=== PATIENT | female | born 1940 | race Caucasian/White ===

== ENCOUNTER → 2017-03-27 14:10 | Outpatient (CLI) | payer MEDICARE, SELFPAY ==
--- NOTE | 2017-03-27 14:14 | HPBI_ITS ---
MAMMOGRAPHY - BILATERAL SCREENING REASON FOR EXAM: Female, 76 years old. Routine annual screening examination. PERTINENT HISTORY: Sister with breast cancer. TECHNIQUE: Digital bilateral breast divine (3D mammographic acquisition) in the CC and MLO projections. 2-D mediolateral oblique (MLO) and craniocaudad (CC) views of both breasts were obtained. CAD: Full Field Digital Mammography with Computer Added Detection was performed. COMPARISON: Comparison is made with prior study dated March 09, 2016 and September 10, 2014. FINDINGS: Breast Composition: There are scattered areas of fibroglandular density. There are no dominant masses or suspicious calcifications. Stable benign appearing bilateral axillary lymph nodes. No other significant abnormalities are identified. There has been no significant change since the prior study. HPBI/SCREENING MAMM (CAD), BILAT IMPRESSION: Stable bilateral screening mammogram. Yearly follow-up mammogram recommended. (A) ASSESSMENT CATEGORY: BIRADS Category 2: Benign. A letter regarding these results will be sent to the patient by the facility within 30 days. Approximately 10% of breast cancers are not detected by mammography. A normal mammogram should not delay biopsy of a clinically suspicious abnormality. [id number] Electronically Signed: Tito Leach MD at 9:39 EST Tel [phone], Service support ,
== END ==
PROVIDERS: Family Provider Family Medicine; PCP Family Medicine; Visit Provider Family Medicine
DX: Z12.31 Encounter for screening mammogram for malignant neoplasm of breast (principal)
CPT/HCPCS: 77063; 77067

== ENCOUNTER → 2017-06-06 11:13 | Outpatient (CLI) | payer MEDICARE, SELFPAY ==
--- NOTE | 2017-06-06 11:18 | RAD_ITS ---
STUDY: X-RAY - LEFT FOOT CLINICAL: Female, 77 years old. Swelling of the left foot following injury. TECHNIQUE: 3 view(s) of the foot. COMPARISON: None. FINDINGS: There is a plantar calcaneal spur. Normal visualized subtalar, talonavicular, calcaneocuboid, tarsal and tarsometatarsal articulations. 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 There is degenerative arthrosis of the metatarsophalangeal joint of the hallux . Normal tibial and fibular sesamoid bones. Normal interphalangeal joint of the great toe. Normal phalanges of the great toe. Normal second through fifth metatarsophalangeal joints. Normal interphalangeal joints and phalanges of the lesser toes. Diffuse soft tissue swelling worse along the dorsal aspect of the foot. RAD/Foot min 3 Views IMPRESSION: Diffuse soft tissue swelling. No acute fracture is seen. Electronically Signed: Tito Leach MD at 11:53 EDT Tel [phone], Service support ,
== END ==
PROVIDERS: Family Provider Family Medicine; PCP Family Medicine; Visit Provider Family Medicine
DX: M25.475 Effusion, left foot (principal)
CPT/HCPCS: 73630

== ENCOUNTER → 2017-07-17 09:59 | Outpatient (CLI) | payer MEDICARE, SELFPAY ==
[2017-07-17 12:45] LABS: Hemoglobin A1c 8.5 % (4.2-6.3)
[2017-07-17 12:58] LABS: AST(SGOT) 14 U/L (15-37); Alanine Aminotransfer ALT/SGPT 18 U/L (13-56); Albumin, Serum 3.3 g/dL (3.2-5.0); Alkaline Phosphatase 65 U/L (45-117); Anion Gap 10 (5-15); BUN 19 mg/dL (7-18); BUN/Creat Ratio 19.8 RATIO (10-20); Bilirubin, Direct < 0.05 mg/dL (0.00-0.30); Calcium,Total 8.7 mg/dL (8.5-10.1); Chloride 110 mmol/L (98-107); Cholesterol 212 mg/dL (200); Creatinine, Serum 0.96 mg/dL (0.55-1.02); EST Glomerular Filtration Rate 60 mL/min (>60); Est Glom Filt Rate - Afr Amer 73 mL/min (>60); Globulin 3.9 g/dL (2.2-4.2); Glucose 181 mg/dL (74-106); High Density Lipoprotein 39 mg/dL; Potassium 4.1 mmol/L (3.5-5.1); Protein, Total 7.2 g/dL (6.4-8.2); Sodium Level 141 mmol/L (136-145); Triglycerides 509 mg/dL
== END ==
PROVIDERS: Family Provider Family Medicine; PCP Family Medicine; Visit Provider Family Medicine
DX: E11.9 Type 2 diabetes mellitus without complications (principal)
CPT/HCPCS: 36415; 80048; 80061; 80076; 83036

== ENCOUNTER → 2018-05-05 07:04 | Outpatient (CLI) | payer MEDICARE, SELFPAY ==
--- NOTE | 2018-05-05 07:09 | BI_ITS ---
MAMMOGRAPHY - BILATERAL SCREENING REASON FOR EXAM: Female, 78 years old. Routine annual screening examination. PERTINENT HISTORY: Sister with breast cancer. TECHNIQUE: Digital bilateral breast divine (3D mammographic acquisition) in the CC and MLO projections. 2-D mediolateral oblique (MLO) and craniocaudad (CC) views of both breasts were obtained. CAD: Full Field Digital Mammography with Computer Added Detection was performed. COMPARISON: Comparison is made with prior study dated March 27, 2017 and March 09, 2016. FINDINGS: Breast Composition: There are scattered areas of fibroglandular density. There are no dominant masses or suspicious calcifications. Stable benign-appearing bilateral axillary lymph nodes. No other significant abnormalities are identified. There has been no significant change since the prior study. BI/SCREENING MAMM (CAD), BILAT IMPRESSION: Stable bilateral screening mammogram. Yearly follow-up mammogram recommended. (A) ASSESSMENT CATEGORY: BIRADS Category 2: Benign. A letter regarding these results will be sent to the patient by the facility within 30 days. Approximately 10% of breast cancers are not detected by mammography. A normal mammogram should not delay biopsy of a clinically suspicious abnormality. [id number] Electronically Signed: Tito Leach, at 11:07 EDT , Service support ,
== END ==
PROVIDERS: Family Provider Family Medicine; PCP Family Medicine; Referring Provider Family Medicine; Visit Provider Family Medicine
DX: Z12.31 Encounter for screening mammogram for malignant neoplasm of breast (principal)
CPT/HCPCS: 77063; 77067

== ENCOUNTER → 2018-08-05 12:26 | Outpatient (CLI) | payer MEDICARE, SELFPAY ==
[2018-08-05 15:27] LABS: Absolute Lymphocyte Count 2.87 X10^3/ul (0.83-4.51); Absolute Neutrophil Count 7.1 X10^3/uL (2.0-7.7); Basophil# 0.03 X10^3/uL; Basophil% 0.3 % (0-1); Eosinophil# 0.26 X10^3/uL; Eosinophils% 2.3 % (0-5); Hematocrit 39.5 % (37-47); Hemoglobin 12.7 g/dl (12.0-15.0); Lymphocyte # 2.87 X10^3/ul (4.0); Lymphocyte % 25.8 % (19-41); Mean Corp Hgb Conc 32.2 g/gl (32-36); Mean Corpuscular Hgb 31.2 pg (27.0-32.0); Mean Corpuscular Volume 97.1 fL (81-99); Mean Platelet Vol. 11.6 fl (6.2-12.0); Monocyte# 0.88 X10^3/uL; Monocyte% 7.9 % (0-10); Neutrophil # 7.05 X10^3/uL (2.7-7.7); Neutrophil % 63.4 % (47-70); Platelet Count 231 K/mm3 (150-450); RBC Distribution Width CV 13.8 % (11.6-14.6); RBC Distribution Width SD 47.6 fl (35.1-43.9); Red Blood Count 4.07 M/mm3 (4.2-5.4); White Blood Count 11.1 K/mm3 (4.4-11.0)
[2018-08-05 15:34] LABS: POSITIVE COUNT NO; POSITIVE DIFFERENTIAL NO; POSITIVE MORPHOLOGY NO
[2018-08-05 15:57] LABS: AST(SGOT) 10 U/L (15-37); Alanine Aminotransfer ALT/SGPT 20 U/L (13-56); Albumin, Serum 3.6 g/dL (3.2-5.0); Alkaline Phosphatase 78 U/L (45-117); Anion Gap 8 (5-15); BUN 22 mg/dL (7-18); Chloride 112 mmol/L (98-107); Creatinine, Serum 1.05 mg/dL (0.55-1.02); EST Glomerular Filtration Rate 54 mL/min (>60); Est Glom Filt Rate - Afr Amer 66 mL/min (>60); Globulin 3.5 g/dL (2.2-4.2); Glucose 109 mg/dL (74-106); Potassium 4.4 mmol/L (3.5-5.1); Protein, Total 7.1 g/dL (6.4-8.2); Sodium Level 140 mmol/L (136-145); Thyroid Stim Hormone (TSH) 2.69 uIU/mL (0.358-3.74)
== END ==
PROVIDERS: Family Provider Family Medicine; PCP Family Medicine; Referring Provider Family Medicine; Visit Provider Family Medicine
DX: F32.9 Major depressive disorder, single episode, unspecified (principal)
CPT/HCPCS: 36415; 80053; 83036; 84443; 85025

== ENCOUNTER → 2018-12-24 09:32 | Outpatient (CLI) | payer MEDICARE, SELFPAY ==
--- NOTE | 2018-12-24 09:38 | RAD_ITS ---
STUDY: X-RAY - LEFT ANKLE REASON FOR EXAM: Female, 78 years old. Pain following a fall. TECHNIQUE: 3 view(s) of the ankle. COMPARISON: None. FINDINGS: Normal visualized distal tibia and fibula. Normal medial and lateral malleoli. Normal tibiotalar articulation and ankle mortise. Plantar spur. The visualized subtalar, talonavicular, calcaneocuboid and tarsal articulations are normal. Diffuse soft tissue swelling. RAD/Ankle min 3 Views IMPRESSION: Diffuse soft tissue swelling. Plantar spur. Electronically Signed: Tito Leach, at 10:21 EDT , Service support ,
--- NOTE | 2018-12-24 09:38 | RAD_ITS ---
STUDY: X-RAY - LEFT FOOT CLINICAL: Female, 78 years old. Swelling and bruising following a fall. TECHNIQUE: 3 view(s) of the foot. COMPARISON: None. FINDINGS: There is a plantar calcaneal spur. Normal visualized subtalar, talonavicular, calcaneocuboid, tarsal and tarsometatarsal articulations. Nondisplaced oblique fracture of the distal shaft of the fifth metatarsal. There is degenerative arthrosis of the metatarsophalangeal joint of the hallux with a hallux valgus deformity. Normal tibial and fibular sesamoid bones. Normal interphalangeal joint of the great toe. Normal phalanges of the great toe. Normal second through fifth metatarsophalangeal joints. Normal interphalangeal joints and phalanges of the lesser toes. There is non-specific soft tissue swelling of the foot. RAD/Foot min 3 Views IMPRESSION: Nondisplaced oblique fracture of the distal shaft of the fifth metatarsal with overlying soft tissue swelling. Plantar spur. Electronically Signed: Tito Leach, at 10:21 EDT , Service support ,
== END ==
PROVIDERS: Family Provider Family Medicine; PCP Family Medicine; Referring Provider Family Medicine; Visit Provider Family Medicine
DX: S93.409A Sprain of unspecified ligament of unspecified ankle, initial encounter (principal); M79.672 Pain in left foot
CPT/HCPCS: 73610; 73630

== ENCOUNTER → 2019-01-09 12:45 | Outpatient (CLI) | payer MEDICARE, SELFPAY ==
--- NOTE | 2019-01-09 12:50 | CT_ITS ---
STUDY: CT LEFT FOOT REASON FOR EXAM: Female, 78 years old. Fall onto steps at the end of November, pain RADIATION DOSAGE (If Supplied By Facility): CTDIvol = ( 15.35 ) mGy, DLP = ( 430.52 ) mGycm TECHNIQUE: Thin section transaxial imaging of the foot was obtained, with sagittal and coronal reconstructed images. Individualized dose optimization techniques were used for this CT. COMPARISON: 12/24/2018 FINDINGS: Normal talus, calcaneus, and tarsal bones. Normal visualized tibiotalar, subtalar, talonavicular, calcaneocuboid, tarsal and tarsometatarsal articulations. Redemonstration of obliquely oriented distal third metatarsal fracture without significant dense bridging bone. There is minimal fluffy early bridging bone along the medial aspect (CT image 66). There continues to be mild displacement measuring approximately 3 mm. No additional fractures seen. Degenerative changes with hallux valgus and small bunion of the first MTP joint. Mild arthrosis of the tibial and fibular sesamoid bones. Normal interphalangeal joint of the great toe. Normal phalanges of the great toe. Normal second through fifth metatarsophalangeal joints. Normal interphalangeal joints and phalanges of the lesser toes. The soft tissue structures are unremarkable. CT/Extremity Lower without Contra IMPRESSION: Very early healing of fifth metatarsal fracture. No change in alignment. Electronically Signed: Ramirez Montes MD ([place]) at 12:44 EST , Service support ,
--- NOTE | 2019-01-09 13:10 | ART_ITS ---
Reason For Study: other specified vascular diseases Procedure A bilateral lower extremity continuous wave Doppler with analog waveform analysis,segmental pressures,and ankle brachial indexes without exercise. Left Segmental Pressures Left brachial= 145mmHg. Left posterior tibial artery = 155mmHg. Left dorsalis pedis artery = 145mmHg. Left digit = 109 mmHg. The left dorsalis pedis waveforms are triphasic. The left posterior tibial artery waveforms are triphasic. Right Segmental Pressures Right brachial= 142mmHg. Right posterior tibial artery = 151mmHg. Right dorsalis pedis artery = 139mmHg. Right digit = 108 mmHg. The right dorsalis pedis waveforms are triphasic. The right posterior tibial artery waveforms are triphasic. Indices The right ankle brachial index by the dorsalis pedis is .96. The right ankle brachial index by the posterior tibial artery is 1.04. The right digital-brachial index is .74. The left ankle brachial index by the dorsalis pedis is 1.0. The left ankle brachial index by the posterior tibial artery is 1.07. The left digital-brachial index is .75. Interpretation Summary Triphasic Doppler waveforms are noted at ankle level bilaterally. Pulse-volume recording waveform amplitudes are diminished at ankle and digital levels on the left. Resting ankle-brachial indices are normal bilaterally. Digital-brachial indices are normal bilaterally. There is no evidence of significant arterial occlusive disease in the lower extremities bilaterally. Ordering Physician: Jean Bowman Performed By: ALMA RIVERA T
== END ==
PROVIDERS: Family Provider Family Medicine; PCP Family Medicine; Referring Provider Podiatrist Foot & Ankle Surgery; Visit Provider Podiatrist Foot & Ankle Surgery
DX: I73.89 Other specified peripheral vascular diseases (principal); I87.2 Venous insufficiency (chronic) (peripheral); S92.352A Displaced fracture of fifth metatarsal bone, left foot, initial encounter for closed fracture
CPT/HCPCS: 73700; 93923

== ENCOUNTER 2019-01-13 10:49 | Day surgery (SDC) | payer MEDICARE, SELFPAY ==
--- NOTE | 2019-01-01 10:06 | RAD_ITS ---
STUDY: X-RAY CHEST REASON FOR EXAM: Female, 78 years old. Preoperative evaluation. TECHNIQUE: PA and lateral views of the chest. COMPARISON: None. FINDINGS: Scattered calcified granulomas. There is no demonstrated pleural abnormality. Normal size heart. There are calcified mediastinal lymph nodes. Normal visualized pulmonary arteries. There is atherosclerotic tortuosity of the aortic arch and descending thoracic aorta. There are diffuse degenerative changes of the visualized thoracic spine. Normal visualized ribs, clavicles, and shoulders. There is no demonstrated abnormality of the visualized soft tissue structures of the upper abdomen. RAD/Chest PA and Lateral IMPRESSION: No acute abnormality is seen. Electronically Signed: Tito Leach, at 11:24 EST , Service support ,
--- NOTE | 2019-01-01 10:09 | EKG12_ITS ---
Test Reason : PREOP Blood Pressure : / mmHG Vent. Rate : 077 BPM Atrial Rate : 077 BPM P-R Int : 134 ms QRS Dur : 080 ms QT Int : 382 ms P-R-T Axes : 023 011 063 degrees QTc Int : 432 ms Normal sinus rhythm Normal ECG Confirmed by KEITH BAUMAN, YASMINE ([id number]), film or videotape editor LOAN HAN ([id number]) on 01/06/2019 2:50:03 PM Referred By: Jean Bowman Confirmed By:YASMINE PARKER MD
[2019-01-01 10:31] LABS: Absolute Lymphocyte Count 2.47 X10^3/uL (0.83-4.51); Absolute Neutrophil Count 5.6 X10^3/uL (2.0-7.7); Basophil# 0.05 X10^3/uL; Basophil% 0.5 % (0-1); Eosinophil# 0.45 X10^3/uL; Eosinophils% 4.8 % (0-5); Hematocrit 34.1 % (37-47); Hemoglobin 10.6 g/dL (12.0-15.0); Lymphocyte # 2.47 X10^3/ul (4.0); Lymphocyte % 26.4 % (19-41); Mean Corp Hgb Conc 31.1 g/dL (32-36); Mean Corpuscular Hgb 31.8 pg (27.0-32.0); Mean Corpuscular Volume 102.4 fL (81-99); Mean Platelet Vol. 10.2 fl (6.2-12.0); Monocyte# 0.76 X10^3/uL; Monocyte% 8.1 % (0-10); NRBC Flagged by Analyzer 0 % (0-5); Neutrophil # 5.61 X10^3/uL (2.7-7.7); Neutrophil % 59.9 % (47-70); Platelet Count 267 K/mm3 (150-450); RBC Distribution Width CV 12.8 % (11.6-14.6); RBC Distribution Width SD 48.4 fl (35.1-43.9); Red Blood Count 3.33 M/mm3 (4.2-5.4); White Blood Count 9.4 K/mm3 (4.4-11.0)
[2019-01-01 11:00] LABS: Anion Gap 12 (5-15); BUN 19 mg/dL (7-18); BUN/Creat Ratio 17.6 RATIO (10-20); Calcium,Total 8.8 mg/dL (8.5-10.1); Chloride 110 mmol/L (98-107); Creatinine, Serum 1.08 mg/dL (0.55-1.02); EST Glomerular Filtration Rate 52 mL/min (>60); Est Glom Filt Rate - Afr Amer 63 mL/min (>60); Glucose 153 mg/dL (74-106); Potassium 3.6 mmol/L (3.5-5.1); Sodium Level 143 mmol/L (136-145)
[2019-01-01 11:04] LABS: International Normalized Ratio 1.1; Partial Thromboplast Time 30.2 Seconds (24.1-36.2); Prothrombin Time (Protime)PT. 13.8 SECONDS (11.7-14.9)
[2019-01-01 11:06] LABS: Hemoglobin A1c 7.8 % (4.2-6.3)
[2019-01-13 11:25] LABS: Bedside Glucose 151 mg/dL (70-110)
[2019-01-13 11:34] VITALS: BP 132/58; PULSE 80; RESP 15; TEMP 36.8; O2SAT 99; BMI 35.6
[2019-01-13] MEDS: Lactated Ringers 1,000 ML 100 ML IV (11:44)
--- NOTE | 2019-01-13 12:30 | RAD_ITS ---
STUDY: X-RAY - LEFT FOOT CLINICAL: Female, 78 years old. ORIF TECHNIQUE: 17 intraoperative fluoroscopic view(s) of the foot. COMPARISON: None. FINDINGS: Fluoroscopy was provided during open reduction and internal fixation of the left fifth metatarsal. Correlation with the operative report is recommended. RAD/Foot min 3 Views IMPRESSION: As above Electronically Signed: Juan Carlos Perry, at 14:54 EST Tel , Service support ,
[2019-01-13] MEDS: Cefazolin 2 GM in 0.9% Normal Saline 100 ML IV (12:32)
[2019-01-13] MEDS: Bupivacaine Mpf 0.5% 30 ML VIAL (13:00)
[2019-01-13 14:28] VITALS: BP 132/58; BP 160/75; PULSE 93; RESP 17; TEMP 36.9
--- NOTE | 2019-01-13 14:44 | RAD_ITS ---
STUDY: X-RAY - LEFT FOOT CLINICAL: Female, 78 years old. Postop fifth metatarsal TECHNIQUE: 3 view(s) of the foot. COMPARISON: 12/24/2018 FINDINGS: There are postsurgical changes from open reduction and internal fixation of the left fifth metatarsal. The hardware is intact and alignment is satisfactory. There is no new fracture or dislocation. RAD/Foot min 3 Views IMPRESSION: Postsurgical changes from open reduction and internal fixation of the left fifth metatarsal. Electronically Signed: Juan Carlos Perry, at 15:33 EST Tel , Service support ,
[2019-01-13 14:45] VITALS: BP 132/58; BP 154/70; PULSE 83; RESP 14; O2SAT 92
[2019-01-13 15:00] VITALS: BP 132/58; BP 151/76; PULSE 79; RESP 14; TEMP 36.1; O2SAT 100
[2019-01-13 15:30] VITALS: BP 132/58
--- NOTE | 2019-01-13 17:20 | OP.PCM_ITS ---
Problem List (1) Displaced fracture of fifth metatarsal bone, left foot, initial encounter for closed fracture Status: Acute Report of Operation Date of Procedure: 01/13/19 Pre-Operative Diagnosis: Left foot fifth metatarsal fracture, displaced, closed Post-Operative Diagnosis: Left foot fifth metatarsal fracture, displaced, closed Surgery/Procedure Performed:: Left foot fifth metatarsal fracture open reduction with internal fixation Description of Surgical Findings:: Consistent with diagnosis. Reduction of deformity achieved and held with internal fixation. Type of Anesthesia:: General/Regional - General with a lateral ankle block given consisting of 17 cc of 0.5 % Marcaine plain distributed lateral ankle block and fifth ray block fashion Anesthesiologist: Tony Richard Special Medications: 17 cc of 0.5 % Marcaine plain distributed in a lateral ankle block fashion. Specimen's removed: None Drains: None Estimated Blood Loss (mL): Less than Description of Procedure: Pathology: None Hemostasis: Pneumatic calf tourniquet placed at the level of the left calf at 250 mmHg for 60 minutes Estimated blood loss: Less than 5 mL Materials 1.) Cashton 4 hole metatarsal plates 2.) Lorraine 2.5 x 10 mm nonlo cking screwx2. 3.) Lorraine 2.4x10mm locking screw 4.) Cashton 2.4x8mm locking screw 5.) 3-0 vicryl 6.) 4-0 monocryl 7.) 3-0 nylon Injectables: None Complications: None Condition: Stable Indications: The patient is a 78-year-old female with multiple core morbidities who suffered a slip and fall going up the stairs at her home on December 22. The next day she was unable to bear weight onto her left foot and followed up with her primary care doctor. At that time x-rays were taken and patient was told that she had a metatarsal fracture. She was then sent for follow-up. Patient then presented to my office on December 30 for follow-up. Multiple discussions were had with the patient about her activities of daily living. 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 Conservative and surgical interventions were discussed with the patient. Patient decided upon surgical intervention. At that time, I ordered a CT scan to evaluate for any further fractures along with a vascular arterial flow study due to her nonpalpable pulses. Furthermore patient was sent for medical clearance by her primary care doctor. Blood flow study came back normal and the CT scan showed only the one fracture that was identified on x-ray. Operative Report: Before the patient was brought to the operating room, all the risks, benefits, possible outcomes, possible complications of the procedure were discussed with the patient. All the patient questions were answered to her satisfaction and all of her concerns were addressed. No guarantees were made as to the outcome of the procedure. Patient understood all aspects of the procedure and consent was then signed by the patient. Patient was then brought to the operating room and placed on the operating table in the supine position. After timeout, under general anesthesia, a well-padded pneumatic calf tourniquet was placed to the level of the left calf. Next the left foot, ankle, leg were then scrubbed, prepped, draped in the usual sterile manner. Attention was then directed to the dorsal lateral aspect of the left foot near the fifth metatarsal. At this time live radiographic evaluation was used to determine the length of the fracture. The fracture was identified to start at the midshaft of the fifth metatarsal extending distally to the metatarsal head. These areas were then marked on the patient. At this time the left foot ankle leg were then elevated and exsanguinated via Esmarch and inflation of the pneumatic calf tourniquet was performed to 250 mmHg. Attention was then directed to the markings on the dorsal lateral aspect of the left fifth metatarsal. At this time a #15 blade was used to perform a linear longitudinal incision starting on the dorsal lateral aspect of the midshaft of the fifth metatarsal extending distally to the dorsal lateral aspect of the fifth metatarsal head. This incision was deepened utilizing sharp and blunt dissection. Care was taken to retract all vital neural and vascular structures. All bleeders were cauterized and ligated as necessary. At this time blunt dissection was continued down deep to the level of the periosteum. At this time a linear periosteal incision was made in line with the original skin incision. The periosteal capsular structures were then reflected medially and laterally thus exposing the fifth metatarsal and the fracture at the operative site. At this time temporary reduction of the fracture was performed via clamps. Radiographic evaluation was then performed and the temporary reduction clamps were noted to hold the fifth metatarsal in the correct the reduced position. At this time 2 K wires were driven in a dorsal medial to plantar lateral aspect to the fifth metatarsal as perpendicular to the fracture site as possible. Radiographic evaluation was then performed to determine the exact length and positioning of the K wires. Once adequate position was performed, these K wires were then measured. At this time to 2 Cashton 2.5 nonlocking screws were placed over the K wires and inserted in standard AO fixation. Of note during insertion of the screws with adequate compression of the fracture fragments. Furthermore no shifting of any of the fragments occurred during insertion of the screws. Once the screws were fully inserted the K wires and bone clamps were then removed. Radiographic evaluation was then performed and the interfragmentary screws were noted to hold the fifth metatarsal in the correct the reduced position. At this time the Cashton 4 hole plate was placed over the dorsal lateral aspect of the fifth metatarsal to aid in the protection of the internal fixation. These were then held utilizing locking screws. Radiographic evaluation was then performed during insertion of the screws to make sure the screws were neither too long or too short. Once all screws were fully inserted, radiograph evaluations were performed once again. The internal fixation was noted to hold the fifth metatarsal and the corrected reduced position. At this time the surgical site was then irrigated with copious amounts of normal sterile saline. The periosteal capsular structures were reapproximated coapted utilizing 3-0 Vicryl. The subcutaneous tissue was reapproximated coapted utilizing 4-0 Monocryl. The skin was reapproximated coapted utilizing 3-0 nylon in a horizontal mattress and simple interrupted fashion. At this time the pneumatic calf tourniquet was then released and a prompt hyperemic response was noted to the entirety of the left lower extremity. The surgical site was then dressed with Betadine soaked gauze, and a dry sterile dressing consisting of 4 x 4 gauze wrapped with Kerlix. Next a stockinette was placed over the left foot, ankle and leg. Cast padding was wrapped in the metatarsal heads extending proximally to a level just distal to the tibial tuberosity. A posterior splint was fashioned to the left lower extremity and was adhered to the left lower extremity utilizing Delmer bandages. The foot and ankle held in neutral position as the posterior splint dried. The patient tolerated the anesthesia procedure well and was transported to the PACU with vital signs stable and neurovascular status intact left lower extremity. After period of postoperative monitoring the patient be discharged home with written and oral instructions for wound care and follow-up. - Admit VTE Documentation VTE Present on Admission: No
== END 2019-01-13 15:53 | disposition home or self-care (01) ==
LOC: SDC 10:50 → AC 10:53
PROVIDERS: Family Provider Family Medicine; PCP Family Medicine; Referring Provider Podiatrist Foot & Ankle Surgery; Visit Provider Podiatrist Foot & Ankle Surgery
PROC: (CPT 28485; principal; 2019-01-13 12:15)
DX: S92.352A Displaced fracture of fifth metatarsal bone, left foot, initial encounter for closed fracture (principal); W10.9XXA Fall (on) (from) unspecified stairs and steps, initial encounter; I10 Essential (primary) hypertension; E11.9 Type 2 diabetes mellitus without complications; E78.00 Pure hypercholesterolemia, unspecified; Z87.891 Personal history of nicotine dependence; E66.9 Obesity, unspecified; Z68.39 Body mass index [BMI] 39.0-39.9, adult; R60.9 Edema, unspecified
CPT/HCPCS: 28485; 36415; 71046; 73630; 76000; 80048; 82962; 83036; 85025; 85610; 85730; 93005; C1713; J7120; J2405

== ENCOUNTER → 2019-09-02 09:09 | Outpatient (CLI) | payer MEDICARE, SELFPAY ==
[2019-09-02 09:14] LABS: Mucous, Urine 0 SEEN /hpf (<or=2+)
[2019-09-02 10:29] LABS: Color, Urine Yellow (Yellow); Glucose, Dipstick Normal (Normal); Ketone-Dipstick Negative (Negative); Leukocyte Esterase-Dipstick 500 /ul (Negative); Nitrite-Dipstick Positive (Negative); Occult Blood-Urine 25 /ul (Negative); Protein-Dipstick 15 mg/dl (Negative); Specific Gravity, Urine 1.015 (1.002-1.030); Urine Bilirubin Dipstick Negative (Negative); Urine Clarity Sl. Cloudy (Clear); Urine Urobilinogen Normal (Normal)
[2019-09-02 10:34] LABS: Bacteria 2+ /hpf (None Seen); Red Blood Cells-Urine 0-5 SEEN /hpf (0-5); Squamous Epithelial Cells - UA 0-5 SEEN /hpf (5-10); White Blood Cells 25-50 SEEN /hpf (0-5)
== END ==
PROVIDERS: PCP Family Medicine; Visit Provider Family Medicine
DX: R32 Unspecified urinary incontinence (principal)
CPT/HCPCS: 81001

== ENCOUNTER → 2019-09-25 09:25 | Outpatient (CLI) | payer MEDICARE, SELFPAY | PROVIDERS: PCP Family Medicine; Referring Provider Family Medicine; Visit Provider Family Medicine | DX: R32 Unspecified urinary incontinence (principal) | CPT/HCPCS: 87086; 87088 ==

== ENCOUNTER 2020-01-02 09:18 | Emergency (ER) | payer MEDICARE, SELFPAY ==
[2020-01-02] VITALS (14 sets, daily range): BP systolic 72–224; BP diastolic 29–89; PULSE 94–147; RESP 12–44; TEMP 37–37.9; O2SAT 92–98; BMI 35.2
--- NOTE | 2020-01-02 09:25 | RAD_ITS ---
STUDY: X-RAY CHEST REASON FOR EXAM: Female, 79 years old. increased weakness, fever, low blood pressure TECHNIQUE: Single AP portable view of the chest. COMPARISON: 01/01/2019 FINDINGS: The lungs are clear and expanded. There is no demonstrated pleural abnormality. Normal size heart. Normal mediastinum and laura. Normal visualized pulmonary arteries. Normal visualized aortic arch and descending thoracic aorta. Normal visualized thoracic spine. Normal visualized ribs, clavicles, and shoulders. There is no demonstrated abnormality of the visualized soft tissue structures of the upper abdomen. RAD/Chest 1 View (Portable) IMPRESSION: Normal x-ray examination of the chest. Electronically Signed: Chris Conley MD at 10:37 EST Tel , Service support ,
--- NOTE | 2020-01-02 09:25 | EKG12_ITS ---
Test Reason : WEAKNESS Blood Pressure : / mmHG Vent. Rate : 113 BPM Atrial Rate : 113 BPM P-R Int : 148 ms QRS Dur : 076 ms QT Int : 364 ms P-R-T Axes : 036 006 049 degrees QTc Int : 499 ms Sinus tachycardia Possible Inferior infarct , age undetermined Abnormal ECG Confirmed by FRAN BAUMAN, BRANDON ([id number]), script editor LOAN HAN ([id number]) on 01/04/2020 2:19:01 PM Referred By: BB Confirmed By:BRANDON PETERS MD
--- NOTE | 2020-01-02 09:29 | CT_ITS ---
STUDY: CT BRAIN WITHOUT CONTRAST REASON FOR EXAM: Female, 79 years old. INCREASED WEAKNESS, FEVER RADIATION DOSAGE (If Supplied By Facility): CTDIvol = ( 44.99 ) mGy, DLP = ( 745.49 ) mGycm TECHNIQUE: Transaxial CT imaging of the brain was performed without administration of intravenous contrast material. Individualized dose optimization techniques were used for this CT. COMPARISON: No relevant priors. FINDINGS: Normal soft tissue structures. There is hyperostosis frontalis internus. There is mild cerebral atrophy with widening of the extra-axial spaces and ventricular dilatation. There are areas of decreased attenuation within the white matter tracts of the supratentorial brain, consistent with microvascular disease changes. Normal basal ganglia and thalami. Normal brainstem. Normal cerebellum. There is no intracranial hemorrhage. There are no findings of an acute ischemic infarction. Normal visualized paranasal sinuses. CT/Brain/Head without Contrast IMPRESSION: Chronic involutional changes of the brain. Electronically Signed: Chris Conley MD at 10:36 EST Tel , Service support ,
--- NOTE | 2020-01-02 09:29 | ED.DCSUM_ITS ---
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 disoriented. no other focal sx. Narrative: Patient was with her , who called for a possible stroke. She was disoriented upon EMS arrival but hypotensive and febrile with no focal neurologic deficits. Patient states the last time she got really sick like this, she ended up having kidney stones bilateral that were surgically removed. She does not have any pain in her abdomen or back at this time, nor she has she had any urinary symptoms. She had a bout of diarrhea yesterday, and other than the disorientation has no other symptoms focally except for feeling weak all over. Patient presents during the national coronavirus emergency declaration/pandemic. She denies any known contact with anyone infected with COVID-19, or being infected with COVID-19 that she knows of. She denies traveling out of the immediate area recently. - Past Medical History (1) Type 2 diabetes mellitus Status: Chronic (2) Hypertension Status: Chronic (3) Hyperlipidemia Status: Chronic Past Medical History - Allergies and Home Meds Allergies/Adverse Reactions: Allergies No Known Allergies Allergy (Verified 01/02/20 11:05) Primary Care Physician: Lorelei Herrera MD [Primary Care Provider] - Lives: Spouse/ Significant Other Smoking Status: Former smoker Review of Systems General: Reports: Malaise. Denies: Chills, Fever - Subjectively patient denies feeling febrile, Sweats Eyes: Denies: Visual changes - bilaterally, Diplopia ENT: Denies: Rhinorrhea, Sore throat Cardiovascular: Denies: Chest pain, Palpitations Respiratory: Denies: Dyspnea, Cough, Dyspnea on exertion Gastrointestinal: Reports: Diarrhea. Denies: Abdominal pain, Nausea, Vomiting, Melena, Hematochezia Genitourinary: Denies: Dysuria, Hematuria, Frequency Musculoskeletal: Denies: Myalgias, Back pain, Swelling, Extremity Pain Skin: Denies: Rash, Wounds Neurological: Denies: Headache, Weakness, Numbness Physical Exam Vital Signs/Narrative: Vital Signs Temp Pulse Resp BP Pulse Ox 01/02/20 09:27 100.1 F H 119 H 40 H 72/29 L 94 01/02/20 09:20 100.1 F H 122 H 25 H 72/29 L 94 Inital Vital Signs reviewed: Yes General: Well nourished, Well developed, Obese, No Acute Distress Head: Normocephalic, Atraumatic Eyes: Perrl, EOMI ENT: Moist mucous membranes, No rhinorrhea Neck: Supple, Nontender, No lymphadenopathy Cardiovascular: Regular rate, Regular rhythm, No murmurs, Tachycardia Respiratory: No distress, CTA bilaterally, Chest nontender Abdomen: Soft, Nontender, Nondistended, Normal bowel sounds Back: Nontender, Normal Inspection Extremities: Nontender, No edema. Negative for: Calf Tenderness Skin: Normal color, No rash, No Trauma Neurological: Alert, Cranial nerves II-XII grossly intact, Normal Strength, Normal Sensation, Disoriented - 2-year but oriented to the month and day and person/place Psychological: Normal affect, Normal Mood Diagnostic/Tx/Re-eval Impressions Chest X-Ray 01/02/20 09:25 IMPRESSION: Normal x-ray examination of the chest. Electronically Signed: Chris Conley MD at 10:37 EST Tel , Service support , Brain CT 01/02/20 09:29 IMPRESSION: Chronic involutional changes of the brain. Electronically Signed: Chris Conley MD at 10:36 EST Tel , Service support , Abdomen/Pelvis CT 01/02/20 10:23 IMPRESSION: 8 mm obstructing stone at the left ureteropelvic junction with moderate hydronephrosis and perinephric edema. Perinephric edema surrounding both kidneys which may represent superimposed pyelonephritis. Electronically Signed: Chris Conley MD at 10:52 EST Tel , Service support , 01/02/20 09:25 Chest 1 View (Portable) [RAD] Stat 01/02/20 09:29 CT Brain [Brain/Head without Contrast] [CT] Stat 01/02/20 10:23 CT Abd [Abdomen/Pelvis without Cont] [CT] Stat 01/02/20 15:24 Chest 1 View (Portable) [RAD] Stat Laboratory Results 01/02/20 01/02/20 01/02/20 09:30 09:30 09:30 WBC 32.0 H* RBC 4.23 Hgb 13.2 Hct 42.4 MCV 100.2 H MCH 31.2 MCHC 31.1 L RDW Std Deviation 48.7 H RDW Coeff of Дмитрий 13.2 Plt Count 190 MPV 11.2 Immature Gran % (Auto) 2.400 H Neut % (Auto) 93.4 H Lymph % (Auto) 2.2 L Laporte % (Auto) 1.7 Eos % (Auto) 0.1 Baso % (Auto) 0.2 Absolute Neuts (auto) 29.8 H Absolute Lymphs (auto) 0.71 L Nucleated RBC % 0.2 Differential Comment SCANNED Diff Path Review June foll PT 15.8 H INR 1.3 APTT 31.1 Sodium 144 Potassium 3.4 L Chloride 112 H Carbon Dioxide 16.0 L Anion Gap 16 H BUN 33 H Creatinine 2.60 H Estim Creat Clear Calc 13.67 Est GFR (MDRD) Af Amer 23 L Est GFR (MDRD) Non-Af 19 L BUN/Creatinine Ratio 12.7 Glucose 255 H Lactic Acid Calcium 8.7 Total Bilirubin 0.30 AST 14 L ALT 12 L Alkaline Phosphatase 88 Troponin I 0.725 H* Total Protein 6.9 Albumin 2.8 L Globulin 4.1 Albumin/Globulin Ratio 0.7 L Urine Color Urine Clarity Urine pH Ur Specific [place] Urine Protein Urine Glucose (UA) Urine Ketones Urine Occult Blood Urine Nitrite Urine Bilirubin Urine Urobilinogen Ur Leukocyte Esterase Urine RBC Urine WBC Ur Squamous Epith Cells Amorphous Sediment Urine Bacteria Urine Mucus COVID-19 (DANTE) 01/02/20 01/02/20 01/02/20 09:30 09:35 09:40 WBC RBC Hgb Hct MCV MCH MCHC RDW Std Deviation RDW Coeff of Дмитрий Plt Count MPV Immature Gran % (Auto) Neut % (Auto) Lymph % (Auto) Laporte % (Auto) Eos % (Auto) Baso % (Auto) Absolute Neuts (auto) Absolute Lymphs (auto) Nucleated RBC % Differential Comment Diff Path Review PT INR APTT Sodium Potassium Chloride Carbon Dioxide Anion Gap BUN Creatinine Estim Creat Clear Calc Est GFR (MDRD) Af Amer Est GFR (MDRD) Non-Af BUN/Creatinine Ratio Glucose Lactic Acid 9.9 H* Calcium Total Bilirubin AST ALT Alkaline Phosphatase Troponin I Total Protein Albumin Globulin Albumin/Globulin Ratio Urine Color Yellow Urine Clarity Cloudy Urine pH 5.0 Ur Specific [place] 1.015 Urine Protein 30 H Urine Glucose (UA) Normal Urine Ketones 5 H Urine Occult Blood 150 H Urine Nitrite Negative Urine Bilirubin Negative Urine Urobilinogen Normal Ur Leukocyte Esterase Negative Urine RBC 0-5 SEEN Urine WBC 0 SEEN Ur Squamous Epith Cells 0 SEEN Amorphous Sediment 1+ Urine Bacteria 3+ Urine Mucus 0 SEEN COVID-19 (DANTE) Not Detected 01/02/20 01/02/20 14:10 14:10 WBC RBC Hgb Hct MCV MCH MCHC RDW Std Deviation RDW Coeff of Дмитрий Plt Count MPV Immature Gran % (Auto) Neut % (Auto) Lymph % (Auto) Lap[place] % (Auto) Eos % (Auto) Baso % (Auto) Absolute Neuts (auto) Absolute Lymphs (auto) Nucleated RBC % Differential Comment Diff Path Review PT INR APTT Sodium Potassium Chloride Carbon Dioxide Anion Gap BUN Creatinine Estim Creat Clear Calc Est GFR (MDRD) Af Amer Est GFR (MDRD) Non-Af BUN/Creatinine Ratio Glucose Lactic Acid 6.8 H* Calcium Total Bilirubin AST ALT Alkaline Phosphatase Troponin I 0.566 H Total Protein Albumin Globulin Albumin/Globulin Ratio Urine Color Urine Clarity Urine pH Ur Specific [place] Urine Protein Urine Glucose (UA) Urine Ketones Urine Occult Blood Urine Nitrite Urine Bilirubin Urine Urobilinogen Ur Leukocyte Esterase Urine RBC Urine WBC Ur Squamous Epith Cells Amorphous Sediment Urine Bacteria Urine Mucus COVID-19 (DANTE) - Rhythm Strip Rhythm Strip: Sinus Tach Rate: 113 Ectopy: None - EKG Initial EKG Interpretation: No Acute Injury Pattern, Sinus Tachycardia - Medical Decision Making Patient's appearance and exam and vital signs are consistent with sepsis. Her work-up is also consistent with that although she does not have an obvious source based on the ancillaries, however since this was the case I performed a CT of the abdomen/pelvis, which again shows an asymptomatic obstructive uropathy with an 8 mm proximal left ureteral stone with associated hydronephrosis, indicating that it is very likely acute, along with bilateral perirenal inflammatory changes suspicious for pyelonephritis. She was given IV Rocephin empirically after cultures were obtained. 30 cc/kg IV fluid bolus was given, he r blood pressures/MAPs slowly increased, we do not have urology coverage this weekend, therefore since the patient may need an urgent/emergent percutaneous nephrostomy, she will require transfer. After discussing with her and the family, they first chose [facility] but they do not have the capacity for this patient at this time due to having no available bed. Therefore I discussed with alondra Downey, and Dr. Marcus accepts the patient there. He request that we place a central line prior to transfer in case they need to start pressors when she arrives. I attempted this at the right subclavian site after obtaining informed consent from the patient and family, however it was unsuccessful and during the procedure, her pressure kobe to 106/70 which is the highest it has been. Since the subclavian artery was hit and not dilated, and the patient has been feeling better, it was thought best to abort and avoid the central line, and I feel she is safe to be transferred emergently at this time. Prior to discharge, repeat tissue perfusion evaluation was performed. Patient is perfusing well with palpable distal pulses, warm distal extremities, with brisk cap refill. She is mentating normally now and no longer disoriented, she is conversing with myself and staff and feeling much better. - Critical Care Time Critical care time (excluding procedures): 30-74 minutes, Including time spent:, Discussing w/Patient &/or Family/Blending Tank Tender, Discussing w/Consultants, Arranging Admission or Transfer, Performing Direct Patient Care at Bedside Procedures Procedure(s): Central line placement --the right subclavian vein site was prepped, patient draped in a sterile fashion, sterile technique was used. Multiple attempts to find the subclavian vein, there is a very narrow window of dark nonpulsatile blood aspiration indicating that the vessel was either very small or very hypovolemic. Upon trying to insert a wire several times, there was resistance and the patient was able to feel this each time, couple times she felt a going up her neck, so each of these times further attempts to feed the wire was aborted until I could reposition the needle. I attempted several different angles and areas, and was unsuccessful, the final time obtaining pulsatile bright red blood, so the needle was withdrawn immediately and pressure was held for 30 seconds, and there was no further bleeding. Chest x-ray obtained afterwards showed no pneumothorax. ED Disposition - Plan for ED Patient: Disposition: [facility] Diagnosis: Septic shock, Obstructive uropathy, KATHRYN (acute kidney injury), Elevated troponin Referrals: Lorelei Herrera MD [Primary Care Provider] -
[2020-01-02] MEDS: 0.9% Normal Saline 1,000 ML 999 ML IV (09:31)
[2020-01-02] MEDS: Acetaminophen 500 MG Tablet 1000 MG PO ×2 (09:44→15:53)
[2020-01-02 09:47] LABS: Absolute Lymphocyte Count 0.71 X10^3/uL (0.83-4.51); Absolute Neutrophil Count 29.8 X10^3/uL (2.0-7.7); Basophil# 0.06 X10^3/uL; Basophil% 0.2 % (0-1); Eosinophil# 0.03 X10^3/uL; Eosinophils% 0.1 % (0-5); Hematocrit 42.4 % (37-47); Hemoglobin 13.2 g/dL (12.0-15.0); Lymphocyte # 0.71 X10^3/ul (4.0); Lymphocyte % 2.2 % (19-41); Mean Corp Hgb Conc 31.1 g/dL (32-36); Mean Corpuscular Hgb 31.2 pg (27.0-32.0); Mean Corpuscular Volume 100.2 fL (81-99); Mean Platelet Vol. 11.2 fl (6.2-12.0); Monocyte# 0.54 X10^3/uL; Monocyte% 1.7 % (0-10); NRBC Flagged by Analyzer 0.2 % (0-5); Neutrophil # 29.83 X10^3/uL (2.7-7.7); Neutrophil % 93.4 % (47-70); POSITIVE COUNT YES; POSITIVE DIFFERENTIAL YES; POSITIVE MORPHOLOGY YES; Platelet Count 190 K/mm3 (150-450); RBC Distribution Width CV 13.2 % (11.6-14.6); RBC Distribution Width SD 48.7 fl (35.1-43.9); Red Blood Count 4.23 M/mm3 (4.2-5.4)
[2020-01-02 09:58] LABS: Differential Indicated SCAN CRITERIA MET
[2020-01-02 10:07] LABS: International Normalized Ratio 1.3; Prothrombin Time (Protime)PT. 15.8 SECONDS (11.7-14.9)
[2020-01-02 10:08] LABS: Partial Thromboplast Time 31.1 Seconds (24.1-36.2)
[2020-01-02 10:13] LABS: ALB/GLOB Ratio 0.7 RATIO (0.9-2.4); AST(SGOT) 14 U/L (15-37); Alanine Aminotransfer ALT/SGPT 12 U/L (13-56); Albumin, Serum 2.8 g/dL (3.2-5.0); Alkaline Phosphatase 88 U/L (45-117); Anion Gap 16 (5-15); BUN 33 mg/dL (7-18); BUN/Creat Ratio 12.7 RATIO (10-20); Calcium,Total 8.7 mg/dL (8.5-10.1); Chloride 112 mmol/L (98-107); EST Glomerular Filtration Rate 19 mL/min (>60); Est Glom Filt Rate - Afr Amer 23 mL/min (>60); Estimated Creatinine Clearance 13.67 ml/min; Globulin 4.1 g/dL (2.2-4.2); Glucose 255 mg/dL (74-106); Potassium 3.4 mmol/L (3.5-5.1); Protein, Total 6.9 g/dL (6.4-8.2); Sodium Level 144 mmol/L (136-145)
[2020-01-02 10:13] LABS: Color, Urine Yellow (Yellow); Glucose, Dipstick Normal (Normal); Ketone-Dipstick 5 mg/dl (Negative); Leukocyte Esterase-Dipstick Negative /ul (Negative); Mucous, Urine 0 SEEN /hpf (<or=2+); Nitrite-Dipstick Negative (Negative); Occult Blood-Urine 150 /ul (Negative); Protein-Dipstick 30 mg/dl (Negative); Specific Gravity, Urine 1.015 (1.002-1.030); Squamous Epithelial Cells - UA 0 SEEN /hpf (5-10); Urine Bilirubin Dipstick Negative (Negative); Urine Clarity Cloudy (Clear); Urine Urobilinogen Normal (Normal); White Blood Cells 0 SEEN /hpf (0-5)
[2020-01-02 10:15] LABS: Lactic Acid 9.9 mmol/L (0.4-1.9)
[2020-01-02 10:19] LABS: Amorphous Sediment 1+; Bacteria 3+ /hpf (None Seen); Red Blood Cells-Urine 0-5 SEEN /hpf (0-5)
[2020-01-02 10:22] LABS: Differential Comment SCANNED
--- NOTE | 2020-01-02 10:23 | CT_ITS ---
STUDY: CT ABDOMEN AND PELVIS WITHOUT CONTRAST REASON FOR EXAM: Female, 79 years old. FEVER,UROLITHIASIS RADIATION DOSAGE (If Supplied By Facility): CTDIvol = ( 14.00 ) mGy, DLP = ( 727.47 ) mGycm TECHNIQUE: Transaxial images were obtained from the dome of the diaphragm to the symphysis pubis without oral contrast, and without intravenous contrast. Sagittal and coronal images were reconstructed. Individualized dose optimization techniques were used for this CT. COMPARISON: 11/27/2012 FINDINGS: The visualized lung bases are unremarkable. The visualized portions of the heart are within normal limits. Normal liver. Normal gallbladder and extrahepatic biliary system. Normal spleen. Normal pancreas. Normal bilateral adrenal glands. Stranding of the perinephric fat of the right kidney possibly consistent with the scarring or pyelonephritis. 8 mm obstructing stone at the left ureteral pelvic junction with moderate hydronephrosis and perinephric edema. Normal visualized stomach. Normal small intestine. There are multiple colonic diverticula consistent with diverticulosis. The appendix is visualized and appears normal. Normal abdominal aorta. Normal inferior vena cava. Normal retroperitoneum. Francis catheter within the collapsed bladder. Status post bilateral tubal ligation. Normal abdominal wall. Normal osseous structures. CT/Abdomen/Pelvis without Cont IMPRESSION: 8 mm obstructing stone at the left ureteropelvic junction with moderate hydronephrosis and perinephric edema. Perinephric edema surrounding both kidneys which may represent superimposed pyelonephritis. Electronically Signed: Chris Conley MD at 10:52 EST Tel , Service support ,
[2020-01-02] MEDS: Ceftriaxone 1 GM/50 ML BAG IV (10:46)
[2020-01-02] MEDS: 0.9% Normal Saline 1,000 ML 500 ML IV (10:47)
--- NOTE | 2020-01-02 11:21 | NURSING ---
CALLED [facility] , THEY ARE ON CAPACITY HOLD FOR CRITICAL PATIENTS
--- NOTE | 2020-01-02 11:22 | NURSING ---
CALLED [facility], TALKED TO BAL. FAXED FACESHEET
[2020-01-02 13:42] LABS: Reflex Lactate? Y
--- NOTE | 2020-01-02 13:49 | NURSING ---
[facility] T2 ICU 213 NURSE TO NURSE [phone]
[2020-01-02 14:51] LABS: Lactic Acid 6.8 mmol/L (0.4-1.9)
--- NOTE | 2020-01-02 15:32 | NURSING ---
ETA 30 MIN
--- NOTE | 2020-01-02 15:38 | RAD_ITS ---
STUDY: X-RAY CHEST REASON FOR EXAM: Female, 79 years old. eval after failed central line attempt. increased weakness and fever. TECHNIQUE: Single AP portable view of the chest. COMPARISON: 01/02/2020 FINDINGS: No retained PICC. No evidence of pneumothorax. The lungs are clear and expanded. There is no demonstrated pleural abnormality. Normal size heart. Normal mediastinum and laura. Normal visualized pulmonary arteries. Normal visualized aortic arch and descending thoracic aorta. Normal visualized thoracic spine. Normal visualized ribs, clavicles, and shoulders. There is no demonstrated abnormality of the visualized soft tissue structures of the upper abdomen. RAD/Chest 1 View (Portable) IMPRESSION: Normal x-ray examination of the chest. Electronically Signed: Colt Hernandez DO at 16:22 EST Tel , Service support ,
--- NOTE | 2020-01-02 16:17 | NURSING ---
Pt became more tachycardic/tachynpic after being turned to clean incontinent stool. NC 2lpm applied, but pt remaining sob. Genevieve to room and orders received.
[2020-01-02] MEDS: Nitroglycerin SL (ED/IMG/CATH) 0.4 MG TABLET SUBLINGUAL (16:24)
--- NOTE | 2020-01-02 16:34 | ED.RN ---
Physicians left; pt to start Bipap. RT at bedside
[2020-01-02] MEDS: Albuterol 2.5 MG/3 ML VIAL.NEB. INHALATION (16:45)
--- NOTE | 2020-01-02 16:56 | ED.RN ---
Pt gives thumbs up when asked if she is feeling better on Bipap. Daughter Blanka called and updated on delay of transport due to change in condition.
--- NOTE | 2020-01-02 17:06 | NURSING ---
CALLED [facility]. DERMATOLOGY NURSE PRACTITIONER CHECKING WEATHER
--- NOTE | 2020-01-02 17:07 | NURSING ---
6 TO 7 MIN ETA FOR [facility]
--- NOTE | 2020-01-02 17:12 | ED.RN ---
Updated report to Bartolome FRANCISCO at [facility] and to pt's daughter Blanka
--- NOTE | 2020-01-02 17:13 | NURSING ---
ETA IS 5 MIN
--- NOTE | 2020-01-02 20:42 | ED.RN ---
lab called with critical lab results. Both blood cultures growing gram negative rods. Patient was transferred to [facility]. Spoke with Colt at [facility] and given the results. They will notify medical staff there.
[2020-01-05 09:58] LABS: Pathologist Review Reviewed
== END 2020-01-02 17:45 | disposition short-term general hospital (02) ==
PROVIDERS: Emergency Provider Emergency Medicine; PCP Family Medicine
DX: R50.9 Fever, unspecified (principal); A41.9 Sepsis, unspecified organism; R65.21 Severe sepsis with septic shock; N17.9 Acute kidney failure, unspecified; N13.2 Hydronephrosis with renal and ureteral calculous obstruction; I10 Essential (primary) hypertension; E11.9 Type 2 diabetes mellitus without complications; E78.5 Hyperlipidemia, unspecified; Z87.891 Personal history of nicotine dependence
CPT/HCPCS: 36558; 36415; 70450; 71045; 74176; 80053; 81001; 83605; 84484; 85025; 85610; 85730; 87040; 87077; 87086; 87088; 87186; 87635; 93005; 94002; 94640; 96361; 96365; 99285; J7030; J7050; A4216; C1751; U0002

== ENCOUNTER → 2020-09-29 10:08 | Outpatient (CLI) | payer MEDICARE, SELFPAY ==
[2020-01-02 09:20] VITALS: BMI 35.2
--- NOTE | 2020-09-29 10:10 | BI_ITS ---
MAMMOGRAPHY - BILATERAL SCREENING REASON FOR EXAM: Female, 80 years old. Routine annual screening examination. PERTINENT HISTORY: Screening TECHNIQUE: Digital bilateral breast luca (3D mammographic acquisition) in the CC and MLO projections. 2-D mediolateral oblique (MLO) and craniocaudad (CC) views of both breasts were obtained. CAD: Full Field Digital Mammography with Computer Added Detection was performed. COMPARISON: 05/05/2018 FINDINGS: Breast Composition: Scattered There are no dominant masses or suspicious calcifications. No other significant abnormalities are identified. BI/SCRN MAMM (CAD)W/LUCA BILAT IMPRESSION: Stable bilateral screening mammogram. Yearly follow-up mammogram recommended. (A) ASSESSMENT CATEGORY: BIRADS Category 1: Negative. A letter regarding these results will be sent to the patient by the facility within 30 days. Approximately 10% of breast cancers are not detected by mammography. A normal mammogram should not delay biopsy of a clinically suspicious abnormality. [id number] Electronically Signed: Gregg oMran DO at 11:27 EDT Tel , Service support ,
== END ==
PROVIDERS: PCP Family Medicine; Referring Provider Family Medicine; Visit Provider Family Medicine
DX: Z12.31 Encounter for screening mammogram for malignant neoplasm of breast (principal)
CPT/HCPCS: 77063; 77067

== ENCOUNTER → 2020-11-15 09:48 | Outpatient (CLI) | payer MEDICARE, SELFPAY ==
[2020-11-15 12:38] LABS: AST(SGOT) 10 U/L (15-37); Alanine Aminotransfer ALT/SGPT 20 U/L (13-56); Albumin, Serum 3.2 g/dL (3.2-5.0); Alkaline Phosphatase 78 U/L (45-117); Anion Gap 10 (5-15); BUN 17 mg/dL (7-18); BUN/Creat Ratio 16.3 RATIO (10-20); Bilirubin, Direct 0.06 mg/dL (0.00-0.30); Calcium,Total 8.8 mg/dL (8.5-10.1); Chloride 107 mmol/L (98-107); Cholesterol 134 mg/dL (200); Creatinine, Serum 1.04 mg/dL (0.55-1.02); EST Glomerular Filtration Rate 54 mL/min (>60); Est Glom Filt Rate - Afr Amer 66 mL/min (>60); Globulin 4.8 g/dL (2.2-4.2); Glucose 178 mg/dL (74-106); High Density Lipoprotein 37 mg/dL; Potassium 4.4 mmol/L (3.5-5.1); Sodium Level 139 mmol/L (136-145); Thyroid Stim Hormone (TSH) 2.69 uIU/mL (0.358-3.74); Triglycerides 382 mg/dL; Very Low Density Lipoprotein 76 mg/dL (5-40)
== END ==
PROVIDERS: PCP Family Medicine; Referring Provider Family Medicine; Visit Provider Family Medicine
DX: E11.9 Type 2 diabetes mellitus without complications (principal)
CPT/HCPCS: 36415; 80048; 80061; 80076; 84443

== ENCOUNTER → 2021-10-02 | Outpatient (CLI) | payer MEDICARE, SELFPAY ==
--- NOTE | 2021-10-02 09:43 | BI_ITS ---
MAMMOGRAPHY - BILATERAL SCREENING REASON FOR EXAM: Female, 81 years old. Routine annual screening examination. PERTINENT HISTORY: Sister with breast cancer. Mother with breast cancer. TECHNIQUE: Digital bilateral breast luca (3D mammographic acquisition) in the CC and MLO projections. 2-D mediolateral oblique (MLO) and craniocaudad (CC) views of both breasts were obtained. CAD: Full Field Digital Mammography with Computer Added Detection was performed. COMPARISON: Comparison is made with prior study dated 09/29/2020 and 05/05/2018. FINDINGS: Breast Composition: There are scattered areas of fibroglandular density. There are no dominant masses or suspicious calcifications. Stable small benign appearing bilateral axillary nodes. No other significant abnormalities are identified. There has been no significant change since the prior study. BI/SCRN MAMM (CAD)W/LUCA BILAT IMPRESSION: Stable bilateral screening mammogram. Yearly follow-up mammogram recommended. (A) ASSESSMENT CATEGORY: BIRADS Category 2: Benign. A letter regarding these results will be sent to the patient by the facility within 30 days. Approximately 10% of breast cancers are not detected by mammography. A normal mammogram should not delay biopsy of a clinically suspicious abnormality. [id number] Electronically Signed: Tito Leach MD at 11:13 EDT ,
== END | disposition home or self-care (01) ==
LOC: OPBI 09:42
PROVIDERS: PCP Family Medicine; Referring Provider Family Medicine; Visit Provider Family Medicine
DX: Z12.31 Encounter for screening mammogram for malignant neoplasm of breast (principal); Z80.3 Family history of malignant neoplasm of breast
CPT/HCPCS: 77063; 77067

== ENCOUNTER → 2022-11-29 | Outpatient (CLI) | payer MEDICARE, SELFPAY ==
--- NOTE | 2022-11-29 09:22 | BI_ITS ---
MAMMOGRAPHY - BILATERAL SCREENING REASON FOR EXAM: Female, 82 years old. Routine annual screening examination. PERTINENT HISTORY: Sister with breast cancer. Mother with breast cancer. TECHNIQUE: Digital bilateral breast luca (3D mammographic acquisition) in the CC and MLO projections. 2-D mediolateral oblique (MLO) and craniocaudad (CC) views of both breasts were obtained. CAD: Full Field Digital Mammography with Computer Added Detection was performed. COMPARISON: Comparison is made with prior study October 02, 2021 and September 29, 2020. FINDINGS: Breast Composition: There are scattered areas of fibroglandular density. There are no dominant masses or suspicious calcifications. Stable bilateral fat containing axillary lymph nodes. No other significant abnormalities are identified. There has been no significant change since the prior study. BI/SCRN MAMM (CAD)W/LUCA BILAT IMPRESSION: Stable bilateral screening mammogram. Yearly follow-up mammogram recommended. (A) ASSESSMENT CATEGORY: BIRADS Category 2: Benign. A letter regarding these results will be sent to the patient by the facility within 30 days. Approximately 10% of breast cancers are not detected by mammography. A normal mammogram should not delay biopsy of a clinically suspicious abnormality. [id number] Electronically Signed: Tito Leach MD at 10:36 EDT ,
--- NOTE | 2022-11-29 09:25 | BD_ITS ---
STUDY: DUAL ENERGY X-RAY ABSORPTIOMETRY / DXA REASON FOR EXAM: Female, 82 years old. [id number] TECHNIQUE: Bone Mineral Density (BMD) measurements of lumbar spine and bilateral hips were obtained. COMPARISON: Comparison is made with prior study dated June 03, 2013. FINDINGS: Lumbar Spine (L1-L4): g/cm2 (0.892) / T-score (-1.4) / Z-score (1.3) Findings are suggestive of normal bone density with a low fracture risk. Left Femur Total: g/cm2 (0.855) / T-score (-0.7) / Z-score (1.4) Left Femoral Neck: g/cm2 (0.631) / T-score (-2.0) / Z-score (0.4) Right Femur Total: g/cm2 (0.826) / T-score (-1.0) / Z-score (1.1) Right Femoral Neck: g/cm2 (0.569) / T-score (-2.5) / Z-score (-0.2) The T-Scores on the most recent prior examination were: Lumbar Spine (L1-L4): There has been improvement of bone density since the previous examination. Left Femur Total: which represents an improvement of 2.7%. Right Femur Total: which represents a worsening of 4.7%. BD/Dexa Bone Density Study IMPRESSION: The patient is considered osteopenic as outlined below according to World Mark Organization (WHO) criteria with a moderate fracture risk. There has been improvement of bone density since the previous examination. Reference Information: The T-score is the number of standard deviations above or below the standard which is normal for young adults at their peak bone mineral density. The World Health Organization (WHO) interprets the T-scores as follows: Above -1 Normal bone density Between -1 and -2.5 Osteopenia Equal to / or below -2.5 Osteoporosis As a practical clinical guideline, osteopenia may be graded as follows: Mild -1 through -1.5 Moderate -1.6 through -2.0 Severe -2.1 through -2.4 The Z-score is the number of standard deviations above or below age-matched controls. A Z-score of less than -1.5 would be considered abnormal. References: 1. NIH Osteoporosis and Related Bone Diseases www osteo.org 2. International Society for Clinical Densitometry www iscd.org 3. National Osteoporosis Foundation www nof.org Electronically Signed: Tito Leach MD at 15:15 EDT ,
== END | disposition home or self-care (01) ==
PROVIDERS: PCP Family Medicine; Referring Provider Family Medicine; Visit Provider Family Medicine
DX: Z12.31 Encounter for screening mammogram for malignant neoplasm of breast (principal); Z80.3 Family history of malignant neoplasm of breast; N95.9 Unspecified menopausal and perimenopausal disorder
CPT/HCPCS: 77063; 77067; 77080

== ENCOUNTER → 2023-01-07 | Outpatient (CLI) | payer MEDICARE, SELFPAY ==
[2023-01-07 13:09] LABS: AST(SGOT) 36 U/L (15-37); Alanine Aminotransfer ALT/SGPT 43 U/L (13-56); Albumin, Serum 3.2 g/dL (3.2-5.0); Alkaline Phosphatase 111 U/L (45-117); Anion Gap 9 (5-15); BUN 16 mg/dL (7-18); BUN/Creat Ratio 13.8 RATIO (10-20); Bilirubin, Direct 0.05 mg/dL (0.00-0.30); Calcium,Total 8.2 mg/dL (8.5-10.1); Chloride 106 mmol/L (98-107); Cholesterol 148 mg/dL (200); Creatinine, Serum 1.16 mg/dL (0.55-1.02); EST Glomerular Filtration Rate 48 mL/min (>60); Est Glom Filt Rate - Afr Amer 58 mL/min (>60); Globulin 4.7 g/dL (2.2-4.2); Glucose 242 mg/dL (74-106); High Density Lipoprotein 42 mg/dL; Potassium 4.3 mmol/L (3.5-5.1); Protein, Total 7.9 g/dL (6.4-8.2); Sodium Level 138 mmol/L (136-145); Triglycerides 415 mg/dL
[2023-01-07 13:27] LABS: Microalbumin:Creatinine Ratio 79.2 mg/g CRE (<30 mg/g CRE)
== END | disposition home or self-care (01) ==
LOC: MFPLAB 11:15
PROVIDERS: PCP Family Medicine; Visit Provider Family Medicine
DX: E11.9 Type 2 diabetes mellitus without complications (principal); I10 Essential (primary) hypertension
CPT/HCPCS: 36415; 80048; 80061; 80076; 82043; 82570

== ENCOUNTER → 2023-11-04 | Outpatient (CLI) | payer MEDICARE, SELFPAY ==
[2023-11-04 16:25] LABS: Anion Gap 10 (5-15); BUN 14 mg/dL (7-18); BUN/Creat Ratio 14.7 RATIO (10-20); Calcium,Total 8.9 mg/dL (8.5-10.1); Chloride 104 mmol/L (98-107); Cholesterol 97 mg/dL (200); Creatinine, Serum 0.95 mg/dL (0.55-1.02); EST Glomerular Filtration Rate 60 mL/min (>60); Est Glom Filt Rate - Afr Amer 72 mL/min (>60); Glucose 282 mg/dL (74-106); High Density Lipoprotein 33 mg/dL; Potassium 3.7 mmol/L (3.5-5.1); Sodium Level 137 mmol/L (136-145); Triglycerides 184 mg/dL; Very Low Density Lipoprotein 37 mg/dL (5-40)
== END | disposition home or self-care (01) ==
LOC: MFPLAB 11:35
PROVIDERS: PCP Family Medicine; Visit Provider Family Medicine
DX: E11.59 Type 2 diabetes mellitus with other circulatory complications (principal)
CPT/HCPCS: 36415; 80048; 80061

== ENCOUNTER → 2024-01-20 | Outpatient (CLI) | payer MEDICARE, SELFPAY ==
--- NOTE | 2024-01-20 12:31 | BI_ITS ---
MAMMOGRAPHY - BILATERAL SCREENING 3-D TOMOSYNTHESIS REASON FOR EXAM: Female, 83 years old. screening PERTINENT HISTORY: No significant family history. TECHNIQUE: 2-D mammograms and 3-D Tomosynthesis of the breast (s) were performed. CAD was performed. COMPARISON: 11/29/2022 FINDINGS: The breast composition is composed of scattered fibroglandular density. Scattered benign calcifications are seen. No dense spiculated masses or suspicious microcalcifications are identified. No architectural distortion is identified. There is no skin thickening or retraction. There has been no significant change since the prior study. BI/SCRN MAMM (CAD)W/LUCA BILAT IMPRESSION: No mammographic signs of malignancy. Routine yearly mammograms recommended. ASSESSMENT CATEGORY: BIRADS Category 1: Negative. A letter regarding these results will be sent to the patient by the facility within 30 days. FOLLOW UP RECOMMENDATION: Yearly follow up mammogram recommended. (A) Approximately 10% of breast cancers are not detected by mammography. A normal mammogram should not delay biopsy of a clinically suspicious abnormality. Electronically Signed: Chris Conley MD at 16:31 EST ,
== END | disposition home or self-care (01) ==
LOC: OPBI 12:31
PROVIDERS: PCP Family Medicine; Referring Provider Family Medicine; Visit Provider Family Medicine
DX: Z12.31 Encounter for screening mammogram for malignant neoplasm of breast (principal)
CPT/HCPCS: 77063; 77067

== ENCOUNTER 2024-05-27 10:00 | Outpatient (RCR) | payer MEDICARE, SELFPAY ==
--- NOTE | 2024-04-30 14:49 | HP.PTEVAL ---
Patient's Visit Information Visit Information Visit Information: JODEE LORENZO is a 84 year old F referred to Physical Therapy by Dr. Lorelei Herrera MD with a diagnosis of BILATERAL SACROILIITIS.. Date of Evaluation: 04/30/24 Physical Therapist: Keira Martin PT, Cert MDT Visit Plan Frequency: 2x /Week Duration: 4-6 Weeks Plan: US, CP OR MH TO TENDER AREAS OF LOW BACK/HIP REGIONS NEEDED. POSTURE CORRECTION/STRENGTHENING, INSTRUCTION IN APPROPRIATE BODY MECHANICS AND ACTIVITY MODIFICATIONS. DLS STARTING WITH A NEUTRAL SPINE PROGRESSING ROM TOLERATED. MIL LE ROM, STRETCHING AND STRENGTHENING. HEP INSTRUCTION. *MINIMAL LIFTING > 10 LBS, BENDING, PUSHING, PULLING, TWISTING AND OVER HEAD EXTENSION FOR 4-6 WEEKS. Subjective Subjective: Work/Leisure: RETIRED Present symptoms: MIL BUTTOCK PAIN. PATIENT DENIES MIL LE NUMBNESS AND TINGLING. Present since: 4 WEEKS AGO Pain Scale: WORST 3/10, LEAST 3/10 Currently: 3/10 Is it getting better, worse or staying the same: STAYING THE SAME Commenced as a result of: LIFTED THE CORNER OF A HEAVY COFFEE TABLE (4FT X 4FT) AND HEARD A POP IN WAIST. Symptoms at onset: NO SX'S UNTIL ABOUT A WK LATER THEN BUTTOCK PAIN STARTED. Worse: NOTHING HAS AN EFFECT THAT PATIENT IS AWARE OF. Better: SITTING WITH A PILLOW BEHIND BACK. Disturbed sleep: NO Previous history/Previous treatment: PATIENT DENIES ANY HISTORY OF BACK PROBLEMS. PATIENT DENIES ANY HISTORY OF BACK, HIP OR TAILBONE SX'S OR INJECTIONS. Treatment this episode: OTC MEDICATIONS, MOBILIZE AND BEND-OVER/STRETCH AND CORTISONE SHOT 1-2 WKS AGO - NO EFFECT. Coughing/sneezing/straining: NO EFFECT PER PATIENT REPORT. Gait: JOSE Bowel or Bladder Dysfunction: EPISODE OF LOSS OF CONTROL OF BOWELS ABOUT 1 WEEK AGO FOR NO APPARENT REASON AND NOW BACK TO NORMAL. NO BLADDER CHANGES IN THE LAST 4 WKS. 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 PMH/Recent major surgery: IDDM, HTN, UI, KIDNEY STONES, H/O URINARY TRACT INFECTIONS/KIDNEY INFECTIONS. Objective Objective: Sitting/Standing Posture: SLOUCHED IN SITTING. INCREASED FLEXION IN STANDING. NO RELEVANT LATERAL LUMBAR SHIFT. Active Correction of posture: ABLE TO PARTIALLY CORRECT. INCREASES PAIN. DOES NOT MAINTAIN. Other Observations: THIS PATIENT AMBULATES ROOSEVELTLY INTO PT WITH FAIR CADANCE, NO AD, AND NO LOB X APPROX 300 FT AND DENIES INCREASED PAIN WITH GAIT. SHE IS ACCOMPANIED BY HER DAUGHTER. SHE APPEARS AGGITATED WHEN REPORTING SHE HAS HAD THIS PAIN FOR 4 WEEKS AND NOTHING HAS BEEN DONE ABOUT IT INCLUDING X-RAYS. HER DAUGHTER IS REPORTING HER MOM DOESN'T LIKE TO BE TOLD WHAT TO DO. HE DAUGHTER IS ALSO REPORTING HER MOM HAS INDICATED HIGHER PAIN LEVELS THAN WHAT SHE IS REPORTING TODAY. PATIENT IS ABLE TO TRANSFER FAY FROM SIT TO STAND WITHOUT UE ASSIST BUT IT IS DIFFICULT FOR HER AND TOOK 2 ATTEMPTS. Sensory deficit: MIL LE LIGHT TOUCH SENSATION IS GROSSLY INTACT AND SYMMETRICAL ROM deficit: MIL HIP FLEXOR, HIP ROTATOR, HS AND CALF TIGHTNESS. C/O R LOW BACK PAIN WITH R HIP IR TESTING. Motor deficit: R HIP 4-/5, KNEE 4/5, ANKLE 4/5. L HIP 4-/5, KNEE 4/5, ANKLE 4/5. Reflexes: 1+ MIL LE DTR'S. Dural Signs: POSITIVE MIL LE'S Lumbar mvmt loss: flex - MOD ext - ZAC R SG - MOD L SG - MOD PATIENT C/O R LBP WITH LUMBAR FLEX/EXT TESTING AND IPSILATERAL LBP WITH MIL SG TESTING. Core strength: POOR Palpation: PATIENT C/O TENDERNESS WITH LIGHT PALPATION OF L2345 AND R LUMBAR PARASPINAL REGION INTO R BUTTOCK REGION TODAY BUT NOT LEFT LUMBAR OR BUTTOCK REGIONS. PATIENT DENIES PAIN WITH PALPATION OF MIL GREATER TROCH REGIONS. ALSO DENIES PAIN WITH THORACIC PALPATION. Balance/Special Test Scores Oswestry Low Back Score: 16 Goals Goal 1:: DECREASE C/O MIL LOW BACK/BUTTOCK PAIN BY AT LEAST 50% TO EASE ADL'S Goal Time Frame: 4-6 Weeks Goal 2:: IMPROVE LIFTING, WALKING, STANDING, TRAVEL AND HOMEMAKING FUNCTION WITH AT LEAST 5 POINT IMPROVEMENT ON BACK OSWESTRY QUESTIONNAIRE. Goal Time Frame: 4-6 Weeks Goal 3:: INSTRUCT IN PROPHYLAXIS Goal Time Frame: 4-6 Weeks Rehabilitation Potential Physical Therapy Diagnosis: LOW BACK AND LE PAIN, WEAKNESS AND STIFFNESS Rehabilitation Potential: Good Anticipated Interventions Patient/Client Instruction: Educate patient on: Condition, Plan of Care and Risk Factors For the Purpose of:: To improve self management Therapeutic Exercise to Include: Strength training, Body mechanics, Postural training, Flexibilty training, Neuromotor development and Dynamic Lumbar Stabilization For the Purpose of:: To decrease pain, To improve muscle performance and motor function, To increase tolerance to activity/condition/position, To improve ability of physical actions for home/community/work/leisure, To increase flexibility/ROM and To improve self management Manual Therapy Techniques to Include: Soft tissue mobilization For the Purpose of:: To decrease pain, To improve nutrient delivery to tissue and To decrease soft tissue restriction Cryotherapy (ice pack, ice massage): Yes Thermo therapy (hot pack): Yes Ultrasound (thermal/non thermal): Yes For the Purpose of:: To decrease pain, To decrease swelling/inflammation and To improve nutrient delivery to tissue Text: Thank you for the opportunity to evaluate your patient. For Medicare and Medicare HMO plans, please review the plan of care and approve it. It will need to be FAXED BACK to us at [phone] for Medicare purposes. For Medicare only, by signing this I certify the plan of care. Please let me know if there are questions or concerns regarding this plan of care. Physician Signature: Date:
--- NOTE | 2024-05-27 10:56 | HP.PTDCSUM ---
Discharge Summary D/C summary: It has been my pleasure to treat JODEE LORENZO referred by Dr. Lorelei Herrera MD, with the diagnosis of BILATERAL SACROILIITIS. for a total of 8 visit(s). Discharge Date: Please see the following information for a summary of their discharge status. Subjective Subjective: PATIENT REPORTS SHE HAS BEEN DOING THINGS SHE IS SUPPOSED TO BE DOING AND SHE KEEPS PULLING HER BACK SO SHE STILL HASN'T DONE HER HEP. THE DAYS THAT I AM GOOD I AM REALLY GOOD BUT IF I DO THINGS I SHOULDN'T THEN I HURT. OVER-ALL SHE REPORTS SHE IS A LOT BETTER AND IS GLAD SHE DID THERAPY. STATES SHE FELT NUMBESS IN HER LEGS AFTER LAST VISIT FOR A FEW HOURS. Pain MIL LOW BACK/BUTTOCK: Pain Intensity (Out of 10): 4 Overall Improvement % Improvement: 50 Objective Objective/Function: Patient non-compliant with HEP instructions so focused on having her use good posture and body mechanics at home between now and next visit. Patient able to do all ex's with cueing without c/o increased pain. Patient denied pain when she laid down to do the ex's and remained pain free until she walked about 300 feet after treatment then pain returned. Patient able to return demo good body mechanics after instructions given. Goals Goal 1:: DECREASE C/O MIL LOW BACK/BUTTOCK PAIN BY AT LEAST 50% TO EASE ADL'S Goal 2:: IMPROVE LIFTING, WALKING, STANDING, TRAVEL AND HOMEMAKING FUNCTION WITH AT LEAST 5 POINT IMPROVEMENT ON BACK OSWESTRY QUESTIONNAIRE. Goal 3:: INSTRUCT IN PROPHYLAXIS Plan Plan: TRY ADDING SOME KITCHEN SINK EX'S TO HEP NEXT VISIT TOLERATED. US, CP OR MH TO TENDER AREAS OF LOW BACK/HIP REGIONS NEEDED. POSTURE CORRECTION/STRENGTHENING, INSTRUCTION IN APPROPRIATE BODY MECHANICS AND ACTIVITY MODIFICATIONS. DLS STARTING WITH A NEUTRAL SPINE PROGRESSING ROM TOLERATED. MIL LE ROM, STRETCHING AND STRENGTHENING. HEP INSTRUCTION. *MINIMAL LIFTING > 10 LBS, BENDING, PUSHING, PULLING, TWISTING AND OVER HEAD EXTENSION FOR 4-6 WEEKS. D/C Information d/c sentence: If there are questions or concerns regarding this patient's physical therapy, please feel free to call me at [phone]. Thank you for the referral of this patient. Sincerely, Keira Martin, PT, Cert MDT Balance/Gait/Functional tests Balance/Special Test Scores Oswestry Low Back Score: 16 Improvement % Improvement: 50
== END 2024-05-27 13:26 | disposition home or self-care (01) ==
LOC: PT 10:00
PROVIDERS: PCP Family Medicine; Referring Provider Family Medicine; Visit Provider Family Medicine
DX: M46.1 Sacroiliitis, not elsewhere classified (principal)
CPT/HCPCS: 97035; 97110; 97162; 97530

== ENCOUNTER → 2024-07-13 | Outpatient (CLI) | payer MEDICARE, SELFPAY ==
--- NOTE | 2024-07-13 10:55 | RAD_ITS ---
PROCEDURE: LUMBAR SPINE 2 OR 3 VIEWS 07/13/2024 REASON FOR EXAM: LOW BACK PAIN TECHNIQUE: 2 view(s) of the lumbar spine COMPARISON: None FINDINGS: There is severe compression deformity at L1 with minimal remaining vertebral body. Remainder of the lumbar vertebral body heights are maintained. Mild multilevel endplate osteophyte formation and facet arthrosis, worst in the lower lumbar spine. Aortic atherosclerosis. There are ligation clips projecting over the pelvis. RAD/Lumbar Spine 2 or 3 Views IMPRESSION: Severe compression deformity at L1 with essentially complete collapse. Reading Location: [id number]
== END | disposition home or self-care (01) ==
LOC: MTRAD 10:55
PROVIDERS: PCP Family Medicine; Referring Provider Family Medicine; Visit Provider Family Medicine
DX: M54.50 Low back pain, unspecified (principal)
CPT/HCPCS: 72100

== ENCOUNTER 2024-10-11 12:14 | Emergency (ER) | payer MEDICARE, SELFPAY ==
[2024-10-11 12:15] VITALS: BP 157/69; PULSE 65; RESP 18; TEMP 36; O2SAT 98
--- NOTE | 2024-10-11 12:45 | ED.RN ---
pt pleasant in room, able to follow commands. is talking a lot of making some confused statements but is oriented to person, place, self. unsure of who all her family is.
--- NOTE | 2024-10-11 12:56 | EKG12_ITS ---
Test Reason : CONFUSION Blood Pressure : */* mmHG Vent. Rate : 63 BPM Atrial Rate : 63 BPM P-R Int : 156 ms QRS Dur : 78 ms QT Int : 438 ms P-R-T Axes : 7 12 40 degrees QTcB Int : 448 ms Normal sinus rhythm Normal ECG Confirmed by KEITH BAUMAN, YASMINE ([id number]), acquisitions editor ALESSIO GONCALVES ([id number]) on 10/13/2024 6:10:47 AM Referred By: Confirmed By: YASMINE PARKER MD
--- NOTE | 2024-10-11 12:57 | RAD_ITS ---
PROCEDURE: CHEST PA AND LATERAL 10/11/2024 REASON FOR EXAM: AMS TECHNIQUE: CHEST PA AND LATERAL COMPARISON: 2019 FINDINGS: Hardware: EKG leads overlie the chest Heart: The heart size is normal. Mediastinum: The mediastinal contour is unremarkable. Lungs: The lungs are clear. Bones: Degenerative changes are identified within the thoracic spine. RAD/Chest PA and Lateral IMPRESSION: No acute pulmonary process Reading Location: [id number]
--- OUTSIDE RECORDS SUMMARY | 2024-10-11 13:05 | XMS RPT_ITS | CCD ---
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 Lorelei Herrera Primary Care Unavail able Gracie Baker Attending Unavailable Dr. Lorelei Herrera MD Primary Care Provider Dr. Lorelei Herrera MD Attending Provider Dr. Lorelei Herrera MD Referring Provider Lorelei Herrera Primary Care Unavailable Jolliff, Lorelei S Attending Unavailable Vj Figueroa Primary Care Unavailable Vj Figueroa Attending Unavailable Henry, Vj Referring Unavailable Jolliff, Lorelei S Attending Unavailable Jolliff, Lorelei S Referring Unavailable Jolliff, Lorelei S Primary Care Unavailable Marium Grimes Attending Unavailable Henry, Vj Primary Care Unavailable Henry, Vj Referring Unavailable Jolliff, Lorelei S Primary Care Unavailable Jolliff, Lorelei S Attending Unavailable Jolliff, Lorelei S Referring Unavailable Vj Figueroa MD Primary Care Provider jV Figueroa MD Attending Provider [phone] Vj Figueroa MD Referring Provider [phone] Marium French Attending Provider VJ FIGUEROA Primary Care Unavailable GRACIE MOSES Attending Unavailable Medications Current Medications Medication Drug Class(es) Dates Sig (Normalized) Sig (Original) acetaminophen 325 mg / HYDROcodone bitartrate 5 mg oral tablet (1 source) Opioid Agonist Start: 01-27-2020 End: 02-01-2020 take 1 tablet by mouth every twelve hours as needed for pain HYDROcodone-aceta minophen (NORCO) 5-325 MG per tablet Indications: Calculus of ureter Take 1 tablet by mouth every 12 hours as needed for Pain for up to 5 days. 10 tablet 0 01/27/2020 02/01/2020 Active albuterol 0.833 mg/ml / ipratropium bromide 0.167 mg/ml inhalant solution (3 sources) Anticholinergic, beta2-Adrenergic Agonist Start: 01-02-2020 End: 01-06-2020 ipratropium-albut gerald (DUONEB) nebulizer solution 1 ampule ALPRAZolam 0.25 mg disintegrating oral tablet (1 source) Benzodiazepine Start: 01-27-2020 ALPRAZolam (NIRAVAM) dissolvable tablet 0.25 mg atenolol 25 mg oral tablet (20 sources) beta-Adrenergic Keisha Start: 02-05-2013 take 1 tablet by mouth once daily Atenolol 25 MG tablet Active 25 mg PO DAILY February 05, 2013 1:00am atorvastatin 40 mg oral tablet (20 sources) HMG-CoA Reductase Inhibitor Start: 01-06-2019 take 1 tablet by mouth at bedtime Atorvastatin 40 MG tablet Active 40 mg PO AT BEDTIME January 06, 2019 1:00am Lipitor 40 MG Or al Tablet Quantity: 0 Refills: 0 Ordered: 21-Mar-2020 DO Active ceFAZolin 1000 mg injection (2 sources) Cephalosporin Antibacterial Start: 01-04-2020 End: 01-07-2020 ceFAZolin (ANCEF) 1 g in dextrose 5 % 50 mL IVPB (premix) CENTRUM/CERTA-ANN MARIE with minerals oral solution 15 mL (1 source) Start: 01-03-2020 CENTRUM/CERTA-ANN MARIE with minerals oral solution 15 mL cephalexin 500 mg oral capsule (1 source) Cephalosporin Antibacterial Start: 01-09-2020 End: 01-23-2020 take 1 capsule by mouth three times daily cephALEXin (KEFLEX) 500 MG capsule Take 1 capsule by mouth 3 times daily for 14 days 42 capsule 0 01/09/2020 01/23/2020 Active 1 ml diphenhydrAMINE hydrochloride 50 mg/ml cartridge (1 source) Histamine-1 Receptor Antagonist Start: 01-27-2020 End: 01-27-2020 diphenhydrAMINE (BENADRYL) injection 12.5 mg 0.4 ml enoxaparin sodium 100 mg/ml prefilled syringe (1 source) Low Molecular Weight Heparin Start: 01-07-2020 enoxaparin (LOVENOX) injection 40 mg 2 ml fentaNYL 0.05 mg/ml injection (3 sources) Opioid Agonist Start: 01-27-2020 fentaNYL (SUBLIMAZE) injection 50 mcg Start: 01-27-2020 fentaNYL (SUBL IMAZE) injection 25 mcg Start: 01-06-2020 End: 01-06-2020 fentaNYL (SUBLIMAZE) injecti on glimepiride 2 mg oral tablet (5 sources) Sulfonylurea Start: 01-06-2019 End: 01-08-2020 take 1 tablet by mouth once daily Glimepiride 2 MG tablet Active 2 mg PO DAILY January 06, 2019 1:00am glucagon (rdna) 1 mg injection (1 source) Antihypoglycemic Agent Start: 01-03-2020 glucagon (rDNA) injection 1 mg glucose 0.417 mg/mg oral gel (3 sources) Start: 01-03-2020 glucose (GLUTOSE) 40 % oral gel 15 g Start: 01-03-2020 dextrose 50 % IV solution Start: 01-03-2020 dextrose 5 % s olution 1 ml hydrALAZINE hydrochloride 20 mg/ml injection (1 source) Arteriolar Vasodilator Start: 01-27-2020 hydrALAZINE (APRESOLINE) injection 5 mg 1 ml HYDROmorphone hydrochloride 1 mg/ml cartridge (2 sources) Opioid Agonist Start: 01-27-2020 HYDROmorphone (DILAUDID) injection 0.5 mg Start: 01-27-2020 HYDROmorphone (DILAUDID) injection 0.25 mg insulin glargine 100 unt/ml injectable solution (1 source) Insulin Analog Start: 01-05-2020 insulin glargi ne (LANTUS) injection vial 20 Units 4 ml labetalol hydrochloride 5 mg/ml cartridge (1 source) beta-Adrenergic Keisha Start: 01-27-2020 labetalol (NORMODYNE;TRANDATE) injection 5 mg 10 ml lidocaine hydrochloride 10 mg/ml injection (3 sources) Antiarrhythmic, Amide Local Anesthetic Start: 01-27-2020 End: 01-27-2020 lidocaine PF 1 % injection 1 mL Start: 01-06-2020 End: 01-06-2020 lidocaine PF 1 % injection Start: 01-02-2020 End: 01-02-2020 lidocaine PF 1 % injection magnesium hydroxide 80 mg/ml oral suspension (1 source) Start: 01-02-2020 magnesium hydroxide (MILK OF MAGNESIA) 400 MG/5ML suspension 30 mL 1 ml meperidine hydrochloride 25 mg/ml cartridge (1 source) Opioid Agonist Start: 01-27-2020 meperidine (DEMEROL) injection 12.5 mg metFORMIN hydrochloride 1000 mg oral tablet (20 sources) Biguanide Start: 01-08-2020 End: 05-07-2020 take 1 tablet by mouth twice daily at mealtime metFORMIN (GLUCOPHAGE) 1000 MG tablet Take 1 tablet by mouth 2 times daily (with meals) 60 tablet 3 01/08/2020 05/07/2020 Active Start: 02-05-2013 take 1 tablet by yoel th three times daily Metformin 500 MG tablet Active 500 mg PO THREE TIMES A DAY February 05, 2013 1:00am metFORMIN HCl - 1000 MG Oral Tablet Quantity: 0 Refills: 0 Ordered: 21-Mar-2020 DO Active End: 01-08-2020 take 1 tablet by mouth three times daily metFORMIN (GLUCOPHAGE) 500 MG tablet Take 500 mg by mouth 3 times daily 0 01/08/2020 Discontinued (Stop Taking at Discharge) 2 ml ondansetron 2 mg/ml injection (1 source) Serotonin-3 Receptor Antagonist Start: 01-27-2020 End: 01-27-2020 ondansetron (ZOFRAN) injection 4 mg oxyCODONE (1 source) Opioid Agonist Start: 01-27-2020 End: 01-27-2020 oxyCODONE (ROXICODONE) immediate release tablet 5 mg 1 ml promethazine hydrochloride 25 mg/ml injection (2 sources) Phenothiazine Start: 01-27-2020 End: 01-27-2020 promethazine (PHENERGAN) injection 6.25 mg Start: 01-02-2020 promethazine ( PHENERGAN) tablet 12.5 mg 1000 ml sodium chloride 9 mg /ml injection (7 sources) Start: 01-27-2020 0.9 % sodium c hloride infusion Start: 01-27-2020 sodium chlorid e flush 0.9 % injection 10 mL Start: 01-02-2020 sodium chlorid e flush 0.9 % injection 10 mL Start: 01-02-2020 End: 01-07-2020 sodium chloride flush 0.9 % injection 10 mL tamsulosin hydrochloride 0.4 mg oral capsule (4 sources) alpha-Adrenergic Keisha Start: 01-07-2020 take 1 capsule by mouth once daily tamsulosin (FLOMAX) 0.4 MG capsule Take 1 capsule by mouth daily 30 capsule 0 01/09/2020 Active vitamin b 12 1 mg oral tablet (7 sources) Vitamin B12 Start: 01-09-2020 take 1 tablet by mouth once daily cyanocobalamin 1000 MCG tablet Take 1 tablet by mouth daily 30 tablet 3 01/09/2020 Active Start: 01-05-2020 End: 01-08-2020 vitamin B-12 (CYANOCOBALAMIN ) tablet 50 mcg Start: 01-03-2020 cyanocobalamin injection 1,000 mcg Vitamin B12 TABS Refills: 0 DO Active Completed/Discontinued Medications Medication Drug Class(es) Dates Sig (Normalized) Sig (Original) acetaminophen 500 mg oral tablet (2 sources) Start: 01-27-2020 End: 01-27-2020 acetaminophen (TYLENOL) tablet 1,000 mg Start: 01-02-2020 acetaminophen (TYLENOL) tablet 650 mg 20 ml albumin human, longterm 250 mg/ml injection (1 source) Human Serum Albumin Start: 01-02-2020 End: 01-03-2020 50 g, Intravenous, ONCE, 01/02/20 at 1945, For 1 dose amoxicillin 875 mg / clavulanate 125 mg oral tablet (1 source) Penicillin-class Antibacterial Start: 04-23-2020 take 1 tablet by mouth twice daily Amoxicillin-Pot Clavulanate 875-125 MG Oral Tablet Take 1 tablet twice daily Quantity: 14 Refills: 0 Gracie Baker II, MD Start : 23-Apr-2020 Active Start: 04-23-2020 take 1 tablet by yoel th twice daily Amoxicillin-Pot Clavulanate 875-125 MG Oral Tablet Take 1 tablet twice daily Quantity: 14 Refills: 0 Gracie Baker II, MD Start : 23-Apr-2020 Active calcium gluconate 2 g in dextrose 5 % 100 mL IVPB (2 sources) Start: 01-08-2020 End: 01-08-2020 calcium gluconate 2 g in dextrose 5 % 100 mL IVPB Start: 01-05-2020 End: 01-05-2020 calcium gluconate 2 g in dex trose 5 % 100 mL IVPB calcium gluconate 3 g in dextrose 5 % 100 mL IVPB (1 source) Start: 01-03-2020 End: 01-03-2020 calcium gluconate 3 g in dextrose 5 % 100 mL IVPB calcium gluconate 4 g in dextrose 5 % 100 mL IVPB (1 source) Start: 01-04-2020 End: 01-04-2020 calcium gluconate 4 g in dextrose 5 % 100 mL IVPB chlorhexidine gluconate 1.2 mg/ml mouthwash (1 source) Start: 01-02-2020 End: 01-07-2020 chlorhexidine (PERIDEX) 0.12 % solution 15 mL doxycycline (VIBRAMYCIN) 100 mg in dextrose 5 % 100 mL IVPB (1 source) Start: 01-02-2020 End: 01-03-2020 doxycycline (VIBRAMYCIN) 100 mg in dextrose 5 % 100 mL IVPB famotidine 20 mg oral tablet (3 sources) Histamine-2 Receptor Antagonist Start: 01-27-2020 End: 01-27-2020 famotidine (PEPCID) tablet 20 mg Start: 01-06-2020 famotidine (PE PCID) tablet 20 mg Start: 01-02-2020 End: 01-06-2020 famotidine (PEPCID) injectio n 10 mg fentanyl (SUBLIMAZE) 1,000 mcg in sodium chloride 0.9% 100 mL infusion (1 source) Start: 01-02-2020 End: 01-06-2020 fentanyl (SUBLIMAZE) 1,000 mcg in sodium chloride 0.9% 100 mL infusion gentamicin (GARAMYCIN) 428 mg in dextrose 5 % 250 mL IVPB (1 source) Start: 01-03-2020 End: 01-03-2020 gentamicin (GARAMYCIN) 428 mg in dextrose 5 % 250 mL IVPB glipiZIDE er 5 mg 24 hr extended release oral tablet (3 sources) Sulfonylurea Start: 11-10-2021 take 1 tablet by mouth every twenty-four hours glipiZIDE ER 5 MG Oral Tablet Extended Release 24 Hour Quantity: 90 Refills: 0 Ordered: 20-Jul-2022 DO Start : 10-Nov-2021 Active 250 ml glucose 50 mg/ml / sodium chloride 4.5 mg/ml injection (1 source) Start: 01-05-2020 End: 01-05-2020 dextrose 5 % and 0.45 % sodium chloride infusion 1 ml heparin sodium, porcine 5000 unt/ml prefilled syringe (1 source) Unfractionated Heparin, Anti-coagulant Start: 01-03-2020 End: 01-07-2020 heparin (porcine) injection 5,000 Units hydrocortisone 100 mg injection (3 sources) Corticosteroid Start: 01-04-2020 End: 01-06-2020 hydrocortisone sodium succinate PF (SOLU-CORTEF) injection 50 mg Start: 01-03-2020 End: 01-04-2020 hydrocortisone sodium succin ate PF (SOLU-CORTEF) injection 100 mg insulin lispro 100 unt/ml injectable solution (3 sources) Insulin Analog Start: 01-07-2020 End: 01-07-2020 insulin lispro (HUMALOG) injection vial 6 Units Start: 01-05-2020 insulin lispro (HUMALOG) injection vial 0-6 Units Start: 01-05-2020 End: 01-06-2020 insulin lispro (HUMALOG) inj ection vial 10 Units insulin regular (MYXREDLIN) 100 units in sodium chloride 0.9 % 100 ml infusion (1 source) Start: 01-03-2020 End: 01-05-2020 insulin regular (MYXREDLIN) 100 units in sodium chloride 0.9 % 100 ml infusion lisinopril 20 mg oral tablet (5 sources) Angiotensin Converting Enzyme Inhibitor Start: 02-05-2013 End: 07-30-2024 take 1 tablet by mouth twice daily Lisinopril 20 MG tablet Discontinued 20 mg PO TWICE A DAY February 05, 2013 1:00am July 30, 2024 3:06pm magnesium oxide 400 mg oral tablet (1 source) Start: 01-07-2020 End: 01-07-2020 magnesium oxide (MAG-OX) tablet 400 mg 50 ml magnesium sulfate 40 mg/ml injection (1 source) Start: 01-08-2020 End: 01-08-2020 magnesium sulfate 2 g in 50 mL IVPB premix magnesium sulfate 6 g in dextrose 5 % 100 mL IVPB (1 source) Start: 01-02-2020 End: 01-03-2020 magnesium sulfate 6 g in dextrose 5 % 100 mL IVPB meropenem (2 sources) Penem Antibacterial Start: 01-04-2020 End: 01-04-2020 meropenem (MERREM) 1 g IVPB extended (mini-bag) Start: 01-02-2020 End: 01-03-2020 meropenem (MERREM) 1 g IVPB extended (mini-bag) 5 ml metoprolol tartrate 1 mg/ml injection (1 source) beta-Adrenergic Keisha Start: 01-03-2020 End: 01-03-2020 metoprolol (LOPRESSOR) injection 2.5 mg 1 ml midazolam 5 mg/ml cartridge (1 source) Benzodiazepine Start: 01-06-2020 End: 01-06-2020 midazolam (VERSED) injection nitrofurantoin, macrocrystals 100 mg oral capsule (19 sources) Nitrofuran Antibacterial Start: 08-22-2020 take 1 tablet by mouth once Nitrofurantoin Macrocrystal 100 MG Oral Capsule TAKE 1 CAPSULE Other Quantity: 90 Refills: 1 Ordered: 23-Sep-2020 Gracie Baker II, MD Start : 22-Aug-2020 Active Take 1 tablet every Saturday and Saturday Start: 03-21-2020 Nitrofurantoin Macrocrystal 50 MG Oral Capsule TAKE 1 CAPSULE Other Sat, Sat, And Saturday Quantity: 15 Refills: 11 Ordered: 21-Mar-2020 Gracie Baker II, MD Start : 21-Mar-2020 Active norepinephrine (LEVOPHED) 16 mg in sodium chloride 0.9 % 250 mL infusion (1 source) Start: 01-02-2020 End: 01-04-2020 2 mcg/min (1.875 mL/hr, roun ded to 1.9 mL/hr), Intravenous, at 1.9 mL/hr, CONTINUOUS, Starting 01/02/20 at 1945 Titrate to MAP greater than 65 Dose Range: 0 - 12 mcg/min Max Dose: 30 mcg/min Contact physician if max dose does not achieve desired response If rate LESS than 10 mcg/min: Titrate by 2 mcg/min no faster than every 5 minutes to goal If rate GREATER than or equal to 10 mcg/min: Titrate by 5 mcg/min no faster than every 5 minutes to goal When approaching therapeutic goal or weaning off, smaller titration increments of 1 mcg/min no faster than every 5 minutes may be used to maintain goal. oxybutynin chloride 5 mg oral tablet (5 sources) C h o l i n e r g i c M u s c a r i n i c A n t a g o n i s t Start: 01-02-2020 End: 07-30-2024 t a k e 3 t a b l e t s b y m o u t h o n c e d a i l y Oxybutynin Chloride 5 MG tablet Disconti nued 15 mg PO DAILY January 02, 2020 1:00am July 30, 2024 3:06pm Start: 01-02-2020 take 15 mg by mouth once daily Oxybutynin Chloride Active 15 MG PO DAILY January 02, 2020 12:00am End: 01-08-2020 take 1 tablet by mouth once daily oxybutynin (DITROPAN XL) 15 MG extended release tablet Take 15 mg by mouth daily 0 01/08/2020 Discontinued (Stop Taking at Discharge) microencapsulated potassium chloride 10 meq extended release oral tablet (4 sources) Start: 01-07-2020 End: 01-07-2020 potassium chloride (KLOR-CON M) extended release tablet 40 mEq Start: 01-06-2020 End: 01-06-2020 potassium chloride (KLOR-CON M) extended release tablet 40 mEq Start: 01-05-2020 End: 01-05-2020 potassium chloride 10 mEq/10 0 mL IVPB (Peripheral Line) Start: 01-03-2020 End: 01-03-2020 potassium chloride 20 mEq/50 mL IVPB (Central Line) potassium phosphate 20 mmol in dextrose 5 % 250 mL IVPB (1 source) Start: 01-06-2020 End: 01-06-2020 potassium phosphate 20 mmol in dextrose 5 % 250 mL IVPB regular insulin, human 100 unt/ml injectable solution (1 source) Insulin Start: 01-02-2020 End: 01-03-2020 insulin regular (HUMULIN R;NOVOLIN R) injection 0-12 Units 10 ml sodium bicarbonate 84 mg/ml injection (4 sources) Start: 01-03-2020 End: 01-03-2020 sodium bicarbonate 8.4 % injection 100 mEq Start: 01-02-2020 End: 01-02-2020 sodium bicarbonate 8.4 % inj ection 100 mEq Start: 01-02-2020 End: 01-02-2020 sodium bicarbonate 8.4 % inj ection sodium bicarbonate 150 mEq in sterile water infusion (1 source) Start: 01-02-2020 End: 01-04-2020 sodium bicarbonate 150 mEq in sterile water infusion trimethoprim 100 mg oral tablet (19 sources) Dihydrofolate Reductase Inhibitor Antibacterial Start: 08-15-2020 take 1 tablet by mouth once Trimethoprim 100 MG Oral Tablet 1 tablet every Saturday and Saturday Quantity: 90 Refills: 2 Ordered: 15-Aug-2020 Gracie Baker II, MD Start : 15-Aug-2020 Active Start: 05-11-2020 Trimethoprim 1 00 MG Oral Tablet TAKE 1 TABLET Other Take 1 tablet Sat, Sat, Saturday Quantity: 15 Refills: 11 Ordered: 11-May-2020 Gracie Baker II, MD Start : 11-May-2020 Active trospium chloride 20 mg oral tablet (20 sources) Cholinergic Muscarinic Antagonist Start: 08-15-2020 take 2 tablets by mouth once daily Trospium Chloride 20 MG Oral Tablet TAKE 2 TABLET Daily Quantity: 180 Refills: 3 Ordered: 15-Aug-2020 Gracie Baker II, MD Start : 15-Aug-2020 Active Start: 08-10-2020 take 1 tablet by yoel th twice daily Trospium Chloride 20 MG Oral Tablet Take 1 tablet twice daily Quantity: 180 Refills: 3 Ordered: 10-Sep-2022 Gracie Baker II, MD Start : 10-Aug-2020 Active Start: 01-07-2020 take 1 tablet by yoel th twice daily before mealtime trospium (SANCTURA) 20 MG tablet Take 1 tablet by mouth 2 times daily (before meals) 60 tablet 0 01/09/2020 Active vancomycin (VANCOCIN) 1,250 mg in dextrose 5 % 250 mL IVPB (1 source) Start: 01-04-2020 End: 01-04-2020 vancomycin (VANCOCIN) 1,250 mg in dextrose 5 % 250 mL IVPB vancomycin (VANCOCIN) 1,500 mg in dextrose 5 % 250 mL IVPB (1 source) Start: 01-02-2020 End: 01-02-2020 vancomycin (VANCOCIN) 1,500 mg in dextrose 5 % 250 mL IVPB vasopressin 20 Units in dext kobe 5 % 100 mL infusion (1 source) Start: 01-02-2020 End: 01-04-2020 vasopressin 20 Units in dextrose 5 % 100 mL infusion Vitamin B12 TABS (13 sources) Vitamin B12 TABS Quantity: 0 Refills: 0 Ordered: 21-Mar-2020 DO Active Problems Active Problems Problem Classification Problem Date Documented Date Episodic/Chronic Abdominal pain (1 source) Unspecified abdominal pain; Translations: [Unspecified abdominal pain] Onset: 08-08-2022 Episodic Acute and unspecified renal failure (4 sources) Injury of kidney; Translations: [Acute kidney failure, unspecified] 01-03-2020 Episodic Calculus of urinary tract (20 sources) Ureteric stone; Translations: [History of calculus of kidney] Onset: 08-08-2022 01-08-2020 Episodic Diabetes mellitus without complication (5 sources) Type 2 diabetes mellitus; Translations: [Type 2 diabetes mellitus without complications] Onset: 11-24-2023 01-02-2020 Chronic Disorders of lipid metabolism (4 sources) Hyperlipidemia; Translations: [Hyperlipidemia, unspecified] 01-02-2020 Chronic Essential hypertension (4 sources) Hypertensive disorder; Translations: [Essential (primary) hypertension] 01-02-2020 Chronic Fracture of lower limb (4 sources) Closed fracture of fifth metatarsal bone; Translations: [Displaced fracture of fifth metatarsal bone, left foot, initial encounter for closed fracture] 01-13-2019 Episodic Genitourinary symptoms and ill-defined conditions (14 sources) Urinary incontinence; Translations: [Urinary incontinence, unspecified] Chronic Genitourinary symptoms and ill-defined conditions (20 sources) Nocturia; Translations: [Dysuria] 01-03-2020 Episodic Other diseases of kidney and ureters (14 sources) Hydronephrosis; Translations: [Hydronephrosis] Episodic Other hematologic conditions (4 sources) Raised cardiac enzyme or marker; Translations: [Other specified abnormalities of plasma proteins] 01-03-2020 Episodic Septicemia (except in labor) (8 sources) Sepsis due to Gram negative bacteria ; Translations: [Septic shock] Resolved: 01-08-2020 01-08-2020 Episodic Sprains and strains (1 source) Sprain of unspecified ligament of unspecified ankle, initial encounter; Translations: [Ankle sprain] Onset: 10-09-2024 Episodic Unclassified (1 source) Low back pain, unspecified; Translations: [Low back pain, unspecified] Onset: 07-17-2024 Urinary tract infections (11 sources) Recurrent urinary tract infection; Translations: [Urinary tract infection, site not specified] Episodic Past or Other Problems Problem Classification Problem Date Documented Da te Episodic/Chronic Other screening for suspected conditions (not mental disorders or infectious disease) (1 source) Encounter for screening mammogram for malignant neoplasm of breast; Translations: [Encounter for screening mammogram for malignant neoplasm of breast] Onset: 02-24-2024 Episodic Shock (4 sources) Septic shock; Translations: [Septic shock due to Klebsiella pneumoniae (HCC)] Onset: 01-02-2020 Resolved: 01-08-2020 01-08-2020 Episodic NEGATED: Highlighted row has not occurred!Residual codes; unclassified (2 sources) Disease Episodic Results Test Name Value Interpretation Reference Range Facility ED NOTEon 10-09-2024 ED NOTE HNO ID: [id number] Author: ELADIO COHN RN Service: Nursing Author Type: Registered Nurse Type: ED Notes Filed: 10/09/2024 12:36 Note Text: Pt verbalizes understanding of discharge instructions. Pt assisted out of ED in wheelchair [facility] ED NOTE HNO ID: [id number] Author: QUE ARITA RN Service: Nursing Author Type: Registered Nurse Type: ED Notes Filed: 10/09/2024 11:08 Note Text: On Saturday evening patient got up from sitting on a swing and heard a dpop at her right ankle. She denied pain at that time. The pain started during the night. Since she has pain with ambulation, nothing at rest. She has swelling but no known injury. [facility] ED PROV NOTEon 10-09-2024 ED PROV NOTE HNO ID: [id number] Author: GRACIE MOSES MD Service: Emergency Medicine Author Type: Physician Type: ED Provider Notes Filed: 10/09/2024 12:20 Note Text: ED Provider Note Patient Name: Jodee Lorenzo : 1940 SERVICE DATE: 10/09/24 History Patient presents with: Ankle Pain Jodee Lorenzo is a 84 year old female with history of multiple chronic medical problems who presents with Ankle Pain. Patient took nothing for this prior to arrival. - Symptoms began 2 days prior to arrival. - Severity: moderate - Timing: constant - Quality: Pain and swelling right ankle - Ankle Pain is exacerbated by movement. - Ankle Pain is not exacerbated by elevation. - Symptoms are associated with nothing. - Symptoms are not associated with any other injury. - Improved by nothing - Not improved by rest Patient had pain and pop in the right ankle when she stood up from a porch swing 2 nights ago. Since then increased pain and swelling today unable to bear weight onto the right lower extremity so she is using a walker. No previous history of ankle injuries she did have some foot surgery remotely.. PAST MEDICAL HISTORY Diagnosis Date Diabetes (HCC) Gout Hyperlipemia Hypertension History reviewed. No pertinent surgical history. No family history on file. Social History[1] ALLERGIES No Known Allergies Review of Systems Constitutional: Negative for chills and fever. Gastrointestinal: Negative for nausea and vomiting. Musculoskeletal: Positive for gait problem and joint swelling. Allergic/Immunologic: Negative for environmental allergies, food allergies and immunocompromised state. Psychiatric/Behavioral: Negative for confusion. The patient is not nervous/anxious. Physical Exam Vitals [10/09/24 1101] BP Pulse Temp Temp src Resp SpO2 Weight Height 168/88 (!) 96 37.7 ?C (99.8 ?F) Temporal Art 16 97 % 73.5 kg (162 lb) -- Physical Exam Vitals and nursing note reviewed. Constitutional: General: She is not in acute distress. Appearance: Normal appearance. She is not ill-appearing, toxic-appearing or diaphoretic. Cardiovascular: Pulses: Normal pulses. Pulmonary: Effort: Pulmonary effort is normal. No respiratory distress. Musculoskeletal: General: Swelling and tenderness present. No deformity. Comments: Bilateral ankle swelling and tenderness without ecchymosis or color change. Intact distal neurovascular. Knee nontender. Calf soft nontender. Green test negative. Skin: General: Skin is warm and dry. Capillary Refill: Capillary refill takes less than 2 seconds. Neurological: General: No focal deficit present. Mental Status: She is alert and oriented to person, place, and time. Psychiatric: Mood and Affect: Mood normal. Behavior: Behavior normal. Thought Content: Thought content normal. Judgment: Judgment normal. Diagnostic Testing ED Labs Ordered and Reviewed - No data to display Procedures ED Course / Clinical Impression Clinical Impressions as of 10/09/24 1215 Ankle sprain MDM / Disposition / Plan Patient x-rays obtained showing osteopenic bones without fracture reviewed by myself and then interpreted by radiologist. Will start her with an Aircast short course of NSAID she has a walker at home and recommend orthopedic follow-up. No indication for transfer or admission. History and Record Review Clinical information obtained from an independent historian. History obtained from or confirmed by: family member. Differential Diagnoses - right ankle injury is more likely for the following reason(s): suggested by HANDP - Fracture is less likely for the following reason(s): no evidence on imaging Management Radiology Reports XR ANKLE GENERAL 3V AP/LAT/OBL RIGHT Final Result IMPRESSION: Soft tissue swelling. Doping Supervisor: SHWETHA Transcribe Date/Time: Oct 09 2024 11:54A Dictated by : CRISTOBAL PAGAN MD This examination was interpreted and the report reviewed and electronically signed by: CRISTOBAL PAGAN MD on Oct 09 2024 11:55AM EST Meds Given During Visit ED Medication Administration from 10/09/2024 1058 to 10/09/2024 1217 None Disposition The patient was discharged. See MDM narrative Counseled patient regarding radiology results and suspected diagnosis. SIGNATURE: Gracie Moses MD - [1] Social History Tobacco Use Smoking status: Never Smokeless tobacco: Never Vaping Use Vaping status: Never Used Substance and Sexual Activity Alcohol use: Never Drug use: Never Sexual activity: Not on file GRACIE MOSES 10/09/24 1220 Normal [facility] XR ANKLE 3V AP/LAT/OBL RTon 10-09-2024 XR ANKLE 3V AP/LAT/OBL RT * * *Final Report* * * DATE OF EXAM: Oct 09 2024 11:41AM LDX 5297 - XR ANKLE 3V AP/LAT/OBL RT / PROCEDURE REASON: Ankle pain, no prior imaging * * * * Physician Interpretation * * * * EXAM TITLE: XR ANKLE 3V AP/LAT/OBL RT DATE: 10/09/2024 11:54 AM INDICATION: Right ankle pain COMPARISON: None. FINDINGS: Osteopenia and slight degenerative arthritis. Mild soft tissue swelling. No fracture or dislocation. IMPRESSION: Soft tissue swelling. Doping Supervisor: SHWETHA Transcribe Date/Time: Oct 09 2024 11:54A Dictated by : CRISTOBAL PAGAN MD This examination was interpreted and the report reviewed and electronically signed by: CRISTOBAL PAGAN MD on Oct 09 2024 11:55AM EST [id number] Normal [facility] Orthopedic Visit Reporton Orthopedic Visit Report [facility] [address] [place] [address] OFFICE VISIT Date of Service: 07/30/24 MR#: [id number] Acct: [id number] Name: JODEE LORENZO Rep #: [id number] : 1940 Provider: BEKAH Isabel Age/Sex: 84/F Location[place] [facility] [place] Status: Signed Intake Vital Signs 11/29/22 09:24 07/30/24 15:03 Height 5 ft 5 ft Weight: 158 lb BMI 30.8 Intake Visit Reasons: LUMBAR SPINE Chief Complaint: Lumbar spine pain Accompanied by: Self Is patient in pain?: No Allergies No Known Allergies Allergy (Verified 07/30/24 15:05) Medications ???Medication ???Instructions ???Recorded ???Confirmed ???Type atenolol 25 mg tablet 25 mg PO DAILY 02/05/13 07/30/24 H istory metformin 500 mg tablet,extended 500 mg PO TID 02/05/13 07/30/24 Hi story release 24 hr atorvastatin 40 mg tablet 40 mg PO QHS cholesterol 01/06/19 07/30/24 History glimepiride 2 mg tablet 2 mg PO DAILY diabetes 01/06/19 History Have you fallen in the past year?: No [facility] Medical History Hypertension Hyperlipidemia Type 2 diabetes mellitus Family History Mother No problems noted. Father No problems noted. Social History Smoking Status: Never smoker HPI LUMBAR SPINE Details: This documentation accurately reflects the service provided and the decisions made by me, BEKAH Isabel 07/30/24 8510. Part of today???s visit was documented by Vinnie Vega MA, acting as scribe. JODEE LORENZO is a 84 year old F here today for lumbar spine pain. Patient was having pain in the lower back. Patient denies any low back pain today. The pain in the lower back was pretty severe when it happened. The pain was sharp, stabbing, and sore. This happened 5 months ago. Patient was lifting a table and felt a painful pop in the lower back. Patient denies any recent surgeries in the back. She states that she hasn't had much a week after the accident happened. Patient went to get an xray done and it did show a break in the lower back. Patient hasn't noticed any thing that makes the pain worse. Patient denies any injections, or physical therapy in the lower back. Patient is a type 2 diabetes unsure of last a1c, but denies any blood thinner. No heart or lung issues. Patient was a former smoker, but denies any drug use. Patient denies any numbness or tingling in the feet or toes. Denies needing to use any cane or walker. No prior abdominal surgeries. No prior cancer history. Not well defined endplates, worrying for pathological fx no cancer hx pain for a couple of days of pain. no cane or walker. no abdominal surgeries. Ortho Exam General General: Yes no acute distress Neurologic: Yes alert and Yes oriented x3 Spine SPINE TESTING CERVICAL THORACIC LUMBAR Musculoskeletal Strength 0=absent - 5=normal Details: Neurological exam of the lower extremities shows 5x5 power. Normal sensations across all dermatomes. No hyperreflexia. No midline or paraspinal tenderness. Coding Level of Care Code Off vis,new,level 4 Diagnoses Compression fracture of L1 vertebra, initial encounter S32.010A Encounter type: initial encounter Pathological fracture of vertebra, unspecified pathological cause, initial encounter M84.48XA Pathology associated with fracture: unspecified disease Encounter type: initial encounter Osteopenia, unspecified location M85.80 Osteopenia location: unspecified Assessment and Plan Assessment and Plan (1) Compression fracture of L1 lumbar vertebra: Status: Acute Qualifiers: Encounter type: initial encounter Qualified Code(s): S32.010A - Wedge compression fracture of first lumbar vertebra, initial encounter for closed fracture (2) Pathological fracture of vertebra: Status: Acute Qualifiers: Pathology associated with fracture: unspecified disease Encounter type: initial encounter Qualified Code(s): M84.48XA - Pathological fracture, other site, initial encounter for fracture (3) Osteopenia: Status: Acute Qualifiers: Osteopenia location: unspecified Qualified Code(s): M85.80 - Other specified disorders of bone density and structure, unspecified site Orders: Orders Spine Lumbar W/WO Contrast Today M84.48XA - Pathological fracture, other site, initial encounter for fracture, S32.010A - Wedge compression fracture of first lumbar vertebra, initial encounter for closed fracture Plan Reviewed prior AP and lateral x-rays done on July 09, 2024 which shows a severe compression deformity at L1, a spondylolisthesis of L4 on L5, very mild degenerative changes throughout the lumbar (more content not included)... Normal [facility] Lumbar Spine 2 or 3 Viewson 07-13-2024 Lumbar Spine 2 or 3 Views [facility] Services [address] [place] [address] [id number] Lumbar Spine 2 or 3 Views MR#: [id number] Acct: [id number] Name: JODEE LORENZO Rep #: [id number] : 1940 F 84 From: Jose Momin MD PCP: Dr. Vj Figueroa MD Status: REG CLI Study: Lumbar Spine 2 or 3 Views Date of Exam: Exam# [id number] Ordering Dr: Vj Figueroa MD PROCEDURE: LUMBAR SPINE 2 OR 3 VIEWS 07/13/2024 REASON FOR EXAM: LOW BACK PAIN TECHNIQUE: 2 view(s) of the lumbar spine COMPARISON: None FINDINGS: There is severe compression deformity at L1 with minimal remaining vertebral body. Remainder of the lumbar vertebral body heights are maintained. Mild multilevel endplate osteophyte formation and facet arthrosis, worst in the lower lumbar spine. Aortic atherosclerosis. There are ligation clips projecting over the pelvis. RAD/Lumbar Spine 2 or 3 Views IMPRESSION: Severe compression deformity at L1 with essentially complete collapse. Reading Location: [id number] CC: Dr. Vj Figueroa MD Doping Supervisor: Signed Normal [facility] PT D/C Summary (1)on 025 PT D/C Summary (1) [facility] Physical [facility] [address] [place] [address] / REHABILITATION SERVICES DISCHARGE SUMMARY MR#: [id number] Acct: [id number] Name: JODEE LORENZO Rep #: [id number] : 1940 84 From: Keira Martin PT, Cert. MDT Referring Dr.: Dr. Lorelei Herrera MD Status: RE G R Insurance: [employer] SELF PAY INSURANCE Discharge Summary D/C summary: It has been my pleasure to treat JODEE LORENZO referred by Dr. Lorelei Herrera MD, with the diagnosis of BILATERAL SACROILIITIS. for a total of 8 visit(s). Discharge Date: Please see the following information for a summary of their discharge status. Subjective Subjective: PATIENT REPORTS SHE HAS BEEN DOING THINGS SHE IS SUPPOSED TO BE DOING AND SHE KEEPS PULLING HER BACK SO SHE STILL HASN'T DONE HER HEP. THE DAYS THAT I AM GOOD I AM REALLY GOOD BUT IF I DO THINGS I SHOULDN'T THEN I HURT. OVER-ALL SHE REPORTS SHE IS A LOT BETTER AND IS GLAD SHE DID THERAPY. STATES SHE FELT NUMBESS IN HER LEGS AFTER LAST VISIT FOR A FEW HOURS. Pain MIL LOW BACK/BUTTOCK: Pain Intensity (Out of 10): 4 Overall Improvement % Improvement: 50 Objective Objective/Function: Patient non-compliant with HEP instructions so focused on having her use good posture and body mechanics at home between now and next visit. Patient able to do all ex's with cueing without c/o increased pain. Patient denied pain when she laid down to do the ex's and remained pain free until she walked about 300 feet after treatment then pain returned. Patient able to return demo good body mechanics after instructions given. Goals Goal 1:: DECREASE C/O MIL LOW BACK/BUTTOCK PAIN BY AT LEAST 50% TO EASE ADL'S Goal 2:: IMPROVE LIFTING, WALKING, STANDING, TRAVEL AND HOMEMAKING FUNCTION WITH AT LEAST 5 POINT IMPROVEMENT ON BACK OSWESTRY QUESTIONNAIRE. Goal 3:: INSTRUCT IN PROPHYLAXIS Plan Plan: TRY ADDING SOME KITCHEN SINK EX'S TO HEP NEXT VISIT TOLERATED. US, CP OR MH TO TENDER AREAS OF LOW BACK/HIP REGIONS NEEDED. POSTURE CORRECTION/STRENGTHENING , INSTRUCTION IN APPROPRIATE BODY MECHANICS AND ACTIVITY MODIFICATIONS. DLS STARTING WITH A NEUTRAL SPINE PROGRESSING ROM TOLERATED. MIL LE ROM, STRETCHING AND STRENGTHENING. HEP INSTRUCTION. *MINIMAL LIFTING > 10 LBS, BENDING, PUSHING, PULLING, TWISTING AND OVER HEAD EXTENSION FOR 4-6 WEEKS. D/C Information d/c sentence: If there are questions or concerns regarding this patient's physical therapy, please feel free to call me at [phone]. Thank you for the referral of this patient. Sincerely, Keira Martin PT, Cert MDT Balance/Gait/Functional tests Balance/Special Test Scores Oswestry Low Back Score: 16 Improvement % Improvement: 50 05/27/24 1056 CC: Dr. Lorelei Herrera MD PABLO Signed Normal [facility] Inital Evaluation (1) - PTon 04-30-2024 Inital Evaluation (1) - PT [facility] [address] [place] [address]. [address] [place] [address] / REHABILITATION SERVICES INITIAL EVALUATION MR#: [id number] Acct: [id number] Name: JODEE LORENZO Rep #: [id number] : 1940 84 From: Dillon Mann PT. MDT Referring Dr.: Dr. Lorelei Herrera MD Status: RE G [facility] Insurance: [employer] SELF PAY INSURANCE Patient's Visit Information Visit Information Visit Information: JODEE LORENZO is a 84 year old F referred to Physical Therapy by Dr. Lorelei Herrera MD with a diagnosis of BILATERAL SACROILIITIS.. Date of Evaluation: 04/30/24 Physical Therapist: Keira Martin PT, Cert MDT Visit Plan Frequency: 2x /Week Duration: 4-6 Weeks Plan: US, CP OR MH TO TENDER AREAS OF LOW BACK/HIP REGIONS NEEDED. POSTURE CORRECTION/STRENGTHENING , INSTRUCTION IN APPROPRIATE BODY MECHANICS AND ACTIVITY MODIFICATIONS. DLS STARTING WITH A NEUTRAL SPINE PROGRESSING ROM TOLERATED. MIL LE ROM, STRETCHING AND STRENGTHENING. HEP INSTRUCTION. *MINIMAL LIFTING > 10 LBS, BENDING, PUSHING, PULLING, TWISTING AND OVER HEAD EXTENSION FOR 4-6 WEEKS. Subjective Subjective: Work/Leisure: RETIRED Present symptoms: MIL BUTTOCK PAIN. PATIENT DENIES MIL LE NUMBNESS AND TINGLING. Present since: 4 WEEKS AGO Pain Scale: WORST 3/10, LEAST 3/10 Currently: 3/10 Is it getting better, worse or staying the same: STAYING THE SAME Commenced as a result of: LIFTED THE CORNER OF A HEAVY COFFEE TABLE (4FT X 4FT) AND HEARD A POP IN WAIST. Symptoms at onset: NO SX'S UNTIL ABOUT A WK LATER THEN BUTTOCK PAIN STARTED. Worse: NOTHING HAS AN EFFECT THAT PATIENT IS AWARE OF. Better: SITTING WITH A PILLOW BEHIND BACK. Disturbed sleep: NO Previous history/Previous treatment: PATIENT DENIES ANY HISTORY OF BACK PROBLEMS. PATIENT DENIES ANY HISTORY OF BACK, HIP OR TAILBONE SX'S OR INJECTIONS. Treatment this episode: OTC MEDICATIONS, MOBILIZE AND BEND-OVER/STRETCH AND CORTISONE SHOT 1-2 WKS AGO - NO EFFECT. Coughing/sneezing/strain ing: NO EFFECT PER PATIENT REPORT. Gait: JOSE Bowel or Bladder Dysfunction: EPISODE OF LOSS OF CONTROL OF BOWELS ABOUT 1 WEEK AGO FOR NO APPARENT REASON AND NOW BACK TO NORMAL. NO BLADDER CHANGES IN THE LAST 4 WKS. 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 PMH/Recent major surgery: IDDM, HTN, UI, KIDNEY STONES, H/O URINARY TRACT INFECTIONS/KIDNEY INFECTIONS. Objective Objective: Sitting/Standing Posture: SLOUCHED IN SITTING. INCREASED FLEXION IN STANDING. NO RELEVANT LATERAL LUMBAR SHIFT. Active Correction of posture: ABLE TO PARTIALLY CORRECT. INCREASES PAIN. DOES NOT MAINTAIN. Other Observations: THIS PATIENT AMBULATES INDEP'LY INTO PT WITH FAIR CADANCE, NO AD, AND NO LOB X APPROX 300 FT AND DENIES INCREASED PAIN WITH GAIT. SHE IS ACCOMPANIED BY HER DAUGHTER. SHE APPEARS AGGITATED WHEN REPORTING SHE HAS HAD THIS PAIN FOR 4 WEEKS AND NOTHING HAS BEEN DONE ABOUT IT INCLUDING X-RAYS. HER DAUGHTER IS REPORTING HER MOM DOESN'T LIKE TO BE TOLD WHAT TO DO. HE DAUGHTER IS ALSO REPORTING HER MOM HAS INDICATED HIGHER PAIN LEVELS THAN WHAT SHE IS REPORTING TODAY. PATIENT IS ABLE TO TRANSFER INDEP'LY FROM SIT TO STAND WITHOUT UE ASSIST BUT IT IS DIFFICULT FOR HER AND TOOK 2 ATTEMPTS. Sensory deficit: MIL LE LIGHT TOUCH SENSATION IS GROSSLY INTACT AND SYMMETRICAL ROM deficit: MIL HIP FLEXOR, HIP ROTATOR, HS AND CALF TIGHTNESS. C/O R LOW BACK PAIN WITH R HIP IR TESTING. Motor deficit: R HIP 4-/5, KNEE 4/5, ANKLE 4/5. L HIP 4-/5, KNEE 4/5, ANKLE 4/5. Reflexes: 1+ MIL LE DTR'S. Dural Signs: POSITIVE MIL LE'S Lumbar mvmt loss: flex - MOD ext - ZAC R SG - MOD L SG - MOD PATIENT C/O R LBP WITH LUMBAR FLEX/EXT TESTING AND IPSILATERAL LBP WITH MIL SG TESTING. Core strength: POOR Palpation: PATIENT C/O TENDERNESS WITH LIGHT PALPATION OF L2345 AND R LUMBAR PARASPINAL REGION INTO R BUTTOCK REGION TODAY BUT NOT LEFT LUMBAR OR BUTTOCK REGIONS. PATIENT DENIES PAIN WITH PALPATION OF MIL GREATER TROCH REGIONS. ALSO DENIES PAIN WITH THORACIC PALPATION. Balance/Special Test Scores Oswestry Low Back Score: 16 Goals Goal 1:: DECREASE C/O MIL LOW BACK/BUTTOCK PAIN BY AT LEAST 50% TO EASE ADL'S Goal Time Frame: 4-6 Weeks Goal 2:: IMPROVE LIFTING, WALKING, STANDING, TRAVEL AND HOMEMAKING FUNCTION WITH AT LEAST 5 POINT IMPROVEMENT ON BACK OSWESTRY QUESTIONNAIRE. Goal Time Frame: 4-6 Weeks Goal 3:: INSTRUCT IN PROPHYLAXIS Goal Time Frame: 4-6 Weeks Rehabilitation Potential Physical Therapy Diagnosis: LOW BACK AND LE PAIN, WEAKNESS AND STIFFNESS Rehabilitation Potential: Good Anticipated Interventions Patient/Client Instruction: Educate patient on: Condition, Plan of Care and Risk Factors For the Purpose of:: To improv (more content not included)... Normal [facility] SCRN MAMM (CAD)W/LUCA JAEGERNj n 01-20-2024 SCRN MAMM (CAD)W/LUCA MILAT [facility] Imaging Services [address] [place], [place] [id number] SCRN MAMM (CAD)W/LUCA DUNCAN MR#: [id number] Acct: [id number] Name: JODEE LORENZO Rep #: [id number] : 1940 F 83 From: Chris Conley MD PCP: Dr. Lorelei Herrera MD Status: REG CLI Study: SCRN MAMM (CAD)W/LUCA BILAT Date of Exam: 12/27 07/18 Exam# [id number] Ordering Dr: Lorelei Herrera MD [id number] MAMMOGRAPHY - BILATERAL SCREENING 3-D TOMOSYNTHESIS REASON FOR EXAM: Female, 83 years old. screening PERTINENT HISTORY: No significant family history. TECHNIQUE: 2-D mammograms and 3-D Tomosynthesis of the breast (s) were performed. CAD was performed. COMPARISON: 11/29/2022 FINDINGS: The breast composition is composed of scattered fibroglandular density. Scattered benign calcifications are seen. No dense spiculated masses or suspicious microcalcifications are identified. No architectural distortion is identified. There is no skin thickening or retraction. There has been no significant change since the prior study. BI/SCRN MAMM (CAD)W/LUCA BILAT IMPRESSION: No mammographic signs of malignancy. Routine yearly mammograms recommended. ASSESSMENT CATEGORY: BIRADS Category 1: Negative. A letter regarding these results will be sent to the patient by the facility within 30 days. FOLLOW UP RECOMMENDATION: Yearly follow up mammogram recommended. (A) Approximately 10% of breast cancers are not detected by mammography. A normal mammogram should not delay biopsy of a clinically suspicious abnormality. Electronically Signed: Chris Conley MD at 16:31 EST , CC: Dr. Lorelei Herrera MD Doping Supervisor: Signed Normal [facility] Basic Metabolic Profile (BMP )on 11-04-2023 BUN/CRE 14.7 RATIO Normal 10-20 [facility] Comment on above: Order Comment: Order Date: 11/04/23 Order Info: [id number] - BMP Order Info: [id number] - LIPID Performed By: #### L 500.4100, L500.2500 #### [facility] [address] [place], [address] CA,Total 8.9 mg/dL Normal 8.5-10.1 [facility] Comment on above: Order Comment: Order Date: 11/04/23 Order Info: 0667- - BMP Order Info: [id number] - LIPID Performed By: #### L 500.4100, L500.2500 #### [facility] [address] [place], [address] Chloride [Moles/Vol] 104 mmol/L Normal 98-107 [facility] Comment on above: Order Comment: Order Date: 11/04/23 Order Info: [id number] - BMP Order Info: [id number] - LIPID Performed By: #### L 500.4100, L500.2500 #### [facility] [address] [place], [address] CO2 [Moles/Vol] 23.0 mmol/L Normal 21.0-32.0 [facility] Comment on above: Order Comment: Order Date: 11/04/23 Order Info: [id number] - BMP Order Info: [id number] - LIPID Performed By: #### L 500.4100, L500.2500 #### [facility] [address] [place], [address] Creatinine [Mass/Vol] 0.95 mg/dL Normal 0.55-1.02 [facility] Comment on above: Order Comment: Order Date: 11/04/23 Order Info: 666- - BMP Order Info: [id number] - LIPID Result Comment: The validity of the calculated GFR GFRAA in patients over 70 years has not been determined. Clinical correlation is essential. Performed By: #### L 500.4100, L500.2500 #### [facility] [address] [place], [address] EST GFR - AA 72 mL/min Normal >60 [facility] Comment on above: Order Comment: Order Date: 11/04/23 Order Info: 06- - BMP Order Info: [id number] - LIPID Result Comment: Afri can Cameroonian GFR Calc Performed By: #### L 500.4100, L500.2500 #### [facility] [address] [place], [address] GAP 10 Normal 5-15 [facility] Comment on above: Order Comment: Order Date: 11/04/23 Order Info: [id number] - BMP Order Info: - LIPID Performed By: #### L 500.4100, L500.2500 #### [facility] [address] [place], [address] GFR/1.73 sq M.predicted among non-blacks MDRD (S/P/Bld) [Vol rate/Area] 60 mL/min/{1.73_m2} Normal >60 [facility] Comment on above: Order Comment: Order Date: 11/04/23 Order Info: [id number] - [facility] Order Info: [id number] - LIPID Result Comment: Non- GFR Calc Performed By: #### L 500.4100, L500.2500 #### [facility] [address] [place], [address] Glucose [Mass/Vol] 282 mg/dL High 74-106 [facility] Comment on above: Order Comment: Order Date: 11/04/23 Order Info: [id number] - BMP Order Info: [id number] - LIPID Result Comment: Gluc ose result greater than or equal to 200 mg/dL suggests DIABETES MELLITUS per A.D.A. criteria. Performed By: #### L 500.4100, L500.2500 #### [facility] [address] [place], [address] Potassium [Moles/Vol] 3.7 mmol/L Normal 3.5-5.1 [facility] Comment on above: Order Comment: Order Date: 11/04/23 Order Info: [id number] - BMP Order Info: [id number] - LIPID Performed By: #### L 500.4100, L500.2500 #### [facility] [address] [place], [address] Sodium [Moles/Vol] 137 mmol/L Normal 136-145 [facility] Comment on above: Order Comment: Order Date: 11/04/23 Order Info: [id number] - BMP Order Info: [id number] - LIPID Performed By: #### L 500.4100, L500.2500 #### [facility] [address] [place], [address] Urea nitrogen [Mass/Vol] 14 mg/dL Normal 7-18 [facility] Comment on above: Order Comment: Order Date: 11/04/23 Order Info: [id number] - BMP Order Info: [id number] - LIPID Performed By: #### L 500.4100, L500.2500 #### [facility] [address] [place], [address] Lipid Profileon 11-04-2023 Cholesterol [Mass/Vol] 97 mg/dL Normal 200 [facility] Comment on above: Order Comment: Order Date: 11/04/23 Order Info: [id number] - BMP Order Info: [id number] - LIPID Result Comment: <200 mg/dL Desirable 200-240 mg/dL Borderline >240 mg/dL High Risk Performed By: #### L 500.4100, L500.2500 #### [facility] [address] [place], [address] Cholesterol in HDL [Mass/Vol] 33 mg/dL Low [facility] Comment on above: Order Comment: Order Date: 11/04/23 Order Info: 06- - BMP Order Info: [id number] - LIPID Result Comment: The drugs N-Acetylcysteine and Metamizole may falsely depress this assay. Reference Range HDL <40 mg/dL Low HDL Cholesterol HDL >or= 60 mg/dL High HDL Cholesterol Performed By: #### L 500.4100, L500.2500 #### [facility] [address] [place], [address] Cholesterol in LDL [Mass/Vol] 27 mg/dL Normal 0-130 [facility] Comment on above: Order Comment: Order Date: 11/04/23 Order Info: [id number] - [facility] Order Info: [id number] - LIPID Performed By: #### L 500.4100, L500.2500 #### [facility] [address] [place], [address] Cholesterol in VLDL [Mass/Vol] 37 mg/dL Normal 5-40 [facility] Comment on above: Order Comment: Order Date: 11/04/23 Order Info: [id number] - [facility] Order Info: [id number] - LIPID Performed By: #### L 500.4100, L500.2500 #### [facility] [address] [place], [address] Triglyceride [Mass/Vol] 184 mg/dL Normal [facility] Comment on above: Order Comment: Order Date: 11/04/23 Order Info: [id number] - [facility] Order Info: [id number] - LIPID Result Comment: The drugs N-Acetylcysteine and Metamizole may falsely depress this assay. Serum Triglycerides Reference Interval Normal <150 mg/dL Borderline high 150 - 199 mg/dL High 200 - 499 mg/dL Very High > or = 500 mg/dL Performed By: #### L 500.4100, L500.2500 #### [facility] [address] [place], [address] Basophil percentageOrdered B y: Lorelei Herrera on 01-07-2023 Bilirubin [Mass/Vol] 0.30 mg/dL 0.20-1.00 [facility] Comment on above: For patients on eltr ombopag therapy, use of Dimension [place] TBIL is not recommended. Chloride [Moles/Vol] 106 mmol/L 98-107 [facility] Cholesterol [Mass/Vol] 148 mg/dL <200 [facility] Comment on above: <200 mg/dL Desirable 200-240 mg/dL Borderline >240 mg/dL High Risk Glucose [Mass/Vol] 242 mg/dL 74-106 [facility] Comment on above: Glucose result great er than or equal to 200 mg/dLsuggests DIABETES MELLITUS per A.D.A. criteria. Potassium [Moles/Vol] 4.3 mmol/L 3.5-5.1 [facility] Protein [Mass/Vol] 7.9 g/dL 6.4-8.2 [facility] Sodium [Moles/Vol] 138 mmol/L 136-145 [facility] Triglyceride [Mass/Vol] 415 mg/dL <199 [facility] Comment on above: The drugs N-Acetylcy steine and Metamizole may falsely depress this assay. TRIGLYCERIDE IS GREATER THAN 400 mg/dL. LDL RESULT IS INVALID AND WILL NOT BE REPORTED.Serum Triglycerides Reference Interval Normal <150 mg/dL Borderline high 150 - 199 mg/dL High 200 - 499 mg/dL Very High > or = 500 mg/dL Direct bilirubinOrdered By: Lorelei Herrera on 01-07-2023 Bilirubin.direct [Mass/Vol] 0.05 mg/dL 0.00-0.30 [facility] Laboratory - Chemistry and C hemistry - challengeOrdered By: Lorelei Herrera on 01-07-2023 ALP [Catalytic activity/Vol] 111 U/L 45-117 [facility] ALT [Catalytic activity/Vol] 43 U/L 13-56 [facility] CO2 [Moles/Vol] 23.0 mmol/L 21.0-32.0 [facility] Globulin (S) [Mass/Vol] 4.7 g/dL 2.2-4.2 [facility] Urea nitrogen/Creatinine [Mass ratio] 13.8 mg/mg 10-20 [facility] No Panel InformationOrdered By: Lorelei Herrera on 01-07-2023 Urine Microalbumin/Creatini ne Ratio 79.2 mg/g CRE <30 [facility] Estimated GFR (MDRD) Amer 58 mL/min >60 [facility] Comment on above: GFR Calc Estimated GFR (MDRD) Non-Af Amer 48 mL/min >60 [facility] Comment on above: Non- GFR Calc Serum or plasma albumin cherie urement (mass/volume)Ordered By: Lorelei Herrera on 01-07-2023 Albumin [Mass/Vol] 3.2 g/dL 3.2-5.0 [facility] Serum or plasma calcium cherie urement (mass/volume)Ordered By: Lorelei Herrera on 01-07-2023 Calcium [Mass/Vol] 8.2 mg/dL 8.5-10.1 [facility] Serum or plasma cholesterol in HDL measurement (mass/volume)Ordered By: Lorelei Herrera on 01-07-2023 Cholesterol in HDL [Mass/Vol] 42 mg/dL >40 [facility] Comment on above: The drugs N-Acetylcy steine and Metamizole may falsely depress this assay. Reference Range HDL <40 mg/dL Low HDL Cholesterol HDL >or= 60 mg/dL High HDL Cholesterol Serum or plasma cholesterol in VLDL measurement (mass/volume)Ordered By: Lorelei Herrera on 01-07-2023 Cholesterol in VLDL [Mass/Vol] [facility] Comment on above: Test not performed Serum or plasma creatinine m easurement (mass/volume)Ordered By: Lorelei Herrera on 01-07-2023 Creatinine [Mass/Vol] 1.16 mg/dL 0.55-1.02 [facility] Comment on above: The validity of the calculated GFR & GFRAA in patients over 70 years has not been determined. Clinical correlation is essential. Serum or plasma low density lipoprotein (LDL) cholesterol measurement (mass/volume)Ordered By: Lorelei Herrera on 01-07-2023 Cholesterol in LDL [Mass/Vol] [facility] Comment on above: Test not performed Serum or plasma urea nitroge n measurement (mass/volume)Ordered By: Lorelei Herrera on 01-07-2023 Urea nitrogen [Mass/Vol] 16 mg/dL 7-18 [facility] Thin prep Papanicolaou smear with manual screeningOrdered By: Lorelei Herrera on 01-07-2023 Thin prep Papanicolaou smear with manual screening 126.0 mg/L NO RANGE EST. [facility] Thin prep Papanicolaou smear with manual screening 36 U/L 15-37 [facility] Thin prep Papanicolaou smear with manual screening 9 5-15 [facility] Urine creatinine measurement (mass/volume)Ordered By: Lorelei Herrera on 01-07-2023 Creatinine (U) [Mass/Vol] 159.00 mg/dL NO RANGE EST. [facility] ABDOMEN AP VIEWon 08-08-2022 ABDOMEN AP VIEW Patient Name: JODEE LORENZO STUDY: ABDOMEN AP VIEW; 08/08/2022 1:31 pm INDICATION: FLANK PAIN Z87.442: History of kidney stones. COMPARISON: CT abdomen and pelvis 04/25/2020 KUB 08/10/2021 ACCESSION NUMBER(S): [id number] ORDERING CLINICIAN: GRACIE BAKER FINDINGS: Nonobstructive bowel gas pattern. Limited evaluation of pneumoperitoneum on supine imaging, however no gross evidence of free air is noted. No renal calculi. Visualized lungs are clear. Osseous structures demonstrate no acute bony changes. IMPRESSION: 1. No renal calculi. Nonobstructive bowel gas pattern. Electronically signed by: EMANI MEI MD [facility] Radiologyon 08-08-2022 XR Abdomen AP Please click on the link to view the study images Normal MO-Ynftqzm-E [employer] Work Phone: XR Abdomen AP Normal MP-Urology- R [facility] 232 DO Work Phone: Tobacco Screening.on 023 Fall risk assessment b) One or more fall s in the last year IK-Thqtpzr-Y [employer] Work Phone: Tobacco use status CPHS b) No GC-Iancmyy-I [employer] Work Phone: Tobacco Screening. Yes MP-Uro logy-A [employer] Work Phone: Office Visit (Urology)on Follow-up visit Diagnoses/Problems Assessed History of kidney stones (V13.01) (Z87.442) Recurrent UTI (599.0) (N39.0) Nocturia (788.43) (R35.1) Former smoker (V15.82) (Z87.891) Urinary incontinence (788.30) (R32) Patient Discussion/Summary KUB reviewed Stone prevention discussed. Diet reviewed. Discussed fluid intake Treatment options for LUTS reviewed Discussed timed voiding. Discussed fluid and caffeine intake Sanctura Rx refilled Lifestyle change to help prevent UTIs discussed. Encouraged fluid intake. F/U 1 year with KUB Chief Complaint yearly follow up History of Present IllnessPatient is here for a yearly follow up for Incontinence, is taking Sanctura and has been helping... Cysto done 04/17..Patient had a septic with Kidney infection in 12/2019. Hospitalized x 7 days and on the ventilator x 3 days. Patient has a hx of Kidney stones...Cysto w/ ureteroscopy 10/2015, B/L Ureteral Dilation 08/2015. LUTs are chronic and mild...Denies frequency and urgency. Denies dysuria and hematuria.. Nocturia x2-3..Caffeine does worsen..Recent Positive Urine Cx on 04/17. CT 05/15 no Garfield but Right renal stones Review of Systems Constitutional: No fever, No chills Eye: negative Respiratory: No shortness of breath, No cough. Cardiovascular: No chest pain Gastrointestinal: No nausea Genitourinary: Negative except as documented in history of present illness. Hematology/Lymphatics: Patient denies being on blood thinners.. Endocrine: Negative. Immunologic: Not immunocompromised. Musculoskeletal: negative Integumentary: Negative. Neurologic: Alert and oriented X4. Psychiatric: Negative. Active Problems Problems Dysuria (788.1) (R30.0) History of kidney stones (V13.01) (Z87.442) Hydronephrosis of right kidney (591) (N13.30) Nocturia (788.43) (R35.1) Recurrent UTI (599.0) (N39.0) Urinary incontinence (788.30) (R32) Surgical History Problems History of Colonoscopy History of Hallux malleus surgery History of Shoulder surgery Family History Mother Family history of malignant neoplasm (V16.9) (Z80.9) Father Family history of diabetes mellitus (V18.0) (Z83.3) Social History Problems Former smoker (V15.82) (Z87.891) Allergies Medication No Known Drug Allergies Recorded By: Ventura Castillo; 03/21/2020 2:53:03 PM Current Meds Medication NameInstruction Atenolol 25 MG Oral Tablet Lipitor 40 MG Oral Tablet metFORMIN HCl - 1000 MG Oral Tablet Nitrofurantoin Macrocrystal 100 MG Oral CapsuleTAKE 1 CAPSULE Other Nitrofurantoin Macrocrystal 50 MG Oral CapsuleTAKE 1 CAPSULE Other Sat, Sat, And Saturday Trimethoprim 100 MG Oral Tablet1 tablet every Saturday and Saturday Trimethoprim 100 MG Oral TabletTAKE 1 TABLET Other Take 1 tablet Sat, Sat, Saturday Trospium Chloride 20 MG Oral TabletTake 1 tablet twice daily Trospium Chloride 20 MG Oral TabletTAKE 2 TABLET Daily Vitamin B12 TABS Vitals Vital Signs Recorded: 09Aug2021 08:48AM Jghuyvqn236 Lxqnmufro05 Height5 ft Smuwqe619 lb BMI Mkikbycmma11.15 kg/m2 BSA Calculated1.78 Tobacco Useb) No Fall Screeninga) No falls within the last year Physical Exam A/O x 3 in No apparent distress Constitutional: General appearance normal Respiratory: Respiratory effort is normal Gastrointestinal:Abdomen is not tender Genitourinary: Kidneys: Not palpable Bilaterally Bladder: Not palpable or tender Signatures Electronically signed by : Gracie Baker II, MD; Aug 09 2021 9:03AM EST (Author) Normal [facility] Radiologyon 08-09-2021 XR Abdomen AP Please click on the link to view the study images Normal OS-Jrsfajb-Y [employer] Work Phone: XR Abdomen AP Normal MP-Urology- R [facility] 232 DO Work Phone: Tobacco Screening.on 022 Fall risk assessment a) No falls within the last year SX-Xoqaqew-A [employer] Work Phone: Tobacco use status CPHS b) No JL-Nmtywee-V [employer] Work Phone: Office Visit (Urology)on Follow-up visit Diagnoses/Problems Assessed Dysuria (788.1) (R30.0) History of kidney stones (V13.01) (Z87.442) Nocturia (788.43) (R35.1) Recurrent UTI (599.0) (N39.0) Urinary incontinence (788.30) (R32) Patient Discussion/Summary CT and KUB reviewed Stone prevention discussed. Diet reviewed. Discussed fluid intake Treatment options for LUTS reviewed Continue Sanctura Discussed timed voiding. Discussed fluid and caffeine intake Lifestyle change to help prevent UTIs discussed. Encouraged fluid intake. F/U 6 months Chief Complaint 6 wk med ck History of Present IllnessPatient here for 6 wk med ck..Pt was given Sanctura(08/10/20) and can tell there is a difference now by having a flow with urination and less dribbling but still wears a pad for precaution ..CT Results (05/15) showed Right-sided nephrolithiasis without hydroureteronephrosis evident.. KUB did not show stone. Cysto done 04/17..Patient had a septic with Kidney infection in 12/2019. Hospitalized x 7 days and on the ventilator x 3 days. Patient has a hx of Kidney stones...Cysto w/ ureteroscopy 10/2015, B/L Ureters Dilation 08/2015. LUTs are chronic and mild...Denies frequency and urgency. Denies dysuria and hematuria.. Nocturia x2-3..Caffeine does worsen..Recent Positive Urine Cx on 04/17. Review of Systems Constitutional: No fever, No chills Eye: negative Respiratory: No shortness of breath, No cough. Cardiovascular: No chest pain Gastrointestinal: No nausea Genitourinary: Negative except as documented in history of present illness. Hematology/Lymphatics: Patient denies being on blood thinners.. Endocrine: Negative. Immunologic: Not immunocompromised. Musculoskeletal: joint pain Integumentary: Negative. Neurologic: Alert and oriented X4. Psychiatric: Negative. Active Problems Problems Dysuria (788.1) (R30.0) History of kidney stones (V13.01) (Z87.442) Hydronephrosis of right kidney (591) (N13.30) Nocturia (788.43) (R35.1) Recurrent UTI (599.0) (N39.0) Urinary incontinence (788.30) (R32) Surgical History Problems History of Colonoscopy History of Hallux malleus surgery History of Shoulder surgery Family History Mother Family history of malignant neoplasm (V16.9) (Z80.9) Father Family history of diabetes mellitus (V18.0) (Z83.3) Social History Problems Former smoker (V15.82) (Z87.891) Allergies Medication No Known Drug Allergies Recorded By: Ventura Castillo; 03/21/2020 2:53:03 PM Current Meds Medication NameInstruction Atenolol 25 MG Oral Tablet Lipitor 40 MG Oral Tablet metFORMIN HCl - 1000 MG Oral Tablet Nitrofurantoin Macrocrystal 100 MG Oral CapsuleTAKE 1 CAPSULE Other Nitrofurantoin Macrocrystal 50 MG Oral CapsuleTAKE 1 CAPSULE Other Sat, Sat, And Saturday Trimethoprim 100 MG Oral Tablet1 tablet every Saturday and Saturday Trimethoprim 100 MG Oral TabletTAKE 1 TABLET Other Take 1 tablet Sat, Sat, Saturday Trospium Chloride 20 MG Oral TabletTake 1 tablet twice daily Trospium Chloride 20 MG Oral TabletTAKE 2 TABLET Daily Vitamin B12 TABS Vitals Vital Signs Recorded: [id number] 10:15AM Heart Rate68 Mqpueubz228 Raieolhar875 Height5 ft Qiadav666 lb BMI Hkknugesnv28.54 kg/m2 BSA Calculated1.79 Tobacco Useb) No Fall Screeningb) One or more falls in the last year Physical Exam A/O x 3 in No apparent distress Constitutional: General appearance normal Respiratory: Respiratory effort is normal Gastrointestinal:Abdomen is not tender Genitourinary: Kidneys: Not palpable Bilaterally Bladder: Not palpable or tender Signatures Electronically signed by : Gracie Baker II, MD; Sep 21 2020 10:27AM EST (Author) Normal [facility] Tobacco Screening.on 021 Fall risk assessment b) One or more fall s in the last year QD-Nqsejzd-A [employer] Work Phone: [phone] Tobacco use status CPHS b) No WQ-Kigunnl-M [employer] Work Phone: IO UA (automated w/o microsc opy)on 08-10-2020 Protein (U) [Mass/Vol] Trace XX-Wphhumu-Y [employer] Work Phone: IO UA (automated w/o microscopy) Negative PR-Ddwbqxq-Q [employer] Work Phone: IO UA (automated w/o microscopy) Normal (0.2-1.0 mg/dl) MP-Urolog y-A [employer] Work Phone: IO UA (automated w/o microscopy) 5.5 1 PI-Gpfyjdu-D [employer] Work Phone: IO UA (automated w/o microscopy) Trace QW-Ivjfwbj-Q [employer] Work Phone: IO UA (automated w/o microscopy) 1.025 1 OU-Jmsueqa-V [employer] Work Phone: IO UA (automated w/o microscopy) 500 mg/dl NT-Evftdga-V [employer] Work Phone: IO UA (automated w/o microscopy) Clear KV-Rvpttsl-X [employer] Work Phone: IO UA (automated w/o microscopy) Yellow VY-Nbikqvb-Q [employer] Work Phone: Office Visit (Urology)on Follow-up visit Diagnoses/Problems Assessed Dysuria (788.1) (R30.0) History of kidney stones (V13.01) (Z87.442) Hydronephrosis of right kidney (591) (N13.30) Nocturia (788.43) (R35.1) Urinary incontinence (788.30) (R32) Patient Discussion/Summary Treatment options for LUTS reviewed Discussed timed voiding. Discussed fluid and caffeine intake Sanctura Rx given Pelvic floor exercises discussed. Pros/cons of PT discussed.. Questions answered Lifestyle change to help prevent UTIs discussed. Encouraged fluid intake. Continue Prophylaxis Discussed irrigations F/U 6 weeks Chief Complaint 3 mos ck History of Present IllnessPatient here for 3 mon f/u..Last visit was taking prophylaxis and was changed to Trimethoprim...Pt states she doesn?t feel any different...CT Results (05/15) Results showed Right-sided nephrolithiasis without hydroureteronephrosis evident.. KUB did not show stone. Cysto done 04/17.Patient was recently septic with Kidney infection in 12/2019. Hospitalized x 7 days and on the ventilator x 3 days. Patient has a H/O Kidney Stones 2015. Cysto w/ ureteroscopy 10/2015, B/L Ureters Dilation 08/2015. LUTs are chronic and mild. Some frequency and urgency. Denies dysuria and hematuria.. Nocturia x2-3 patient is having incontinence..has to wear a pad due to constant dribbling Caffeine does worsen LUTs.. No medications for LUTs..Recent Positive Urine Cx in 04/17. Review of Systems Constitutional: No fever, No chills Eye: negative Respiratory: No shortness of breath, No cough. Cardiovascular: No chest pain Gastrointestinal: No nausea Genitourinary: Negative except as documented in history of present illness. Hematology/Lymphatics: Patient denies being on blood thinners.. Endocrine: Negative. Immunologic: Not immunocompromised. Musculoskeletal: negative Integumentary: Negative. Neurologic: Alert and oriented X4. Psychiatric: Negative. Active Problems Problems Dysuria (788.1) (R30.0) History of kidney stones (V13.01) (Z87.442) Hydronephrosis of right kidney (591) (N13.30) Nocturia (788.43) (R35.1) Urinary incontinence (788.30) (R32) Surgical History Problems History of Colonoscopy History of Hallux malleus surgery History of Shoulder surgery Family History Mother Family history of malignant neoplasm (V16.9) (Z80.9) Father Family history of diabetes mellitus (V18.0) (Z83.3) Social History Problems Former smoker (V15.82) (Z87.891) Allergies Medication No Known Drug Allergies Recorded By: Ventura Castillo; 03/21/2020 2:53:03 PM Current Meds Medication NameInstruction Atenolol 25 MG Oral Tablet Lipitor 40 MG Oral Tablet metFORMIN HCl - 1000 MG Oral Tablet Nitrofurantoin Macrocrystal 50 MG Oral CapsuleTAKE 1 CAPSULE Other Sat, Sat, And Saturday Trimethoprim 100 MG Oral TabletTAKE 1 TABLET Other Take 1 tablet Sat, Sat, Saturday Vitamin B12 TABS Vitals Vital Signs Recorded: 10Aug2020 10:51AM Heart Rate84 Acghyxdj848 Dlzyjlibl04 Height5 ft Wcyydg426 lb BMI Znnvahzuaf79.35 kg/m2 BSA Calculated1.79 Tobacco Useb) No Fall Screeninga) No falls within the last year Physical Exam A/O x 3 in No apparent distress Constitutional: General appearance normal Respiratory: Respiratory effort is normal Gastrointestinal:Abdomen is not tender Genitourinary: Kidneys: Not palpable Bilaterally Bladder: Not palpable or tender Signatures Electronically signed by : Gracie Baker II, MD; Aug 10 2020 11:04AM EST (Author) Normal [facility] Tobacco Screening.on 021 Fall risk assessment a) No falls within the last year UZ-Spohsmc-F [employer] Work Phone: Tobacco use status CPHS b) No PF-Tmhvqnk-F [employer] Work Phone: Cult, Urineon 04-20-2020 Bacteria identified Cx Nom (U) PATIENT: JODEE LORENZO LOCATION: [facility] BILL#: [id number] : 44 AGE: SEX: F ORDERED BY: RHEA BAKER: URINE COLLECTED: 04/20/20 13:42ANTIBIOTICS AT NATHALY.: RECEIVED : 04/21/20 00:42SITE: Clean Catch/Voided R E S U L T S URINE CULTURE,BACTERIAL FINAL 04/23/20 01:19 ISOLATE1 : Klebsiella pneumoniae >100,000 CFU/ML Orga nism Kl pneum Antibiotic BP INTRP Ampi cillin R Amox/Clavulanate S Ceftriaxone S Cefotaxime N/R Cefazolin S Ciprofloxacin S Nitrofurantoin R Gentamicin S Levofloxacin S Piperc/Tazobact S Trimeth/Sulfa S Tetracycline S S=SUSCEPTIBLE I=INTERMEDIATE R=RESISTANT SDD=SUSCEPTIBLE DOSE DEPENDENT NS=NONSUSCEPTIBLEX=REPOR SOLOMON IN ERROR Abnormal YH-Aznwkll-P [facility] Work Phone: Otheron 04-06-2020 US Kidney - bilateral Interpreted by: DANNY HANDY04/06/20 13:18MRN: [id number] Name: JODEE LORENZO STUDY:US RENAL BILAT; 04/06/2020 11:03 am INDICATION:Hx of stones. COMPARISON:None. ORDERING CLINICIAN:GRACIE BAKER TECHNIQUE:Multiple images of the kidneys were obtained . FINDINGS:RIGHT KIDNEY:Right kidney measures approximately 10.5 cm. The right kidney isnormal in size, contour and echotexture. There is a nonobstructing 4mm calculus in the lower pole. There is a cyst in the lower polemeasuring 3.0 x 2.5 x 2.5 cm and an upper pole cyst measuring 2.2 x0.9 x 1.5 cm. There is prominence of the right renal pelvis with mildright hydronephrosis. LEFT KIDNEY:Left kidney measures approximately 10.8 cm and is normal in size,contour and echotexture. There is left hydronephrosis. There is acyst in the lower pole measuring 1.2 x 1.4 x 1.2 cm. BLADDER:The urinary bladder is distended. Both ureteral jets were documented.The urinary bladder is grossly negative. Bladder volume was 145 ccand postvoid volume was 20 cc. IMPRESSION:Mild bilateral hydronephrosis left greater than right. Bilateralcysts.Electroni papito signed by: DANNY HANDY 04/06/20 13:18 Normal PD-Dhpjocw-X [facility] Work Phone: CR Abdomen APon 03-03-2020 CR Abdomen AP Patient Name: JODEE LORENZO Diagnostic Radiology ACCESSION EXAM DATE/TIME PROCEDURE ORDERING PROVIDER [id number] 03/03/2020 10:52 EST CR Abdomen AP KAILA DANG ERICA L CPT code 21560 Reason For Exam (CR Abdomen AP) Calculus of ureter Report ABDOMEN -1 VIEW: CLINICAL INDICATION: Urolithiasis TECHNIQUE: 1 view of abdomen and pelvis COMPARISON: None. FINDINGS: The bowel gas pattern is nonspecific, nonobstructed. No abnormal soft tissue calcifications are seen in the expected location of the right and left renal shadows, ureters, or urinary bladder. Multilevel thoracolumbar degenerative change. Surgical clips overlie the pelvis. IMPRESSION: No radiographic evidence of urolithiasis. Report Dictated on Final Dictating Physician: MD SANCHEZ JASON Signed Date and Time: 03/03/2020 3:28 pm Signed by: MD SANCHEZ JASON Transcribed Date and Time: 03/03/2020 3:29 Normal [facility] XR ABDOMEN (KUB) (SINGLE AP VIEW)on 03-03-2020 Patient Name: JODEE LORENZO Diagnostic Radiology ACCESSION EXAM DATE/TIME PROCEDURE ORDERING PROVIDER [id number] 03/03/2020 10:52 EST CR Abdomen AP GERSTENMAIER, PA-C, ALEXA L CPT code 20790 Reason For Exam (CR Abdomen AP) Calculus of ureter Report ABDOMEN -1 VIEW: CLINICAL INDICATION: Urolithiasis TECHNIQUE: 1 view of abdomen and pelvis COMPARISON: None. FINDINGS: The bowel gas pattern is nonspecific, nonobstructed. No abnormal soft tissue calcifications are seen in the expected location of the right and left renal shadows, ureters, or urinary bladder. Multilevel thoracolumbar degenerative change. Surgical clips overlie the pelvis. IMPRESSION: No radiographic evidence of urolithiasis. Report Dictated on --- Final --- Dictating Physician: MD SANCHEZ JASON Signed Date and Time: 03/03/2020 3:28 pm Signed by: MD SANCHEZ JASON Transcribed Date and Time: 03/03/2020 3:29 [facility] Incoming Radiology Results From [facility] - 03/03/2020 3:29 PM EST Patient Name: JODEE LORENZO Diagnostic Radiology ACCESSION EXAM DATE/TIME PROCEDURE ORDERING PROVIDER [id number] 03/03/2020 10:52 EST CR Abdomen AP GERSTENMAIER, PA-C, ALEXA L CPT code 82431 Reason For Exam (CR Abdomen AP) Calculus of ureter Report ABDOMEN -1 VIEW: CLINICAL INDICATION: Urolithiasis TECHNIQUE: 1 view of abdomen and pelvis COMPARISON: None. FINDINGS: The bowel gas pattern is nonspecific, nonobstructed. No abnormal soft tissue calcifications are seen in the expected location of the right and left renal shadows, ureters, or urinary bladder. Multilevel thoracolumbar degenerative change. Surgical clips overlie the pelvis. IMPRESSION: No radiographic evidence of urolithiasis. Report Dictated on --- Final --- Dictating Physician: MD SANCHEZ JASON Signed Date and Time: 03/03/2020 3:28 pm Signed by: MD SANCHEZ JASON Transcribed Date and Time: 03/03/2020 3:29 [place], [place] Calculi Analysis(Stone)on Calculi Composition See Note [facility] Comment on above: Result Comment: Calc ghulam composed primarily of: 50% uric acid, and 50% ammonium acid urate. INTERPRETIVE INFORMATION: Calculi (Stone) analysis Calculi are the products of physiological processes that yield crystalline compounds in a matrix of biological compounds and blood. Matrix components are not reported. The clinically significant crystalline components identified in calculi specimens are reported. Gross description may not be consistent with composition determined by FTIR analysis. Performed By: [employer] [address] [place] [id number] Cloth Designer: Lakia Blake MD Performed By: #### B GLU #### [facility] [address] [place], [place] Calculi Description See Note Normal [facility] Comment on above: Result Comment: Spec imen received wet, not the preferred dry state. Wet specimens often delay analysis. Specimen consists of five, various sized (1 mm to 9 mm), brown/moore, irregular calculi. Performed By: #### B GLU #### [facility] [address] [place], [place] Calculi Mass 179 mg Normal [facility] Comment on above: Performed By: #### B GLU #### [facility] [address] [place], [place] Calculi Number 5 Normal [facility] Comment on above: Performed By: #### B GLU #### [facility] [address] [place] [address] Calculi Size Various Normal [facility] Comment on above: Performed By: #### B GLU #### [facility] [address] [place] [address] Op Noteon 01-28-2020 Op Note PATIENT: JODEE LOREZNO ADMISSION DATE: 01/27/2020 SURGERY DATE: 01/27/2020 DATE OF : 1940 AGE: 79 ADMITTING PHYSICIAN: Min Christie MD ATTENDING PHYSICIAN: Min Christie MD DICTATING PHYSICIAN: Min Christie MD OPERATIVE RECORD Procedure: 1. CYSTOSCOPY. 2. LEFT URETEROSCOPY. 3. LASER LITHOTRIPSY. 4. EXTRACTION OF LEFT RENAL CALCULUS. 5. REMOVAL AND TEMPORARY REINSERTION OF LEFT URETERAL STENT (STRING ATTACHED). Preoperative Diagnosis: Left renal calculus. Postoperative Diagnosis: Left renal calculus. Anesthesia: General. Radiology Clerk: None. Findings: This 79-year-old woman was evaluated on 01/02/2020 for a large proximal left ureteral calculus. Percutaneous nephrostomy tube was placed, but the patient did ultimately require intensive care monitoring on the ventilator and on pressor support. Antegrade ureteral stent was placed on January 05. She was discharged home on January 07. She was brought to surgery for further management. The procedure, risks, and complications were discussed. Questions were answered. Consent was obtained. Findings at Surgery: No stones were noted in the ureter. The calculus was noted in the lower pole calyx. It was situated in a side chamber of this calyx, but ultimately the stone was able to be extracted from this area and broken down to small particles, which were then able to be extracted. A stent with string attached will be left in place for several days. Description of Procedure: A proper surgical safety checklist was performed and all operating room personnel did participate. A 22-Puerto Rican Storz cystoscope was inserted into the bladder under direct vision. The tip of the ureteral stent was grasped and brought out through the urethral meatus. The stent was cannulated with a Glidewire and this was seen coiling within the region of the left kidney. The cystoscope was withdrawn. The flexible ureteroscope was advanced up the ureter and no stones were seen the entire way up to the ureter. All calices were inspected and ultimately the stone was identified in the lower pole calyx. It was situated on each side channel, but ultimately the stone was able to be brought up and out of that area and broken down to small particles. The access sheath was inserted and these particles were able to be extracted and will be sent for chemical analysis. Wire was replaced as the scope and sheath were withdrawn. A 6-Puerto Rican x 22 cm double pigtail catheter was seated into proper position. The string was secured to the patient's thigh. The patient was transported to the recovery area in a stable condition. Diskriter Job ID: [id number] Min Christie MD DOD:01/27/2020 10:09 P /dsk DOT:01/28/2020 08:52 A Job Number: [id number] Document Number: [id number] cc: Min Christie MD [address] [place] [address] [address] [facility] [address] Normal [facility] Glucose,Bedsideon 01-27-2020 Glucose [Mass/Vol] 259 mg/dL High 70-100 [facility] Comment on above: Result Comment: Test performed by glucose meter. Results may be 10%-15% lower than serum/plasma values. (CLIA ID [id number]) Performed By: #### C /ROSE HILL SPAUR #### [address] [address] Glucose [Mass/Vol] 215 mg/dL High 70-100 [facility] Comment on above: Result Comment: Test performed by glucose meter. Results may be 10%-15% lower than serum/plasma values. (CLIA ID [id number]) Performed By: #### B GLU #### [address] [address] [place] [address] POCT Glucoseon 01-27-2020 Glucose [Mass/Vol] 259 mg/dL High 70 - 100 mg/dL [place] Comment on above: Test performed by gl ucose meter. Results may be 10%-15% lower than serum/plasma values. (CLIA ID [id number]) Interpretation and review of laboratory results Abnormal [place] Test Performed by [facility], [address] [place] [address], [place] [address] [place] Glucose [Mass/Vol] 215 mg/dL High 70 - 100 mg/dL [place] Comment on above: Test performed by gl ucose meter. Results may be 10%-15% lower than serum/plasma values. (CLIA ID [id number]) Interpretation and review of laboratory results Abnormal [place] Test Performed by [facility], [facility] [place], [place] [id number] [place] [address] Basic Metabolic Panelon 12-26 Anion gap [Moles/Vol] 6 Normal [facility] Comment on above: Performed By: #### C /URROSE SPAUR #### [address] Creatinine [Mass/Vol] 1.10 mg/dL Normal 0.52-1.25 [facility] Comment on above: Performed By: #### C /URROSE SPAUR #### [address] [address] GFR/1.73 sq M predicted among blacks MDRD (S/P/Bld) [Vol rate/Area] 55.8 mL/min/{1.73_m2} Abnormal >60 [facility] Comment on above: Performed By: #### C /URROSE SPAUR #### [address] [address] [place] [address] GFR/1.73 sq M predicted among non-blacks MDRD (S/P/Bld) [Vol rate/Area] 48.1 mL/min/{1.73_m2} Abnormal >60 [facility] Comment on above: Result Comment: KDIG O guidelines provide the following GFR categories: Stage GFR(ml/min/1.73 m2) Terms G1 >=90 Normal or high G2 60-89 Mildly decreased* G3a 45-59 Mildly to moderately decreased G3b 30-44 Moderately to severely decreased G4 15-29 Severely decreased G5 <15 Kidney failure *Relative to young adult level. In the absence of evidence of kidney damage, neither GFR category G1 nor G2 fulfill the criteria for CKD. The CKD-EPI equation is validated in individuals 18 years of age and older. Currently the best equation for estimating glomerular filtration rate (GFR) from serum creatinine in children is the Bedside Andrews equation. It is less accurate in patients with extremes of muscle mass, restriction of dietary protein, ingestion of creatine, extra-renal metabolism of creatinine, or treatment with medications that affect renal tubular creatinine secretion. Performed By: #### ROSE DEGROOT SPAUR #### [facility] [address] [place], [place] Potassium [Moles/Vol] 3.7 mmol/L Normal 3.5-5.1 [facility] Comment on above: Performed By: #### Murali /ROSE HILL SPAUR #### [address] [address] [address] [place], [place] Sodium [Moles/Vol] 141 mmol/L Normal 135-145 [facility] Comment on above: Performed By: #### Murali /ROSE HILL SPAUR #### [address] [address] [address] [place], [place] Chloride [Moles/Vol] 107 mmol/L Normal 98-107 [facility] Comment on above: Performed By: #### ROSE DEGROOT SPAUR #### [address] [address] [address] [place], [place] Calcium [Mass/Vol] 8.1 mg/dL Low 8.4-10.4 [place], [place] Comment on above: Performed By: #### Murali /ROSE HILL SPAUR #### [address] [address] [address] [place], [place] CO2 [Moles/Vol] 28 mmol/L Normal 22-30 [place] Comment on above: Performed By: #### Murali /ROSE HILL SPAUR #### [address] [address] [address] [place], [place] Glucose [Mass/Vol] 112 mg/dL High 70-100 [place] Comment on above: Performed By: #### Murali /ROSE HILL SPAUR #### [address] [address] [address] [place], [place] Urea nitrogen [Mass/Vol] 32 mg/dL High 7-20 [place] Comment on above: Performed By: #### Murali /ROSE HILL SPAUR #### [facility] [address] [place] [phone] Basic Metabolic Panel w/ Ref finn to MGon 01-08-2020 Anion gap [Moles/Vol] 6 mmol/L [place] Chloride [Moles/Vol] 107 mmol/L 98 - 10 7 mmol/L [place] Creatinine [Mass/Vol] 1.1 mg/dL 0.52 - 1.25 mg/dL [place] EGFR IF NonAfrican Cameroonian 48.1 mL/min Abnormal >60 [place] Comment on above: KDIGO guidelines pro vide the following GFR categories: Stage GFR(ml/min/1.73 m2) Terms G1 >=90 Normal or high G2 60-89 Mildly decreased* G3a 45-59 Mildly to moderately decreased G3b 30-44 Moderately to severely decreased G4 15-29 Severely decreased G5 <15 Kidney failure *Relative to young adult level. In the absence of evidence of kidney damage, neither GFR category G1 nor G2 fulfill the criteria for CKD. The CKD-EPI equation is validated in individuals 18 years of age and older. Currently the best equation for estimating glomerular filtration rate (GFR) from serum creatinine in children is the Bedside Andrews equation. It is less accurate in patients with extremes of muscle mass, restriction of dietary protein, ingestion of creatine, extra-renal metabolism of creatinine, or treatment with medications that affect renal tubular creatinine secretion. GFR/1.73 sq M predicted among blacks MDRD (S/P/Bld) [Vol rate/Area] 55.8 mL/min/{1.73_m2} Abnormal >60 [place] Potassium [Moles/Vol] 3.7 mmol/L 3.5 - 5.1 mmol/L [place] Sodium [Moles/Vol] 141 mmol/L 135 - 145 mmol/L [place] CBC auto differentialon 12-26 Erythrocyte distribution width (RBC) [Ratio] 14.0 % 11.5 - 14.5 % [place] Hematocrit (Bld) [Volume fraction] 26.1 % Low 35 - 47 % [place] Hemoglobin (Bld) [Mass/Vol] 8.7 g/dL Low 11.7 - 16 g/dL [place] Interpretation and review of laboratory results Abnormal [place] MCH (RBC) [Entitic mass] 31.8 pg 26 - 34 pg [place] MCHC (RBC) [Mass/Vol] 33.2 % 32 - 36 % [place] MCV (RBC) [Entitic vol] 95.7 fL 79 - 98 fL [place] Platelet mean volume (Bld) [Entitic vol] 11.3 fL High 7.4 - 10.4 fL [place] Platelets (Bld) [#/Vol] 59 10*3/uL Low 140 - 440 10*3/uL [place] RBC (Bld) [#/Vol] 2.72 10*6/uL Low 3.8 - 5.2 10*6/uL [place] WBC (Bld) [#/Vol] 12.9 10*3/uL High 3.6 - 10.7 10*3/uL [place] Test Performed by [facility], [address] [place] [id number] [place] [address] CULTURE ANAEROBEon 0 CULTURE ANAEROBE CULTURE ANAEROBE --> Status: F No growth of anaerobes at 5 days. Normal [facility] Comment on above: Performed By: #### B GLU #### [address] [address] Calcium, Ionizedon 0 Interpretation and review of laboratory results Abnormal [place] Ionized Ca 4.20 mg/dL Low 4.3 - 5.2 mg/dL [place] pH (Bld) 7.54 [pH] High [place] Test Performed by [facility], [address] [place] [address] [place] Calcium,Ionizedon 01-08-2020 Ionized Ca,Measured 4.20 mg/dL Low 4.30-5.20 [facility] Comment on above: Performed By: #### C /ROSE HILL SPAUR #### [facility] [address] [place], [place] pH, Ionized Calcium 7.54 High 7.31-7.46 [facility] Comment on above: Performed By: #### C /ROSE HILL SPAUR #### [facility] [address] [place], [place] Culture, Anaerobicon 020 Anaerobic Culture No growth of anaerob es at 5 days. [place], [place] INR Coag (Bld) [Relative time] CANCELED [place], [place] Comment on above: Result canceled by edgar julio. Test Performed by [facility], [place] [address] Specimen Source Comment:Kidney [place], [place] Anaerobic Culture No growth of anaerob es at 5 days. [place] Test Performed by [facility], [facility] [place], [place] [id number] [place] [address] Culture, Blood 2on 0 Blood Culture, Routine No growth at 5 days. [place] Test Performed by [facility], [place] [address] Specimen Source Comment:Blood [place] Glucose,Bedsideon 01-08-2020 Glucose [Mass/Vol] 296 mg/dL High 70-100 [facility] Comment on above: Result Comment: Test performed by glucose meter. Results may be 10%-15% lower than serum/plasma values. (CLIA ID [id number]) Performed By: #### B GLU #### [facility] [address] [place], [place] Glucose [Mass/Vol] 119 mg/dL High 70-100 [facility] Comment on above: Result Comment: Test performed by glucose meter. Results may be 10%-15% lower than serum/plasma values. (CLIA ID [id number]) Performed By: #### C /ROSE HILL SPAUR #### [facility] [address] [place], [place] Hemogram w/ Autodiffon 01-07 Erythrocyte distribution width (RBC) [Ratio] 14.0 % Normal 11.5-14.5 [facility] Comment on above: Performed By: #### Muarli /ROSE HILL SPAUR #### [facility] [address] [place], [place] Hematocrit (Bld) [Volume fraction] 26.1 % Low 35.0-47.0 [facility] Comment on above: Performed By: #### C /ROSE HILL SPAUR #### [address] [address] [place], [place] Hemoglobin (Bld) [Mass/Vol] 8.7 g/dL Low 11.7-16.0 [facility] Comment on above: Performed By: #### Murali /ROSE HILL SPAUR #### [address] [address] [place], [place] MCH (RBC) [Entitic mass] 31.8 pg Normal 26.0-34.0 [facility] Comment on above: Performed By: #### Murali /ROSE HILL SPAUR #### [address] [address] [place], [place] MCHC (RBC) [Mass/Vol] 33.2 % Normal 32.0-36.0 [facility] Comment on above: Performed By: #### Murali /ROSE HILL SPAUR #### [address] [address] [place], [place] MCV (RBC) [Entitic vol] 95.7 fL Normal 79.0-98.0 [facility] Comment on above: Performed By: #### C /ROSE HILL SPAUR #### [address] [address] [place], [place] Platelet mean volume (Bld) [Entitic vol] 11.3 fL High 7.4-10.4 [facility] Comment on above: Performed By: #### C /ROSE HILL SPAUR #### [address] [address] [place], [place] Platelets (Bld) [#/Vol] 59 10*3/uL Low 140-440 [facility] Comment on above: Performed By: #### Murali /ROSE HILL SPAUR #### [address] [address] [place], [place] RBC (Bld) [#/Vol] 2.72 10*6/uL Low 3.80-5.20 [facility] Comment on above: Performed By: #### Murali /ROSE HILL SPAUR #### [address] [address] [place], [place] WBC (Bld) [#/Vol] 12.9 10*3/uL High 3.6-10.7 [facility] Comment on above: Performed By: #### Murali /ROSE HILL SPAUR #### [address] [address] [place], [place] Magnesiumon 01-08-2020 Magnesium [Mass/Vol] 1.5 mg/dL Low 1.6-2.3 [facility] [place] Comment on above: Performed By: #### Murali /ROSE HILL SPAUR #### [address] [address] [place], [place] Manual Diffon 01-08-2020 Abs Baso Cnt 0.0 10*3/uL Normal 0.0-0.2 [facility] Comment on above: Performed By: #### Murali /ROSE HILL SPAUR #### [address] [address] [place], [place] Abs Eosin Cnt 0.0 10*3/uL Normal 0.0-0.5 [facility] Comment on above: Performed By: #### Murali /ROSE HILL SPAUR #### [address] [address] [place], [place] Abs Lymph Cnt 2.3 10*3/uL Normal 1.1-4.5 [facility] Comment on above: Performed By: #### Murali /ROSE HILL SPAUR #### [address] [address] [place], [place] Abs Monocyte Cnt 0.6 10*3/uL Normal 0.2-1.1 [facility] Comment on above: Performed By: #### C /UR, LEGUR, SPAUR #### [facility] [address] [place], [place] Abs Neutrophile Cnt 9.8 10*3/uL High 2.2-8.2 [facility] Comment on above: Performed By: #### C /UR, LEGUR, SPAUR #### [facility] [address] [place], [place] Bands 10 % High 0-3 [facility] Comment on above: Performed By: #### C /UR, LEGUR, SPAUR #### [address] [address] [place], [place] Basophils 0 % Normal 0-2 [facility] Comment on above: Performed By: #### C /UR, LEGUR, SPAUR #### [address] [address] [place], [place] Cells counted 100 Normal [facility] Comment on above: Performed By: #### C /UR, LEGUR, SPAUR #### [facility] [address] [place], [place] Eosinophils 0 % Low 1-6 [facility] Comment on above: Performed By: #### C /UR, LEGUR, SPAUR #### [facility] [address] [place], [place] Lymphocytes 18 % Low 20-40 [facility] Comment on above: Performed By: #### C /UR, LEGUR, SPAUR #### [facility] [address] [place], [place] Metamyelocytes 1 % Abnormal <1 [facility] Comment on above: Performed By: #### C /UR, LEGUR, SPAUR #### [address] [address] [place], [place] Monocytes 5 % Normal 2-10 [facility] Comment on above: Performed By: #### C /UR, LEGUR, SPAUR #### [facility] [address] [place], [place] RBC morphology finding Nom (Bld) Normal Normal [facility] Comment on above: Performed By: #### C /ROSE HILL SPAUR #### [facility] [address] [place] [address] Seg Neutrophils 66 % Normal 40-80 [facility] Comment on above: Performed By: #### C /ROSE HILL SPAUR #### [facility] [address] [place] [address] Manual Differentialon 2019 Absolute Baso # 0.0 10*3/uL 0 - 0.2 10*3/uL [facility] [place] Absolute Eos # 0.0 10*3/uL 0 - 0.5 10*3/uL [facility] [place] Absolute Lymph # 2.3 10*3/uL 1.1 - 4.5 10*3/uL [facility] [place] Absolute [place] # 0.6 10*3/uL 0.2 - 1.1 10*3/uL [facility] [place] Absolute Neut # 9.8 10*3/uL High 2.2 - 8.2 10*3/uL [facility] [place] Bands 10 % High 0 - 3 % [facility] [place] Basophils 0 % 0 - 2 % [facility] [place] Eosinophils 0 % Low 1 - 6 % [facility] [place] Interpretation and review of laboratory results Abnormal [facility] [place] Lymphocytes 18 % Low 20 - 40 % [facility] [place] Metamyelocytes 1 % Abnormal <1 [facility] [place] Monocytes 5 % 2 - 10 % [facility] [place] RBC morphology finding Nom (Bld) Normal [facility] [place] Seg Neutrophils 66 % 40 - 80 % [facility] [place] TOTAL CELLS COUNTED 100 [facility] [place] Test Performed by [facility], [address] [place] [address] [facility] [place] Otheron 01-08-2020 Interpretation and review of laboratory results Abnormal [facility] [place] Test Performed by [facility] [place] [address] [facility] [place] POCT Glucoseon 01-08-2020 Glucose [Mass/Vol] 296 mg/dL High 70 - 100 mg/dL [facility] [place] Comment on above: Test performed by gl ucose meter. Results may be 10%-15% lower than serum/plasma values. (CLIA ID [id number]) Interpretation and review of laboratory results Abnormal [place] Test Performed by [facility], [place] [address] [place] Glucose [Mass/Vol] 119 mg/dL High 70 - 100 mg/dL [place] Comment on above: Test performed by gl ucose meter. Results may be 10%-15% lower than serum/plasma values. (CLIA ID [id number]) Interpretation and review of laboratory results Abnormal [place] Test Performed by [facility], [place] [address] [place] Phosphoruson 01-08-2020 Phosphate [Mass/Vol] 3.3 mg/dL Normal 2.5-4.5 [place], [place] Comment on above: Performed By: #### C /URROSE SPASERGIO #### [address] [address] [place] [address] Basic Metabolic Panelon 12-26 Calcium [Mass/Vol] 8.3 mg/dL Low 8.4-10.4 [facility] Comment on above: Performed By: #### C /UR LEGSERGIO SPAUR #### [facility] [address] [place] [address] Glucose [Mass/Vol] 156 mg/dL High 70-100 [facility] Comment on above: Performed By: #### C /UR LEGSERGIO SPAUR #### [facility] [address] [place] [address] Urea nitrogen [Mass/Vol] 38 mg/dL High 7-20 [facility] Comment on above: Performed By: #### C /URROSE SPAUR #### [facility] [address] [place] [address] Anion gap [Moles/Vol] 8 Normal [facility] Comment on above: Performed By: #### C /URROSE SPASERGIO #### [facility] [address] [place], [place] CO2 [Moles/Vol] 29 mmol/L Normal 22-30 [facility] Comment on above: Performed By: #### ROSE DEGROOT SPAUR #### [address] [address] [place], [place] Creatinine [Mass/Vol] 1.18 mg/dL Normal 0.52-1.25 [facility] Comment on above: Performed By: #### Murali /ROSE HILL SPAUR #### [address] [address] [place] GFR/1.73 sq M predicted among blacks MDRD (S/P/Bld) [Vol rate/Area] 51.3 mL/min/{1.73_m2} Abnormal >60 [facility] Comment on above: Performed By: #### ROSE DEGROOT SPAUR #### [address] [address] [place], [place] GFR/1.73 sq M predicted among non-blacks MDRD (S/P/Bld) [Vol rate/Area] 44.2 mL/min/{1.73_m2} Abnormal >60 [facility] Comment on above: Result Comment: KDIG O guidelines provide the following GFR categories: Stage GFR(ml/min/1.73 m2) Terms G1 >=90 Normal or high G2 60-89 Mildly decreased* G3a 45-59 Mildly to moderately decreased G3b 30-44 Moderately to severely decreased G4 15-29 Severely decreased G5 <15 Kidney failure *Relative to young adult level. In the absence of evidence of kidney damage, neither GFR category G1 nor G2 fulfill the criteria for CKD. The CKD-EPI equation is validated in individuals 18 years of age and older. Currently the best equation for estimating glomerular filtration rate (GFR) from serum creatinine in children is the Bedside Andrews equation. It is less accurate in patients with extremes of muscle mass, restriction of dietary protein, ingestion of creatine, extra-renal metabolism of creatinine, or treatment with medications that affect renal tubular creatinine secretion. Performed By: #### Murali /ROSE HILL SPAUR #### [address] [address] [place], [place] Potassium [Moles/Vol] 3.4 mmol/L Low 3.5-5.1 [facility] Comment on above: Performed By: #### ROSE DEGROOT SPAUR #### [facility] [address] [place], [place] Chloride [Moles/Vol] 105 mmol/L Normal 98-107 [facility] Comment on above: Performed By: #### Murali /ROSE HILL SPAUR #### [facility] [address] [place], [place] Sodium [Moles/Vol] 142 mmol/L Normal 135-145 [facility] Comment on above: Performed By: #### ROSE DEGROOT SPAUR #### [facility] [address] [place], [place] Basic Metabolic Panel w/ Ref finn to MGon 01-07-2020 Anion gap [Moles/Vol] 8 mmol/L [place] Calcium [Mass/Vol] 8.3 mg/dL Low 8.4 - 10. 4 mg/dL [place] Chloride [Moles/Vol] 105 mmol/L 98 - 10 7 mmol/L [place] CO2 [Moles/Vol] 29 mmol/L 22 - 30 mmol/L [place] Creatinine [Mass/Vol] 1.18 mg/dL 0.52 - 1.25 mg/dL [place] EGFR IF NonAfrican Cam[place]onian 44.2 mL/min Abnormal >60 [place] Comment on above: KDIGO guidelines pro vide the following GFR categories: Stage GFR(ml/min/1.73 m2) Terms G1 >=90 Normal or high G2 60-89 Mildly decreased* G3a 45-59 Mildly to moderately decreased G3b 30-44 Moderately to severely decreased G4 15-29 Severely decreased G5 <15 Kidney failure *Relative to young adult level. In the absence of evidence of kidney damage, neither GFR category G1 nor G2 fulfill the criteria for CKD. The CKD-EPI equation is validated in individuals 18 years of age and older. Currently the best equation for estimating glomerular filtration rate (GFR) from serum creatinine in children is the Bedside Andrews equation. It is less accurate in patients with extremes of muscle mass, restriction of dietary protein, ingestion of creatine, extra-renal metabolism of creatinine, or treatment with medications that affect renal tubular creatinine secretion. GFR/1.73 sq M predicted among blacks MDRD (S/P/Bld) [Vol rate/Area] 51.3 mL/min/{1.73_m2} Abnormal >60 [place] Glucose [Mass/Vol] 156 mg/dL High 70 - 100 mg/dL [place] Interpretation and review of laboratory results Abnormal [place] Potassium [Moles/Vol] 3.4 mmol/L Low 3.5 - 5.1 mmol/L [place] Sodium [Moles/Vol] 142 mmol/L 135 - 145 mmol/L [place] Urea nitrogen [Mass/Vol] 38 mg/dL High 7 - 20 mg/dL [place] CBC auto differentialon 12-26 Erythrocyte distribution width (RBC) [Ratio] 14.0 % 11.5 - 14.5 % [place] Hematocrit (Bld) [Volume fraction] 28.7 % Low 35 - 47 % [place] Hemoglobin (Bld) [Mass/Vol] 9.7 g/dL Low 11.7 - 16 g/dL [place] Interpretation and review of laboratory results Abnormal [place] MCH (RBC) [Entitic mass] 32.4 pg 26 - 34 pg [place] MCHC (RBC) [Mass/Vol] 33.9 % 32 - 36 % [place] MCV (RBC) [Entitic vol] 95.5 fL 79 - 98 fL [place] Platelet mean volume (Bld) [Entitic vol] 11.6 fL High 7.4 - 10.4 fL [place] Platelets (Bld) [#/Vol] 41 10*3/uL Low 140 - 440 10*3/uL [place] RBC (Bld) [#/Vol] 3.00 10*6/uL Low 3.8 - 5.2 10*6/uL [place] WBC (Bld) [#/Vol] 10.8 10*3/uL High 3.6 - 10.7 10*3/uL [facility] [facility] Test Performed by [facility], [address] [place] [address] [facility] Calcium, Ionizedon 0 Interpretation and review of laboratory results Abnormal [facility] LENNIE Ionized Ca 4.30 mg/dL 4.3 - 5.2 mg/dL [facility] LENNIE pH (Bld) 7.53 [pH] High [facility] Performed by [facility], [address] [facility], [place] [address] [facility] LENNIE Calcium,Ionizedon 01-07-2020 Ionized Ca,Measured 4.30 mg/dL Normal 4.30-5.20 [facility] Comment on above: Performed By: #### C /ROSE HILL SPAUR #### [facility] [address] [place] [address] pH, Ionized Calcium 7.53 High 7.31-7.46 [facility] Comment on above: Performed By: #### C /ROSE HILL SPAUR #### [facility] [address] [place] [address] Culture, Blood 1on 0 Blood Culture, Routine No growth at 5 days. [facility] Performed by [facility], [address] [place] [address] Specimen Source Comment:Blood AEROBIC ONLY [facility] Glucose,Bedsideon 01-07-2020 Glucose [Mass/Vol] 228 mg/dL High 70-100 [facility] Comment on above: Result Comment: Test performed by glucose meter. Results may be 10%-15% lower than serum/plasma values. (CLIA ID [id number]) Performed By: #### B GLU #### [facility] [address] [place] [address] Glucose [Mass/Vol] 175 mg/dL High 70-100 [facility] Comment on above: Result Comment: Test performed by glucose meter. Results may be 10%-15% lower than serum/plasma values. (CLIA ID [id number]) Performed By: #### B GLU #### [facility] [address] [place], [place] Glucose [Mass/Vol] 82 mg/dL Normal 70-100 [facility] Comment on above: Result Comment: Test performed by glucose meter. Results may be 10%-15% lower than serum/plasma values. (CLIA ID [id number]) Performed By: #### B GLU #### [facility] [address] [place], [place] Glucose [Mass/Vol] 132 mg/dL High 70-100 [facility] Comment on above: Result Comment: Test performed by glucose meter. Results may be 10%-15% lower than serum/plasma values. (CLIA ID [id number]) Performed By: #### B GLU #### [place] [address] [place], [place] Hemogram w/ Autodiffon 01-06 Erythrocyte distribution width (RBC) [Ratio] 14.0 % Normal 11.5-14.5 [facility] Comment on above: Performed By: #### B GLU #### [place] [address] [place], [place] Hematocrit (Bld) [Volume fraction] 28.7 % Low 35.0-47.0 [facility] Comment on above: Performed By: #### B GLU #### [facility] [address] [place], [place] Hemoglobin (Bld) [Mass/Vol] 9.7 g/dL Low 11.7-16.0 [facility] Comment on above: Performed By: #### B GLU #### [place] [address] [place], [place] MCH (RBC) [Entitic mass] 32.4 pg Normal 26.0-34.0 [facility] Comment on above: Performed By: #### B GLU #### [facility] [address] [place], [place] MCHC (RBC) [Mass/Vol] 33.9 % Normal 32.0-36.0 [facility] Comment on above: Performed By: #### B GLU #### [facility] [address] [place], [place] MCV (RBC) [Entitic vol] 95.5 fL Normal 79.0-98.0 [facility] Comment on above: Performed By: #### B GLU #### [facility] [address] [place], [place] Platelet mean volume (Bld) [Entitic vol] 11.6 fL High 7.4-10.4 [facility] Comment on above: Performed By: #### B GLU #### [facility] [address] [place], [place] Platelets (Bld) [#/Vol] 41 10*3/uL Low 140-440 [facility] Comment on above: Performed By: #### B GLU #### [place] [address] [place], [place] RBC (Bld) [#/Vol] 3.00 10*6/uL Low 3.80-5.20 [facility] Comment on above: Performed By: #### B GLU #### [place] [address] [place], [place] WBC (Bld) [#/Vol] 10.8 10*3/uL High 3.6-10.7 [facility] Comment on above: Performed By: #### B GLU #### [facility] [address] [place], [place] Magnesiumon 01-07-2020 Magnesium [Mass/Vol] 1.6 mg/dL Normal 1.6-2.3 [facility] Comment on above: Performed By: #### B GLU #### [facility] [address] [place], [place] Magnesium [Mass/Vol] 1.6 mg/dL 1.6 - 2 .3 mg/dL [facility] [place], [place] Manual Diffon 01-07-2020 Abs Baso Cnt 0.0 10*3/uL Normal 0.0-0.2 [facility] Comment on above: Performed By: #### B GLU #### [facility] [address] [place], [place] Abs Eosin Cnt 0.2 10*3/uL Normal 0.0-0.5 [facility] Comment on above: Performed By: #### B GLU #### [place] [address] [place], [place] Abs Lymph Cnt 2.4 10*3/uL Normal 1.1-4.[address] [facility] Comment on above: Performed By: #### B GLU #### [place] [address] [place], [place] Abs Monocyte Cnt 1.3 10*3/uL High 0.2-1.1 [facility] Comment on above: Performed By: #### B GLU #### [place] [address] [place], [place] Abs Neutrophile Cnt 6.9 10*3/uL Normal 2.2-8.2 [facility] Comment on above: Performed By: #### B GLU #### [place] [address] [place], [place] Bands 13 % High 0-3 [facility] Comment on above: Performed By: #### B GLU #### [place] [address] [place], [place] Basophils 0 % Normal 0-2 [facility] Comment on above: Performed By: #### B GLU #### [place] [address] [place], [place] Cells counted 100 Normal [facility] Comment on above: Performed By: #### B GLU #### [place] [address] [place], [place] Eosinophils 2 % Normal 1-6 [facility] Comment on above: Performed By: #### B GLU #### [place] [address] [place], [place] Lymphocytes 22 % Normal 20-40 [facility] Comment on above: Performed By: #### B GLU #### [place] [address] [place], [place] Monocytes 12 % High 2-10 [facility] Comment on above: Performed By: #### B GLU #### [place] [address] [place], [place] RBC morphology finding Nom (Bld) Normal Normal [facility] Comment on above: Performed By: #### B GLU #### [facility] [address] [place], [place] Seg Neutrophils 51 % Normal 40-80 [facility] Comment on above: Performed By: #### B GLU #### [facility] [address] [place], [place] Manual Differentialon 2019 Absolute Baso # 0.0 10*3/uL 0 - 0.2 10*3/uL [facility] [place] Absolute Eos # 0.2 10*3/uL 0 - 0.5 10*3/uL [facility] [place] Absolute Lymph # 2.4 10*3/uL 1.1 - 4.5 10*3/uL [facility] [place] Absolute [place] # 1.3 10*3/uL High 0.2 - 1.1 10*3/uL [facility] [place] Absolute Neut # 6.9 10*3/uL 2.2 - 8.2 10*3/uL [facility] [place] Bands 13 % High 0 - 3 % [facility] [place] Basophils 0 % 0 - 2 % [facility] [place] Eosinophils 2 % 1 - 6 % [facility] [place] Interpretation and review of laboratory results Abnormal [facility] [place] Lymphocytes 22 % 20 - 40 % [facility] [place] Monocytes 12 % High 2 - 10 % [facility] [place] RBC morphology finding Nom (Bld) Normal [facility] [place] Seg Neutrophils 51 % 40 - 80 % [facility] [place] TOTAL CELLS COUNTED 100 [facility] Test Performed by [facility], [address] [place] [address] [facility] [place] Otheron 01-07-2020 Test Performed by [facility], [place] [address] [facility] POCT Glucoseon 01-07-2020 Glucose [Mass/Vol] 228 mg/dL High 70 - 100 mg/dL [facility] [place] Comment on above: Test performed by gl ucose meter. Results may be 10%-15% lower than serum/plasma values. (CLIA ID [id number]) Interpretation and review of laboratory results Abnormal [facility] [place] Test Performed by [facility], [facility] [place] [address] [place] [address] [facility], [place] Glucose [Mass/Vol] 175 mg/dL High 70 - 100 mg/dL [place], [place] Comment on above: Test performed by gl ucose meter. Results may be 10%-15% lower than serum/plasma values. (CLIA ID [id number]) Interpretation and review of laboratory results Abnormal [facility] [place] Test Performed by [facility], [facility] [place] [place] [address] [facility], [place] Glucose [Mass/Vol] 82 mg/dL 70 - 100 mg/dL [place] Comment on above: Test performed by gl ucose meter. Results may be 10%-15% lower than serum/plasma values. (CLIA ID [id number]) Test Performed by [facility], [place] [address] [place], [place] Glucose [Mass/Vol] 132 mg/dL High 70 - 100 mg/dL [place] Comment on above: Test performed by gl ucose meter. Results may be 10%-15% lower than serum/plasma values. (CLIA ID [id number]) Interpretation and review of laboratory results Abnormal [facility] [place] Test Performed by [facility], [place] [address] [place], [place] Phosphoruson 01-07-2020 Phosphate [Mass/Vol] 2.9 mg/dL Normal 2.5-4.5 [facility] Comment on above: Performed By: #### B GLU #### [place] [address] [place] [address] Phosphate [Mass/Vol] 2.9 mg/dL 2.5 - 4 .5 mg/dL [place], [place] Basic Metabolic Panelon 12-26 Anion gap [Moles/Vol] 7 Normal [facility] Comment on above: Performed By: #### B GLU #### [facility] [address] [place], [place] Calcium [Mass/Vol] 8.3 mg/dL Low 8.4-10.4 [facility] Comment on above: Performed By: #### B GLU #### [facility] [address] [place], [place] CO2 [Moles/Vol] 32 mmol/L High 22-30 [facility] Comment on above: Performed By: #### B GLU #### [place] [address] [place], [place] Glucose [Mass/Vol] 88 mg/dL Normal 70-100 [facility] Comment on above: Performed By: #### B GLU #### [place] [address] [place], [place] Urea nitrogen [Mass/Vol] 47 mg/dL High 7-20 [facility] Comment on above: Performed By: #### B GLU #### [place] [address] [place], [place] Creatinine [Mass/Vol] 1.31 mg/dL High 0.52-1.25 [facility] Comment on above: Performed By: #### B GLU #### [place] [address] [place], [place] GFR/1.73 sq M predicted among blacks MDRD (S/P/Bld) [Vol rate/Area] 45.2 mL/min/{1.73_m2} Abnormal >60 [facility] Comment on above: Performed By: #### B GLU #### [place] [address] [place], [place] GFR/1.73 sq M predicted among non-blacks MDRD (S/P/Bld) [Vol rate/Area] 39.0 mL/min/{1.73_m2} Abnormal >60 [facility] Comment on above: Result Comment: KDIG O guidelines provide the following GFR categories: Stage GFR(ml/min/1.73 m2) Terms G1 >=90 Normal or high G2 60-89 Mildly decreased* G3a 45-59 Mildly to moderately decreased G3b 30-44 Moderately to severely decreased G4 15-29 Severely decreased G5 <15 Kidney failure *Relative to young adult level. In the absence of evidence of kidney damage, neither GFR category G1 nor G2 fulfill the criteria for CKD. The CKD-EPI equation is validated in individuals 18 years of age and older. Currently the best equation for estimating glomerular filtration rate (GFR) from serum creatinine in children is the Bedside Andrews equation. It is less accurate in patients with extremes of muscle mass, restriction of dietary protein, ingestion of creatine, extra-renal metabolism of creatinine, or treatment with medications that affect renal tubular creatinine secretion. Performed By: #### B GLU #### [facility] [address] [place], [place] Potassium [Moles/Vol] 3.2 mmol/L Low 3.5-5.1 [facility] Comment on above: Performed By: #### B GLU #### [place] [address] [place], [place] Sodium [Moles/Vol] 143 mmol/L Normal 135-145 [facility] Comment on above: Performed By: #### B GLU #### [facility] [address] [place], [place] Chloride [Moles/Vol] 104 mmol/L Normal 98-107 [facility] Comment on above: Performed By: #### B GLU #### [place] [address] [place], [place] Basic Metabolic Panel w/ Ref finn to MGon 01-06-2020 Anion gap [Moles/Vol] 7 mmol/L [place] Calcium [Mass/Vol] 8.3 mg/dL Low 8.4 - 10. 4 mg/dL [place], [place] Chloride [Moles/Vol] 104 mmol/L 98 - 10 7 mmol/L [place] CO2 [Moles/Vol] 32 mmol/L High 22 - 30 mmol/L [place] Creatinine [Mass/Vol] 1.31 mg/dL High 0.52 - 1.25 mg/dL [place] EGFR IF NonAfrican Cameroonian 39.0 mL/min Abnormal >60 [place] Comment on above: KDIGO guidelines pro vide the following GFR categories: Stage GFR(ml/min/1.73 m2) Terms G1 >=90 Normal or high G2 60-89 Mildly decreased* G3a 45-59 Mildly to moderately decreased G3b 30-44 Moderately to severely decreased G4 15-29 Severely decreased G5 <15 Kidney failure *Relative to young adult level. In the absence of evidence of kidney damage, neither GFR category G1 nor G2 fulfill the criteria for CKD. The CKD-EPI equation is validated in individuals 18 years of age and older. Currently the best equation for estimating glomerular filtration rate (GFR) from serum creatinine in children is the Bedside Andrews equation. It is less accurate in patients with extremes of muscle mass, restriction of dietary protein, ingestion of creatine, extra-renal metabolism of creatinine, or treatment with medications that affect renal tubular creatinine secretion. GFR/1.73 sq M predicted among blacks MDRD (S/P/Bld) [Vol rate/Area] 45.2 mL/min/{1.73_m2} Abnormal >60 [place] Glucose [Mass/Vol] 88 mg/dL 70 - 100 mg/dL [place] Potassium [Moles/Vol] 3.2 mmol/L Low 3.5 - 5.1 mmol/L [place] Sodium [Moles/Vol] 143 mmol/L 135 - 145 mmol/L [place] Urea nitrogen [Mass/Vol] 47 mg/dL High 7 - 20 mg/dL [place] CBC Auto Differentialon 12-26 Erythrocyte distribution width (RBC) [Ratio] 14.3 % 11.5 - 14.5 % [place] Hematocrit (Bld) [Volume fraction] 28.4 % Low 35 - 47 % [place] Hemoglobin (Bld) [Mass/Vol] 9.4 g/dL Low 11.7 - 16 g/dL [place] Interpretation and review of laboratory results Abnormal [place] MCH (RBC) [Entitic mass] 31.8 pg 26 - 34 pg [place] MCHC (RBC) [Mass/Vol] 33.3 % 32 - 36 % [place] MCV (RBC) [Entitic vol] 95.6 fL 79 - 98 fL [place] Platelet mean volume (Bld) [Entitic vol] 10.6 fL High 7.4 - 10.4 fL [place] Platelets (Bld) [#/Vol] 35 10*3/uL Low 140 - 440 10*3/uL [place] RBC (Bld) [#/Vol] 2.97 10*6/uL Low 3.8 - 5.2 10*6/uL [place] WBC (Bld) [#/Vol] 11.2 10*3/uL High 3.6 - 10.7 10*3/uL [place] Test Performed by [facility], [facility] [place] [address] [place], [place] CBC auto differentialon 12-26 Erythrocyte distribution width (RBC) [Ratio] 14.1 % 11.5 - 14.5 % [place] Hematocrit (Bld) [Volume fraction] 26.5 % Low 35 - 47 % [place] Hemoglobin (Bld) [Mass/Vol] 8.7 g/dL Low 11.7 - 16 g/dL [place] Interpretation and review of laboratory results Abnormal [place] MCH (RBC) [Entitic mass] 31.8 pg 26 - 34 pg [place] MCHC (RBC) [Mass/Vol] 33.0 % 32 - 36 % [place] MCV (RBC) [Entitic vol] 96.2 fL 79 - 98 fL [place] Platelet mean volume (Bld) [Entitic vol] 12.0 fL High 7.4 - 10.4 fL [place] Platelets (Bld) [#/Vol] 32 10*3/uL Low 140 - 440 10*3/uL [place] RBC (Bld) [#/Vol] 2.75 10*6/uL Low 3.8 - 5.2 10*6/uL [place] WBC (Bld) [#/Vol] 13.0 10*3/uL High 3.6 - 10.7 10*3/uL [place] Test Performed by [facility], [place] [address] [place] [address] [facility], [place] CULT./ST. RESPIRATORYon 12-26 CULT./ST. RESPIRATORY 1 Organism Ana albicans Rare Normal [facility] Comment on above: Order Comment: Speci men Source Comment:Sputum Expectorated Performed By: #### B GLU #### [facility] [address] [place] [address] Calcium, Ionizedon 0 Interpretation and review of laboratory results Abnormal [place], [place] Ionized Ca 4.30 mg/dL 4.3 - 5.2 mg/dL [place], [place] pH (Bld) 7.52 [pH] High [place] Test Performed by [facility], [address] [place] [address] [place], [place] Calcium,Ionizedon 01-06-2020 Ionized Ca,Measured 4.30 mg/dL Normal 4.30-5.20 [facility] Comment on above: Performed By: #### B GLU #### [place] [address] [place] [address] pH, Ionized Calcium 7.52 High 7.31-7.46 [facility] Comment on above: Performed By: #### B GLU #### [place] [address] [place] [address] Culture, Respiratoryon 01-05 Interpretation and review of laboratory results Abnormal [facility], [place] Respiratory Culture Rare [place], [place] Respiratory Culture Ana albicans Abnormal [place] Test Performed by [facility], [place] [address] Specimen Source Comment:Sputum Expectorated [place], [place] Glucose,Bedsideon 01-06-2020 Glucose [Mass/Vol] 180 mg/dL High 70-100 [facility] Comment on above: Result Comment: Test performed by glucose meter. Results may be 10%-15% lower than serum/plasma values. (CLIA ID [id number]) Performed By: #### B GLU #### [place] [place] [place] [address] Glucose [Mass/Vol] 174 mg/dL High 70-100 [facility] Comment on above: Result Comment: Test performed by glucose meter. Results may be 10%-15% lower than serum/plasma values. (CLIA ID [id number]) Performed By: #### B GLU #### [place] [place] [address] Glucose [Mass/Vol] 150 mg/dL High 70-100 [facility] Comment on above: Result Comment: Test performed by glucose meter. Results may be 10%-15% lower than serum/plasma values. (CLIA ID [id number]) Performed By: #### B GLU #### [place] [address] [place] Glucose [Mass/Vol] 97 mg/dL Normal 70-100 [facility] Comment on above: Result Comment: Test performed by glucose meter. Results may be 10%-15% lower than serum/plasma values. (CLIA ID [id number]) Performed By: #### B GLU #### [place] [place] [address] Haptoglobinon 01-06-2020 Haptoglobin 356.2 mg/dL High 30.0-200.0 [facility] Comment on above: Performed By: #### B GLU #### [place] [address] [place] [address] Haptoglobin 356.2 mg/dL High 30 - 200 mg/dL [place] Interpretation and review of laboratory results Abnormal [place] Test Performed by [facility], [address] [place] [address] [place], [place] Hemogram w/ Autodiffon 01-05 Erythrocyte distribution width (RBC) [Ratio] 14.3 % Normal 11.5-14.5 [facility] Comment on above: Performed By: #### B GLU #### [place] [address] [place] Hematocrit (Bld) [Volume fraction] 28.4 % Low 35.0-47.0 [facility] Comment on above: Performed By: #### B GLU #### [place] [address] [place], [place] Hemoglobin (Bld) [Mass/Vol] 9.4 g/dL Low 11.7-16.0 [facility] Comment on above: Performed By: #### B GLU #### [facility] [address] [place], [place] MCH (RBC) [Entitic mass] 31.8 pg Normal 26.0-34.0 [facility] Comment on above: Performed By: #### B GLU #### [facility] [address] [place], [place] MCHC (RBC) [Mass/Vol] 33.3 % Normal 32.0-36.0 [facility] Comment on above: Performed By: #### B GLU #### [place] [address] [place], [place] MCV (RBC) [Entitic vol] 95.6 fL Normal 79.0-98.0 [facility] Comment on above: Performed By: #### B GLU #### [place] [address] [place], [place] Platelet mean volume (Bld) [Entitic vol] 10.6 fL High 7.4-10.4 [facility] Comment on above: Performed By: #### B GLU #### [place] [address] [place], [place] Platelets (Bld) [#/Vol] 35 10*3/uL Low 140-440 [facility] Comment on above: Performed By: #### B GLU #### [place] [place], [place] RBC (Bld) [#/Vol] 2.97 10*6/uL Low 3.80-5.20 [facility] Comment on above: Performed By: #### B GLU #### [place] [address] [place], [place] WBC (Bld) [#/Vol] 11.2 10*3/uL High 3.6-10.7 [facility] Comment on above: Performed By: #### B GLU #### [place] [address] [place], [place] Erythrocyte distribution width (RBC) [Ratio] 14.1 % Normal 11.5-14.5 [facility] Comment on above: Performed By: #### B GLU #### [facility] [address] [place], [place] Hematocrit (Bld) [Volume fraction] 26.5 % Low 35.0-47.0 [facility] Comment on above: Performed By: #### B GLU #### [facility] [address] [place], [place] Hemoglobin (Bld) [Mass/Vol] 8.7 g/dL Low 11.7-16.0 [facility] Comment on above: Performed By: #### B GLU #### [place] [address] [place], [place] MCH (RBC) [Entitic mass] 31.8 pg Normal 26.0-34.0 [facility] Comment on above: Performed By: #### B GLU #### [place] [address] [place] MCHC (RBC) [Mass/Vol] 33.0 % Normal 32.0-36.0 [facility] Comment on above: Performed By: #### B GLU #### [place] [address] [place] MCV (RBC) [Entitic vol] 96.2 fL Normal 79.0-98.0 [facility] Comment on above: Performed By: #### B GLU #### [place] [address] [place], [place] Platelet mean volume (Bld) [Entitic vol] 12.0 fL High 7.4-10.4 [facility] Comment on above: Performed By: #### B GLU #### [place] [place], [place] Platelets (Bld) [#/Vol] 32 10*3/uL Low 140-440 [facility] Comment on above: Performed By: #### B GLU #### [place] [address] [place], [place] RBC (Bld) [#/Vol] 2.75 10*6/uL Low 3.80-5.20 [facility] Comment on above: Performed By: #### B GLU #### [place] [place], [place] WBC (Bld) [#/Vol] 13.0 10*3/uL High 3.6-10.7 [facility] Comment on above: Performed By: #### B GLU #### [place] [place], [place] LDHon 01-06-2020 LDH 201 U/L Normal 120-246 [facility] Comment on above: Performed By: #### B GLU #### [place] [address] [place], [place] Lactate Dehydrogenaseon 12-26 LD 201 U/L 120 - 246 U/L [place] Test Performed by [facility], [place] [address] [place], [place] Magnesiumon 01-06-2020 Magnesium [Mass/Vol] 1.8 mg/dL Normal 1.6-2.3 [facility] Comment on above: Performed By: #### B GLU #### [place] [address] [place], [place] Magnesium [Mass/Vol] 1.8 mg/dL 1.6 - 2 .3 mg/dL [place], [place] Manual Diffon 01-06-2020 Abs Eosin Cnt 0.2 10*3/uL Normal 0.0-0.5 [facility] Comment on above: Performed By: #### B GLU #### [place] [address] [place], [place] Abs Lymph Cnt 2.7 10*3/uL Normal 1.1-4.5 [facility] Comment on above: Performed By: #### B GLU #### [place] [address] [place], [place] Abs Monocyte Cnt 0.7 10*3/uL Normal 0.2-1.1 [facility] Comment on above: Performed By: #### B GLU #### [place] [address] [place], [place] Abs Neutrophile Cnt 7.6 10*3/uL Normal 2.2-8.2 [facility] Comment on above: Performed By: #### B GLU #### [facility] [address] [place], [place] Bands 5 % High 0-3 [facility] Comment on above: Performed By: #### B GLU #### [facility] [address] [place], [place] Dohle Bodies Slight Normal [facility] Comment on above: Performed By: #### B GLU #### [place] [address] [place], [place] Eosinophils 2 % Normal 1-6 [facility] Comment on above: Performed By: #### B GLU #### [place] [place], [place] Lymphocytes 24 % Normal 20-40 [facility] Comment on above: Performed By: #### B GLU #### [place] [place], [place] Monocytes 6 % Normal 2-10 [facility] Comment on above: Performed By: #### B GLU #### [address] [address] [place], [place] RBC morphology finding Nom (Bld) Normal Normal [facility] Comment on above: Performed By: #### B GLU #### [address] [address] [place], [place] Seg Neutrophils 63 % Normal 40-80 [facility] Comment on above: Performed By: #### B GLU #### [address] [place], [place] Toxic Vacuoles Slight Normal [facility] Comment on above: Performed By: #### B GLU #### [place] [address] [place], [place] Abs Baso Cnt 0.0 10*3/uL Normal 0.0-0.2 [facility] Comment on above: Performed By: #### B GLU #### [place] [address] [place], [place] Basophils 0 % Normal 0-2 [facility] Comment on above: Performed By: #### B GLU #### [address] [address] [place], [place] Cells counted 100 Normal [facility] Comment on above: Performed By: #### B GLU #### [address] [address] [place], [place] Abs Eosin Cnt 0.1 10*3/uL Normal 0.0-0.5 [facility] Comment on above: Performed By: #### B GLU #### [address] [address] [place], [place] Abs Lymph Cnt 0.9 10*3/uL Low 1.1-4.5 [facility] Comment on above: Performed By: #### B GLU #### [address] [address] [place], [place] Abs Monocyte Cnt 0.4 10*3/uL Normal 0.2-1.1 [facility] Comment on above: Performed By: #### B GLU #### [address] [address] [place], [place] Abs Neutrophile Cnt 11.6 10*3/uL High 2.2-8.2 [facility] Comment on above: Performed By: #### B GLU #### [address] [address] [place], [place] Anisocytosis Ql (Bld) Slight Normal [facility] Comment on above: Performed By: #### B GLU #### [place] [address] [place], [place] Bands 4 % High 0-3 [facility] Comment on above: Performed By: #### B GLU #### [address] [place], [place] Dohle Bodies Slight Normal [facility] Comment on above: Performed By: #### B GLU #### [address] [place], [place] Eosinophils 1 % Normal 1-6 [facility] Comment on above: Performed By: #### B GLU #### [facility] [address] [place], [place] Hypochromia Slight Normal [facility] Comment on above: Performed By: #### B GLU #### [facility] [address] [place], [place] Lymphocytes 7 % Low 20-40 [facility] Comment on above: Performed By: #### B GLU #### [facility] [address] [place], [place] Macrocytosis Slight Normal [facility] Comment on above: Performed By: #### B GLU #### [facility] [address] [place], [place] Monocytes 3 % Normal 2-10 [facility] Comment on above: Performed By: #### B GLU #### [address] [address] [place], [place] Ovalocytes Slight Normal [facility] Comment on above: Performed By: #### B GLU #### [address] [place], [place] Poikilocytosis Slight Normal [facility] Comment on above: Performed By: #### B GLU #### [address] [place], [place] RBC morphology finding Nom (Bld) ABNORMAL Normal [facility] Comment on above: Performed By: #### B GLU #### [address] [place], [place] Seg Neutrophils 85 % High 40-80 [facility] Comment on above: Performed By: #### B GLU #### [facility] [address] [place], [place] Tear Drop Forms Slight Normal [facility] Comment on above: Performed By: #### B GLU #### [facility] [address] [place], [place] Toxic Vacuoles Slight Normal [facility] Comment on above: Performed By: #### B GLU #### [facility] [address] [place], [place] Abs Baso Cnt 0.0 10*3/uL Normal 0.0-0.2 [facility] Comment on above: Performed By: #### B GLU #### [facility] [address] [place], [place] Basophils 0 % Normal 0-2 [facility] Comment on above: Performed By: #### B GLU #### [facility] [address], [place] Cells counted 100 Normal [facility] Comment on above: Performed By: #### B GLU #### [facility] [address] [place], [place] Manual Differentialon 2019 Absolute Baso # 0.0 10*3/uL 0 - 0.2 10*3/uL [facility] [place] Absolute Eos # 0.2 10*3/uL 0 - 0.5 10*3/uL [facility] [place] Absolute Lymph # 2.7 10*3/uL 1.1 - 4.5 10*3/uL [facility] [place] Absolute [place] # 0.7 10*3/uL 0.2 - 1.1 10*3/uL [facility] [place] Absolute Neut # 7.6 10*3/uL 2.2 - 8.2 10*3/uL [facility] [place] Bands 5 % High 0 - 3 % [facility] [place] Basophils 0 % 0 - 2 % [facility] [place] Dohle Bodies Slight [facility] [place] Eosinophils 2 % 1 - 6 % [facility] [place] Interpretation and review of laboratory results Abnormal [facility] [place] Lymphocytes 24 % 20 - 40 % [facility] [place] Monocytes 6 % 2 - 10 % [facility] [place] RBC morphology finding Nom (Bld) Normal [facility] [place] Seg Neutrophils 63 % 40 - 80 % [facility] [place] TOTAL CELLS COUNTED 100 [facility] [place] TOXIC VACUOLES Slight [facility] [place] Test Performed by [facility], [address] [place] [address] [facility] [place] Absolute Baso # 0.0 10*3/uL 0 - 0.2 10*3/uL [facility] [place] Absolute Eos # 0.1 10*3/uL 0 - 0.5 10*3/uL [facility] [place] Absolute Lymph # 0.9 10*3/uL Low 1.1 - 4.5 10*3/uL [facility] [place] Absolute [place] # 0.4 10*3/uL 0.2 - 1.1 10*3/uL [facility] [place] Absolute Neut # 11.6 10*3/uL High 2.2 - 8.2 10*3/uL [facility] [place] Anisocytosis Ql (Bld) Slight [facility] [place] Bands 4 % High 0 - 3 % [facility] [place] Basophils 0 % 0 - 2 % [facility] [place] Dohle Bodies Slight [facility] [place] Eosinophils 1 % 1 - 6 % [facility] [place] Hypochromia Slight [facility] Interpretation and review of laboratory results Abnormal [facility] Lymphocytes 7 % Low 20 - 40 % [facility] [place] Macrocytosis Slight [facility] [place] Monocytes 3 % 2 - 10 % [facility] [place] Ovalocytes Slight [facility] [place] Poikilocytes Slight [facility] RBC morphology finding Nom (Bld) ABNORMAL [facility] [place] Seg Neutrophils 85 % High 40 - 80 % [facility] [place] Tear Drop Cells Slight [facility] TOTAL CELLS COUNTED 100 [facility] TOXIC VACUOLES Slight [facility] Test Performed by [facility], [address] [place] [address] [facility] [place] Otheron 01-06-2020 Test Performed by [facility], [place] [address] [facility] Interpretation and review of laboratory results Abnormal [facility] Test Performed by [facility], [address] [place] [address] [facility] PERIPHERAL BLOOD SMEAR, PATH REVIEWon 01-06-2020 Sodium [Moles/Vol] see below [facility] [place] Comment on above: See report under Abhishek gical Pathology. Test Performed by [facility], [place] [address] [facility], [place] PERIPHERAL SMEARon 0 PERIPHERAL SMEAR see below Normal [facility] Comment on above: Result Comment: See report under Surgical Pathology. Performed By: #### B GLU #### [facility] [address] [place] [address] POCT Glucoseon 01-06-2020 Glucose [Mass/Vol] 180 mg/dL High 70 - 100 mg/dL [place], [place] Comment on above: Test performed by gl ucose meter. Results may be 10%-15% lower than serum/plasma values. (CLIA ID [id number]) Interpretation and review of laboratory results Abnormal [facility] [place] Test Performed by [facility], [address] [place] [address] [facility], [place] Glucose [Mass/Vol] 174 mg/dL High 70 - 100 mg/dL [facility], [place] Comment on above: Test performed by gl ucose meter. Results may be 10%-15% lower than serum/plasma values. (CLIA ID [id number]) Interpretation and review of laboratory results Abnormal [employer] [place] Test Performed by [facility], [facility] [place] [address] [facility], [place] Glucose [Mass/Vol] 150 mg/dL High 70 - 100 mg/dL [place], [place] Comment on above: Test performed by gl ucose meter. Results may be 10%-15% lower than serum/plasma values. (CLIA ID [id number]) Interpretation and review of laboratory results Abnormal [employer] [place] Test Performed by [facility], [address] [place] [address] [facility], [place] Glucose [Mass/Vol] 97 mg/dL 70 - 100 mg/dL [place], [place] Comment on above: Test performed by gl ucose meter. Results may be 10%-15% lower than serum/plasma values. (CLIA ID [id number]) Test Performed by [facility], [address] [place] [address] [facility] [place] PROTIME INRon 01-06-2020 INR Coag (PPP) [Relative time] 1.1 {INR} [place], [place] Comment on above: Recommended Anticoag ulant Therapy: SEE BELOW ----- INR of 2.0 - 3.0 : - Prophylaxis of Venous Thrombosis (high-risk surgery) - Treatment of Venous Thrombosis - Treatment of Pulmonary Embolism (Includes tissue heart valves, Acute Myocardial Infarction to prevent systemic embolism, Valvular Heart Disease, and Atrial Fibrillation) ----- INR of 2.5 - 3.5 : - Mechanical Prosthetic Valves (high risk) - If oral anticoagulant therapy is used to prevent Myocardial Infarction PT Coag (PPP) [Time] 11.4 s 9 - 12 s [place], [place] Comment on above: . Test Performed by [facility], [address] [place] [address] [place], [place] Phosphoruson 01-06-2020 Phosphate [Mass/Vol] 3.6 mg/dL Normal 2.5-4.5 [facility] Comment on above: Performed By: #### B GLU #### [address] Phosphate [Mass/Vol] 3.6 mg/dL 2.5 - 4 .5 mg/dL [place] Phosphate [Mass/Vol] 2.0 mg/dL Low 2.5-4.5 [facility] Comment on above: Performed By: #### B GLU #### [address] [address] Phosphate [Mass/Vol] 2.0 mg/dL Low 2.5 - 4 .5 mg/dL [place] Potassiumon 01-06-2020 Potassium [Moles/Vol] 4.0 mmol/L Normal 3.5-5.1 [facility] Comment on above: Performed By: #### B GLU #### [address] [address] Potassium [Moles/Vol] 4.0 mmol/L 3.5 - 5.1 mmol/L [place], [place] Prothrombin Timeon 0 INR Coag (PPP) [Relative time] 1.1 Normal 0.9-1.1 [facility] Comment on above: Result Comment: Jace mmended Anticoagulant Therapy: SEE BELOW ----- INR of 2.0 - 3.0 : - Prophylaxis of Venous Thrombosis (high-risk surgery) - Treatment of Venous Thrombosis - Treatment of Pulmonary Embolism (Includes tissue heart valves, Acute Myocardial Infarction to prevent systemic embolism, Valvular Heart Disease, and Atrial Fibrillation) ----- INR of 2.5 - 3.5 : - Mechanical Prosthetic Valves (high risk) - If oral anticoagulant therapy is used to prevent Myocardial Infarction Performed By: #### B GLU #### [address] [phone] PT Coag (PPP) [Time] 11.4 s Normal 9.0-12.0 [facility] Comment on above: Result Comment: . Performed By: #### B GLU #### [address] [phone] Surgical Pathologyon 020 Sodium [Moles/Vol] SEE BELOW [facility] [place], [place] 1 [id number] [facility] DEPARTMENT OF [facility] PATHOLOGY AND LABORATORY MEDICINE [address] [place] [address] FINAL PERIPHERAL BLOOD REPORT NAME: JODEE LORENZO Maria A : 1940 79 Y F BILLING NO.: [id number] LOCATION: [id number] PROCEDURE 01/06/2020 DATE: SURGEON: RICA GAMBOA MD RECEIVED DATE: 01/06/2020 ATTENDING EN RODRÍGUEZ D.O. 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 NO BLASTS, SCHISTOCYTES OR DYSGRANULOPOIESIS IS SEEN LANDSCAPE FOREMAN/LANDSCAPE FOREMAN Signature> NIK HARRISON M.D. CLINICAL INFORMATION: Peripheral Smear SPECIMEN: PERIPHERAL BLOOD SMEAR GROSS DESCRIPTION: Peripheral smear slide prepared for evaluation. LANDSCAPE FOREMAN/LANDSCAPE FOREMAN Disclaimer: The following statement applies to all immunohistochemistry, in situ hybridization, molecular studies, and immunofluorescence testing. The use of one or more reagents in the above tests is regulated as an analyte specific reagent (ASR). These tests were developed and their performance characteristics determined by the clinical laboratories of [facility]. They have not been cleared by the [place] Food and Drug Administration (FDA). The FDA has determined that such clearance or approval is not necessary. All the above immunostains were performed on paraffin embedded tissue. Appropriate positive and negative controls (where applicable) were run in parallel with the patient's specimen; these controls showed expected staining pattern, with acceptable intensity of staining. Immunohistochemical assays have not been validated on decalcified tissues. Results should be interpreted with caution given the raised possibility of false negativity on decalcified specimens. DEPARTMENT OF PATHOLOGY AND LABORATORY MEDICINE [place], [place] [address] [facility], [place] Surgical Pathology [id number] [facility] DEPARTMENT OF [facility] PATHOLOGY AND LABORATORY MEDICINE [facility] [place] [address] FINAL PERIPHERAL BLOOD REPORT NAME: JODEE LORENZO : 1940 79 Y F TERRELL NO.: [id number] LOCATION: [place] [address] PROCEDURE 01/06/2020 DATE: SURGEON: RICA GAMBOA MD RECEIVED DATE: 01/06/2020 ATTENDING EN RODRÍGUEZ D.O. 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 NO BLASTS, SCHISTOCYTES OR DYSGRANULOPOIESIS IS SEEN LANDSCAPE FOREMAN/LANDSCAPE FOREMAN Signature> NIK HARRISON M.D. CLINICAL INFORMATION: Peripheral Smear SPECIMEN: PERIPHERAL BLOOD SMEAR GROSS DESCRIPTION: Peripheral smear slide prepared for evaluation. LANDSCAPE FOREMAN/LANDSCAPE FOREMAN Disclaimer: The following statement applies to all immunohistochemistry, in situ hybridization, molecular studies, and immunofluorescence testing. The use of one or more reagents in the above tests is regulated as an analyte specific reagent (ASR). These tests were developed and their performance characteristics determined by the clinical laboratories of [facility]. They have not been cleared by the US Food and Drug Administration (FDA). The FDA has determined that such clearance or approval is not necessary. All the above immunostains were performed on paraffin embedded tissue. Appropriate positive and negative controls (where applicable) were run in parallel with the patient's specimen; these controls showed expected staining pattern, with acceptable intensity of staining. Immunohistochemical assays have not been validated on decalcified tissues. Results should be interpreted with caution given the raised possibility of false negativity on decalcified specimens. DEPARTMENT OF PATHOLOGY AND LABORATORY MEDICINE [place], [place] [address] Normal [facility] XA SPECIAL PROCEDUREon 01-05 Patient Name: JODEE LORENZO ---Special Procedures--- Exam Date/Time 01/06/2020 16:19:06 EST Exam XA Special Angiography Procedure Ordering Physician UNASSIGNED, UNASSIGNED Accession Number [id number] Reason For Exam ureteral stone Report Left antegrade nephrostogram with left ureteral stent is patent and removal of left nephrostomy tube, 01/06/2020. Reason for procedure: Patient with history of ureteral calculus and left ureteral obstruction, status post left nephrostomy tube placement. Now for placement of an antegrade ureteral stent. Anesthesia: The procedure was performed with local anesthesia and moderate intravenous sedation. Sedation consisted of 1 mg of Versed, IV, and 50 mcg of fentanyl, IV. Sedation was administered with continuous cardiopulmonary monitoring performed by myself and independent special procedure nursing. Intra service time was 30 minutes. Fluoroscopy time: 5.7 minutes. Contrast: Approximately 25 mL of Isovue-300. Images obtained: One fluoroscopy cine loops and five fluoroscopy screen save images. Complications: None immediate. Procedure details and findings: The patient's previous studies were reviewed. After obtaining informed consent, the patient was brought to the special procedure suite and positioned prone on the angiographic table. The left flank, including the external portion of the existing left nephrostomy tube, was prepped and draped in usual sterile fashion. Elements of sterile technique utilized include cap, mask, sterile gown, appropriate hand hygiene with sterile gloves, long sterile drape, and 2 percent chlorhexidine solution for skin antisepsis. Fluoroscopy demonstrated apparent satisfactory course and position of the patient's left nephrostomy tube. An antegrade nephrostogram through the nephrostomy tube confirmed satisfactory position of the nephrostomy tube with a decompressed left renal collecting system and left ureter. Contrast was noted flowing through the left ureter into the urinary bladder. No filling defects were noted. Following administration of local anesthetic along the nephrostomy tube skin entry site, the hub of the nephrostomy tube was cut, and the nephrostomy tube was removed over a 0.035 inch J guidewire. A 5 [place] angled tip glide catheter was used with a 0.035 inch angled tip Glidewire to cannulate the left ureter. The Glidewire and glide catheter were advanced into the urinary bladder. The Glidewire was exchanged through the glide catheter for a 0.035 inch Amplatz guidewire. An 8 [place] by 22 cm double-J ureteral stent was placed over the Amplatz guidewire with distal tip coiled in the urinary bladder and proximal tip coiled in the left renal collecting system. Satisfactory position and function of the stent were confirmed by contrast injection under fluoroscopy. The access sheath was removed. A sterile dressing was applied at the puncture site. The patient tolerated the procedure well. IMPRESSION: 1. No definite urinary tract calculus identified. No filling defects noted in the renal collecting system. 2. Satisfactory placement of left 8 [place] ureteral stent via an antegrade approach as described. Report Dictated on --- Final --- Dictated: 01/06/2020 4:22 pm Dictating Physician: MD JONES JOE M Signed Date and Time: 01/06/2020 4:27 pm Signed by: MD JONES JOE M Transcribed Date and Time: 01/06/2020 4:22 [facility] [place] Gopi Capellan Incoming Radiology Results From [facility] - 01/06/2020 4:28 PM EST Patient Name: JODEE LORENZO ---Special Procedures--- Exam Date/Time 01/06/2020 16:19:06 EST Exam XA Special Angiography Procedure Ordering Physician UNASSIGNED, UNASSIGNED Accession Number [id number] Reason For Exam ureteral stone Report Left antegrade nephrostogram with left ureteral stent is patent and removal of left nephrostomy tube, 01/06/2020. Reason for procedure: Patient with history of ureteral calculus and left ureteral obstruction, status post left nephrostomy tube placement. Now for placement of an antegrade ureteral stent. Anesthesia: The procedure was performed with local anesthesia and moderate intravenous sedation. Sedation consisted of 1 mg of Versed, IV, and 50 mcg of fentanyl, IV. Sedation was administered with continuous cardiopulmonary monitoring performed by myself and independent special procedure nursing. Intra service time was 30 minutes. Fluoroscopy time: 5.7 minutes. Contrast: Approximately 25 mL of Isovue-300. Images obtained: One fluoroscopy cine loops and five fluoroscopy screen save images. Complications: None immediate. Procedure details and findings: The patient's previous studies were reviewed. After obtaining informed consent, the patient was brought to the special procedure suite and positioned prone on the angiographic table. The left flank, including the external portion of the existing left nephrostomy tube, was prepped and draped in usual sterile fashion. Elements of sterile technique utilized include cap, mask, sterile gown, appropriate hand hygiene with sterile gloves, long sterile drape, and 2 percent chlorhexidine solution for skin antisepsis. Fluoroscopy demonstrated apparent satisfactory course and position of the patient's left nephrostomy tube. An antegrade nephrostogram through the nephrostomy tube confirmed satisfactory position of the nephrostomy tube with a decompressed left renal collecting system and left ureter. Contrast was noted flowing through the left ureter into the urinary bladder. No filling defects were noted. Following administration of local anesthetic along the nephrostomy tube skin entry site, the hub of the nephrostomy tube was cut, and the nephrostomy tube was removed over a 0.035 inch J guidewire. A 5 [place] angled tip glide catheter was used with a 0.035 inch angled tip Glidewire to cannulate the left ureter. The Glidewire and glide catheter were advanced into the urinary bladder. The Glidewire was exchanged through the glide catheter for a 0.035 inch Amplatz guidewire. An 8 [place] by 22 cm double-J ureteral stent was placed over the Amplatz guidewire with distal tip coiled in the urinary bladder and proximal tip coiled in the left renal collecting system. Satisfactory position and function of the stent were confirmed by contrast injection under fluoroscopy. The access sheath was removed. A sterile dressing was applied at the puncture site. The patient tolerated the procedure well. IMPRESSION: 1. No definite urinary tract calculus identified. No filling defects noted in the renal collecting system. 2. Satisfactory placement of left 8 [place] ureteral stent via an antegrade approach as described. Report Dictated on --- Final --- Dictated: 01/06/2020 4:22 pm Dictating Physician: MD JONES JOE M Signed Date and Time: 01/06/2020 4:27 pm Signed by: MD JONES JOE M Transcribed Date and Time: 01/06/2020 4:22 [place], [place] XA Special Angiography Proce [facility] 01-06-2020 XA Special Angiography Procedure Patient Name: JODEE LORENZO Special Procedures Exam Date/Time 01/06/2020 16:19:06 EST Exam XA Special Angiography Procedure Ordering Physician UNASSIGNED, UNASSIGNED Accession Number [id number] Reason For Exam ureteral stone Report Left antegrade nephrostogram with left ureteral stent is patent and removal of left nephrostomy tube, 01/06/2020. Reason for procedure: Patient with history of ureteral calculus and left ureteral obstruction, status post left nephrostomy tube placement. Now for placement of an antegrade ureteral stent. Anesthesia: The procedure was performed with local anesthesia and moderate intravenous sedation. Sedation consisted of 1 mg of Versed, IV, and 50 mcg of fentanyl, IV. Sedation was administered with continuous cardiopulmonary monitoring performed by myself and independent special procedure nursing. Intra service time was 30 minutes. Fluoroscopy time: 5.7 minutes. Contrast: Approximately 25 mL of Isovue-300. Images obtained: One fluoroscopy cine loops and five fluoroscopy screen save images. Complications: None immediate. Procedure details and findings: The patient's previous studies were reviewed. After obtaining informed consent, the patient was brought to the special procedure suite and positioned prone on the angiographic table. The left flank, including the external portion of the existing left nephrostomy tube, was prepped and draped in usual sterile fashion. Elements of sterile technique utilized include cap, mask, sterile gown, appropriate hand hygiene with sterile gloves, long sterile drape, and 2 percent chlorhexidine solution for skin antisepsis. Fluoroscopy demonstrated apparent satisfactory course and position of the patient's left nephrostomy tube. An antegrade nephrostogram through the nephrostomy tube confirmed satisfactory position of the nephrostomy tube with a decompressed left renal collecting system and left ureter. Contrast was noted flowing through the left ureter into the urinary bladder. No filling defects were noted. Following administration of local anesthetic along the nephrostomy tube skin entry site, the hub of the nephrostomy tube was cut, and the nephrostomy tube was removed over a 0.035 inch J guidewire. A 5 [place] Rican angled tip glide catheter was used with a 0.035 inch angled tip Glidewire to cannulate the left ureter. The Glidewire and glide catheter were advanced into the urinary bladder. The Glidewire was exchanged through the glide catheter for a 0.035 inch Amplatz guidewire. An 8 [place]ican by 22 cm double-J ureteral stent was placed over the Amplatz guidewire with distal tip coiled in the urinary bladder and proximal tip coiled in the left renal collecting system. Satisfactory position and function of the stent were confirmed by contrast injection under fluoroscopy. The access sheath was removed. A sterile dressing was applied at the puncture site. The patient tolerated the procedure well. IMPRESSION: 1. No definite urinary tract calculus identified. No filling defects noted in the renal collecting system. 2. Satisfactory placement of left 8 Puerto Rican ureteral stent via an antegrade approach as described. Report Dictated on Final Dictated: 01/06/2020 4:22 pm Dictating Physician: MD JONES JOE M Signed Date and Time: 01/06/2020 4:27 pm Signed by: MD JONES JOE M Transcribed Date and Time: 01/06/2020 4:22 Normal [facility] Add On Lab Teston 01-05-2020 Sodium [Moles/Vol] Accepted [place], [place] Comment on above: Specimen available & acceptable for analysis. Test Performed by [facility], [address] [place] [id number] [place] [address] Add on test from HISon 01-04 Add on test from HIS Accepted Normal [facility] Comment on above: Result Comment: Spec imen available & acceptable for analysis. Performed By: #### B GLU #### [address] [address] [place], [place] Arterial Blood Gaseson 01-04 CO2 [Moles/Vol] 31.9 mmol/L High 23.0-27.0 [facility] Comment on above: Performed By: #### B GLU #### [address] [address] [place], [place] HCO3 (Bld) [Moles/Vol] 30.7 mmol/L High 21.0-25.0 [facility] Comment on above: Performed By: #### B GLU #### [address] [address] [place], [place] Hemoglobin (Bld) [Mass/Vol] 9.5 g/dL Normal ScreenOnly [facility] Comment on above: Performed By: #### B GLU #### [address] [address] [place], [place] Oxygen (Bld) [Partial pressure] 192.6 mm[Hg] High 80.0-100.0 [facility] Comment on above: Performed By: #### B GLU #### [address] [place], [place] Oxygen saturation in Blood 99.0 % Normal 95.0-100.0 [facility] Comment on above: Performed By: #### B GLU #### [address] [address] [place], [place] pCO2 37.0 mm[Hg] Normal 35.0-45.0 [facility] Comment on above: Performed By: #### B GLU #### [address] [address] [place], [place] pH (Bld) 7.537 High 7.350-7.450 [facility] Comment on above: Performed By: #### B GLU #### [address] [address] [place], [place] Std Base Excess 7.7 mmol/L High -3.0-3.0 [facility] Comment on above: Performed By: #### B GLU #### [facility] [address] [place], [place] FIO2 No data Normal [facility] Comment on above: Performed By: #### B GLU #### [facility] [address] [place], [place] Basic Metabolic Panelon 11-1 0-2020 Calcium [Mass/Vol] 8.3 mg/dL Low 8.4-10.4 [facility] Comment on above: Performed By: #### B GLU #### [address] [place], [place] Glucose [Mass/Vol] 127 mg/dL High 70-100 [facility] Comment on above: Performed By: #### B GLU #### [address] [address] [place], [place] Urea nitrogen [Mass/Vol] 53 mg/dL High 7-20 [facility] Comment on above: Performed By: #### B GLU #### [facility] [address] [place], [place] Anion gap [Moles/Vol] 9 Normal [facility] Comment on above: Performed By: #### B GLU #### [address] [address] [place], [place] CO2 [Moles/Vol] 30 mmol/L Normal 22-30 [facility] Comment on above: Performed By: #### B GLU #### [facility] [address] [place], [place] Creatinine [Mass/Vol] 1.55 mg/dL High 0.52-1.25 [facility] Comment on above: Performed By: #### B GLU #### [facility] [address] [place], [place] GFR/1.73 sq M predicted among blacks MDRD (S/P/Bld) [Vol rate/Area] 36.9 mL/min/{1.73_m2} Abnormal >60 [facility] Comment on above: Performed By: #### B GLU #### [address] [address] [place], [place] GFR/1.73 sq M predicted among non-blacks MDRD (S/P/Bld) [Vol rate/Area] 31.8 mL/min/{1.73_m2} Abnormal >60 [facility] Comment on above: Result Comment: KDIG O guidelines provide the following GFR categories: Stage GFR(ml/min/1.73 m2) Terms G1 >=90 Normal or high G2 60-89 Mildly decreased* G3a 45-59 Mildly to moderately decreased G3b 30-44 Moderately to severely decreased G4 15-29 Severely decreased G5 <15 Kidney failure *Relative to young adult level. In the absence of evidence of kidney damage, neither GFR category G1 nor G2 fulfill the criteria for CKD. The CKD-EPI equation is validated in individuals 18 years of age and older. Currently the best equation for estimating glomerular filtration rate (GFR) from serum creatinine in children is the Bedside Andrews equation. It is less accurate in patients with extremes of muscle mass, restriction of dietary protein, ingestion of creatine, extra-renal metabolism of creatinine, or treatment with medications that affect renal tubular creatinine secretion. Performed By: #### B GLU #### [address] Chloride [Moles/Vol] 102 mmol/L Normal 98-107 [facility] Comment on above: Performed By: #### B GLU #### [address] Potassium [Moles/Vol] 3.1 mmol/L Low 3.5-5.1 [facility] Comment on above: Performed By: #### B GLU #### [address] Sodium [Moles/Vol] 142 mmol/L Normal 135-145 [facility] Comment on above: Performed By: #### B GLU #### [address] Basic Metabolic Panel w/ Ref finn to MGon 01-05-2020 Anion gap [Moles/Vol] 9 mmol/L [facility], [place] Calcium [Mass/Vol] 8.3 mg/dL Low 8.4 - 10. 4 mg/dL [place], [place] Chloride [Moles/Vol] 102 mmol/L 98 - 10 7 mmol/L [place] CO2 [Moles/Vol] 30 mmol/L 22 - 30 mmol/L [place] Creatinine [Mass/Vol] 1.55 mg/dL High 0.52 - 1.25 mg/dL [place] EGFR IF NonAfrican Cameroonian 31.8 mL/min Abnormal >60 [place] Comment on above: KDIGO guidelines pro vide the following GFR categories: Stage GFR(ml/min/1.73 m2) Terms G1 >=90 Normal or high G2 60-89 Mildly decreased* G3a 45-59 Mildly to moderately decreased G3b 30-44 Moderately to severely decreased G4 15-29 Severely decreased G5 <15 Kidney failure *Relative to young adult level. In the absence of evidence of kidney damage, neither GFR category G1 nor G2 fulfill the criteria for CKD. The CKD-EPI equation is validated in individuals 18 years of age and older. Currently the best equation for estimating glomerular filtration rate (GFR) from serum creatinine in children is the Bedside Andrews equation. It is less accurate in patients with extremes of muscle mass, restriction of dietary protein, ingestion of creatine, extra-renal metabolism of creatinine, or treatment with medications that affect renal tubular creatinine secretion. GFR/1.73 sq M predicted among blacks MDRD (S/P/Bld) [Vol rate/Area] 36.9 mL/min/{1.73_m2} Abnormal >60 [place] Glucose [Mass/Vol] 127 mg/dL High 70 - 100 mg/dL [place] Potassium [Moles/Vol] 3.1 mmol/L Low 3.5 - 5.1 mmol/L [place] Sodium [Moles/Vol] 142 mmol/L 135 - 145 mmol/L [place] Urea nitrogen [Mass/Vol] 53 mg/dL High 7 - 20 mg/dL [place] Beta Hydroxybutyrateon 01-04 Beta Hydroxybutyrate 4.17 mg/dL High 0.20-2.81 [facility] Comment on above: Performed By: #### B GLU #### [address] [address] Beta-Hydroxybutyrateon 01-04 Beta-Hydroxybutyrate 4.17 mg/dL High 0.2 - 2 .81 mg/dL [place] Interpretation and review of laboratory results Abnormal [place] Test Performed by [address] [address] [place], [place] Blood Gas, Arterialon 2019 Base Excess, Arterial 7.7 mmol/L High -3 - 3 mmol/L [place] HCO3, Arterial 30.7 mmol/L High 21 - 25 mmol/L [place] Hemoglobin (Bld) [Mass/Vol] 9.5 g/dL ScreenOnly [place] Interpretation and review of laboratory results Abnormal [place] Oxygen saturation in Blood 99.0 % 95 - 100 % [place] pCO2, Arterial 37.0 mm[Hg] 35 - 45 mm[Hg] [place] pH, Arterial 7.537 High [place] pO2, Arterial 192.6 mm[Hg] High 80 - 100 mm[Hg] [place] Sodium [Moles/Vol] No data [place] TCO2, Arterial 31.9 mmol/L High 23 - 27 mmol/L [place] Test Performed by [address] [address] [place] CBC auto differentialon 12-26 Erythrocyte distribution width (RBC) [Ratio] 13.9 % 11.5 - 14.5 % [place] Hematocrit (Bld) [Volume fraction] 27.0 % Low 35 - 47 % [place] Hemoglobin (Bld) [Mass/Vol] 9.1 g/dL Low 11.7 - 16 g/dL [place] Interpretation and review of laboratory results Abnormal [place] MCH (RBC) [Entitic mass] 32.1 pg 26 - 34 pg [place] MCHC (RBC) [Mass/Vol] 33.8 % 32 - 36 % [place], [place] MCV (RBC) [Entitic vol] 95.0 fL 79 - 98 fL [facility], [place] Platelet mean volume (Bld) [Entitic vol] 11.5 fL High 7.4 - 10.4 fL [place] Platelets (Bld) [#/Vol] 39 10*3/uL Low 140 - 440 10*3/uL [place] RBC (Bld) [#/Vol] 2.84 10*6/uL Low 3.8 - 5.2 10*6/uL [place] WBC (Bld) [#/Vol] 22.4 10*3/uL High 3.6 - 10.7 10*3/uL [place] Test Performed by [facility], [address] [place] [id number] [place] [address] CULTURE URINEon 01-05-2020 CULTURE URINE 1 Organism Klebsiell a pneumoniae ssp pneumoniae >100,000 CFU/ml -------- 1 Organism -------- Antibiotic Result Intrp -------- Ampicillin(SONAL) >= 32 R Cefazolin(SONAL) <= 4 S Ceftriaxone(SONAL) <= 1 S Cefepime(SONAL) <= 1 S Aztreonam(SONAL) <= 1 S Amoxicillin/Clavulanic Acid(SONAL) <= 2 S Ampicillin/Sulbactam(SONAL ) = 4 S Pip/Tazobactam(SONAL) <= 4 S Meropenem(SONAL) <= 0.25 S Ciprofloxacin(SONAL) <= 0.25 S Trimeth/Sulfa(SONAL) <= 20 S Nitrofurantoin(SONAL) = 64 I Gentamicin(SONAL) <= 1 S Amikacin(SONAL) <= 2 S Normal [facility] Comment on above: Performed By: #### B GLU #### [facility] [address] [place], [place] Calcium, Ionizedon 0 Interpretation and review of laboratory results Abnormal [place] Ionized Ca 4.20 mg/dL Low 4.3 - 5.2 mg/dL [place] pH (Bld) 7.55 [pH] High [place] Test Performed by [facility], [address] [place] [address] [place] Calcium,Ionizedon 01-05-2020 Ionized Ca,Measured 4.20 mg/dL Low 4.30-5.20 [facility] Comment on above: Performed By: #### B GLU #### [address] [place], [place] pH, Ionized Calcium 7.55 High 7.31-7.46 [facility] Comment on above: Performed By: #### B GLU #### [address] [address] [place] Culture, Urineon 01-05-2020 Bacteria identified Cx Nom (U) Klebsiella pneumoniae Abnormal [place], [place] Bacteria identified Cx Nom (U) >100,000 CFU/ml [place] Interpretation and review of laboratory results Abnormal [place] Test Performed by [facility], [address] [place] [address] [place] Glucose,Bedsideon 01-05-2020 Glucose [Mass/Vol] 127 mg/dL High 70-100 [facility] Comment on above: Result Comment: Test performed by glucose meter. Results may be 10%-15% lower than serum/plasma values. (CLIA ID [id number]) Performed By: #### B GLU #### [facility] [address] [place], [place] Glucose [Mass/Vol] 154 mg/dL High 70-100 [facility] Comment on above: Result Comment: Test performed by glucose meter. Results may be 10%-15% lower than serum/plasma values. (CLIA ID [id number]) Performed By: #### B GLU #### [facility] [address] [place] [address] Glucose [Mass/Vol] 200 mg/dL High 70-100 [facility] Comment on above: Result Comment: Test performed by glucose meter. Results may be 10%-15% lower than serum/plasma values. (CLIA ID [id number]) Performed By: #### B GLU #### [facility] [address] [place] [address] Glucose [Mass/Vol] 212 mg/dL High 70-100 [facility] Comment on above: Result Comment: Test performed by glucose meter. Results may be 10%-15% lower than serum/plasma values. (CLIA ID [id number]) Performed By: #### B GLU #### [facility] [address] [place] [address] Glucose [Mass/Vol] 192 mg/dL High 70-100 [facility] Comment on above: Result Comment: Test performed by glucose meter. Results may be 10%-15% lower than serum/plasma values. (CLIA ID [id number]) Performed By: #### B GLU #### [facility] [address] [place] [address] Glucose [Mass/Vol] 163 mg/dL High 70-100 [facility] Comment on above: Result Comment: Test performed by glucose meter. Results may be 10%-15% lower than serum/plasma values. (CLIA ID [id number]) Performed By: #### B GLU #### [facility] [address] [place] [address] Glucose [Mass/Vol] 150 mg/dL High 70-100 [facility] Comment on above: Result Comment: Test performed by glucose meter. Results may be 10%-15% lower than serum/plasma values. (CLIA ID [id number]) Performed By: #### B GLU #### [facility] [address] [place] [address] Glucose [Mass/Vol] 150 mg/dL High 70-100 [facility] Comment on above: Result Comment: Test performed by glucose meter. Results may be 10%-15% lower than serum/plasma values. (CLIA ID [id number]) Performed By: #### B GLU #### [facility] [address] [place] [address] Glucose [Mass/Vol] 147 mg/dL High 70-100 [facility] Comment on above: Result Comment: Test performed by glucose meter. Results may be 10%-15% lower than serum/plasma values. (CLIA ID [id number]) Performed By: #### B GLU #### [facility] [address] [place] [address] Glucose [Mass/Vol] 139 mg/dL High 70-100 [facility] Comment on above: Result Comment: Test performed by glucose meter. Results may be 10%-15% lower than serum/plasma values. (CLIA ID [id number]) Performed By: #### B GLU #### [facility] [address] [place] [address] Glucose [Mass/Vol] 115 mg/dL High 70-100 [facility] Comment on above: Result Comment: Test performed by glucose meter. Results may be 10%-15% lower than serum/plasma values. (CLIA ID [id number]) Performed By: #### B GLU #### [facility] [address] [place] [address] Glucose [Mass/Vol] 109 mg/dL High 70-100 [facility] Comment on above: Result Comment: Test performed by glucose meter. Results may be 10%-15% lower than serum/plasma values. (CLIA ID [id number]) Performed By: #### B GLU #### [facility] [address] [place] [address] Glucose [Mass/Vol] 89 mg/dL Normal 70-100 [facility] Comment on above: Result Comment: Test performed by glucose meter. Results may be 10%-15% lower than serum/plasma values. (CLIA ID [id number]) Performed By: #### B GLU #### [facility] [address] [place], [place] Glucose [Mass/Vol] 84 mg/dL Normal 70-100 [facility] Comment on above: Result Comment: Test performed by glucose meter. Results may be 10%-15% lower than serum/plasma values. (CLIA ID [id number]) Performed By: #### B GLU #### [address] [place], [place] Glucose [Mass/Vol] 70 mg/dL Normal 70-100 [facility] Comment on above: Result Comment: Test performed by glucose meter. Results may be 10%-15% lower than serum/plasma values. (CLIA ID [id number]) Performed By: #### B GLU #### [address] [place], [place] Glucose [Mass/Vol] 80 mg/dL Normal 70-100 [facility] Comment on above: Result Comment: Test performed by glucose meter. Results may be 10%-15% lower than serum/plasma values. (CLIA ID [id number]) Performed By: #### B GLU #### [address] [place], [place] Glucose [Mass/Vol] 96 mg/dL Normal 70-100 [facility] Comment on above: Result Comment: Test performed by glucose meter. Results may be 10%-15% lower than serum/plasma values. (CLIA ID [id number]) Performed By: #### B GLU #### [address] [place], [place] Hemogram w/ Autodiffon 01-04 Erythrocyte distribution width (RBC) [Ratio] 13.9 % Normal 11.5-14.5 [facility] Comment on above: Performed By: #### B GLU #### [address] [place] Hematocrit (Bld) [Volume fraction] 27.0 % Low 35.0-47.0 [facility] Comment on above: Performed By: #### B GLU #### [address] [place] Hemoglobin (Bld) [Mass/Vol] 9.1 g/dL Low 11.7-16.0 [facility] Comment on above: Performed By: #### B GLU #### [address] [place] MCH (RBC) [Entitic mass] 32.1 pg Normal 26.0-34.0 [facility] Comment on above: Performed By: #### B GLU #### [address] [place] MCHC (RBC) [Mass/Vol] 33.8 % Normal 32.0-36.0 [facility] Comment on above: Performed By: #### B GLU #### [address] [place] MCV (RBC) [Entitic vol] 95.0 fL Normal 79.0-98.0 [facility] Comment on above: Performed By: #### B GLU #### [address] [place], [place] Platelet mean volume (Bld) [Entitic vol] 11.5 fL High 7.4-10.4 [facility] Comment on above: Performed By: #### B GLU #### [address] [place], [place] Platelets (Bld) [#/Vol] 39 10*3/uL Low 140-440 [facility] Comment on above: Performed By: #### B GLU #### [address] [place], [place] RBC (Bld) [#/Vol] 2.84 10*6/uL Low 3.80-5.20 [facility] Comment on above: Performed By: #### B GLU #### [address] [place], [place] WBC (Bld) [#/Vol] 22.4 10*3/uL High 3.6-10.7 [facility] Comment on above: Performed By: #### B GLU #### [address] [place], [place] Hepatic Functionon 0 ALP [Catalytic activity/Vol] 84 U/L Normal 38-126 [facility] Comment on above: Performed By: #### B GLU #### [facility] [address] [place], [place] ALT [Catalytic activity/Vol] 19 U/L Normal 0-34 [facility] Comment on above: Result Comment: The ALT test is performed by an updated assay method. Please note that the reference intervals have been changed and are now sex specific. Performed By: #### B GLU #### [facility] [address] [place], [place] AST [Catalytic activity/Vol] 27 U/L Normal 15-46 [facility] Comment on above: Performed By: #### B GLU #### [facility] [address] [place], [place] Bilirubin [Mass/Vol] 0.7 mg/dL Normal 0.2-1.3 [facility] Comment on above: Performed By: #### B GLU #### [facility] [address] [place], [place] Bilirubin.direct [Mass/Vol] 0.0 mg/dL Normal 0.0-0.3 [facility] Comment on above: Performed By: #### B GLU #### [facility] [address] [place], [place] Protein [Mass/Vol] 5.6 g/dL Low 6.3-8.2 [facility] Comment on above: Performed By: #### B GLU #### [facility] [address] [place], [place] Albumin [Mass/Vol] 2.9 g/dL Low 3.5-5.0 [facility] Comment on above: Performed By: #### B GLU #### [facility] [address] [place], [place] Hepatic Function Panelon Albumin [Mass/Vol] 2.9 g/dL Low 3.5 - 5 g/dL [facility] [place] ALP [Catalytic activity/Vol] 84 U/L 38 - 126 U/L [place] ALT [Catalytic activity/Vol] 19 U/L 0 - 34 U/L [place] Comment on above: The ALT test is perf ormed by an updated assay method. Please note that the reference intervals have been changed and are now sex specific. AST [Catalytic activity/Vol] 27 U/L 15 - 46 U/L [place] Bilirubin Ql (U) 0.7 mg/dL 0.2 - 1.3 mg/dL [place] Bilirubin.direct [Mass/Vol] 0.0 mg/dL 0 - 0.3 mg/dL [place] Protein [Mass/Vol] 5.6 g/dL Low 6.3 - 8.2 g/dL [place] Magnesiumon 01-05-2020 Magnesium [Mass/Vol] 2.2 mg/dL Normal 1.6-2.3 [facility] Comment on above: Performed By: #### B GLU #### [address] [place], [place] Magnesium [Mass/Vol] 2.2 mg/dL 1.6 - 2 .3 mg/dL [place] Manual Diffon 01-05-2020 Abs Lymph Cnt 1.6 10*3/uL Normal 1.1-4.5 [facility] Comment on above: Performed By: #### B GLU #### [address] [place], [place] Abs Monocyte Cnt 1.3 10*3/uL High 0.2-1.1 [facility] Comment on above: Performed By: #### B GLU #### [address] [place], [place] Abs Neutrophile Cnt 19.5 10*3/uL High 2.2-8.2 [facility] Comment on above: Performed By: #### B GLU #### [address] [place], [place] Anisocytosis Ql (Bld) Slight Normal [facility] Comment on above: Performed By: #### B GLU #### [address] [place], [place] Bands 18 % High 0-3 [facility] Comment on above: Performed By: #### B GLU #### [facility] [address] [place], [place] Lymphocytes 7 % Low 20-40 [facility] Comment on above: Performed By: #### B GLU #### [facility] [address] [place], [place] Monocytes 6 % Normal 2-10 [facility] Comment on above: Performed By: #### B GLU #### [facility] [address] [place], [place] Ovalocytes Slight Normal [facility] Comment on above: Performed By: #### B GLU #### [facility] [address] [place], [place] Poikilocytosis Slight Normal [facility] Comment on above: Performed By: #### B GLU #### [facility] [address] [place], [place] Polychromasia Slight Normal [facility] Comment on above: Performed By: #### B GLU #### [facility] [address] [place], [place] RBC morphology finding Nom (Bld) ABNORMAL Normal [facility] Comment on above: Performed By: #### B GLU #### [address] [place], [place] Seg Neutrophils 69 % Normal 40-80 [facility] Comment on above: Performed By: #### B GLU #### [facility] [address] [place], [place] Tear Drop Forms Few Normal [facility] Comment on above: Performed By: #### B GLU #### [facility] [address] [place], [place] Toxic Granulation Slight [facility] Comment on above: Performed By: #### B GLU #### [facility] [address] [place], [place] Toxic Vacuoles Slight Normal [facility] Comment on above: Performed By: #### B GLU #### [facility] [address] [place], [place] Abs Baso Cnt 0.0 10*3/uL Normal 0.0-0.2 [facility] Comment on above: Performed By: #### B GLU #### [address] [place], [place] Abs Eosin Cnt 0.0 10*3/uL Normal 0.0-0.5 [facility] Comment on above: Performed By: #### B GLU #### [address] [place], [place] Basophils 0 % Normal 0-2 [facility] Comment on above: Performed By: #### B GLU #### [address] [place], [place] Cells counted 100 Normal [facility] Comment on above: Performed By: #### B GLU #### [address] [place], [place] Eosinophils 0 % Low 1-6 [facility] Comment on above: Performed By: #### B GLU #### [address] [place], [place] Abs Lymph Cnt 0.5 10*3/uL Low 1.1-4.5 [facility] Comment on above: Performed By: #### B GLU #### [address] [place], [place] Abs Monocyte Cnt 0.5 10*3/uL Normal 0.2-1.1 [facility] Comment on above: Performed By: #### B GLU #### [address] [place], [place] Abs Neutrophile Cnt 24.6 10*3/uL High 2.2-8.2 [facility] Comment on above: Performed By: #### B GLU #### [address] [place], [place] Manual Differentialon 2019 Absolute Baso # 0.0 10*3/uL 0 - 0.2 10*3/uL [facility], [place] Absolute Eos # 0.0 10*3/uL 0 - 0.5 10*3/uL [facility] [place] Absolute Lymph # 1.6 10*3/uL 1.1 - 4.5 10*3/uL [facility] [place] Absolute [place] # 1.3 10*3/uL High 0.2 - 1.1 10*3/uL [facility] [place] Absolute Neut # 19.5 10*3/uL High 2.2 - 8.2 10*3/uL [facility] [place] Anisocytosis Ql (Bld) Slight [facility] [place] Bands 18 % High 0 - 3 % [facility] [place] Basophils 0 % 0 - 2 % [facility] [place] Eosinophils 0 % Low 1 - 6 % [facility] [place] Interpretation and review of laboratory results Abnormal [facility] [place] Lymphocytes 7 % Low 20 - 40 % [facility] [place] Monocytes 6 % 2 - 10 % [facility] [place] Ovalocytes Slight [facility] [place] Poikilocytes Slight [facility] [place] Polychromasia Slight [facility] [place] RBC morphology finding Nom (Bld) ABNORMAL [facility] [place] Seg Neutrophils 69 % 40 - 80 % [facility] [place] Tear Drop Cells Few [facility] [place] TOTAL CELLS COUNTED 100 [facility] [place] Toxic Granulation Slight [facility] [place] TOXIC VACUOLES Slight [facility] Test Performed by [facility], [address] [place] [address] [facility] Otheron 01-05-2020 Interpretation and review of laboratory results Abnormal [facility] Test Performed by [facility], [place] [address] [facility] [place] POCT Glucoseon 01-05-2020 Glucose [Mass/Vol] 127 mg/dL High 70 - 100 mg/dL [facility] [place] Comment on above: Test performed by ucose meter. Results may be 10%-15% lower than serum/plasma values. (CLIA ID [id number]) Interpretation and review of laboratory results Abnormal [facility] Test Performed by [facility], [facility] [address] [place] [address] [facility] [place] Glucose [Mass/Vol] 154 mg/dL High 70 - 100 mg/dL [facility] [place] Comment on above: Test performed by gl ucose meter. Results may be 10%-15% lower than serum/plasma values. (CLIA ID [id number]) Interpretation and review of laboratory results Abnormal [facility] [place] Test Performed by [facility], [address] [place] [place] [address] [facility] [place] Glucose [Mass/Vol] 200 mg/dL High 70 - 100 mg/dL [facility] [place] Comment on above: Test performed by gl ucose meter. Results may be 10%-15% lower than serum/plasma values. (CLIA ID [id number]) Interpretation and review of laboratory results Abnormal [facility] [place] Test Performed by [employer] [facility], [address] [place] [address] [facility] [place] Glucose [Mass/Vol] 212 mg/dL High 70 - 100 mg/dL [facility] [place] Comment on above: Test performed by gl ucose meter. Results may be 10%-15% lower than serum/plasma values. (CLIA ID [id number]) Interpretation and review of laboratory results Abnormal [facility] [place] Test Performed by [employer] [facility], [address] [place] [address] [facility] [place] Glucose [Mass/Vol] 192 mg/dL High 70 - 100 mg/dL [facility] [place] Comment on above: Test performed by gl ucose meter. Results may be 10%-15% lower than serum/plasma values. (CLIA ID [id number]) Interpretation and review of laboratory results Abnormal [facility] [place] Test Performed by [employer] [facility], [address] [place] [address] [facility] [place] Glucose [Mass/Vol] 163 mg/dL High 70 - 100 mg/dL [facility] [place] Comment on above: Test performed by gl ucose meter. Results may be 10%-15% lower than serum/plasma values. (CLIA ID [id number]) Interpretation and review of laboratory results Abnormal [facility] [place] Test Performed by [facility], [address] [place] [address] [facility] [place] Glucose [Mass/Vol] 150 mg/dL High 70 - 100 mg/dL [facility] [place] Comment on above: Test performed by gl ucose meter. Results may be 10%-15% lower than serum/plasma values. (CLIA ID [id number]) Interpretation and review of laboratory results Abnormal [facility] [place] Test Performed by [facility], [address] [place] [address] [facility] [place] Glucose [Mass/Vol] 150 mg/dL High 70 - 100 mg/dL [facility] [place] Comment on above: Test performed by gl ucose meter. Results may be 10%-15% lower than serum/plasma values. (CLIA ID [id number]) Interpretation and review of laboratory results Abnormal [facility] [place] Test Performed by [facility], [address] [place] [address] [facility] [place] Glucose [Mass/Vol] 147 mg/dL High 70 - 100 mg/dL [facility] [place] Comment on above: Test performed by gl ucose meter. Results may be 10%-15% lower than serum/plasma values. (CLIA ID [id number]) Interpretation and review of laboratory results Abnormal [facility] [place] Test Performed by [facility], [address] [place] [address] [facility] [place] Glucose [Mass/Vol] 139 mg/dL High 70 - 100 mg/dL [facility] [place] Comment on above: Test performed by gl ucose meter. Results may be 10%-15% lower than serum/plasma values. (CLIA ID [id number]) Interpretation and review of laboratory results Abnormal [facility] [place] Test Performed by [facility], [address] [place] [address] [facility] [place] Glucose [Mass/Vol] 115 mg/dL High 70 - 100 mg/dL [facility] [place] Comment on above: Test performed by gl ucose meter. Results may be 10%-15% lower than serum/plasma values. (CLIA ID [id number]) Interpretation and review of laboratory results Abnormal [facility], [place] Test Performed by [facility], [address] [place] [address] [place], [place] Glucose [Mass/Vol] 109 mg/dL High 70 - 100 mg/dL [place] Comment on above: Test performed by gl ucose meter. Results may be 10%-15% lower than serum/plasma values. (CLIA ID [id number]) Interpretation and review of laboratory results Abnormal [facility] [place] Test Performed by [facility], [address] [place] [address] [place], [place] Glucose [Mass/Vol] 89 mg/dL 70 - 100 mg/dL [place] Comment on above: Test performed by gl ucose meter. Results may be 10%-15% lower than serum/plasma values. (CLIA ID [id number]) Test Performed by [facility], [address] [place] [address] [place], [place] Glucose [Mass/Vol] 84 mg/dL 70 - 100 mg/dL [place] Comment on above: Test performed by gl ucose meter. Results may be 10%-15% lower than serum/plasma values. (CLIA ID [id number]) Test Performed by [facility], [address] [place] [address] [place] Glucose [Mass/Vol] 70 mg/dL 70 - 100 mg/dL [place] Comment on above: Test performed by gl ucose meter. Results may be 10%-15% lower than serum/plasma values. (CLIA ID [id number]) Test Performed by [facility], [address] [place] [address] [place] Phosphoruson 01-05-2020 Phosphate [Mass/Vol] 2.6 mg/dL Normal 2.5-4.5 [facility] Comment on above: Performed By: #### B GLU #### [facility] [address] [place] [address] Phosphate [Mass/Vol] 2.6 mg/dL 2.5 - 4 .5 mg/dL [facility], [place] Arterial Blood Gaseson 01-03 CO2 [Moles/Vol] 30.2 mmol/L High 23.0-27.0 [facility] Comment on above: Performed By: #### B GLU #### [facility] [address] [place], [place] HCO3 (Bld) [Moles/Vol] 28.7 mmol/L High 21.0-25.0 [facility] Comment on above: Performed By: #### B GLU #### [address] [place], [place] Hemoglobin (Bld) [Mass/Vol] 9.2 g/dL Normal ScreenOnly [facility] Comment on above: Performed By: #### B GLU #### [address] [place], [place] Oxygen (Bld) [Partial pressure] 112.7 mm[Hg] High 80.0-100.0 [facility] Comment on above: Performed By: #### B GLU #### [address] [place], [place] Oxygen saturation in Blood 97.8 % Normal 95.0-100.0 [facility] Comment on above: Performed By: #### B GLU #### [address] [place], [place] pCO2 47.5 mm[Hg] High 35.0-45.0 [facility] Comment on above: Performed By: #### B GLU #### [address] [place], [place] pH (Bld) 7.399 Normal 7.350-7.450 [facility] Comment on above: Performed By: #### B GLU #### [address] [place], [place] Std Base Excess 3.4 mmol/L High -3.0-3.0 [facility] Comment on above: Performed By: #### B GLU #### [address] [place], [place] FIO2 No data Normal [facility] Comment on above: Performed By: #### B GLU #### [facility] [address] [place], [place] CO2 [Moles/Vol] 29.2 mmol/L High 23.0-27.0 [facility] Comment on above: Performed By: #### B GLU #### [facility] [address] [place], [place] HCO3 (Bld) [Moles/Vol] 28.0 mmol/L High 21.0-25.0 [facility] Comment on above: Performed By: #### B GLU #### [facility] [address] [place], [place] Hemoglobin (Bld) [Mass/Vol] 9.1 g/dL Normal ScreenOnly [facility] Comment on above: Performed By: #### B GLU #### [address] [place], [place] Oxygen (Bld) [Partial pressure] 79.2 mm[Hg] Low 80.0-100.0 [facility] Comment on above: Performed By: #### B GLU #### [address] [place], [place] Oxygen saturation in Blood 95.7 % Normal 95.0-100.0 [facility] Comment on above: Performed By: #### B GLU #### [facility] [address] [place], [place] pCO2 39.7 mm[Hg] Normal 35.0-45.0 [facility] Comment on above: Performed By: #### B GLU #### [facility] [address] [place], [place] pH (Bld) 7.466 High 7.350-7.450 [facility] Comment on above: Performed By: #### B GLU #### [facility] [address] [place], [place] Std Base Excess 4.0 mmol/L High -3.0-3.0 [facility] Comment on above: Performed By: #### B GLU #### [address] [place] FIO2 No data Normal [facility] Comment on above: Performed By: #### B GLU #### [facility] [address] [place], [place] Basic Metabolic Panelon 11-0 -2019 Anion gap [Moles/Vol] 10 Normal [facility] Comment on above: Performed By: #### B GLU #### [facility] [address] [place], [place] Calcium [Mass/Vol] 8.4 mg/dL Normal 8.4-10.4 [facility] Comment on above: Performed By: #### B GLU #### [facility] [address] [place], [place] CO2 [Moles/Vol] 32 mmol/L High 22-30 [facility] Comment on above: Performed By: #### B GLU #### [address] [place], [place] Glucose [Mass/Vol] 105 mg/dL High 70-100 [facility] Comment on above: Performed By: #### B GLU #### [facility] [address] [place], [place] Urea nitrogen [Mass/Vol] 55 mg/dL High 7-20 [facility] Comment on above: Performed By: #### B GLU #### [facility] [address] [place], [place] Creatinine [Mass/Vol] 1.77 mg/dL High 0.52-1.25 [facility] Comment on above: Performed By: #### B GLU #### [facility] [address] [place], [place] GFR/1.73 sq M predicted among blacks MDRD (S/P/Bld) [Vol rate/Area] 31.4 mL/min/{1.73_m2} Abnormal >60 [facility] Comment on above: Performed By: #### B GLU #### [facility] [address] [place], [place] GFR/1.73 sq M predicted among non-blacks MDRD (S/P/Bld) [Vol rate/Area] 27.1 mL/min/{1.73_m2} Abnormal >60 [facility] Comment on above: Result Comment: KDIG O guidelines provide the following GFR categories: Stage GFR(ml/min/1.73 m2) Terms G1 >=90 Normal or high G2 60-89 Mildly decreased* G3a 45-59 Mildly to moderately decreased G3b 30-44 Moderately to severely decreased G4 15-29 Severely decreased G5 <15 Kidney failure *Relative to young adult level. In the absence of evidence of kidney damage, neither GFR category G1 nor G2 fulfill the criteria for CKD. The CKD-EPI equation is validated in individuals 18 years of age and older. Currently the best equation for estimating glomerular filtration rate (GFR) from serum creatinine in children is the Bedside Andrews equation. It is less accurate in patients with extremes of muscle mass, restriction of dietary protein, ingestion of creatine, extra-renal metabolism of creatinine, or treatment with medications that affect renal tubular creatinine secretion. Performed By: #### B GLU #### [address] [place], [place] Chloride [Moles/Vol] 101 mmol/L Normal 98-107 [facility] Comment on above: Performed By: #### B GLU #### [address] [address] [place] Potassium [Moles/Vol] 3.3 mmol/L Low 3.5-5.1 [facility] Comment on above: Performed By: #### B GLU #### [address] [address] [place] Sodium [Moles/Vol] 143 mmol/L Normal 135-145 [facility] Comment on above: Performed By: #### B GLU #### [address] [address] [place] Anion gap [Moles/Vol] 10 mmol/L [facility], [place] Calcium [Mass/Vol] 8.4 mg/dL 8.4 - 10. 4 mg/dL [facility], [place] Chloride [Moles/Vol] 101 mmol/L 98 - 10 7 mmol/L [facility], [place] CO2 [Moles/Vol] 32 mmol/L High 22 - 30 mmol/L [place] Creatinine [Mass/Vol] 1.77 mg/dL High 0.52 - 1.25 mg/dL [place] EGFR IF NonAfrican Cam[place]onian 27.1 mL/min Abnormal >60 [place] Comment on above: KDIGO guidelines pro vide the following GFR categories: Stage GFR(ml/min/1.73 m2) Terms G1 >=90 Normal or high G2 60-89 Mildly decreased* G3a 45-59 Mildly to moderately decreased G3b 30-44 Moderately to severely decreased G4 15-29 Severely decreased G5 <15 Kidney failure *Relative to young adult level. In the absence of evidence of kidney damage, neither GFR category G1 nor G2 fulfill the criteria for CKD. The CKD-EPI equation is validated in individuals 18 years of age and older. Currently the best equation for estimating glomerular filtration rate (GFR) from serum creatinine in children is the Bedside Andrews equation. It is less accurate in patients with extremes of muscle mass, restriction of dietary protein, ingestion of creatine, extra-renal metabolism of creatinine, or treatment with medications that affect renal tubular creatinine secretion. GFR/1.73 sq M predicted among blacks MDRD (S/P/Bld) [Vol rate/Area] 31.4 mL/min/{1.73_m2} Abnormal >60 [place] Glucose [Mass/Vol] 105 mg/dL High 70 - 100 mg/dL [place] Interpretation and review of laboratory results Abnormal [place] Potassium [Moles/Vol] 3.3 mmol/L Low 3.5 - 5.1 mmol/L [place] Sodium [Moles/Vol] 143 mmol/L 135 - 145 mmol/L [place] Urea nitrogen [Mass/Vol] 55 mg/dL High 7 - 20 mg/dL [place] Test Performed by [facility], [place] [address] [place], [place] Anion gap [Moles/Vol] 14 Normal [facility] Comment on above: Performed By: #### T SGL #### [facility] [address] [place] [address] [facility] Calcium [Mass/Vol] 7.7 mg/dL Low 8.4-10.4 [facility] Comment on above: Performed By: #### T SGL #### [address] [place], [place] [id number] [place] [address] CO2 [Moles/Vol] 28 mmol/L Normal 22-30 [facility] Comment on above: Performed By: #### T SGL #### [id number] [place] [address] Creatinine [Mass/Vol] 2.00 mg/dL High 0.52-1.25 [facility] Comment on above: Performed By: #### T SGL #### [id number] [place] [address] GFR/1.73 sq M predicted among blacks MDRD (S/P/Bld) [Vol rate/Area] 27.1 mL/min/{1.73_m2} Abnormal >60 [facility] Comment on above: Performed By: #### T SGL #### [address] GFR/1.73 sq M predicted among non-blacks MDRD (S/P/Bld) [Vol rate/Area] 23.4 mL/min/{1.73_m2} Abnormal >60 [facility] Comment on above: Result Comment: KDIG O guidelines provide the following GFR categories: Stage GFR(ml/min/1.73 m2) Terms G1 >=90 Normal or high G2 60-89 Mildly decreased* G3a 45-59 Mildly to moderately decreased G3b 30-44 Moderately to severely decreased G4 15-29 Severely decreased G5 <15 Kidney failure *Relative to young adult level. In the absence of evidence of kidney damage, neither GFR category G1 nor G2 fulfill the criteria for CKD. The CKD-EPI equation is validated in individuals 18 years of age and older. Currently the best equation for estimating glomerular filtration rate (GFR) from serum creatinine in children is the Bedside Andrews equation. It is less accurate in patients with extremes of muscle mass, restriction of dietary protein, ingestion of creatine, extra-renal metabolism of creatinine, or treatment with medications that affect renal tubular creatinine secretion. Performed By: #### T SGL #### [address] [address] [facility] Glucose [Mass/Vol] 187 mg/dL High 70-100 [facility] Comment on above: Performed By: #### T SGL #### [facility] [address] [place] [address] [facility] Urea nitrogen [Mass/Vol] 50 mg/dL High 7-20 [facility] Comment on above: Performed By: #### T SGL #### [facility] [address] [place] [address] [facility] Chloride [Moles/Vol] 100 mmol/L Normal 98-107 [facility] Comment on above: Performed By: #### T SGL #### [facility] [address] [place] [address] [facility] Potassium [Moles/Vol] 3.7 mmol/L Normal 3.5-5.1 [facility] Comment on above: Performed By: #### T SGL #### [facility] [address] [place] [address] [facility] Sodium [Moles/Vol] 142 mmol/L Normal 135-145 [facility] Comment on above: Performed By: #### T SGL #### [address] [place], [place] [id number] [place] [address] Anion gap [Moles/Vol] 14 mmol/L [place] Calcium [Mass/Vol] 7.7 mg/dL Low 8.4 - 10. 4 mg/dL [place] Chloride [Moles/Vol] 100 mmol/L 98 - 10 7 mmol/L [place] CO2 [Moles/Vol] 28 mmol/L 22 - 30 mmol/L [place] Creatinine [Mass/Vol] 2 mg/dL High 0.52 - 1.25 mg/dL [place] EGFR IF NonAfrican [place]onian 23.4 mL/min Abnormal >60 [place] Comment on above: KDIGO guidelines pro vide the following GFR categories: Stage GFR(ml/min/1.73 m2) Terms G1 >=90 Normal or high G2 60-89 Mildly decreased* G3a 45-59 Mildly to moderately decreased G3b 30-44 Moderately to severely decreased G4 15-29 Severely decreased G5 <15 Kidney failure *Relative to young adult level. In the absence of evidence of kidney damage, neither GFR category G1 nor G2 fulfill the criteria for CKD. The CKD-EPI equation is validated in individuals 18 years of age and older. Currently the best equation for estimating glomerular filtration rate (GFR) from serum creatinine in children is the Bedside Andrews equation. It is less accurate in patients with extremes of muscle mass, restriction of dietary protein, ingestion of creatine, extra-renal metabolism of creatinine, or treatment with medications that affect renal tubular creatinine secretion. GFR/1.73 sq M predicted among blacks MDRD (S/P/Bld) [Vol rate/Area] 27.1 mL/min/{1.73_m2} Abnormal >60 [place] Glucose [Mass/Vol] 187 mg/dL High 70 - 100 mg/dL [place] Interpretation and review of laboratory results Abnormal [place] Potassium [Moles/Vol] 3.7 mmol/L 3.5 - 5.1 mmol/L [place] Sodium [Moles/Vol] 142 mmol/L 135 - 145 mmol/L [place] Urea nitrogen [Mass/Vol] 50 mg/dL High 7 - 20 mg/dL [place] Test Performed by [address] [address] [place], [place] Anion gap [Moles/Vol] 10 Normal [facility] Comment on above: Performed By: #### B GLU #### [address] [address] [place] Calcium [Mass/Vol] 7.5 mg/dL Low 8.4-10.4 [facility] Comment on above: Performed By: #### B GLU #### [address] [address] [place] [address] CO2 [Moles/Vol] 29 mmol/L Normal 22-30 [facility] Comment on above: Performed By: #### B GLU #### [facility] [address] [place] [address] Glucose [Mass/Vol] 135 mg/dL High 70-100 [facility] Comment on above: Performed By: #### B GLU #### [facility] [address] [place] [address] Urea nitrogen [Mass/Vol] 49 mg/dL High 7-20 [facility] Comment on above: Performed By: #### B GLU #### [facility] [address] [place] [address] Creatinine [Mass/Vol] 2.06 mg/dL High 0.52-1.25 [facility] Comment on above: Performed By: #### B GLU #### [facility] [address] [place] [address] GFR/1.73 sq M predicted among blacks MDRD (S/P/Bld) [Vol rate/Area] 26.1 mL/min/{1.73_m2} Abnormal >60 [facility] Comment on above: Performed By: #### B GLU #### [facility] [address] [place] [address] GFR/1.73 sq M predicted among non-blacks MDRD (S/P/Bld) [Vol rate/Area] 22.6 mL/min/{1.73_m2} Abnormal >60 [facility] Comment on above: Result Comment: KDIG O guidelines provide the following GFR categories: Stage GFR(ml/min/1.73 m2) Terms G1 >=90 Normal or high G2 60-89 Mildly decreased* G3a 45-59 Mildly to moderately decreased G3b 30-44 Moderately to severely decreased G4 15-29 Severely decreased G5 <15 Kidney failure *Relative to young adult level. In the absence of evidence of kidney damage, neither GFR category G1 nor G2 fulfill the criteria for CKD. The CKD-EPI equation is validated in individuals 18 years of age and older. Currently the best equation for estimating glomerular filtration rate (GFR) from serum creatinine in children is the Bedside Andrews equation. It is less accurate in patients with extremes of muscle mass, restriction of dietary protein, ingestion of creatine, extra-renal metabolism of creatinine, or treatment with medications that affect renal tubular creatinine secretion. Performed By: #### B GLU #### [facility] [address], [place] Potassium [Moles/Vol] 3.5 mmol/L Normal 3.5-5.1 [facility] Comment on above: Performed By: #### B GLU #### [facility] [address], [place] Sodium [Moles/Vol] 142 mmol/L Normal 135-145 [facility] Comment on above: Performed By: #### B GLU #### [facility] [address], [place] Chloride [Moles/Vol] 103 mmol/L Normal 98-107 [facility] Comment on above: Performed By: #### B GLU #### [facility] [address], [place] Basic Metabolic Panel w/ Ref finn to MGon 01-04-2020 Anion gap [Moles/Vol] 10 mmol/L [place] Calcium [Mass/Vol] 7.5 mg/dL Low 8.4 - 10. 4 mg/dL [place] Chloride [Moles/Vol] 103 mmol/L 98 - 10 7 mmol/L [place] CO2 [Moles/Vol] 29 mmol/L 22 - 30 mmol/L [place] Creatinine [Mass/Vol] 2.06 mg/dL High 0.52 - 1.25 mg/dL [place] EGFR IF NonAfrican Cameroonian 22.6 mL/min Abnormal >60 [place] Comment on above: KDIGO guidelines pro vide the following GFR categories: Stage GFR(ml/min/1.73 m2) Terms G1 >=90 Normal or high G2 60-89 Mildly decreased* G3a 45-59 Mildly to moderately decreased G3b 30-44 Moderately to severely decreased G4 15-29 Severely decreased G5 <15 Kidney failure *Relative to young adult level. In the absence of evidence of kidney damage, neither GFR category G1 nor G2 fulfill the criteria for CKD. The CKD-EPI equation is validated in individuals 18 years of age and older. Currently the best equation for estimating glomerular filtration rate (GFR) from serum creatinine in children is the Bedside Andrews equation. It is less accurate in patients with extremes of muscle mass, restriction of dietary protein, ingestion of creatine, extra-renal metabolism of creatinine, or treatment with medications that affect renal tubular creatinine secretion. GFR/1.73 sq M predicted among blacks MDRD (S/P/Bld) [Vol rate/Area] 26.1 mL/min/{1.73_m2} Abnormal >60 [place] Glucose [Mass/Vol] 135 mg/dL High 70 - 100 mg/dL [place] Potassium [Moles/Vol] 3.5 mmol/L 3.5 - 5.1 mmol/L [place] Sodium [Moles/Vol] 142 mmol/L 135 - 145 mmol/L [place] Urea nitrogen [Mass/Vol] 49 mg/dL High 7 - 20 mg/dL [place] Blood Gas, Arterialon 2019 Base Excess, Arterial 3.4 mmol/L High -3 - 3 mmol/L [place] HCO3, Arterial 28.7 mmol/L High 21 - 25 mmol/L [place] Hemoglobin (Bld) [Mass/Vol] 9.2 g/dL ScreenOnly [place] Interpretation and review of laboratory results Abnormal [place] Oxygen saturation in Blood 97.8 % 95 - 100 % [place] pCO2, Arterial 47.5 mm[Hg] High 35 - 45 mm[Hg] [place] pH, Arterial 7.399 [place] pO2, Arterial 112.7 mm[Hg] High 80 - 100 mm[Hg] [place] Sodium [Moles/Vol] No data [place] TCO2, Arterial 30.2 mmol/L High 23 - 27 mmol/L [place] Test Performed by [facility], [address] [place] [address] [place] Base Excess, Arterial 4.0 mmol/L High -3 - 3 mmol/L [place] HCO3, Arterial 28.0 mmol/L High 21 - 25 mmol/L [place] Hemoglobin (Bld) [Mass/Vol] 9.1 g/dL [facility] [place] Interpretation and review of laboratory results Abnormal [place] Oxygen saturation in Blood 95.7 % 95 - 100 % [place] pCO2, Arterial 39.7 mm[Hg] 35 - 45 mm[Hg] [place] pH, Arterial 7.466 High [place] pO2, Arterial 79.2 mm[Hg] Low 80 - 100 mm[Hg] [place] Sodium [Moles/Vol] No data [place] TCO2, Arterial 29.2 mmol/L High 23 - 27 mmol/L [place] Test Performed by [facility], [facility] [place] [address] [place], [place] CBC Auto Differentialon Erythrocyte distribution width (RBC) [Ratio] 14.1 % 11.5 - 14.5 % [place] Hematocrit (Bld) [Volume fraction] 26.9 % Low 35 - 47 % [place] Hemoglobin (Bld) [Mass/Vol] 8.9 g/dL Low 11.7 - 16 g/dL [place] Interpretation and review of laboratory results Abnormal [place] MCH (RBC) [Entitic mass] 31.7 pg 26 - 34 pg [place] MCHC (RBC) [Mass/Vol] 32.9 % 32 - 36 % [place] MCV (RBC) [Entitic vol] 96.2 fL 79 - 98 fL [place] Platelet mean volume (Bld) [Entitic vol] 11.3 fL High 7.4 - 10.4 fL [place] Platelets (Bld) [#/Vol] 41 10*3/uL Low 140 - 440 10*3/uL [place] RBC (Bld) [#/Vol] 2.80 10*6/uL Low 3.8 - 5.2 10*6/uL [place] WBC (Bld) [#/Vol] 26.4 10*3/uL High 3.6 - 10.7 10*3/uL [place] Test Performed by [facility], [facility] [place] [address] [place] Erythrocyte distribution width (RBC) [Ratio] 14.0 % 11.5 - 14.5 % [place] Hematocrit (Bld) [Volume fraction] 25.7 % Low 35 - 47 % [place] Hemoglobin (Bld) [Mass/Vol] 8.5 g/dL Low 11.7 - 16 g/dL [place] Interpretation and review of laboratory results Abnormal [place] MCH (RBC) [Entitic mass] 32.0 pg 26 - 34 pg [place] MCHC (RBC) [Mass/Vol] 32.9 % 32 - 36 % [place] MCV (RBC) [Entitic vol] 97.0 fL 79 - 98 fL [place] Platelet mean volume (Bld) [Entitic vol] 11.2 fL High 7.4 - 10.4 fL [place] Platelets (Bld) [#/Vol] 40 10*3/uL Low 140 - 440 10*3/uL [place] RBC (Bld) [#/Vol] 2.65 10*6/uL Low 3.8 - 5.2 10*6/uL [place] WBC (Bld) [#/Vol] 20.4 10*3/uL High 3.6 - 10.7 10*3/uL [place] Test Performed by [facility], [address] [place] [address] [place] Erythrocyte distribution width (RBC) [Ratio] 13.9 % 11.5 - 14.5 % [place] Hematocrit (Bld) [Volume fraction] 26.6 % Low 35 - 47 % [place] Hemoglobin (Bld) [Mass/Vol] 8.7 g/dL Low 11.7 - 16 g/dL [place] Interpretation and review of laboratory results Abnormal [place] MCH (RBC) [Entitic mass] 31.3 pg 26 - 34 pg [place] MCHC (RBC) [Mass/Vol] 32.8 % 32 - 36 % [place] MCV (RBC) [Entitic vol] 95.5 fL 79 - 98 fL [place] Platelet mean volume (Bld) [Entitic vol] 10.6 fL High 7.4 - 10.4 fL [place] Platelets (Bld) [#/Vol] 47 10*3/uL Low 140 - 440 10*3/uL [place] Comment on above: repeated RBC (Bld) [#/Vol] 2.78 10*6/uL Low 3.8 - 5.2 10*6/uL [place] WBC (Bld) [#/Vol] 26.4 10*3/uL High 3.6 - 10.7 10*3/uL [place] Test Performed by [facility], [address] [place] [id number] [place] [address] CR Chest Portableon 01-04-20 20 CR Chest Portable Patient Name: JODEE LORENZO Diagnostic Radiology Exam Date/Time 01/04/2020 06:18:55 EST Exam CR Chest Portable Ordering Physician MD NEVA, GRACIE MOODY Accession Number [id number] CPT4 Codes 35374 () Reason For Exam intubated Report CLINICAL INFORMATION: Respiratory distress. Portable view of the chest at 0520 hours is provided and compared to a previous study dated January 03, 2020. FINDINGS: An endotracheal tube is seen with its tip approximately 2 cm above the sherie. An enteric tube extends into the stomach. A right IJ line is in place. The distal tip is in the superior vena cava. The cardiac silhouette and mediastinum are otherwise unremarkable. There is a mild left lower lobe infiltrate and small effusion. This is unchanged. IMPRESSION: 1. Stable left lower lobe infiltrate and small effusion. Report Dictated on Final Dictated: 01/04/2020 6:30 am Dictating Physician: MD DACOSTA JEFFREY Signed Date and Time: 01/04/2020 6:32 am Signed by: MD DACOSTA JEFFREY Transcribed Date and Time: 01/04/2020 6:30 Normal [facility] CREATININE, RANDOM URINEon 1 03-05-2019 Creatinine (U) [Mass/Vol] 82.4 mg/dL No Range [place] CULTURE ANAEROBEon 0 CULTURE ANAEROBE CULTURE ANAEROBE --> Status: F No growth of anaerobes at 5 days. STAIN GRAM --> Status: X LAB_CANCELLED - cancelled on 01/04/20 15:43 by DKB not routinely done on urine cultures - cancelled on 01/04/20 15:43 by DKB not routinely done on urine cultures Normal [facility] Comment on above: Order Comment: Speci men Source Comment:Kidney Performed By: #### B GLU #### [facility] [address], [place] CULTURE URINEon 01-04-2020 CULTURE URINE CULTURE URINE --> Status: F No growth (<1,000 CFU/ml). Normal [facility] Comment on above: Order Comment: Speci men Source Comment:Kidney Performed By: #### B GLU #### [facility] [address], [place] CULTURE URINE CULTURE URINE --> Status: F Normal urogenital jose luis present. Normal [facility] Comment on above: Order Comment: Speci men Source Comment:Urine voided Performed By: #### B GLU #### [facility] [address] [place] [address] Calcium, Ionizedon 0 Interpretation and review of laboratory results Abnormal [place] Ionized Ca 4.30 mg/dL 4.3 - 5.2 mg/dL [place] pH (Bld) 7.51 [pH] High [place] Test Performed by [facility], [address] [place] [address] [place] Interpretation and review of laboratory results Abnormal [place] Ionized Ca 4.00 mg/dL Low 4.3 - 5.2 mg/dL [place] pH (Bld) 7.44 [pH] [facility], [place] Test Performed by [facility], [address] [place] [address] [place] Interpretation and review of laboratory results Abnormal [place] Ionized Ca 3.90 mg/dL Low 4.3 - 5.2 mg/dL [facility], [place] pH (Bld) 7.45 [pH] [facility], [place] Test Performed by [facility], [address] [place], [place] [address] [address] [facility] [place], [place] Calcium,Ionizedon 01-04-2020 Ionized Ca,Measured 4.30 mg/dL Normal 4.30-5.20 [facility] Comment on above: Performed By: #### B GLU #### [place] [address] [place] [address] pH, Ionized Calcium 7.51 High 7.31-7.46 [facility] Comment on above: Performed By: #### B GLU #### [place] [address] [place] [address] Ionized Ca,Measured 4.00 mg/dL Low 4.30-5.20 [facility] Comment on above: Performed By: #### T SGL #### [place] [address] [place] [address] [facility] pH, Ionized Calcium 7.44 Normal 7.31-7.46 [facility] Comment on above: Performed By: #### T SGL #### [place] [address] [place] [address] [facility] Ionized Ca,Measured 3.90 mg/dL Low 4.30-5.20 [facility] Comment on above: Performed By: #### B GLU #### [place] [address] [place] [address] pH, Ionized Calcium 7.45 Normal 7.31-7.46 [facility] Comment on above: Performed By: #### B GLU #### [place] [address] [place] [address] Creatinine, Ur Randomon Creatinine, Ur Random 82.4 mg/dL Normal No Range [facility] Comment on above: Performed By: #### B GLU #### [place] [address] [place] [address] Culture, Urineon 01-04-2020 Bacteria identified Cx Nom (U) No growth (<1,000 CFU/ml). [facility] [place], [place] Test Performed by [facility] [place] [address] Specimen Source Comment:Kidney [facility] Bacteria identified Cx Nom (U) Normal urogenital jose luis present. 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1940 Requested By: GRACIE HOOKS Order Number: [id number] Reading MD: Gigi Mooney Measurements Intervals [place] Rate: 110 P: 70 MA: 135 QRS: 45 QRSD: 75 T: 66 QT: 378 QTc: 512 Interpretive Statements Sinus tachycardia Abnormal R-wave progression, early transition Prolonged QT interval Electronically Signed On 01-04-2020 7:43:06 EST by Gigi Mooney [facility] [place] Incoming Cardiology Results From [employer] - 01/04/2020 7:44 AM EST [facility] Test Date: 2020-01-02 Pat Name: Jodee Lorenzo Department: 1AT2 Room: T213 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 Results may be 10%-15% lower than serum/plasma values. (CLIA ID [id number]) Performed By: #### B GLU #### [facility] [address] [place] [address] Glucose [Mass/Vol] 108 mg/dL High 70-100 [facility] Comment on above: Result Comment: Test performed by glucose meter. Results may be 10%-15% lower than serum/plasma values. (CLIA ID [id number]) Performed By: #### B GLU ####[facility] [address] [place] [address] Glucose [Mass/Vol] 147 mg/dL High 70-100 [facility] Comment on above: Result Comment: Test performed by glucose meter. Results may be 10%-15% lower than serum/plasma values. (CLIA ID [id number]) Performed By: #### B GLU #### [facility] [address] [place] [address] Glucose [Mass/Vol] 160 mg/dL High 70-100 [facility] Comment on above: Result Comment: Test performed by glucose meter. Results may be 10%-15% lower than serum/plasma values. (CLIA ID [id number]) Performed By: #### B GLU #### [facility] [address] [place] [address] Glucose [Mass/Vol] 178 mg/dL High 70-100 [facility] Comment on above: Result Comment: Test performed by glucose meter. Results may be 10%-15% lower than serum/plasma values. (CLIA ID [id number]) Performed By: #### B GLU #### [facility] [address] [place] [address] Glucose [Mass/Vol] 189 mg/dL High 70-100 [facility] Comment on above: Result Comment: Test performed by glucose meter. Results may be 10%-15% lower than serum/plasma values. (CLIA ID [id number]) Performed By: #### B GLU ####[facility] [address] [place] [address] Glucose [Mass/Vol] 175 mg/dL High 70-100 [facility] Comment on above: Result Comment: Test performed by glucose meter. Results may be 10%-15% lower than serum/plasma values. (CLIA ID [id number]) Performed By: #### B GLU #### [facility] [address] [place] [address] Glucose [Mass/Vol] 190 mg/dL High 70-100 [facility] Comment on above: Result Comment: Test performed by glucose meter. Results may be 10%-15% lower than serum/plasma values. (CLIA ID [id number]) Performed By: #### B GLU ####[facility] [address] [place] [address] Glucose [Mass/Vol] 166 mg/dL High 70-100 [facility] Comment on above: Result Comment: Test performed by glucose meter. Results may be 10%-15% lower than serum/plasma values. (CLIA ID [id number]) Performed By: #### B GLU #### [facility] [address] [place] [place] [address] Glucose [Mass/Vol] 163 mg/dL High 70-100 [facility] Comment on above: Result Comment: Test performed by glucose meter. Results may be 10%-15% lower than serum/plasma values. (CLIA ID [id number]) Performed By: #### B GLU #### [facility] [address] [place] [address] Glucose [Mass/Vol] 134 mg/dL High 70-100 [facility] Comment on above: Result Comment: Test performed by glucose meter. Results may be 10%-15% lower than serum/plasma values. (CLIA ID [id number]) Performed By: #### B GLU #### [facility] [address] [place] [address] Glucose [Mass/Vol] 170 mg/dL High 70-100 [facility] Comment on above: Result Comment: Test performed by glucose meter. Results may be 10%-15% lower than serum/plasma values. (CLIA ID [id number]) Performed By: #### B GLU #### [facility] [address] [place] [address] Glucose [Mass/Vol] 175 mg/dL High 70-100 [facility] Comment on above: Result Comment: Test performed by glucose meter. Results may be 10%-15% lower than serum/plasma values. (CLIA ID [id number]) Performed By: #### B GLU #### [facility] [address] [place] [address] Glucose [Mass/Vol] 200 mg/dL High [address] [facility] Comment on above: Result Comment: Test performed by glucose meter. Results may be 10%-15% lower than serum/plasma values. (CLIA ID [id number]) Performed By: #### B GLU #### [facility] [address] [place] [address] Glucose [Mass/Vol] 182 mg/dL High [address] [facility] Comment on above: Result Comment: Test performed by glucose meter. Results may be 10%-15% lower than serum/plasma values. (CLIA ID [id number]) Performed By: #### B GLU #### [facility] [address] [place] [address] Glucose [Mass/Vol] 168 mg/dL High [address] Comment on above: Result Comment: Test performed by glucose meter. Results may be 10%-15% lower than serum/plasma values. (CLIA ID [id number]) Performed By: #### B GLU ####[facility] [address] [place] [address] Glucose [Mass/Vol] 177 mg/dL High [address] Comment on above: Result Comment: Test performed by glucose meter. Results may be 10%-15% lower than serum/plasma values. (CLIA ID [id number]) Performed By: #### B GLU #### [facility] [address] [place] [address] Glucose [Mass/Vol] 147 mg/dL High [address] Comment on above: Result Comment: Test performed by glucose meter. Results may be 10%-15% lower than serum/plasma values. (CLIA ID [id number]) Performed By: #### B GLU ####[facility] [address] [place] [address] Glucose [Mass/Vol] 127 mg/dL High 70-100 [facility] Comment on above: Result Comment: Test performed by glucose meter. Results may be 10%-15% lower than serum/plasma values. (CLIA ID [id number]) Performed By: #### B GLU #### [facility] [address] [place] [address] Glucose [Mass/Vol] 131 mg/dL High 70-100 [facility] Comment on above: Result Comment: Test performed by glucose meter. Results may be 10%-15% lower than serum/plasma values. (CLIA ID [id number]) Performed By: #### B GLU #### [place] [place] [address] Glucose [Mass/Vol] 119 mg/dL High 70-100 [facility] Comment on above: Result Comment: Test performed by glucose meter. Results may be 10%-15% lower than serum/plasma values. (CLIA ID [id number]) Performed By: #### B GLU #### [facility] [address] [place] [address] Glucose [Mass/Vol] 123 mg/dL High 70-100 [facility] Comment on above: Result Comment: Test performed by glucose meter. Results may be 10%-15% lower than serum/plasma values. (CLIA ID [id number]) Performed By: #### B GLU #### [place] [place] [address] Glucose [Mass/Vol] 120 mg/dL High 70-100 [facility] Comment on above: Result Comment: Test performed by glucose meter. Results may be 10%-15% lower than serum/plasma values. (CLIA ID [id number]) Performed By: #### B GLU ####[place] [address] [place] [address] Gram Stainon 01-04-2020 INR Coag (Bld) [Relative time] Many polymorphonuclear cells/lpf. Rare epithelial cells/lpf. No organisms seen. [facility] [place] Test Performed by [facility], [address] [place] [address] Specimen Source Comment:Sputum Expectorated [facility] [place], [place] Hemogram w/ Autodiffon 01-03 Erythrocyte distribution width (RBC) [Ratio] 14.1 % Normal 11.5-14.5 [facility] Comment on above: Performed By: #### B GLU #### [facility] [address] [place], [place] Hematocrit (Bld) [Volume fraction] 26.9 % Low 35.0-47.0 [facility] Comment on above: Performed By: #### B GLU #### [place] [place] [address] Hemoglobin (Bld) [Mass/Vol] 8.9 g/dL Low 11.7-16.0 [facility] Comment on above: Performed By: #### B GLU #### [place] [address] [place], [place] MCH (RBC) [Entitic mass] 31.7 pg Normal 26.0-34.0 [facility] Comment on above: Performed By: #### B GLU #### [facility] [address] [place], [place] MCHC (RBC) [Mass/Vol] 32.9 % Normal 32.0-36.0 [facility] Comment on above: Performed By: #### B GLU #### [facility] [address] [place], [place] MCV (RBC) [Entitic vol] 96.2 fL Normal 79.0-98.0 [facility] Comment on above: Performed By: #### B GLU #### [facility] [address] [place], [place] Platelet mean volume (Bld) [Entitic vol] 11.3 fL High 7.4-10.4 [facility] Comment on above: Performed By: #### B GLU #### [facility] [address] [place], [place] Platelets (Bld) [#/Vol] 41 10*3/uL Low 140-440 [facility] Comment on above: Performed By: #### B GLU #### [facility] [address] [place] [address] RBC (Bld) [#/Vol] 2.80 10*6/uL Low 3.80-5.20 [facility] Comment on above: Performed By: #### B GLU #### [place] [place] [address] WBC (Bld) [#/Vol] 26.4 10*3/uL High 3.6-10.7 [facility] Comment on above: Performed By: #### B GLU #### [address] [place] [address] Erythrocyte distribution width (RBC) [Ratio] 14.0 % Normal 11.5-14.5 [facility] Comment on above: Performed By: #### T SGL #### [address] [place] [address] [facility] Hematocrit (Bld) [Volume fraction] 25.7 % Low 35.0-47.0 [facility] Comment on above: Performed By: #### T SGL #### [address] [place] [address] [facility] Hemoglobin (Bld) [Mass/Vol] 8.5 g/dL Low 11.7-16.0 [facility] Comment on above: Performed By: #### T SGL #### [address] [place] [address] [facility] MCH (RBC) [Entitic mass] 32.0 pg Normal 26.0-34.0 [facility] Comment on above: Performed By: #### T SGL #### [address] [place] [address] [facility] MCHC (RBC) [Mass/Vol] 32.9 % Normal 32.0-36.0 [facility] Comment on above: Performed By: #### T SGL #### [address] [place] [address] [facility] MCV (RBC) [Entitic vol] 97.0 fL Normal 79.0-98.0 [facility] Comment on above: Performed By: #### T SGL #### [facility] [address] [place] [address] [facility] Platelet mean volume (Bld) [Entitic vol] 11.2 fL High 7.4-10.4 [facility] Comment on above: Performed By: #### T SGL #### [address] [place] [address] [facility] Platelets (Bld) [#/Vol] 40 10*3/uL Low 140-440 [facility] Comment on above: Performed By: #### T SGL #### [address] [place] [address] [facility] RBC (Bld) [#/Vol] 2.65 10*6/uL Low 3.80-5.20 [facility] Comment on above: Performed By: #### T SGL #### [address] [place] [address] [facility] WBC (Bld) [#/Vol] 20.4 10*3/uL High 3.6-10.7 [facility] Comment on above: Performed By: #### T SGL #### [address] [place] [address] [facility] Erythrocyte distribution width (RBC) [Ratio] 13.9 % Normal 11.5-14.5 [facility] Comment on above: Performed By: #### B GLU #### [address] [place], [place] Hematocrit (Bld) [Volume fraction] 26.6 % Low 35.0-47.0 [facility] Comment on above: Performed By: #### B GLU #### [address] [place], [place] Hemoglobin (Bld) [Mass/Vol] 8.7 g/dL Low 11.7-16.0 [facility] Comment on above: Performed By: #### B GLU #### [address] [place], [place] MCH (RBC) [Entitic mass] 31.3 pg Normal 26.0-34.0 [facility] Comment on above: Performed By: #### B GLU #### [facility] [address] [place], [place] MCHC (RBC) [Mass/Vol] 32.8 % Normal 32.0-36.0 [facility] Comment on above: Performed By: #### B GLU #### [facility] [address] [place], [place] MCV (RBC) [Entitic vol] 95.5 fL Normal 79.0-98.0 [facility] Comment on above: Performed By: #### B GLU #### [address] [place], [place] Platelet mean volume (Bld) [Entitic vol] 10.6 fL High 7.4-10.4 [facility] Comment on above: Performed By: #### B GLU #### [address] [place], [place] Platelets (Bld) [#/Vol] 47 10*3/uL Low 140-440 [facility] Comment on above: Result Comment: repe ated Performed By: #### B GLU #### [address] [place], [place] RBC (Bld) [#/Vol] 2.78 10*6/uL Low 3.80-5.20 [facility] Comment on above: Performed By: #### B GLU #### [address] [place], [place] WBC (Bld) [#/Vol] 26.4 10*3/uL High 3.6-10.7 [facility] Comment on above: Performed By: #### B GLU #### [address] [place], [place] Lactic Acidon 01-04-2020 Lactate [Moles/Vol] 1.2 mmol/L Normal 0.7-2.0 [facility] Comment on above: Performed By: #### T SGL #### [address] [place], [place] [facility] Lactate [Moles/Vol] 1.7 mmol/L Normal 0.7-2.0 [facility] Comment on above: Performed By: #### B GLU #### [address] [place], [place] Lactic Acid, Plasmaon 2019 Lactate [Moles/Vol] 1.2 mmol/L 0.7 - 2 mmol/L [place], [place] Test Performed by [address] [place], [place] [address] [place] [address] Lactate [Moles/Vol] 1.7 mmol/L 0.7 - 2 mmol/L [place], [place] Test Performed by [id number] [place] [address] Magnesiumon 01-04-2020 Magnesium [Mass/Vol] 2.2 mg/dL Normal 1.6-2.3 [facility] Comment on above: Performed By: #### B GLU #### [address] [place], [place] Magnesium [Mass/Vol] 2.2 mg/dL 1.6 - 2 .3 mg/dL [place], [place] Manual Diffon 01-04-2020 Abs Baso Cnt 0.0 10*3/uL Normal 0.0-0.2 [facility] Comment on above: Performed By: #### B GLU #### [address] [place], [place] Abs Eosin Cnt 0.0 10*3/uL Normal 0.0-0.5 [facility] Comment on above: Performed By: #### B GLU #### [address] [place], [place] Basophils 0 % Normal 0-2 [facility] Comment on above: Performed By: #### B GLU #### [address] Cells counted 100 Normal [facility] Comment on above: Performed By: #### B GLU #### [address] [address] [place] Eosinophils 0 % Low 1-6 [facility] Comment on above: Performed By: #### B GLU #### [facility] [address] [place], [place] Metamyelocytes 2 % Abnormal <1 [facility], [place] Comment on above: Performed By: #### B GLU #### [facility] [address] [place], [place] Monocytes 2 % Normal 2-10 [facility] [place], [place] Comment on above: Performed By: #### B GLU #### [facility] [address] [place], [place] Myelocytes 1 % Abnormal <1 [facility] [place] Comment on above: Performed By: #### B GLU #### [address] [place], [place] RBC morphology finding Nom (Bld) See Prev Normal [facility], [place] Comment on above: Performed By: #### B GLU #### [address] [place], [place] Seg Neutrophils 74 % Normal 40-80 [facility] [place] Comment on above: Performed By: #### B GLU #### [facility] [address] [place], [place] TOXIC VACUOLES Slight Normal [facility] [place] Comment on above: Performed By: #### B GLU #### [address] [place], [place] Abs Lymph Cnt 0.4 10*3/uL Low 1.1-4.5 [facility] Comment on above: Performed By: #### T SGL #### [facility] [address] [place] [address] [facility] Abs Monocyte Cnt 0.6 10*3/uL Normal 0.2-1.1 [facility] Comment on above: Performed By: #### T SGL #### [facility] [address] [place] [address] [facility] Abs Neutrophile Cnt 19.2 10*3/uL High 2.2-8.2 [facility] Comment on above: Performed By: #### T SGL #### [facility] [address] [place], [place] [address] [place] [address] Health System Bands 19 % High 0-3 [facility] Comment on above: Performed By: #### T SGL #### [facility] [address] Cells counted 200 Normal [facility] Comment on above: Result Comment: KATYA ECTED RESULT...Previous above value was 100, verified on 01/04/20 at 08:22 by V/AUT . Performed By: #### T SGL #### [facility] [address] Dohle Bodies Slight Normal [facility] Comment on above: Performed By: #### T SGL #### [facility] [address] Lymphocytes 2 % Low 20-40 [facility] Comment on above: Performed By: #### T SGL #### [facility] [address] Metamyelocytes 1 % Abnormal <1 [facility] Comment on above: Performed By: #### T SGL #### [facility] [address] [place], [place] [id number] [place] [address] Monocytes 3 % Normal 2-10 [facility] Comment on above: Performed By: #### T SGL #### [facility] [address] [place], [place] [id number] [place] [address] Polychromasia Slight Normal [facility] Comment on above: Performed By: #### T SGL #### [facility] [address] [place], [place] [id number] [place] [address] RBC morphology finding Nom (Bld) ABNORMAL Normal [facility] Comment on above: Result Comment: One nucleated rbc observed. Performed By: #### T SGL #### [facility] [address] Seg Neutrophils 75 % Normal 40-80 [facility] Comment on above: Performed By: #### T SGL #### [facility] [address] Toxic Granulation Slight Normal [facility] Comment on above: Performed By: #### T SGL #### [facility] [address] [place], [place] [address] [place] [address] System Toxic Vacuoles Moderate Normal [facility] Comment on above: Performed By: #### T SGL #### [facility] [address] [place] [address] [facility] Bands 19 % High 0-3 [facility] [place] Comment on above: Performed By: #### B GLU #### [facility] [place] [address] Lymphocytes 2 % Low 20-40 [facility] [place] Comment on above: Performed By: #### B GLU #### [address] [place] [address] Abs Baso Cnt 0.0 10*3/uL Normal 0.0-0.2 [facility] Comment on above: Performed By: #### T SGL #### [facility] [address] [place], [place] [address] [place] [address] System Abs Eosin Cnt 0.0 10*3/uL Normal 0.0-0.5 [facility] Comment on above: Performed By: #### T SGL #### [facility] [address] [place], [place] [address] [place], [place] [address]a Health System Basophils 0 % Normal 0-2 [facility] Comment on above: Performed By: #### T SGL #### [facility] [place] [address] [facility] Eosinophils 0 % Low 1-6 [facility] Comment on above: Performed By: #### T SGL #### [facility] [place] [address] [facility] Abs Lymph Cnt 0.3 10*3/uL Low 1.1-4.5 [facility] Comment on above: Performed By: #### B GLU #### [facility] [place] [address] Abs Monocyte Cnt 0.3 10*3/uL Normal 0.2-1.1 [facility] Comment on above: Performed By: #### B GLU #### [facility] [address] [place], [place] Abs Neutrophile Cnt 25.3 10*3/uL High 2.2-8.2 [facility] Comment on above: Performed By: #### B GLU #### [facility] [address] [place], [place] Bands 27 % High 0-3 [facility] Comment on above: Performed By: #### B GLU #### [facility] [address] [place], [place] Dohle Bodies Slight Normal [facility] Comment on above: Performed By: #### B GLU #### [facility] [address] [place], [place] Large Platelets Slight Normal [facility] Comment on above: Performed By: #### B GLU #### [address] [place], [place] Lymphocytes 1 % Low 20-40 [facility] Comment on above: Performed By: #### B GLU #### [address] [place], [place] Monocytes 1 % Low 2-10 [facility] Comment on above: Performed By: #### B GLU #### [facility] [address] [place], [place] Myelocytes 2 % Abnormal <1 [facility] Comment on above: Performed By: #### B GLU #### [facility] [address] [place], [place] Ovalocytes Slight Normal [facility] Comment on above: Performed By: #### B GLU #### [facility] [address] [place], [place] Poikilocytosis Slight Normal [facility] Comment on above: Performed By: #### B GLU #### [facility] [address] [place], [place] RBC morphology finding Nom (Bld) ABNORMAL Normal [facility] Comment on above: Performed By: #### B GLU #### [facility] [address] [place], [place] Seg Neutrophils 69 % Normal 40-80 [facility] Comment on above: Performed By: #### B GLU #### [facility] [address] [place], [place] Abs Baso Cnt 0.0 10*3/uL Normal 0.0-0.2 [facility] Comment on above: Performed By: #### B GLU #### [facility] [address] [place], [place] Abs Eosin Cnt 0.0 10*3/uL Normal 0.0-0.5 [facility] Comment on above: Performed By: #### B GLU #### [facility] [address] [place], [place] Basophils 0 % Normal 0-2 [facility] Comment on above: Performed By: #### B GLU #### [facility] [address] [place], [place] Cells counted 100 Normal [facility] Comment on above: Performed By: #### B GLU #### [facility] [address] [place], [place] Eosinophils 0 % Low 1-6 [facility] Comment on above: Performed By: #### B GLU #### [facility] [address] [place], [place] Dohle Bodies Slight Normal [facility] [place] Comment on above: Performed By: #### B GLU #### [address] [place], [place] Manual Differentialon 2019 Absolute Baso # 0.0 10*3/uL 0 - 0.2 10*3/uL [facility], [place] Absolute Eos # 0.0 10*3/uL 0 - 0.5 10*3/uL [facility] [place] Absolute Lymph # 0.5 10*3/uL Low 1.1 - 4.5 10*3/uL [facility] [place] Absolute [place] # 0.5 10*3/uL 0.2 - 1.1 10*3/uL [facility] [place] Absolute Neut # 24.6 10*3/uL High 2.2 - 8.2 10*3/uL [facility] [place] Bands 19 % High 0 - 3 % [facility] [place] Basophils 0 % 0 - 2 % [facility] [place] Dohle Bodies Slight [facility] [place] Eosinophils 0 % Low 1 - 6 % [facility] [place] Interpretation and review of laboratory results Abnormal [facility] Lymphocytes 2 % Low 20 - 40 % [facility] TOTAL CELLS COUNTED 100 [facility], [place] Test Performed by [address] [address] [place] [address] [facility] Absolute Baso # 0.0 10*3/uL 0 - 0.2 10*3/uL [facility] [place] Absolute Eos # 0.0 10*3/uL 0 - 0.5 10*3/uL [facility] [place] Absolute Lymph # 0.4 10*3/uL Low 1.1 - 4.5 10*3/uL [facility] [place] Absolute [place] # 0.6 10*3/uL 0.2 - 1.1 10*3/uL [facility] [place] Absolute Neut # 19.2 10*3/uL High 2.2 - 8.2 10*3/uL [facility] [place] Basophils 0 % 0 - 2 % [facility] [place] Dohle Bodies Slight [facility] [place] Eosinophils 0 % Low 1 - 6 % [facility] [place] Interpretation and review of laboratory results Abnormal [facility] Metamyelocytes 1 % Abnormal <1 [facility] [place] Monocytes 3 % 2 - 10 % [facility] [place] Polychromasia Slight [facility] RBC morphology finding Nom (Bld) ABNORMAL [facility] [place] Comment on above: One nucleated rbc ob served. Seg Neutrophils 75 % 40 - 80 % [facility] [place] TOTAL CELLS COUNTED 200 [facility] Comment on above: CORRECTED RESULT...P revious above value was 100, verified on 01/04/20 at 08:22 by V/AUT . Toxic Granulation Slight [facility] TOXIC VACUOLES Moderate [facility] Test Performed by [facility] [address] [address] [place] [address] [facility] [place] Absolute Baso # 0.0 10*3/uL 0 - 0.2 10*3/uL [facility] [place] Absolute Eos # 0.0 10*3/uL 0 - 0.5 10*3/uL [facility] [place] Absolute Lymph # 0.3 10*3/uL Low 1.1 - 4.5 10*3/uL [facility] [place] Absolute [place] # 0.3 10*3/uL 0.2 - 1.1 10*3/uL [facility] [place] Absolute Neut # 25.3 10*3/uL High 2.2 - 8.2 10*3/uL [facility] [place] Bands 27 % High 0 - 3 % [facility] [place] Basophils 0 % 0 - 2 % [facility] [place] Eosinophils 0 % Low 1 - 6 % [facility] [place] Interpretation and review of laboratory results Abnormal [facility] [place] Lymphocytes 1 % Low 20 - 40 % [facility] [place] Monocytes 1 % Low 2 - 10 % [facility] [place] Myelocytes 2 % Abnormal <1 [facility] [place] Ovalocytes Slight [facility] [place] PLATELETS, LARGE Slight [facility] [place] Poikilocytes Slight [facility] [place] RBC morphology finding Nom (Bld) ABNORMAL [facility] [place] Seg Neutrophils 69 % 40 - 80 % [facility] [place] TOTAL CELLS COUNTED 100 [facility] [place] Test Performed by [facility], [address] [place] [address] [facility] [place] Osmolality, Urineon 01-04-20 20 Osmolality (U) [Osmolality] 348 mosm/kg 300 - 1000 mosm/kg [facility] [place] Test Performed by [facility], [address] [place] [address] [facility] [place] Osmolality,Urineon 0 Osmolality,Urine 348 mosm/kg Normal 300-1000 [facility] Comment on above: Performed By: #### B GLU #### [address] [place] [address] Otheron 01-04-2020 Test Performed by [facility], [address] [place] [place] [address] [facility], [place] Interpretation and review of laboratory results Abnormal [facility] Test Performed by [facility], [address] [place] [address] [facility] POCT Glucoseon 01-04-2020 Glucose [Mass/Vol] 80 mg/dL 70 - 100 mg/dL [facility], [place] Comment on above: Test performed by gl ucose meter. Results may be 10%-15% lower than serum/plasma values. (CLIA ID [id number]) Test Performed by [facility], [address] [place] [address] [facility], [place] Glucose [Mass/Vol] 96 mg/dL 70 - 100 mg/dL [facility] Comment on above: Test performed by gl ucose meter. Results may be 10%-15% lower than serum/plasma values. (CLIA ID [id number]) Test Performed by [facility], [address] [place] [address] [facility], [place] Glucose [Mass/Vol] 106 mg/dL High 70 - 100 mg/dL [facility] [place] Comment on above: Test performed by gl ucose meter. Results may be 10%-15% lower than serum/plasma values. (CLIA ID [id number]) Interpretation and review of laboratory results Abnormal [facility] Test Performed by [facility], [address] [place] [address] [facility], [place] Glucose [Mass/Vol] 108 mg/dL High 70 - 100 mg/dL [facility], [place] Comment on above: Test performed by gl ucose meter. Results may be 10%-15% lower than serum/plasma values. (CLIA ID [id number]) Interpretation and review of laboratory results Abnormal [facility] [place] Test Performed by [facility], [address] [place] [address] [facility] [place] Glucose [Mass/Vol] 147 mg/dL High 70 - 100 mg/dL [facility] Comment on above: Test performed by gl ucose meter. Results may be 10%-15% lower than serum/plasma values. (CLIA ID [id number]) Interpretation and review of laboratory results Abnormal [facility] [place] Test Performed by [employer] [facility], [address] [place] [address] [facility] [place] Glucose [Mass/Vol] 160 mg/dL High 70 - 100 mg/dL [facility] [place] Comment on above: Test performed by gl ucose meter. Results may be 10%-15% lower than serum/plasma values. (CLIA ID [id number]) Interpretation and review of laboratory results Abnormal [facility] [place] Test Performed by [employer] [facility], [address] [place] [address] [facility] [place] Glucose [Mass/Vol] 178 mg/dL High 70 - 100 mg/dL [facility] [place] Comment on above: Test performed by gl ucose meter. Results may be 10%-15% lower than serum/plasma values. (CLIA ID [id number]) Interpretation and review of laboratory results Abnormal [facility] [place] Test Performed by [employer] [facility], [address] [place] [address] [facility] [place] Glucose [Mass/Vol] 189 mg/dL High 70 - 100 mg/dL [facility] [place] Comment on above: Test performed by gl ucose meter. Results may be 10%-15% lower than serum/plasma values. (CLIA ID [id number]) Interpretation and review of laboratory results Abnormal [facility] [place] Test Performed by [facility], [address] [place] [address] [facility] [place] Glucose [Mass/Vol] 175 mg/dL High 70 - 100 mg/dL [facility] [place] Comment on above: Test performed by gl ucose meter. Results may be 10%-15% lower than serum/plasma values. (CLIA ID [id number]) Interpretation and review of laboratory results Abnormal [facility] [place] Test Performed by [facility], [address] [place] [address] [facility] [place] Glucose [Mass/Vol] 190 mg/dL High 70 - 100 mg/dL [facility] [place] Comment on above: Test performed by gl ucose meter. Results may be 10%-15% lower than serum/plasma values. (CLIA ID [id number]) Interpretation and review of laboratory results Abnormal [facility] [place] Test Performed by [facility], [address] [place] [address] [facility] [place] Glucose [Mass/Vol] 166 mg/dL High 70 - 100 mg/dL [facility] [place] Comment on above: Test performed by gl ucose meter. Results may be 10%-15% lower than serum/plasma values. (CLIA ID [id number]) Interpretation and review of laboratory results Abnormal [facility] [place] Test Performed by [facility], [address] [place] [address] [facility] [place] Glucose [Mass/Vol] 163 mg/dL High 70 - 100 mg/dL [facility] [place] Comment on above: Test performed by gl ucose meter. Results may be 10%-15% lower than serum/plasma values. (CLIA ID [id number]) Interpretation and review of laboratory results Abnormal [facility] [place] Test Performed by [employer] [facility], [address] [place] [address] [facility] [place] Glucose [Mass/Vol] 134 mg/dL High 70 - 100 mg/dL [facility] [place] Comment on above: Test performed by gl ucose meter. Results may be 10%-15% lower than serum/plasma values. (CLIA ID [id number]) Interpretation and review of laboratory results Abnormal [facility] [place] Test Performed by [employer] [facility], [address] [place] [address] [facility] [place] Glucose [Mass/Vol] 170 mg/dL High 70 - 100 mg/dL [facility] [place] Comment on above: Test performed by gl ucose meter. Results may be 10%-15% lower than serum/plasma values. (CLIA ID [id number]) Interpretation and review of laboratory results Abnormal [facility] [place] Test Performed by [employer] [facility], [address] [place] [address] [facility] [place] Glucose [Mass/Vol] 175 mg/dL High 70 - 100 mg/dL [facility] [place] Comment on above: Test performed by gl ucose meter. Results may be 10%-15% lower than serum/plasma values. (CLIA ID [id number]) Interpretation and review of laboratory results Abnormal [facility] [place] Test Performed by [facility], [address] [place] [address] [facility] [place] Glucose [Mass/Vol] 200 mg/dL High 70 - 100 mg/dL [facility] [place] Comment on above: Test performed by gl ucose meter. Results may be 10%-15% lower than serum/plasma values. (CLIA ID [id number]) Interpretation and review of laboratory results Abnormal [facility] [place] Test Performed by [employer] [facility], [address] [place] [address] [facility] [place] Glucose [Mass/Vol] 182 mg/dL High 70 - 100 mg/dL [facility] [place] Comment on above: Test performed by gl ucose meter. Results may be 10%-15% lower than serum/plasma values. (CLIA ID [id number]) Interpretation and review of laboratory results Abnormal [facility] [place] Test Performed by [employer] [facility], [address] [place] [address] [facility] [place] Glucose [Mass/Vol] 168 mg/dL High 70 - 100 mg/dL [facility] [place] Comment on above: Test performed by gl ucose meter. Results may be 10%-15% lower than serum/plasma values. (CLIA ID [id number]) Interpretation and review of laboratory results Abnormal [facility] [place] Test Performed by [employer] [facility], [address], [place] [address] [facility] Glucose [Mass/Vol] 177 mg/dL High 70 - 100 mg/dL [facility] [place] Comment on above: Test performed by gl ucose meter. Results may be 10%-15% lower than serum/plasma values. (CLIA ID [id number]) Interpretation and review of laboratory results Abnormal [facility] Test Performed by [facility], [address] [place] [address] [facility] Glucose [Mass/Vol] 147 mg/dL High 70 - 100 mg/dL [facility] Comment on above: Test performed by gl ucose meter. Results may be 10%-15% lower than serum/plasma values. (CLIA ID [id number]) Interpretation and review of laboratory results Abnormal [facility] [place] Test Performed by [facility], [address] [place] [address] [facility] [place] Glucose [Mass/Vol] 127 mg/dL High 70 - 100 mg/dL [facility] Comment on above: Test performed by gl ucose meter. Results may be 10%-15% lower than serum/plasma values. (CLIA ID [id number]) Interpretation and review of laboratory results Abnormal [facility] [place] Test Performed by [facility], [facility] [address] [place] [address] [facility] Glucose [Mass/Vol] 131 mg/dL High 70 - 100 mg/dL [facility]- [place], [place] Comment on above: Test performed by gl ucose meter. Results may be 10%-15% lower than serum/plasma values. (CLIA ID [id number]) Interpretation and review of laboratory results Abnormal [facility] [place] Test Performed by [facility], [facility] [place] [address] [facility] Glucose [Mass/Vol] 119 mg/dL High 70 - 100 mg/dL [facility] Comment on above: Test performed by gl ucose meter. Results may be 10%-15% lower than serum/plasma values. (CLIA ID [id number]) Interpretation and review of laboratory results Abnormal [facility] Test Performed by [employer] [facility], [address] [place] [address] [facility] Phosphoruson 01-04-2020 Phosphate [Mass/Vol] 4.7 mg/dL High 2.5-4.5 [facility] Comment on above: Performed By: #### B GLU #### [facility] [address] [place] [address] Phosphate [Mass/Vol] 4.7 mg/dL High 2.5 - 4 .5 mg/dL [place] SODIUM, URINE, RANDOMon Sodium (U) [Moles/Vol] 52 mmol/L 30 - 90 mmol/L [place], [place] STAIN GRAMon 01-04-2020 STAIN GRAM STAIN GRAM --> Statu s: F Many polymorphonuclear cells/lpf. Rare epithelial cells/lpf. No organisms seen. Rare epithelial cells/lpf. No organisms seen. Normal [facility] Comment on above: Order Comment: Speci men Source Comment:Sputum Expectorated Performed By: #### B GLU #### [facility] [address] [place] [address] Sodium, Ur Randomon 01-04-20 Sodium [Moles/Vol] 52 mmol/L Normal -90 [facility] Comment on above: Performed By: #### B GLU #### [facility] [address] [place] [address] UREA NITROGEN, URINEon 01-03 Urea Nitrogen, Random Urine 365 mg/dL No Range [place], [place] Urea Nitrogen,Ur Randomon Urea nitrogen [Mass/Vol] 365 mg/dL Normal No Range [facility] Comment on above: Performed By: #### B GLU #### [facility] [address] [place] [address] XR CHEST PORTABLEon 01-04-20 [place], [facility] Incoming Radiology Results From [facility] - 01/04/2020 6:33 AM EST Patient Name: JODEE LORENZO ---Diagnostic Radiology--- Exam Date/Time 01/04/2020 06:18:55 EST Exam CR Chest Portable Ordering Physician MD NEVA, GRACIE MOODY Accession Number [id number] CPT4 Codes 95916 () Reason For Exam intubated Report CLINICAL INFORMATION: Respiratory distress. Portable view of the chest at 0520 hours is provided and compared to a previous study dated January 03, 2020. FINDINGS: An endotracheal tube is seen with its tip approximately 2 cm above the sherie. An enteric tube extends into the stomach. A right IJ line is in place. The distal tip is in the superior vena cava. The cardiac silhouette and mediastinum are otherwise unremarkable. There is a mild left lower lobe infiltrate and small effusion. This is unchanged. IMPRESSION: 1. Stable left lower lobe infiltrate and small effusion. Report Dictated on --- Final --- Dictated: 01/04/2020 6:30 am Dictating Physician: MD DACOSTA JEFFREY Signed Date and Time: 01/04/2020 6:32 am Signed by: MD DACOSTA JEFFREY Transcribed Date and Time: 01/04/2020 6:30 [place], [place] Patient Name: JODEE LORENZO ---Diagnostic Radiology--- Exam Date/Time 01/04/2020 06:18:55 EST Exam CR Chest Portable Ordering Physician MD HOOKS JOHN MATTHEW Accession Number [id number] CPT4 Codes 51523 () Reason For Exam intubated Report CLINICAL INFORMATION: Respiratory distress. Portable view of the chest at 0520 hours is provided and compared to a previous study dated January 03, 2020. FINDINGS: An endotracheal tube is seen with its tip approximately 2 cm above the sherie. An enteric tube extends into the stomach. A right IJ line is in place. The distal tip is in the superior vena cava. The cardiac silhouette and mediastinum are otherwise unremarkable. There is a mild left lower lobe infiltrate and small effusion. This is unchanged. IMPRESSION: 1. Stable left lower lobe infiltrate and small effusion. Report Dictated on --- Final --- Dictated: 01/04/2020 6:30 am Dictating Physician: MD DACOSTA JEFFREY Signed Date and Time: 01/04/2020 6:32 am Signed by: MD DACOSTA JEFFREY Transcribed Date and Time: 01/04/2020 6:30 [place], [place] Arterial Blood Gaseson 01-02 CO2 [Moles/Vol] 29.7 mmol/L High 23.0-27.0 [facility] Comment on above: Performed By: #### B GLU #### [facility] [address] HCO3 (Bld) [Moles/Vol] 28.4 mmol/L High 21.0-25.0 [facility] Comment on above: Performed By: #### B GLU #### [place] [address] [address] [place], [place] Hemoglobin (Bld) [Mass/Vol] 9.3 g/dL Normal ScreenOnly [facility] Comment on above: Performed By: #### B GLU #### [place] [address] [place], [place] Oxygen (Bld) [Partial pressure] 81.2 mm[Hg] Normal 80.0-100.0 [facility] Comment on above: Performed By: #### B GLU #### [place] [address] [address] [place], [place] Oxygen saturation in Blood 95.8 % Normal 95.0-100.0 [facility] Comment on above: Performed By: #### B GLU #### [place] [address] [address] [place], [place] pCO2 42.2 mm[Hg] Normal 35.0-45.0 [facility] Comment on above: Performed By: #### B GLU #### [place] [address] [place], [place] pH (Bld) 7.446 Normal 7.350-7.450 [facility] Comment on above: Performed By: #### B GLU #### [place] [address] [place], [place] Std Base Excess 4.0 mmol/L High -3.0-3.0 [facility] Comment on above: Performed By: #### B GLU #### [place] [address] [place], [place] FIO2 No data Normal [facility] Comment on above: Performed By: #### B GLU #### [place] [address] [place], [place] CO2 [Moles/Vol] 27.1 mmol/L High 23.0-27.0 [facility] Comment on above: Performed By: #### B GLU #### [place] [address] [place], [place] HCO3 (Bld) [Moles/Vol] 25.7 mmol/L High 21.0-25.0 [facility] Comment on above: Performed By: #### B GLU #### [place] [address] [place], [place] Hemoglobin (Bld) [Mass/Vol] 10.1 g/dL Normal ScreenOnly [facility] Comment on above: Performed By: #### B GLU #### [place] [address] [place], [place] Oxygen (Bld) [Partial pressure] 167.8 mm[Hg] High 80.0-100.0 [facility] Comment on above: Performed By: #### B GLU #### [place] [address] [place], [place] Oxygen saturation in Blood 98.6 % Normal 95.0-100.0 [facility] Comment on above: Performed By: #### B GLU #### [place] [address] [place], [place] pCO2 44.3 mm[Hg] Normal 35.0-45.0 [facility] Comment on above: Performed By: #### B GLU #### [place] [address] [place], [place] pH (Bld) 7.382 Normal 7.350-7.450 [facility] Comment on above: Performed By: #### B GLU #### [place] [address] [place], [place] Std Base Excess 0.5 mmol/L Normal -3.0-3.0 [facility] Comment on above: Performed By: #### B GLU #### [place] [address] [place], [place] FIO2 No data Normal [facility] Comment on above: Performed By: #### B GLU #### [place] [address] [place], [place] CO2 [Moles/Vol] 15.3 mmol/L Low 23.0-27.0 [facility] Comment on above: Performed By: #### B GLU #### [place] [address] [place], [place] HCO3 (Bld) [Moles/Vol] 14.3 mmol/L Low 21.0-25.0 [facility] Comment on above: Performed By: #### B GLU #### [place] [address] [place], [place] Hemoglobin (Bld) [Mass/Vol] 10.2 g/dL Normal ScreenOnly [facility] Comment on above: Performed By: #### B GLU #### [place] [address] [place], [place] Oxygen (Bld) [Partial pressure] 128.6 mm[Hg] High 80.0-100.0 [facility] Comment on above: Performed By: #### B GLU #### [place] [address] [place], [place] Oxygen saturation in Blood 98.1 % Normal 95.0-100.0 [facility] Comment on above: Performed By: #### B GLU #### [place] [address] [place], [place] pCO2 30.8 mm[Hg] Low 35.0-45.0 [facility] Comment on above: Performed By: #### B GLU #### [place] [address] [place], [place] pH (Bld) 7.286 Low 7.350-7.450 [facility] Comment on above: Performed By: #### B GLU #### [place] [address] [place], [place] Std Base Excess -11.1 mmol/L Low -3.0-3.0 [facility] Comment on above: Performed By: #### B GLU #### [place] [address] [place], [place] FIO2 .50 Normal [facility] Comment on above: Performed By: #### B GLU #### [place] [address] [place], [place] Basic Metabolic Panelon 11-0 Anion gap [Moles/Vol] 9 Normal [facility] Comment on above: Performed By: #### L ACT3, MDIFF, ICA, HEMDF, BMP3 ####[id number] [place], [place] Calcium [Mass/Vol] 7.5 mg/dL Low 8.4-10.4 [facility] Comment on above: Performed By: #### L ACT3, MDIFF, ICA, HEMDF, BMP3 ####[address] [id number] [place], [place] CO2 [Moles/Vol] 30 mmol/L Normal 22-30 [facility] Comment on above: Performed By: #### L ACT3, MDIFF, ICA, HEMDF, BMP3 ####[id number] [place], [place] Creatinine [Mass/Vol] 2.10 mg/dL High 0.52-1.25 [facility] Comment on above: Performed By: #### L ACT3, MDIFF, ICA, HEMDF, BMP3 ####[id number] [place], [place] GFR/1.73 sq M predicted among blacks MDRD (S/P/Bld) [Vol rate/Area] 25.5 mL/min/{1.73_m2} Abnormal >60 [facility] Comment on above: Performed By: #### L ACT3, MDIFF, ICA, HEMDF, BMP3 ####[place] [address] [place], [place] GFR/1.73 sq M predicted among non-blacks MDRD (S/P/Bld) [Vol rate/Area] 22.0 mL/min/{1.73_m2} Abnormal >60 [facility] Comment on above: Result Comment: KDIG O guidelines provide the following GFR categories: Stage GFR(ml/min/1.73 m2) Terms G1 >=90 Normal or high G2 60-89 Mildly decreased* G3a 45-59 Mildly to moderately decreased G3b 30-44 Moderately to severely decreased G4 15-29 Severely decreased G5 <15 Kidney failure *Relative to young adult level. In the absence of evidence of kidney damage, neither GFR category G1 nor G2 fulfill the criteria for CKD. The CKD-EPI equation is validated in individuals 18 years of age and older. Currently the best equation for estimating glomerular filtration rate (GFR) from serum creatinine in children is the Bedside Andrews equation. It is less accurate in patients with extremes of muscle mass, restriction of dietary protein, ingestion of creatine, extra-renal metabolism of creatinine, or treatment with medications that affect renal tubular creatinine secretion. Performed By: #### L ACT3, MDIFF, ICA, HEMDF, BMP3 ####[id number] [place] [address] Glucose [Mass/Vol] 122 mg/dL High 70-100 [facility] Comment on above: Performed By: #### L ACT3, MDIFF, ICA, HEMDF, BMP3 ####[address] [address] Urea nitrogen [Mass/Vol] 44 mg/dL High 7-20 [facility] Comment on above: Performed By: #### L ACT3, MDIFF, ICA, HEMDF, BMP3 ####[address] [address] Chloride [Moles/Vol] 105 mmol/L Normal 98-107 [facility] Comment on above: Performed By: #### L ACT3, MDIFF, ICA, HEMDF, BMP3 ####[address] [address] Potassium [Moles/Vol] 3.4 mmol/L Low 3.5-5.1 [facility] Comment on above: Performed By: #### L ACT3, MDIFF, ICA, HEMDF, BMP3 ####[address] [address] Sodium [Moles/Vol] 144 mmol/L Normal 135-145 [facility] Comment on above: Performed By: #### L ACT3, MDIFF, ICA, HEMDF, BMP3 ####[address] [address] Anion gap [Moles/Vol] 9 mmol/L [place] Calcium [Mass/Vol] 7.5 mg/dL Low 8.4 - 10. 4 mg/dL [place], [place] Chloride [Moles/Vol] 105 mmol/L 98 - 10 7 mmol/L [place] CO2 [Moles/Vol] 30 mmol/L 22 - 30 mmol/L [place] Creatinine [Mass/Vol] 2.1 mg/dL High 0.52 - 1.25 mg/dL [place] EGFR IF NonAfrican Cameroonian 22.0 mL/min Abnormal >60 [place], [place] Comment on above: KDIGO guidelines pro vide the following GFR categories: Stage GFR(ml/min/1.73 m2) Terms G1 >=90 Normal or high G2 60-89 Mildly decreased* G3a 45-59 Mildly to moderately decreased G3b 30-44 Moderately to severely decreased G4 15-29 Severely decreased G5 <15 Kidney failure *Relative to young adult level. In the absence of evidence of kidney damage, neither GFR category G1 nor G2 fulfill the criteria for CKD. The CKD-EPI equation is validated in individuals 18 years of age and older. Currently the best equation for estimating glomerular filtration rate (GFR) from serum creatinine in children is the Bedside Andrews equation. It is less accurate in patients with extremes of muscle mass, restriction of dietary protein, ingestion of creatine, extra-renal metabolism of creatinine, or treatment with medications that affect renal tubular creatinine secretion. GFR/1.73 sq M predicted among blacks MDRD (S/P/Bld) [Vol rate/Area] 25.5 mL/min/{1.73_m2} Abnormal >60 [place], [place] Glucose [Mass/Vol] 122 mg/dL High 70 - 100 mg/dL [place] Interpretation and review of laboratory results Abnormal [place] Potassium [Moles/Vol] 3.4 mmol/L Low 3.5 - 5.1 mmol/L [place] Sodium [Moles/Vol] 144 mmol/L 135 - 145 mmol/L [place] Urea nitrogen [Mass/Vol] 44 mg/dL High 7 - 20 mg/dL [place] Test Performed by [facility], [address] [place] [address] [facility] [place], [place] Anion gap [Moles/Vol] 10 Normal [facility] Comment on above: Performed By: #### B GLU #### [facility] [address] [place], [place] Calcium [Mass/Vol] 7.7 mg/dL Low 8.4-10.4 [facility] Comment on above: Performed By: #### B GLU #### [facility] [address] [place], [place] CO2 [Moles/Vol] 28 mmol/L Normal 22-30 [facility] Comment on above: Performed By: #### B GLU #### [facility] [address] [place], [place] Creatinine [Mass/Vol] 2.12 mg/dL High 0.52-1.25 [facility] Comment on above: Performed By: #### B GLU #### [facility] [address] [place] [address] GFR/1.73 sq M predicted among blacks MDRD (S/P/Bld) [Vol rate/Area] 25.2 mL/min/{1.73_m2} Abnormal >60 [facility] Comment on above: Performed By: #### B GLU #### [facility] [address] [place], [place] GFR/1.73 sq M predicted among non-blacks MDRD (S/P/Bld) [Vol rate/Area] 21.8 mL/min/{1.73_m2} Abnormal >60 [facility] Comment on above: Result Comment: KDIG O guidelines provide the following GFR categories: Stage GFR(ml/min/1.73 m2) Terms G1 >=90 Normal or high G2 60-89 Mildly decreased* G3a 45-59 Mildly to moderately decreased G3b 30-44 Moderately to severely decreased G4 15-29 Severely decreased G5 <15 Kidney failure *Relative to young adult level. In the absence of evidence of kidney damage, neither GFR category G1 nor G2 fulfill the criteria for CKD. The CKD-EPI equation is validated in individuals 18 years of age and older. Currently the best equation for estimating glomerular filtration rate (GFR) from serum creatinine in children is the Bedside Andrews equation. It is less accurate in patients with extremes of muscle mass, restriction of dietary protein, ingestion of creatine, extra-renal metabolism of creatinine, or treatment with medications that affect renal tubular creatinine secretion. Performed By: #### B GLU #### [facility] [address] [place], [place] Glucose [Mass/Vol] 146 mg/dL High 70-100 [facility] Comment on above: Performed By: #### B GLU #### [facility] [address] [place], [place] Urea nitrogen [Mass/Vol] 43 mg/dL High 7-20 [facility] Comment on above: Performed By: #### B GLU #### [place] [address] [place], [place] Chloride [Moles/Vol] 105 mmol/L Normal 98-107 [facility] Comment on above: Performed By: #### B GLU #### [facility] [address] [place], [place] Potassium [Moles/Vol] 3.4 mmol/L Low 3.5-5.1 [facility] Comment on above: Performed By: #### B GLU #### [place] [address] [place], [place] Sodium [Moles/Vol] 143 mmol/L Normal 135-145 [facility] Comment on above: Performed By: #### B GLU #### [place] [place], [place] Anion gap [Moles/Vol] 10 mmol/L [place] Calcium [Mass/Vol] 7.7 mg/dL Low 8.4 - 10. 4 mg/dL [place], [place] Chloride [Moles/Vol] 105 mmol/L 98 - 10 7 mmol/L [place] CO2 [Moles/Vol] 28 mmol/L 22 - 30 mmol/L [place] Creatinine [Mass/Vol] 2.12 mg/dL High 0.52 - 1.25 mg/dL [place] EGFR IF NonAfrican Cam[place]onian 21.8 mL/min Abnormal >60 [place] Comment on above: KDIGO guidelines pro vide the following GFR categories: Stage GFR(ml/min/1.73 m2) Terms G1 >=90 Normal or high G2 60-89 Mildly decreased* G3a 45-59 Mildly to moderately decreased G3b 30-44 Moderately to severely decreased G4 15-29 Severely decreased G5 <15 Kidney failure *Relative to young adult level. In the absence of evidence of kidney damage, neither GFR category G1 nor G2 fulfill the criteria for CKD. The CKD-EPI equation is validated in individuals 18 years of age and older. Currently the best equation for estimating glomerular filtration rate (GFR) from serum creatinine in children is the Bedside Andrews equation. It is less accurate in patients with extremes of muscle mass, restriction of dietary protein, ingestion of creatine, extra-renal metabolism of creatinine, or treatment with medications that affect renal tubular creatinine secretion. GFR/1.73 sq M predicted among blacks MDRD (S/P/Bld) [Vol rate/Area] 25.2 mL/min/{1.73_m2} Abnormal >60 [place], [place] Glucose [Mass/Vol] 146 mg/dL High 70 - 100 mg/dL [place] Interpretation and review of laboratory results Abnormal [place] Potassium [Moles/Vol] 3.4 mmol/L Low 3.5 - 5.1 mmol/L [place] Sodium [Moles/Vol] 143 mmol/L 135 - 145 mmol/L [place] Urea nitrogen [Mass/Vol] 43 mg/dL High 7 - 20 mg/dL [place] Test Performed by [facility], [address] [place] [address] [place], [place] Anion gap [Moles/Vol] 17 Normal [facility] Comment on above: Performed By: #### B GLU #### [address] [address] [place] Calcium [Mass/Vol] 7.9 mg/dL Low 8.4-10.4 [facility] Comment on above: Performed By: #### B GLU #### [facility] [address] [place], [place] CO2 [Moles/Vol] 21 mmol/L Low 22-30 [facility] Comment on above: Performed By: #### B GLU #### [address] Creatinine [Mass/Vol] 2.16 mg/dL High 0.52-1.25 [facility] Comment on above: Performed By: #### B GLU #### [place] [address] [place] GFR/1.73 sq M predicted among blacks MDRD (S/P/Bld) [Vol rate/Area] 24.7 mL/min/{1.73_m2} Abnormal >60 [facility] Comment on above: Performed By: #### B GLU #### [place] [address] [place] GFR/1.73 sq M predicted among non-blacks MDRD (S/P/Bld) [Vol rate/Area] 21.3 mL/min/{1.73_m2} Abnormal >60 [facility] Comment on above: Result Comment: KDIG O guidelines provide the following GFR categories: Stage GFR(ml/min/1.73 m2) Terms G1 >=90 Normal or high G2 60-89 Mildly decreased* G3a 45-59 Mildly to moderately decreased G3b 30-44 Moderately to severely decreased G4 15-29 Severely decreased G5 <15 Kidney failure *Relative to young adult level. In the absence of evidence of kidney damage, neither GFR category G1 nor G2 fulfill the criteria for CKD. The CKD-EPI equation is validated in individuals 18 years of age and older. Currently the best equation for estimating glomerular filtration rate (GFR) from serum creatinine in children is the Bedside Andrews equation. It is less accurate in patients with extremes of muscle mass, restriction of dietary protein, ingestion of creatine, extra-renal metabolism of creatinine, or treatment with medications that affect renal tubular creatinine secretion. Performed By: #### B GLU #### [address] [place] [address] [place] Glucose [Mass/Vol] 245 mg/dL High 70-100 [facility] Comment on above: Performed By: #### B GLU #### [place] [place] [address] [place] Urea nitrogen [Mass/Vol] 39 mg/dL High 7-20 [facility] Comment on above: Performed By: #### B GLU #### [facility] [address] [place] [address] Chloride [Moles/Vol] 107 mmol/L Normal 98-107 [facility] Comment on above: Performed By: #### B GLU #### [facility] [address] [place], [place] Potassium [Moles/Vol] 3.8 mmol/L Normal 3.5-5.1 [facility] Comment on above: Performed By: #### B GLU #### [facility] [address] [place], [place] Sodium [Moles/Vol] 144 mmol/L Normal 135-145 [facility] Comment on above: Performed By: #### B GLU #### [facility] [address] [place], [place] Anion gap [Moles/Vol] 17 mmol/L [place] Calcium [Mass/Vol] 7.9 mg/dL Low 8.4 - 10. 4 mg/dL [place] Chloride [Moles/Vol] 107 mmol/L 98 - 10 7 mmol/L [place] CO2 [Moles/Vol] 21 mmol/L Low 22 - 30 mmol/L [place] Creatinine [Mass/Vol] 2.16 mg/dL High 0.52 - 1.25 mg/dL [place] EGFR IF NonAfrican [place]onian 21.3 mL/min Abnormal >60 [place] Comment on above: KDIGO guidelines pro vide the following GFR categories: Stage GFR(ml/min/1.73 m2) Terms G1 >=90 Normal or high G2 60-89 Mildly decreased* G3a 45-59 Mildly to moderately decreased G3b 30-44 Moderately to severely decreased G4 15-29 Severely decreased G5 <15 Kidney failure *Relative to young adult level. In the absence of evidence of kidney damage, neither GFR category G1 nor G2 fulfill the criteria for CKD. The CKD-EPI equation is validated in individuals 18 years of age and older. Currently the best equation for estimating glomerular filtration rate (GFR) from serum creatinine in children is the Bedside Andrews equation. It is less accurate in patients with extremes of muscle mass, restriction of dietary protein, ingestion of creatine, extra-renal metabolism of creatinine, or treatment with medications that affect renal tubular creatinine secretion. GFR/1.73 sq M predicted among blacks MDRD (S/P/Bld) [Vol rate/Area] 24.7 mL/min/{1.73_m2} Abnormal >60 [facility] [facility] [place] Glucose [Mass/Vol] 245 mg/dL High 70 - 100 mg/dL [place], [place] Interpretation and review of laboratory results Abnormal [place] Potassium [Moles/Vol] 3.8 mmol/L 3.5 - 5.1 mmol/L [place] Sodium [Moles/Vol] 144 mmol/L 135 - 145 mmol/L [place] Urea nitrogen [Mass/Vol] 39 mg/dL High 7 - 20 mg/dL [place] Test Performed by [facility], [address] [place] [address] [place] Calcium [Mass/Vol] 7.2 mg/dL Low 8.4-10.4 [facility] Comment on above: Performed By: #### B GLU #### [address] Anion gap [Moles/Vol] 21 Normal [facility] Comment on above: Performed By: #### B GLU #### [address] [address] [place] CO2 [Moles/Vol] 17 mmol/L Low 22-30 [facility] Comment on above: Performed By: #### B GLU #### [address] [address] [place] [address] Creatinine [Mass/Vol] 2.33 mg/dL High 0.52-1.25 [facility] Comment on above: Performed By: #### B GLU #### [address] [address] [place] [address] GFR/1.73 sq M predicted among blacks MDRD (S/P/Bld) [Vol rate/Area] 22.5 mL/min/{1.73_m2} Abnormal >60 [facility] Comment on above: Performed By: #### B GLU #### [address] [address] [place] [address] GFR/1.73 sq M predicted among non-blacks MDRD (S/P/Bld) [Vol rate/Area] 19.4 mL/min/{1.73_m2} Abnormal >60 [facility] Comment on above: Result Comment: KDIG O guidelines provide the following GFR categories: Stage GFR(ml/min/1.73 m2) Terms G1 >=90 Normal or high G2 60-89 Mildly decreased* G3a 45-59 Mildly to moderately decreased G3b 30-44 Moderately to severely decreased G4 15-29 Severely decreased G5 <15 Kidney failure *Relative to young adult level. In the absence of evidence of kidney damage, neither GFR category G1 nor G2 fulfill the criteria for CKD. The CKD-EPI equation is validated in individuals 18 years of age and older. Currently the best equation for estimating glomerular filtration rate (GFR) from serum creatinine in children is the Bedside Andrews equation. It is less accurate in patients with extremes of muscle mass, restriction of dietary protein, ingestion of creatine, extra-renal metabolism of creatinine, or treatment with medications that affect renal tubular creatinine secretion. Performed By: #### B GLU #### [address] [address] [place], [place] Glucose [Mass/Vol] 326 mg/dL High 70-100 [facility] Comment on above: Performed By: #### B GLU #### [address] [address] [place], [place] Urea nitrogen [Mass/Vol] 37 mg/dL High 7-20 [facility] Comment on above: Performed By: #### B GLU #### [address] [address] [place] [address] Chloride [Moles/Vol] 106 mmol/L Normal 98-107 [facility] Comment on above: Performed By: #### B GLU #### [address] [address] [place] Potassium [Moles/Vol] 3.4 mmol/L Low 3.5-5.1 [facility] Comment on above: Performed By: #### B GLU #### [facility] [address] [place] [facility] [place] [address] Sodium [Moles/Vol] 144 mmol/L Normal 135-145 [facility] Comment on above: Performed By: #### B GLU #### [facility] [address] [place] [facility] [address] Anion gap [Moles/Vol] 21 Normal [facility] Comment on above: Performed By: #### B MP3, TROPN, LACT3 ####[address] [place] [address] Calcium [Mass/Vol] 7.3 mg/dL Low 8.4-10.4 [facility] Comment on above: Performed By: #### B MP3, TROPN, LACT3 ####[address] [facility] [place] [address] CO2 [Moles/Vol] 14 mmol/L Low 22-30 [facility] Comment on above: Performed By: #### B MP3, TROPN, LACT3 ####[facility] [facility] [place] [address] Glucose [Mass/Vol] 315 mg/dL High 70-100 [facility] Comment on above: Performed By: #### B MP3, TROPN, LACT3 ####[facility] [facility] [place] [address] Urea nitrogen [Mass/Vol] 36 mg/dL High 7-20 [facility] Comment on above: Performed By: #### B MP3, TROPN, LACT3 ####[address] [facility] [place] [address] Creatinine [Mass/Vol] 2.43 mg/dL High 0.52-1.25 [facility] Comment on above: Performed By: #### B MP3, TROPN, LACT3 ####[address] [place] [address] GFR/1.73 sq M predicted among blacks MDRD (S/P/Bld) [Vol rate/Area] 21.4 mL/min/{1.73_m2} Abnormal >60 [facility] Comment on above: Performed By: #### B MP3, TROPN, LACT3 ####[address] [address] GFR/1.73 sq M predicted among non-blacks MDRD (S/P/Bld) [Vol rate/Area] 18.5 mL/min/{1.73_m2} Abnormal >60 [facility] Comment on above: Result Comment: KDIG O guidelines provide the following GFR categories: Stage GFR(ml/min/1.73 m2) Terms G1 >=90 Normal or high G2 60-89 Mildly decreased* G3a 45-59 Mildly to moderately decreased G3b 30-44 Moderately to severely decreased G4 15-29 Severely decreased G5 <15 Kidney failure *Relative to young adult level. In the absence of evidence of kidney damage, neither GFR category G1 nor G2 fulfill the criteria for CKD. The CKD-EPI equation is validated in individuals 18 years of age and older. Currently the best equation for estimating glomerular filtration rate (GFR) from serum creatinine in children is the Bedside Andrews equation. It is less accurate in patients with extremes of muscle mass, restriction of dietary protein, ingestion of creatine, extra-renal metabolism of creatinine, or treatment with medications that affect renal tubular creatinine secretion. Performed By: #### B MP3, TROPN, LACT3 ####[address] Potassium [Moles/Vol] 3.2 mmol/L Low 3.5-5.1 [facility] Comment on above: Performed By: #### B MP3, TROPN, LACT3 ####[address] Sodium [Moles/Vol] 142 mmol/L Normal 135-145 [facility] Comment on above: Performed By: #### B MP3, TROPN, LACT3 ####[address] [address] Chloride [Moles/Vol] 107 mmol/L Normal 98-107 [facility] Comment on above: Performed By: #### B MP3, TROPN, LACT3 ####[address] [place] [address] Anion gap [Moles/Vol] 21 mmol/L [place] Calcium [Mass/Vol] 7.3 mg/dL Low 8.4 - 10. 4 mg/dL [place] Chloride [Moles/Vol] 107 mmol/L 98 - 10 7 mmol/L [place] CO2 [Moles/Vol] 14 mmol/L Low 22 - 30 mmol/L [place] Creatinine [Mass/Vol] 2.43 mg/dL High 0.52 - 1.25 mg/dL [place] EGFR IF NonAfrican Cameroonian 18.5 mL/min Abnormal >60 [place] Comment on above: KDIGO guidelines pro vide the following GFR categories: Stage GFR(ml/min/1.73 m2) Terms G1 >=90 Normal or high G2 60-89 Mildly decreased* G3a 45-59 Mildly to moderately decreased G3b 30-44 Moderately to severely decreased G4 15-29 Severely decreased G5 <15 Kidney failure *Relative to young adult level. In the absence of evidence of kidney damage, neither GFR category G1 nor G2 fulfill the criteria for CKD. The CKD-EPI equation is validated in individuals 18 years of age and older. Currently the best equation for estimating glomerular filtration rate (GFR) from serum creatinine in children is the Bedside Andrews equation. It is less accurate in patients with extremes of muscle mass, restriction of dietary protein, ingestion of creatine, extra-renal metabolism of creatinine, or treatment with medications that affect renal tubular creatinine secretion. GFR/1.73 sq M predicted among blacks MDRD (S/P/Bld) [Vol rate/Area] 21.4 mL/min/{1.73_m2} Abnormal >60 [place] Glucose [Mass/Vol] 315 mg/dL High 70 - 100 mg/dL [place] Interpretation and review of laboratory results Abnormal [place] Potassium [Moles/Vol] 3.2 mmol/L Low 3.5 - 5.1 mmol/L [place] Sodium [Moles/Vol] 142 mmol/L 135 - 145 mmol/L [place] Urea nitrogen [Mass/Vol] 36 mg/dL High 7 - 20 mg/dL [place] Test Performed by [facility], [address] [place] [address] [place] Basic Metabolic Panel w/ Ref finn to MGon 01-03-2020 Anion gap [Moles/Vol] 21 mmol/L [place] Calcium [Mass/Vol] 7.2 mg/dL Low 8.4 - 10. 4 mg/dL [place] Chloride [Moles/Vol] 106 mmol/L 98 - 10 7 mmol/L [place] CO2 [Moles/Vol] 17 mmol/L Low 22 - 30 mmol/L [place] Creatinine [Mass/Vol] 2.33 mg/dL High 0.52 - 1.25 mg/dL [place] EGFR IF NonAfrican [place]onian 19.4 mL/min Abnormal >60 [place] Comment on above: KDIGO guidelines pro vide the following GFR categories: Stage GFR(ml/min/1.73 m2) Terms G1 >=90 Normal or high G2 60-89 Mildly decreased* G3a 45-59 Mildly to moderately decreased G3b 30-44 Moderately to severely decreased G4 15-29 Severely decreased G5 <15 Kidney failure *Relative to young adult level. In the absence of evidence of kidney damage, neither GFR category G1 nor G2 fulfill the criteria for CKD. The CKD-EPI equation is validated in individuals 18 years of age and older. Currently the best equation for estimating glomerular filtration rate (GFR) from serum creatinine in children is the Bedside Andrews equation. It is less accurate in patients with extremes of muscle mass, restriction of dietary protein, ingestion of creatine, extra-renal metabolism of creatinine, or treatment with medications that affect renal tubular creatinine secretion. GFR/1.73 sq M predicted among blacks MDRD (S/P/Bld) [Vol rate/Area] 22.5 mL/min/{1.73_m2} Abnormal >60 [place] Glucose [Mass/Vol] 326 mg/dL High 70 - 100 mg/dL [place] Potassium [Moles/Vol] 3.4 mmol/L Low 3.5 - 5.1 mmol/L [place] Sodium [Moles/Vol] 144 mmol/L 135 - 145 mmol/L [place] Urea nitrogen [Mass/Vol] 37 mg/dL High 7 - 20 mg/dL [place] Beta Hydroxybutyrateon 01-02 Beta Hydroxybutyrate 1.30 mg/dL Normal 0.20-2.81 [facility] Comment on above: Performed By: #### B GLU #### [facility] [address] [place] [address] Beta Hydroxybutyrate 9.56 mg/dL High 0.20-2.81 [facility] Comment on above: Performed By: #### B GLU #### [facility] [address] [place] [address] Beta-Hydroxybutyrateon 01-02 Beta-Hydroxybutyrate 1.3 mg/dL 0.2 - 2 .81 mg/dL [place] Test Performed by [address] [address] [place] Blood Gas, Arterialon 2019 Base Excess, Arterial 4.0 mmol/L High -3 - 3 mmol/L [place] HCO3, Arterial 28.4 mmol/L High 21 - 25 mmol/L [place] Hemoglobin (Bld) [Mass/Vol] 9.3 g/dL [facility]Only [place] Interpretation and review of laboratory results Abnormal [place] Oxygen saturation in Blood 95.8 % 95 - 100 % [place] pCO2, Arterial 42.2 mm[Hg] 35 - 45 mm[Hg] [place] pH, Arterial 7.446 [place] pO2, Arterial 81.2 mm[Hg] 80 - 100 mm[Hg] [place] Sodium [Moles/Vol] No data [place] TCO2, Arterial 29.7 mmol/L High 23 - 27 mmol/L [place] Test Performed by [facility], [address] [place] [address] [place] Base Excess, Arterial 0.5 mmol/L -3 - 3 mmol/L [place] HCO3, Arterial 25.7 mmol/L High 21 - 25 mmol/L [place] Hemoglobin (Bld) [Mass/Vol] 10.1 g/dL [facility] [place] Interpretation and review of laboratory results Abnormal [place] Oxygen saturation in Blood 98.6 % 95 - 100 % [place] pCO2, Arterial 44.3 mm[Hg] 35 - 45 mm[Hg] [place] pH, Arterial 7.382 [place] pO2, Arterial 167.8 mm[Hg] High 80 - 100 mm[Hg] [place] Sodium [Moles/Vol] No data [place] TCO2, Arterial 27.1 mmol/L High 23 - 27 mmol/L [place] Test Performed by [facility], [address] [place] [address] [place] Blood Gas, Venouson 01-03-20 20 Base Excess, Leonel 0.8 mmol/L -3 - 3 mmol/L [place] HCO3, Venous 27.2 mmol/L High 23 - 27 mmol/L [place] Hemoglobin (Bld) [Mass/Vol] 10.0 g/dL [facility] [place] Interpretation and review of laboratory results Abnormal [place] Oxygen saturation in Blood 80.7 % 60 - 85 % [place] pCO2, Leonel 52.2 mm[Hg] 40 - 55 mm[Hg] [place] pH, Leonel 7.334 [place] pO2, Leonel 49.4 mm[Hg] 30 - 50 mm[Hg] [place] TC02 (Calc), Leonel 28.8 mmol/L High 24 - 28 mmol/L [place] Test Performed by [address] [address] [place] Blood Gas,Venouson 0 CO2 [Moles/Vol] 28.8 mmol/L High 24.0-28.0 [facility] Comment on above: Performed By: #### B GLU #### [address], [place] HCO3 (Bld) [Moles/Vol] 27.2 mmol/L High 23.0-27.0 [facility] Comment on above: Performed By: #### B GLU #### [address] [address] [place], [place] Hemoglobin (Bld) [Mass/Vol] 10.0 g/dL Normal [facility]Only [facility] Comment on above: Performed By: #### B GLU #### [address] [address] [place] Oxygen (Bld) [Partial pressure] 49.4 mm[Hg] Normal 30.0-50.0 [facility] Comment on above: Performed By: #### B GLU #### [address] [address] [place] Oxygen saturation in Blood 80.7 % Normal 60.0-85.0 [facility] Comment on above: Performed By: #### B GLU #### [address] [address] [place] pCO2 52.2 mm[Hg] Normal 40.0-55.0 [facility] Comment on above: Performed By: #### B GLU #### [address] [address] [place] pH (Bld) 7.334 Normal 7.330-7.430 [facility] Comment on above: Performed By: #### B GLU #### [address] [address] [place], [place] Std Base Excess 0.8 mmol/L Normal -3.0-3.0 [facility] Comment on above: Performed By: #### B GLU #### [address] [address] [place] CO2 [Moles/Vol] 17.4 mmol/L Low 24.0-28.0 [facility] Comment on above: Performed By: #### B GLU #### [address] [address] [place] HCO3 (Bld) [Moles/Vol] 16.3 mmol/L Low 23.0-27.0 [facility] Comment on above: Performed By: #### B GLU #### [facility] [address] [place], [place] Hemoglobin (Bld) [Mass/Vol] 10.3 g/dL [facility] Comment on above: Performed By: #### B GLU #### [facility] [address] [place], [place] Oxygen (Bld) [Partial pressure] 55.6 mm[Hg] High 30.0-50.0 [facility] Comment on above: Performed By: #### B GLU #### [address] [address] [place] Oxygen saturation in Blood 84.0 % Normal 60.0-85.0 [facility] Comment on above: Performed By: #### B GLU #### [address] [address] [place] pCO2 36.1 mm[Hg] Low 40.0-55.0 [facility] Comment on above: Performed By: #### B GLU #### [address] [address] [place], [place] pH (Bld) 7.272 Low 7.330-7.430 [facility] Comment on above: Performed By: #### B GLU #### [facility] [address] [place], [place] Std Base Excess -9.7 mmol/L Low -3.0-3.0 [facility] Comment on above: Performed By: #### B GLU #### [address] [address] [place] Blood gas, arterialon 2019 Base Excess, Arterial -11.1 mmol/L Low -3 - 3 mmol/L [place] HCO3, Arterial 14.3 mmol/L Low 21 - 25 mmol/L [place] Hemoglobin (Bld) [Mass/Vol] 10.2 g/dL [facility] [place] Interpretation and review of laboratory results Abnormal [place] Oxygen saturation in Blood 98.1 % 95 - 100 % [place] pCO2, Arterial 30.8 mm[Hg] Low 35 - 45 mm[Hg] [place] pH, Arterial 7.286 Low [place] pO2, Arterial 128.6 mm[Hg] High 80 - 100 mm[Hg] [place] Sodium [Moles/Vol] 0.50 mmol/L [place] TCO2, Arterial 15.3 mmol/L Low 23 - 27 mmol/L [place] Test Performed by [facility], [address] [place] [address] [place] CBC Auto Differentialon 11-0 Erythrocyte distribution width (RBC) [Ratio] 13.8 % 11.5 - 14.5 % [place] Hematocrit (Bld) [Volume fraction] 27.1 % Low 35 - 47 % [place] Hemoglobin (Bld) [Mass/Vol] 8.9 g/dL Low 11.7 - 16 g/dL [place] Interpretation and review of laboratory results Abnormal [place] MCH (RBC) [Entitic mass] 31.6 pg 26 - 34 pg [place] MCHC (RBC) [Mass/Vol] 32.8 % 32 - 36 % [place] MCV (RBC) [Entitic vol] 96.3 fL 79 - 98 fL [place] Platelet mean volume (Bld) [Entitic vol] 10.1 fL 7.4 - 10.4 fL [place] Platelets (Bld) [#/Vol] 50 10*3/uL Low 140 - 440 10*3/uL [place] RBC (Bld) [#/Vol] 2.81 10*6/uL Low 3.8 - 5.2 10*6/uL [place] WBC (Bld) [#/Vol] 26.4 10*3/uL High 3.6 - 10.7 10*3/uL [place] Test Performed by [facility], [facility] [place] [address] [place] Erythrocyte distribution width (RBC) [Ratio] 13.9 % 11.5 - 14.5 % [place] Hematocrit (Bld) [Volume fraction] 26.4 % Low 35 - 47 % [place] Hemoglobin (Bld) [Mass/Vol] 8.8 g/dL Low 11.7 - 16 g/dL [place] Interpretation and review of laboratory results Abnormal [place] MCH (RBC) [Entitic mass] 31.8 pg 26 - 34 pg [place] MCHC (RBC) [Mass/Vol] 33.4 % 32 - 36 % [facility], [place] MCV (RBC) [Entitic vol] 95.3 fL 79 - 98 fL [place] Platelet mean volume (Bld) [Entitic vol] 10.6 fL High 7.4 - 10.4 fL [place] Platelets (Bld) [#/Vol] 56 10*3/uL Low 140 - 440 10*3/uL [place] RBC (Bld) [#/Vol] 2.78 10*6/uL Low 3.8 - 5.2 10*6/uL [place] WBC (Bld) [#/Vol] 25.5 10*3/uL High 3.6 - 10.7 10*3/uL [place] Test Performed by [facility], [address] [place] [address] [place] Erythrocyte distribution width (RBC) [Ratio] 14.0 % 11.5 - 14.5 % [place] Hematocrit (Bld) [Volume fraction] 29.0 % Low 35 - 47 % [place] Hemoglobin (Bld) [Mass/Vol] 9.5 g/dL Low 11.7 - 16 g/dL [place] Interpretation and review of laboratory results Abnormal [place] MCH (RBC) [Entitic mass] 32.0 pg 26 - 34 pg [place] MCHC (RBC) [Mass/Vol] 33.0 % 32 - 36 % [facility], [place] MCV (RBC) [Entitic vol] 97.0 fL 79 - 98 fL [place] Platelet mean volume (Bld) [Entitic vol] 10.8 fL High 7.4 - 10.4 fL [place] Platelets (Bld) [#/Vol] 69 10*3/uL Low 140 - 440 10*3/uL [place] RBC (Bld) [#/Vol] 2.99 10*6/uL Low 3.8 - 5.2 10*6/uL [place] WBC (Bld) [#/Vol] 31.2 10*3/uL Critically high 3.6 - 1 0.7 10*3/uL [place] Test Performed by [facility], [address] [place] [address] [place] CBC auto differentialon 11-0 Erythrocyte distribution width (RBC) [Ratio] 13.9 % 11.5 - 14.5 % [place] Hematocrit (Bld) [Volume fraction] 28.7 % Low 35 - 47 % [place] Hemoglobin (Bld) [Mass/Vol] 9.4 g/dL Low 11.7 - 16 g/dL [place] Interpretation and review of laboratory results Abnormal [place] MCH (RBC) [Entitic mass] 31.7 pg 26 - 34 pg [place] MCHC (RBC) [Mass/Vol] 32.6 % 32 - 36 % [place] MCV (RBC) [Entitic vol] 97.4 fL 79 - 98 fL [place] Platelet mean volume (Bld) [Entitic vol] 10.5 fL High 7.4 - 10.4 fL [place] Platelets (Bld) [#/Vol] 91 10*3/uL Low 140 - 440 10*3/uL [place] RBC (Bld) [#/Vol] 2.95 10*6/uL Low 3.8 - 5.2 10*6/uL [place] WBC (Bld) [#/Vol] 30.7 10*3/uL Critically high 3.6 - 1 0.7 10*3/uL [place] Comment on above: REPEATED Test Performed by [facility], [address] [place] [address] [place] CR Chest Portableon 01-03-20 20 CR Chest Portable Patient Name: JODEE LORENZO Diagnostic Radiology Exam Date/Time 01/03/2020 06:50:06 EST Exam CR Chest Portable Ordering Physician MD NEVA, GRACIE HEIDY Accession Number [id number] CPT4 Codes 18955 () Reason For Exam intubated Report CHEST X-RAY AP CLINICAL INDICATION: Respiratory Failure AP radiograph of the chest was obtained. COMPARISON: 01/02/2020 FINDINGS: The cardiac silhouette is within normal limits. Stable appearance/location of the right-sided internal jugular line. The endotracheal tube terminates approximately 2.3 cm above the sherie. The enteric tube courses below the left hemidiaphragm, with its tip in the expected location of the stomach. Stable appearance of the lungs with trace left-sided atelectasis. No new focal consolidation or opacification is identified. No pleural effusion or pneumothorax is identified. Degenerative changes of the thoracic spine are noted. IMPRESSION: 1. Overall stable appearance of the chest. 2. Satisfactory position of the life support devices. Report Dictated on Final Dictated: 01/03/2020 7:28 am Dictating Physician: MD SANCHEZ JASON Signed Date and Time: 01/03/2020 7:29 am Signed by: MD SANCHEZ JASON Transcribed Date and Time: 01/03/2020 7:28 Normal [facility] Calcium, Ionizedon 0 Interpretation and review of laboratory results Abnormal [place] Ionized Ca 4.00 mg/dL Low 4.3 - 5.2 mg/dL [place] pH (Bld) 7.44 [pH] [place] Test Performed by [facility], [address] [place] [address] [place] Interpretation and review of laboratory results Abnormal [place] Ionized Ca 3.90 mg/dL Low 4.3 - 5.2 mg/dL [place] pH (Bld) 7.45 [pH] [place] Test Performed by [address] [address] [place] [address] [place] Interpretation and review of laboratory results Abnormal [place] Ionized Ca 4.00 mg/dL Low 4.3 - 5.2 mg/dL [place] pH (Bld) 7.38 [pH] [place] Test Performed by [address] [address] [place] [address] [place] Calcium,Ionizedon 01-03-2020 Ionized Ca,Measured 4.00 mg/dL Low 4.30-5.20 [facility] Comment on above: Performed By: #### L MD CASHIFF, ICA, HEMDF, BMP3 ####[address] [address] pH, Ionized Calcium 7.44 Normal 7.31-7.46 [facility] Comment on above: Performed By: #### L MD CASHIFF, ICA, HEMDF, BMP3 ####[address] [place] [address] Ionized Ca,Measured 3.90 mg/dL Low 4.30-5.20 [facility] Comment on above: Performed By: #### B GLU #### [address] [place] [address] pH, Ionized Calcium 7.45 Normal 7.31-7.46 [facility] Comment on above: Performed By: #### B GLU #### [address] [place] [address] Ionized Ca,Measured 4.00 mg/dL Low 4.30-5.20 [facility] Comment on above: Performed By: #### M DIFF, ICA, HEMDF ####[address] [place] [address] pH, Ionized Calcium 7.38 Normal 7.31-7.46 [facility] Comment on above: Performed By: #### M DIFF, ICA, HEMDF ####[address] [place] [address] Folateon 01-03-2020 Folate 7.6 ng/mL Normal 2.8-20.0 [facility] Comment on above: Performed By: #### B GLU #### [facility] [address] [place] [address] Glucose,Bedsideon 01-03-2020 Glucose [Mass/Vol] 120 mg/dL High 70-100 [facility] Comment on above: Result Comment: Test performed by glucose meter. Results may be 10%-15% lower than serum/plasma values. (CLIA ID [id number]) Performed By: #### B GLU #### [facility] [address] [place] [address] Glucose [Mass/Vol] 153 mg/dL High 70-100 [facility] Comment on above: Result Comment: Test performed by glucose meter. Results may be 10%-15% lower than serum/plasma values. (CLIA ID [id number]) Performed By: #### B GLU ####[facility] [address] [place] [address] Glucose [Mass/Vol] 141 mg/dL High 70-100 [place] Comment on above: Test performed by gl ucose meter. Results may be 10%-15% lower than serum/plasma values. (CLIA ID [id number]) Result Comment: Test performed by glucose meter. Results may be 10%-15% lower than serum/plasma values. (CLIA ID [id number]) Performed By: #### B GLU #### [facility] [address] [place] [address] Glucose [Mass/Vol] 149 mg/dL High 70-100 [facility] Comment on above: Result Comment: Test performed by glucose meter. Results may be 10%-15% lower than serum/plasma values. (CLIA ID [id number]) Performed By: #### B GLU #### [facility] [address] [place] [address] Glucose [Mass/Vol] 101 mg/dL High 70-100 [facility] Comment on above: Result Comment: Test performed by glucose meter. Results may be 10%-15% lower than serum/plasma values. (CLIA ID [id number]) Performed By: #### B GLU #### [facility] [address] [place] [address] Glucose [Mass/Vol] 153 mg/dL High 70-100 [facility] Comment on above: Result Comment: Test performed by glucose meter. Results may be 10%-15% lower than serum/plasma values. (CLIA ID [id number]) Performed By: #### B GLU #### [facility] [address] [place] [place] [address] Glucose [Mass/Vol] 171 mg/dL High 70-100 [facility] Comment on above: Result Comment: Test performed by glucose meter. Results may be 10%-15% lower than serum/plasma values. (CLIA ID [id number]) Performed By: #### B GLU #### [facility] [address] [place] [place] [address] Glucose [Mass/Vol] 169 mg/dL High 70-100 [facility] Comment on above: Result Comment: Test performed by glucose meter. Results may be 10%-15% lower than serum/plasma values. (CLIA ID [id number]) Performed By: #### B GLU #### [facility] [address] [place] [address] Glucose [Mass/Vol] 188 mg/dL High 70-100 [facility] Comment on above: Result Comment: Test performed by glucose meter. Results may be 10%-15% lower than serum/plasma values. (CLIA ID [id number]) Performed By: #### B GLU ####[facility] [address] [place] [address] Glucose [Mass/Vol] 160 mg/dL High 70-100 [facility] Comment on above: Result Comment: Test performed by glucose meter. Results may be 10%-15% lower than serum/plasma values. (CLIA ID [id number]) Performed By: #### B GLU #### [facility] [address] [place] [address] Glucose [Mass/Vol] 197 mg/dL High 70-100 [facility] Comment on above: Result Comment: Test performed by glucose meter. Results may be 10%-15% lower than serum/plasma values. (CLIA ID [id number]) Performed By: #### B GLU #### [facility] [address] [place] [address] Glucose [Mass/Vol] 211 mg/dL High 70-[address] [place] [address] Comment on above: Result Comment: Test performed by glucose meter. Results may be 10%-15% lower than serum/plasma values. (CLIA ID [id number]) Performed By: #### B GLU #### [facility] [address] [place] [address] Glucose [Mass/Vol] 236 mg/dL High [address] Comment on above: Result Comment: Test performed by glucose meter. Results may be 10%-15% lower than serum/plasma values. (CLIA ID [id number]) Performed By: #### B GLU #### [facility] [address] [place] [address] Glucose [Mass/Vol] 271 mg/dL High [address] Comment on above: Result Comment: Test performed by glucose meter. Results may be 10%-15% lower than serum/plasma values. (CLIA ID [id number]) Performed By: #### B GLU #### [facility] [address] [place] [address] Glucose [Mass/Vol] 286 mg/dL High [address] Comment on above: Result Comment: Test performed by glucose meter. Results may be 10%-15% lower than serum/plasma values. (CLIA ID [id number]) Performed By: #### B GLU #### [facility] [address] [place] [address] Glucose [Mass/Vol] 330 mg/dL High 70-[address] [place] [address] Comment on above: Result Comment: Test performed by glucose meter. Results may be 10%-15% lower than serum/plasma values. (CLIA ID [id number]) Performed By: #### B GLU #### [facility] [address] [place] [address] Glucose [Mass/Vol] 335 mg/dL High 70-100 [facility] Comment on above: Result Comment: Test performed by glucose meter. Results may be 10%-15% lower than serum/plasma values. (CLIA ID [id number]) Performed By: #### B GLU #### [facility] [address] [place] [address] Glucose [Mass/Vol] 327 mg/dL High 70-100 [facility] Comment on above: Result Comment: Test performed by glucose meter. Results may be 10%-15% lower than serum/plasma values. (CLIA ID [id number]) Performed By: #### B GLU #### [facility] [address] [place] [address] Glucose [Mass/Vol] 274 mg/dL High 70-100 [facility] Comment on above: Result Comment: Test performed by glucose meter. Results may be 10%-15% lower than serum/plasma values. (CLIA ID [id number]) Performed By: #### B GLU #### [facility] [address] [place] [address] Hemoglobin A1Con 01-03-2020 HbA1c (Bld) [Mass fraction] 7.7 % High 4.0-6.0 [facility] Comment on above: Result Comment: --Hg bA1C levels may not be accurate in patients who have renal disease, received recent blood transfusions, are anemic, or who have dyshemoglobinemia. Performed By: #### B GLU #### [facility] [address] [place] [address] HbA1c (Bld) [Mass fraction] 174 mg/dL Normal [facility] Comment on above: Performed By: #### B GLU #### [facility] [address] [place] [address] Hemoglobin A1con 01-03-2020 eAG 174 mg/dL [place], [place] HbA1c (Bld) [Mass fraction] 7.7 % High 4 - 6 % [place], [place] Comment on above: --HgbA1C levels may not be accurate in patients who have renal disease, received recent blood transfusions, are anemic, or who have dyshemoglobinemia. Interpretation and review of laboratory results Abnormal [place], [place] Test Performed by [facility], [address] [place], [place] [address] [address] [place], [place] Hemogram w/ Autodiffon 01-02 Erythrocyte distribution width (RBC) [Ratio] 13.8 % Normal 11.5-14.5 [facility] Comment on above: Performed By: #### L ACT3, MDIFF, ICA, HEMDF, BMP3 ####[id number] [place], [place] Hematocrit (Bld) [Volume fraction] 27.1 % Low 35.0-47.0 [facility] Comment on above: Performed By: #### L ACT3, MDIFF, ICA, HEMDF, BMP3 ####[address] Hemoglobin (Bld) [Mass/Vol] 8.9 g/dL Low 11.7-16.0 [facility] Comment on above: Performed By: #### L ACT3, IFF, ICA, HEMDF, BMP3 ####[address] [place], [place] MCH (RBC) [Entitic mass] 31.6 pg Normal 26.0-34.0 [facility] Comment on above: Performed By: #### L ACT3, MDIFF, ICA, HEMDF, BMP3 ####[address] MCHC (RBC) [Mass/Vol] 32.8 % Normal 32.0-36.0 [facility] Comment on above: Performed By: #### L ACT3, MDIFF, ICA, HEMDF, BMP3 ####[address] MCV (RBC) [Entitic vol] 96.3 fL Normal 79.0-98.0 [facility] Comment on above: Performed By: #### L ACTCONCHITA Killian, ICA, HEMDF, BMP3 ####[address] [place], [place] Platelet mean volume (Bld) [Entitic vol] 10.1 fL Normal 7.4-10.4 [facility] Comment on above: Performed By: #### L ACT3, MDIFF, ICA, HEMDF, BMP3 ####[address] [place], [place] Platelets (Bld) [#/Vol] 50 10*3/uL Low 140-440 [facility] Comment on above: Performed By: #### L ACT3, MDIFF, ICA, HEMDF, BMP3 ####[address] [place], [place] RBC (Bld) [#/Vol] 2.81 10*6/uL Low 3.80-5.20 [facility] Comment on above: Performed By: #### L ACT3, MDIFF, ICA, HEMDF, BMP3 ####[address] [place], [place] WBC (Bld) [#/Vol] 26.4 10*3/uL High 3.6-10.7 [facility] Comment on above: Performed By: #### L ACT3, MDIFF, ICA, HEMDF, BMP3 ####[address] [place], [place] Erythrocyte distribution width (RBC) [Ratio] 13.9 % Normal 11.5-14.5 [facility] Comment on above: Performed By: #### B GLU #### [facility] [address] [place], [place] Hematocrit (Bld) [Volume fraction] 26.4 % Low 35.0-47.0 [facility] Comment on above: Performed By: #### B GLU #### [address] [place], [place] Hemoglobin (Bld) [Mass/Vol] 8.8 g/dL Low 11.7-16.0 [facility] Comment on above: Performed By: #### B GLU #### [facility] [address] [place], [place] MCH (RBC) [Entitic mass] 31.8 pg Normal 26.0-34.0 [facility] Comment on above: Performed By: #### B GLU #### [facility] [address] [place], [place] MCHC (RBC) [Mass/Vol] 33.4 % Normal 32.0-36.0 [facility] Comment on above: Performed By: #### B GLU #### [facility] [address] [place], [place] MCV (RBC) [Entitic vol] 95.3 fL Normal 79.0-98.0 [facility] Comment on above: Performed By: #### B GLU #### [address] [place], [place] Platelet mean volume (Bld) [Entitic vol] 10.6 fL High 7.4-10.4 [facility] Comment on above: Performed By: #### B GLU #### [address] [place], [place] Platelets (Bld) [#/Vol] 56 10*3/uL Low 140-440 [facility] Comment on above: Performed By: #### B GLU #### [address] [place], [place] RBC (Bld) [#/Vol] 2.78 10*6/uL Low 3.80-5.20 [facility] Comment on above: Performed By: #### B GLU #### [address] [place], [place] WBC (Bld) [#/Vol] 25.5 10*3/uL High 3.6-10.7 [facility] Comment on above: Performed By: #### B GLU #### [address] [place], [place] Erythrocyte distribution width (RBC) [Ratio] 14.0 % Normal 11.5-14.5 [facility] Comment on above: Performed By: #### M DIFF, ICA, HEMDF ####[address] [place], [place] Hematocrit (Bld) [Volume fraction] 29.0 % Low 35.0-47.0 [facility] Comment on above: Performed By: #### M DIFF, ICA, HEMDF ####[address] [place], [place] Hemoglobin (Bld) [Mass/Vol] 9.5 g/dL Low 11.7-16.0 [facility] Comment on above: Performed By: #### M DIFF, ICA, HEMDF ####[address] MCH (RBC) [Entitic mass] 32.0 pg Normal 26.0-34.0 [facility] Comment on above: Performed By: #### M DIFF, ICA, HEMDF ####[address] [place], [place] MCHC (RBC) [Mass/Vol] 33.0 % Normal 32.0-36.0 [facility] Comment on above: Performed By: #### M DIFF, ICA, HEMDF ####[address] [place], [place] MCV (RBC) [Entitic vol] 97.0 fL Normal 79.0-98.0 [facility] Comment on above: Performed By: #### M DIFF, ICA, HEMDF ####[address] [place], [place] Platelet mean volume (Bld) [Entitic vol] 10.8 fL High 7.4-10.4 [facility] Comment on above: Performed By: #### M DIFF, ICA, HEMDF ####[address] [place], [place] Platelets (Bld) [#/Vol] 69 10*3/uL Low 140-440 [facility] Comment on above: Performed By: #### M DIFF, ICA, HEMDF ####[address] RBC (Bld) [#/Vol] 2.99 10*6/uL Low 3.80-5.20 [facility] Comment on above: Performed By: #### M DIFF, ICA, HEMDF ####[address] [place], [place] WBC (Bld) [#/Vol] 31.2 10*3/uL Critically high 3.6-10.7 [facility] Comment on above: Performed By: #### M DIFF, ICA, HEMDF ####[address] [place], [place] Erythrocyte distribution width (RBC) [Ratio] 13.9 % Normal 11.5-14.5 [facility] Comment on above: Performed By: #### B GLU #### [address] [place], [place] Hematocrit (Bld) [Volume fraction] 28.7 % Low 35.0-47.0 [facility] Comment on above: Performed By: #### B GLU #### [address] [place], [place] Hemoglobin (Bld) [Mass/Vol] 9.4 g/dL Low 11.7-16.0 [facility] Comment on above: Performed By: #### B GLU #### [address] [place], [place] MCH (RBC) [Entitic mass] 31.7 pg Normal 26.0-34.0 [facility] Comment on above: Performed By: #### B GLU #### [address] [place], [place] MCHC (RBC) [Mass/Vol] 32.6 % Normal 32.0-36.0 [facility] Comment on above: Performed By: #### B GLU #### [address] [place], [place] MCV (RBC) [Entitic vol] 97.4 fL Normal 79.0-98.0 [facility] Comment on above: Performed By: #### B GLU #### [address] [place], [place] Platelet mean volume (Bld) [Entitic vol] 10.5 fL High 7.4-10.4 [facility] Comment on above: Performed By: #### B GLU #### [facility] [address] [place], [place] Platelets (Bld) [#/Vol] 91 10*3/uL Low 140-440 [facility] Comment on above: Performed By: #### B GLU #### [facility] [address] [place], [place] RBC (Bld) [#/Vol] 2.95 10*6/uL Low 3.80-5.20 [facility] Comment on above: Performed By: #### B GLU #### [facility] [address] [place], [place] WBC (Bld) [#/Vol] 30.7 10*3/uL Critically high 3.6-10.7 [facility] Comment on above: Result Comment: REPE ATED Performed By: #### B GLU #### [facility] [address] [place], [place] LEGIONELLA AG, URINEon 01-02 LEGIONELLA AG, URINE LEGIONELLA AG, URIN E --> Status: F Legionella antigen NOT DETECTED. Normal [facility] Comment on above: Order Comment: Speci men Source Comment:Urine voided Performed By: #### C /UR, LEGUR, SPAUR #### [facility] [address] [place], [place] Lactic Acidon 01-03-2020 Lactate [Moles/Vol] 2.2 mmol/L Critically high 0.7-2.0 [facility] Comment on above: Performed By: #### L ACT3, MDIFF, ICA, HEMDF, BMP3 ####[facility] [place], [place] Lactate [Moles/Vol] 2.7 mmol/L Critically high 0.7-2.0 [facility] Comment on above: Performed By: #### B GLU #### [facility] [address] [place], [place] Lactate [Moles/Vol] 3.3 mmol/L Critically high 0.7-2.0 [facility] Comment on above: Performed By: #### B GLU #### [address] [place] [address] Lactate [Moles/Vol] 6.2 mmol/L Critically high 0.7-2.0 [facility] Comment on above: Performed By: #### B MP3, TROPN, LACT3 ####[facility] [place] [address] Lactate [Moles/Vol] 8.1 mmol/L Critically high 0.7-2.0 [facility] Comment on above: Performed By: #### L ACT3 ####[address] [place] [address] Lactate [Moles/Vol] 7.7 mmol/L Critically high 0.7-2.0 [facility] Comment on above: Performed By: #### B GLU #### [address] [place] [address] Lactic Acid, Plasmaon 2019 Interpretation and review of laboratory results Abnormal [facility], [place] Lactate [Moles/Vol] 2.2 mmol/L Critically high 0.7 - 2 mmol/L [facility]- [place] Test Performed by [facility], [address] [place] [address] [facility] [place] Interpretation and review of laboratory results Abnormal [facility] [place], [place] Lactate [Moles/Vol] 2.7 mmol/L Critically high 0.7 - 2 mmol/L [facility] [place] Test Performed by [facility], [place] [address] [facility] [place] Interpretation and review of laboratory results Abnormal [facility] [place] Lactate [Moles/Vol] 3.3 mmol/L Critically high 0.7 - 2 mmol/L [facility] [place] Test Performed by [facility], [place] [address] [facility] [place] Interpretation and review of laboratory results Abnormal [facility] [place] Lactate [Moles/Vol] 6.2 mmol/L Critically high 0.7 - 2 mmol/L [place], [place] Test Performed by [facility], [address] [place] [id number] [place] [address] Interpretation and review of laboratory results Abnormal [place], [place] Lactate [Moles/Vol] 8.1 mmol/L Critically high 0.7 - 2 mmol/L [place], [place] Test Performed by [facility], [facility] [place], [place] [id number] [place] [address] Interpretation and review of laboratory results Abnormal [place], [place] Lactate [Moles/Vol] 7.7 mmol/L Critically high 0.7 - 2 mmol/L [place] Test Performed by [facility], [address] [place] [address] Legionella Antigen, Urineon 01-03-2020 LEGIONELLA ANTIGEN Legionella antigen N OT DETECTED. [place], [place] Magnesiumon 01-03-2020 Magnesium [Mass/Vol] 2.5 mg/dL High 1.6-2.3 [facility] Comment on above: Performed By: #### B GLU #### [facility] [address] [place], [place] Magnesium [Mass/Vol] 2.5 mg/dL High 1.6 - 2 .3 mg/dL [place], [place] Manual Diffon 01-03-2020 Abs Lymph Cnt 0.8 10*3/uL Low 1.1-4.5 [facility] Comment on above: Performed By: #### L ACT3CONCHITA, ICA, HEMDF, BMP3 ####[facility] [place], [place] Abs Monocyte Cnt 0.8 10*3/uL Normal 0.2-1.1 [facility] Comment on above: Performed By: #### L ACT3CONCHITA, ICA, HEMDF, BMP3 ####[facility] [place], [place] Abs Neutrophile Cnt 24.0 10*3/uL High 2.2-8.2 [facility] Comment on above: Performed By: #### L ACT3, MDIFF, ICA, HEMDF, BMP3 ####[address] [place] [address] Bands 21 % High 0-3 [facility] Comment on above: Performed By: #### L ACT3, MDIFF, ICA, HEMDF, BMP3 ####[address] [place] [address] Lymphocytes 3 % Low 20-40 [facility] Comment on above: Performed By: #### L ACT3, MDIFF, ICA, HEMDF, BMP3 ####[address] [place], [place] Metamyelocytes 3 % Abnormal <1 [facility] Comment on above: Performed By: #### L ACT3, MDIFF, ICA, HEMDF, BMP3 ####[address] Monocytes 3 % Normal 2-10 [facility] Comment on above: Performed By: #### L ACT3, IFF, ICA, HEMDF, BMP3 ####[address] RBC morphology finding Nom (Bld) See Prev Normal [facility] Comment on above: Performed By: #### L ACT3, IFF, ICA, HEMDF, BMP3 ####[address] Seg Neutrophils 70 % Normal 40-80 [facility] Comment on above: Performed By: #### L ACT3, IFF, ICA, HEMDF, BMP3 ####[address] [place], [place] Abs Baso Cnt 0.0 10*3/uL Normal 0.0-0.2 [facility] Comment on above: Performed By: #### L ACT3, IFF, ICA, HEMDF, BMP3 ####[address] [place], [place] Abs Eosin Cnt 0.0 10*3/uL Normal 0.0-0.5 [facility] Comment on above: Performed By: #### L ACT3, MDIFF, ICA, HEMDF, BMP3 ####[facility] [place], [place] Basophils 0 % Normal 0-2 [facility] Comment on above: Performed By: #### L ACT3, MDIFF, ICA, HEMDF, BMP3 ####[facility] [place], [place] Cells counted 100 Normal [facility] Comment on above: Performed By: #### L ACT3, MDIFF, ICA, HEMDF, BMP3 ####[address] [place], [place] Eosinophils 0 % Low 1-6 [facility] Comment on above: Performed By: #### L ACT3, MDIFF, ICA, HEMDF, BMP3 ####[address] [address] [place], [place] Comment: SLIDE SCANNED Normal [facility] Comment on above: Performed By: #### L ACT3, MDIFF, ICA, HEMDF, BMP3 ####[address] [place], [place] Abs Lymph Cnt 0.5 10*3/uL Low 1.1-4.5 [facility] Comment on above: Performed By: #### B GLU #### [address] [place], [place] Abs Monocyte Cnt 1.0 10*3/uL Normal 0.2-1.1 [facility] Comment on above: Performed By: #### B GLU #### [facility] [address] [place], [place] Abs Neutrophile Cnt 23.5 10*3/uL High 2.2-8.2 [facility] Comment on above: Performed By: #### B GLU #### [address] [place], [place] Bands 24 % High 0-3 [facility] Comment on above: Performed By: #### B GLU #### [address] [place], [place] Dohle Bodies Slight Normal [facility] Comment on above: Performed By: #### B GLU #### [facility] [address] [place], [place] Hypochromia Slight Normal [facility] Comment on above: Performed By: #### B GLU #### [address] [place], [place] Lymphocytes 2 % Low 20-40 [facility] Comment on above: Performed By: #### B GLU #### [facility] [address] [place], [place] Metamyelocytes 2 % Abnormal <1 [facility] Comment on above: Performed By: #### B GLU #### [address] [place], [place] Monocytes 4 % Normal 2-10 [facility] Comment on above: Performed By: #### B GLU #### [address] [place], [place] Ovalocytes Slight Normal [facility] Comment on above: Performed By: #### B GLU #### [facility] [address] [place], [place] RBC morphology finding Nom (Bld) ABNORMAL Normal [facility] Comment on above: Performed By: #### B GLU #### [address] [place], [place] Seg Neutrophils 68 % Normal 40-80 [facility] Comment on above: Performed By: #### B GLU #### [facility] [address] [place], [place] Toxic Granulation Slight Normal [facility] Comment on above: Performed By: #### B GLU #### [facility] [address] [place], [place] Toxic Vacuoles Slight Normal [facility] Comment on above: Performed By: #### B GLU #### [facility] [address] [place], [place] Abs Baso Cnt 0.0 10*3/uL Normal 0.0-0.2 [facility] Comment on above: Performed By: #### B GLU #### [facility] [address] [place], [place] Abs Eosin Cnt 0.0 10*3/uL Normal 0.0-0.5 [facility] Comment on above: Performed By: #### B GLU #### [facility] [address] [place], [place] Basophils 0 % Normal 0-2 [facility] Comment on above: Performed By: #### B GLU #### [facility] [address] [place], [place] Cells counted 100 Normal [facility] Comment on above: Performed By: #### B GLU #### [address] [place], [place] Eosinophils 0 % Low 1-6 [facility] Comment on above: Performed By: #### B GLU #### [address] [place], [place] Abs Lymph Cnt 1.9 10*3/uL Normal 1.1-4.5 [facility] Comment on above: Performed By: #### M DIFF, ICA, HEMDF ####[facility] [place], [place] Abs Neutrophile Cnt 28.4 10*3/uL High 2.2-8.2 [facility] Comment on above: Performed By: #### M DIFF, ICA, HEMDF ####[facility] [place], [place] Bands 36 % High 0-3 [facility] Comment on above: Performed By: #### M DIFF, ICA, HEMDF ####[facility] [place], [place] Lymphocytes 6 % Low 20-40 [facility] Comment on above: Performed By: #### M DIFF, ICA, HEMDF ####[address] [place], [place] Macrocytosis Slight Normal [facility] Comment on above: Performed By: #### M DIFF, ICA, HEMDF ####[address] [place], [place] Metamyelocytes 3 % Abnormal <1 [facility] Comment on above: Performed By: #### M DIFF, ICA, HEMDF ####[address] Polychromasia Slight Normal [facility] Comment on above: Performed By: #### M DIFF, ICA, HEMDF ####[address] RBC morphology finding Nom (Bld) ABNORMAL Normal [facility] Comment on above: Performed By: #### M DIFF, ICA, HEMDF ####[address] Seg Neutrophils 55 % Normal 40-80 [facility] Comment on above: Performed By: #### M DIFF, ICA, HEMDF ####[address] Toxic Granulation Slight Normal [facility] Comment on above: Performed By: #### M DIFF, ICA, HEMDF ####[address] Toxic Vacuoles Slight Normal [facility] Comment on above: Performed By: #### M DIFF, ICA, HEMDF ####[address] Abs Baso Cnt 0.0 10*3/uL Normal 0.0-0.2 [facility] Comment on above: Performed By: #### M DIFF, ICA, HEMDF ####[place] [address] [address] [place], [place] Abs Eosin Cnt 0.0 10*3/uL Normal 0.0-0.5 [facility] Comment on above: Performed By: #### M DIFF, ICA, HEMDF ####[address] Abs Monocyte Cnt 0.0 10*3/uL Low 0.2-1.1 [facility] Comment on above: Performed By: #### M DIFF, ICA, HEMDF ####[facility] [place], [place] Basophils 0 % Normal 0-2 [facility] Comment on above: Performed By: #### M DIFF, ICA, HEMDF ####[place] [id number] [place], [place] Cells counted 100 Normal [facility] Comment on above: Performed By: #### M DIFF, ICA, HEMDF ####[address] [place], [place] Eosinophils 0 % Low 1-6 [facility] Comment on above: Performed By: #### M DIFF, ICA, HEMDF ####[address] [place], [place] Monocytes 0 % Low 2-10 [facility] Comment on above: Performed By: #### M DIFF, ICA, HEMDF ####[address] [place], [place] Abs Lymph Cnt 0.9 10*3/uL Low 1.1-4.5 [facility] Comment on above: Performed By: #### B GLU #### [place] [address] [address] [place], [place] Abs Monocyte Cnt 0.6 10*3/uL Normal 0.2-1.1 [facility] Comment on above: Performed By: #### B GLU #### [place] [address] [address] [place], [place] Abs Neutrophile Cnt 27.3 10*3/uL High 2.2-8.2 [facility] Comment on above: Performed By: #### B GLU #### [place] [address] [address] [address] [place], [place] Anisocytosis Ql (Bld) Slight Normal [facility] Comment on above: Performed By: #### B GLU #### [place] [address] [address] [place], [place] Bands 43 % High 0-3 [facility] Comment on above: Performed By: #### B GLU #### [place] [address] [address] [place], [place] Lymphocytes 3 % Low 20-40 [facility] Comment on above: Performed By: #### B GLU #### [facility] [address] [place], [place] Metamyelocytes 6 % Abnormal <1 [facility] Comment on above: Performed By: #### B GLU #### [facility] [address] [place], [place] Monocytes 2 % Normal 2-10 [facility] Comment on above: Performed By: #### B GLU #### [facility] [address] [place], [place] Ovalocytes Slight Normal [facility] Comment on above: Performed By: #### B GLU #### [facility] [address] [place], [place] Poikilocytosis Slight Normal [facility] Comment on above: Performed By: #### B GLU #### [facility] [address] [place], [place] Polychromasia Slight Normal [facility] Comment on above: Performed By: #### B GLU #### [facility] [address] [place], [place] RBC morphology finding Nom (Bld) ABNORMAL Normal [facility] Comment on above: Performed By: #### B GLU #### [facility] [address] [place], [place] Seg Neutrophils 46 % Normal 40-80 [facility] Comment on above: Performed By: #### B GLU #### [facility] [address] [place], [place] Toxic Granulation Slight Normal [facility] Comment on above: Performed By: #### B GLU #### [facility] [address] [place], [place] Toxic Vacuoles Slight Normal [facility] Comment on above: Performed By: #### B GLU #### [facility] [address] [place], [place] Abs Baso Cnt 0.0 10*3/uL Normal 0.0-0.2 [facility] Comment on above: Performed By: #### B GLU #### [facility] [address] [place], [place] Abs Eosin Cnt 0.0 10*3/uL Normal 0.0-0.5 [facility] Comment on above: Performed By: #### B GLU #### [facility] [address] [place], [place] Basophils 0 % Normal 0-2 [facility] Comment on above: Performed By: #### B GLU #### [facility] [address] [place], [place] Cells counted 100 Normal [facility] Comment on above: Performed By: #### B GLU #### [facility] [address] [place], [place] Eosinophils 0 % Low 1-6 [facility] Comment on above: Performed By: #### B GLU #### [facility] [address] [place], [place] Manual Differentialon 2019 Absolute Baso # 0.0 10*3/uL 0 - 0.2 10*3/uL [facility] [place] Absolute Eos # 0.0 10*3/uL 0 - 0.5 10*3/uL [facility] [place] Absolute Lymph # 0.8 10*3/uL Low 1.1 - 4.5 10*3/uL [facility] [place] Absolute [place] # 0.8 10*3/uL 0.2 - 1.1 10*3/uL [facility] [place] Absolute Neut # 24.0 10*3/uL High 2.2 - 8.2 10*3/uL [facility] [place] Bands 21 % High 0 - 3 % [facility] [place] Basophils 0 % 0 - 2 % [facility] [place] Comment SLIDE SCANNED [facility] Eosinophils 0 % Low 1 - 6 % [facility] [place] Interpretation and review of laboratory results Abnormal [facility] Lymphocytes 3 % Low 20 - 40 % [facility] Metamyelocytes 3 % Abnormal <1 [facility] [place] Monocytes 3 % 2 - 10 % [facility] [place] RBC morphology finding Nom (Bld) See Prev [facility] [place] Seg Neutrophils 70 % 40 - 80 % [facility] [place] TOTAL CELLS COUNTED 100 [facility] [place] Test Performed by [facility], [address] [place] [address] [facility] [place] Absolute Baso # 0.0 10*3/uL 0 - 0.2 10*3/uL [facility] [place] Absolute Eos # 0.0 10*3/uL 0 - 0.5 10*3/uL [facility] [place] Absolute Lymph # 0.5 10*3/uL Low 1.1 - 4.5 10*3/uL [facility] [place] Absolute [place] # 1.0 10*3/uL 0.2 - 1.1 10*3/uL [facility] [place] Absolute Neut # 23.5 10*3/uL High 2.2 - 8.2 10*3/uL [facility] [place] Bands 24 % High 0 - 3 % [facility] [place] Basophils 0 % 0 - 2 % [facility] [place] Dohle Bodies Slight [facility] [place] Eosinophils 0 % Low 1 - 6 % [facility] [place] Hypochromia Slight [facility] [place] Interpretation and review of laboratory results Abnormal [facility] [place] Lymphocytes 2 % Low 20 - 40 % [facility] [place] Metamyelocytes 2 % Abnormal <1 [facility] [place] Monocytes 4 % 2 - 10 % [facility] [place] Ovalocytes Slight [facility] [place] RBC morphology finding Nom (Bld) ABNORMAL [facility] [place] Seg Neutrophils 68 % 40 - 80 % [facility] [place] TOTAL CELLS COUNTED 100 [facility] [place] Toxic Granulation [place]light [facility] [place] TOXIC VACUOLES Slight [facility] [place] Test Performed by [facility], [address] [place] [address] [facility] [place] Absolute Baso # 0.0 10*3/uL 0 - 0.2 10*3/uL [facility] [place] Absolute Eos # 0.0 10*3/uL 0 - 0.5 10*3/uL [facility] [place] Absolute Lymph # 1.9 10*3/uL 1.1 - 4.5 10*3/uL [facility] Absolute [place] # 0.0 10*3/uL Low 0.2 - 1.1 10*3/uL [facility] Absolute Neut # 28.4 10*3/uL High 2.2 - 8.2 10*3/uL [facility] Bands 36 % High 0 - 3 % [facility] Basophils 0 % 0 - 2 % [facility] [place] Eosinophils 0 % Low 1 - 6 % [facility] Interpretation and review of laboratory results Abnormal [facility] Lymphocytes 6 % Low 20 - 40 % [facility] Macrocytosis Slight [facility] Metamyelocytes 3 % Abnormal <1 [facility] Monocytes 0 % Low 2 - 10 % [facility] Polychromasia Slight [facility] RBC morphology finding Nom (Bld) ABNORMAL [facility] [place] Seg Neutrophils 55 % 40 - 80 % [facility] TOTAL CELLS COUNTED 100 [facility] [place] Toxic Granulation Slight [facility], [place] TOXIC VACUOLES Slight [facility], [place] Test Performed by [facility], [address] [place] [address] [facility], [place] Absolute Eos # 0.0 10*3/uL 0 - 0.5 10*3/uL [facility] Absolute Lymph # 0.9 10*3/uL Low 1.1 - 4.5 10*3/uL [facility] [place] Absolute [place] # 0.6 10*3/uL 0.2 - 1.1 10*3/uL [facility] [place] Absolute Neut # 27.3 10*3/uL High 2.2 - 8.2 10*3/uL [facility] [place] Anisocytosis Ql (Bld) Slight [facility] Bands 43 % High 0 - 3 % [facility] Basophils 0 % 0 - 2 % [facility] Eosinophils 0 % Low 1 - 6 % [facility] [place] Interpretation and review of laboratory results Abnormal [facility] [place] Lymphocytes 3 % Low 20 - 40 % [facility] [place] Metamyelocytes 6 % Abnormal <1 [facility] [place] Monocytes 2 % 2 - 10 % [facility] [place] Ovalocytes Slight [facility] [place] Poikilocytes Slight [facility] [place] Polychromasia Slight [facility] RBC morphology finding Nom (Bld) ABNORMAL [facility] Seg Neutrophils 46 % 40 - 80 % [facility] [place] TOTAL CELLS COUNTED 100 [facility] Toxic Granulation Slight [facility] TOXIC VACUOLES Slight [facility] Test Performed by [facility], [place] [address] [facility] Otheron 01-03-2020 Interpretation and review of laboratory results Abnormal [facility] Test Performed by [facility], [facility] [address] [place], [place] [id number] [place] [address] [place] Test Performed by [facility], [place] [address] Specimen Source Comment:Urine voided [facility] Interpretation and review of laboratory results Abnormal [facility] Test Performed by [facility], [place] [address] [facility] Absolute Baso # 0.0 10*3/uL 0 - 0.2 10*3/uL [facility] [place] POCT Glucoseon 01-03-2020 Glucose [Mass/Vol] 123 mg/dL High 70 - 100 mg/dL [facility] [place] Comment on above: Test performed by ucose meter. Results may be 10%-15% lower than serum/plasma values. (CLIA ID [id number]) Interpretation and review of laboratory results Abnormal [facility] Test Performed by [facility], [place] [address] [facility] Glucose [Mass/Vol] 120 mg/dL High 70 - 100 mg/dL [facility] [place] Comment on above: Test performed by gl ucose meter. Results may be 10%-15% lower than serum/plasma values. (CLIA ID [id number]) Interpretation and review of laboratory results Abnormal [facility] [place] Test Performed by [facility], [address] [place] [address] [facility] [place] Glucose [Mass/Vol] 120 mg/dL High 70 - 100 mg/dL [facility] [place] Comment on above: Test performed by gl ucose meter. Results may be 10%-15% lower than serum/plasma values. (CLIA ID [id number]) Glucose [Mass/Vol] 153 mg/dL High 70 - 100 mg/dL [facility] [place] Comment on above: Test performed by gl ucose meter. Results may be 10%-15% lower than serum/plasma values. (CLIA ID [id number]) Interpretation and review of laboratory results Abnormal [facility] [place] Test Performed by [employer] [facility], [address] [place] [address] [facility] [place] Glucose [Mass/Vol] 149 mg/dL High 70 - 100 mg/dL [facility] [place] Comment on above: Test performed by gl ucose meter. Results may be 10%-15% lower than serum/plasma values. (CLIA ID [id number]) Interpretation and review of laboratory results Abnormal [facility] [place] Test Performed by [employer] [facility], [address] [place] [address] [facility] [place] Glucose [Mass/Vol] 101 mg/dL High 70 - 100 mg/dL [facility] [place] Comment on above: Test performed by gl ucose meter. Results may be 10%-15% lower than serum/plasma values. (CLIA ID [id number]) Interpretation and review of laboratory results Abnormal [facility] [place] Test Performed by [employer] [facility], [address] [place] [address] [facility] [place] Glucose [Mass/Vol] 153 mg/dL High 70 - 100 mg/dL [facility] [place] Comment on above: Test performed by gl ucose meter. Results may be 10%-15% lower than serum/plasma values. (CLIA ID [id number]) Interpretation and review of laboratory results Abnormal [facility] [place] Test Performed by [facility], [address] [place] [address] [facility] [place] Glucose [Mass/Vol] 171 mg/dL High 70 - 100 mg/dL [facility] [place] Comment on above: Test performed by gl ucose meter. Results may be 10%-15% lower than serum/plasma values. (CLIA ID [id number]) Interpretation and review of laboratory results Abnormal [facility] [place] Test Performed by [facility], [address] [place] [address] [facility] [place] Glucose [Mass/Vol] 169 mg/dL High 70 - 100 mg/dL [facility] [place] Comment on above: Test performed by gl ucose meter. Results may be 10%-15% lower than serum/plasma values. (CLIA ID [id number]) Interpretation and review of laboratory results Abnormal [facility] [place] Test Performed by [facility], [address] [place] [address] [facility] [place] Glucose [Mass/Vol] 188 mg/dL High 70 - 100 mg/dL [facility] [place] Comment on above: Test performed by gl ucose meter. Results may be 10%-15% lower than serum/plasma values. (CLIA ID [id number]) Interpretation and review of laboratory results Abnormal [facility] [place] Test Performed by [facility], [address] [place] [address] [facility] [place] Glucose [Mass/Vol] 160 mg/dL High 70 - 100 mg/dL [facility] [place] Comment on above: Test performed by gl ucose meter. Results may be 10%-15% lower than serum/plasma values. (CLIA ID [id number]) Interpretation and review of laboratory results Abnormal [facility] [place] Test Performed by [employer] [facility], [address] [place] [address] [facility] [place] Glucose [Mass/Vol] 197 mg/dL High 70 - 100 mg/dL [facility] [place] Comment on above: Test performed by gl ucose meter. Results may be 10%-15% lower than serum/plasma values. (CLIA ID [id number]) Interpretation and review of laboratory results Abnormal [facility] [place] Test Performed by [facility], [address] [place] [address] [facility] [place] Glucose [Mass/Vol] 211 mg/dL High 70 - 100 mg/dL [facility] [place] Comment on above: Test performed by gl ucose meter. Results may be 10%-15% lower than serum/plasma values. (CLIA ID [id number]) Interpretation and review of laboratory results Abnormal [facility] [place] Test Performed by [facility], [address] [place] [address] [facility] [place] Glucose [Mass/Vol] 236 mg/dL High 70 - 100 mg/dL [facility] [place] Comment on above: Test performed by gl ucose meter. Results may be 10%-15% lower than serum/plasma values. (CLIA ID [id number]) Interpretation and review of laboratory results Abnormal [facility] [place] Test Performed by [employer] [facility], [address] [place] [address] [facility] [place] Glucose [Mass/Vol] 271 mg/dL High 70 - 100 mg/dL [facility] [place] Comment on above: Test performed by gl ucose meter. Results may be 10%-15% lower than serum/plasma values. (CLIA ID [id number]) Interpretation and review of laboratory results Abnormal [facility] [place] Test Performed by [employer] [facility], [address] [place] [address] [facility] [place] Glucose [Mass/Vol] 286 mg/dL High 70 - 100 mg/dL [facility] [place] Comment on above: Test performed by gl ucose meter. Results may be 10%-15% lower than serum/plasma values. (CLIA ID [id number]) Interpretation and review of laboratory results Abnormal [facility] [place] Test Performed by [employer] [facility], [address] [place] [address] [facility] [place] Glucose [Mass/Vol] 330 mg/dL High 70 - 100 mg/dL [facility] [place] Comment on above: Test performed by gl ucose meter. Results may be 10%-15% lower than serum/plasma values. (CLIA ID [id number]) Interpretation and review of laboratory results Abnormal [facility] [place] Test Performed by [facility], [place] [address] [facility] [place] Glucose [Mass/Vol] 335 mg/dL High 70 - 100 mg/dL [facility], [place] Comment on above: Test performed by gl ucose meter. Results may be 10%-15% lower than serum/plasma values. (CLIA ID [id number]) Interpretation and review of laboratory results Abnormal [facility] [place] [place] Test Performed by [facility], [place] [address] [facility], [place] Glucose [Mass/Vol] 327 mg/dL High 70 - 100 mg/dL [place] Comment on above: Test performed by gl ucose meter. Results may be 10%-15% lower than serum/plasma values. (CLIA ID [id number]) Interpretation and review of laboratory results Abnormal [facility] [place] Test Performed by [facility], [facility] [place] [place] [address] [facility], [place] Phosphoruson 01-03-2020 Phosphate [Mass/Vol] 5.4 mg/dL High 2.5-4.5 [facility] Comment on above: Performed By: #### B GLU #### [facility] [address] [place] [address] Phosphate [Mass/Vol] 5.4 mg/dL High 2.5 - 4 .5 mg/dL [facility], [place] RESPIRATORY PCR PANELon RESPIRATORY PCR PANEL RESPIRATORY PCR PA MEGAN --> Status: F NEGATIVE: No targets were detected by the [employer] Upper Respiratory Pathogens PCR Panel. PLEASE NOTE: This assay DOES NOT detect SARS-CoV-2/COVID-19. _ The [employer] Upper Respiratory Pathogens PCR Panel can detect the following targets: Adenovirus, Coronavirus 229E, Coronavirus HKU1, Coronavirus NL63, Coronavirus OC43, Human Metapneumovirus, Human Rhinovirus/Enterovirus, Influenza A, Influenza B, Parainfluenza Virus 1, Parainfluenza Virus 2, Parainfluenza Virus 3, Parainfluenza Virus 4, Respiratory Syncytial Virus, Bordetella pertussis, Bordetella parapertussis, Chlamydia pneumoniae, Mycoplasma pneumoniae Respiratory Pathogens PCR Panel. PLEASE NOTE: This assay DOES NOT detect SARS-CoV-2/COVID-19. _ The [employer] Upper Respiratory Pathogens PCR Panel can detect the following targets: Adenovirus, Coronavirus 229E, Coronavirus HKU1, Coronavirus NL63, Coronavirus OC43, Human Metapneumovirus, Human Rhinovirus/Enterovirus, Influenza A, Influenza B, Parainfluenza Virus 1, Parainfluenza Virus 2, Parainfluenza Virus 3, Parainfluenza Virus 4, Respiratory Syncytial Virus, Bordetella pertussis, Bordetella parapertussis, Chlamydia pneumoniae, Mycoplasma pneumoniae Normal [facility] Comment on above: Order Comment: Speci men Source Comment:Nasopharyngeal Performed By: #### B GLU #### [address] [id number] Respiratory Virus PCR Panelo n 01-03-2020 Respiratory Panel PCR NEGATIVE: No targe ts were detected by the [employer] Upper Respiratory Pathogens PCR Panel. PLEASE NOTE: This assay DOES NOT detect SARS-CoV-2/COVID-19. _ The [employer] Upper Respiratory Pathogens PCR Panel can detect the following targets: Adenovirus, Coronavirus 229E, Coronavirus HKU1, Coronavirus NL63, Coronavirus OC43, Human Metapneumovirus, Human Rhinovirus/Enterovirus, Influenza A, Influenza B, Parainfluenza Virus 1, Parainfluenza Virus 2, Parainfluenza Virus 3, Parainfluenza Virus 4, Respiratory Syncytial Virus, Bordetella pertussis, Bordetella parapertussis, Chlamydia pneumoniae, Mycoplasma pneumoniae [facility], [place] Test Performed by [facility], [address] [place] [address] Specimen Source Comment:Nasopharyngeal [facility], [place] STREP PNEUMO ANTIGEN, URINEo n 01-03-2020 STREP PNEUMO ANTIGEN, URINE STREP PNEUMO ANTIGEN, URINE --> Status: F Strep pneumo antigen NOT DETECTED. Normal [facility] Comment on above: Order Comment: Speci men Source Comment:Urine voided Performed By: #### B GLU #### [facility] [address] [place], [place] Salicylateson 01-03-2020 Salicylates < 1.0 Normal 0.0-20.0 [facility] Comment on above: Performed By: #### T SGL #### [facility] [address] [place], [place] [id number] [place] [address] Strep Pneumoniae Antigenon 1 03-04-2019 STREP PNEUMONIAE ANTIGEN, URINE Strep pneumo antigen NOT DETECTED. [place] Troponinon 01-03-2020 Interpretation and review of laboratory results Abnormal [place] Troponin I.cardiac [Mass/Vol] 0.392 ng/mL High 0 - 0.034 ng/mL [place] Comment on above: . Test Performed by [facility], [address] [place], [place] [id number] [place] [address] Interpretation and review of laboratory results Abnormal [place] Troponin I.cardiac [Mass/Vol] 0.640 ng/mL High 0 - 0.034 ng/mL [place] Comment on above: . Test Performed by [facility], [place] [address] [place], [place] Troponin Ion 01-03-2020 Troponin I.cardiac [Mass/Vol] 0.392 ng/mL High 0.000-0.034 [facility] Comment on above: Result Comment: . Performed By: #### B GLU #### [facility] [address] [place], [place] Troponin I.cardiac [Mass/Vol] 0.640 ng/mL High 0.000-0.034 [facility] Comment on above: Result Comment: . Performed By: #### B MP3, TROPN, LACT3 ####[facility] [place], [place] Vitamin B12on 01-03-2020 Cobalamin (Vitamin B12) [Mass/Vol] 184 pg/mL Low 239-931 [facility] Comment on above: Performed By: #### B GLU #### [facility] [address] [place], [place] Volatile Panel,Serumon 01-02 Acetone,Serum NONE DETECTED Normal 0.0-20.0 [facility] Comment on above: Result Comment: Toxi c>20 Reporting Limit 5 mg/dL NOTE:These results are for medical treatment only. Analysis performed using non-forensic procedures. Performed By: #### T SGL #### [facility] [address] [facility], [place] [id number] [place] [address] Ethanol,Serum NONE DETECTED Normal [facility] Comment on above: Result Comment: Reporting limit 0.01g/dL NOTE:These results are for medical treatment only. Analysis performed using non-forensic procedures. Performed By: #### T SGL #### [facility] [address] [facility], [place] [id number] [place] [address] Isopropanol,Serum NONE DETECTED Normal [facility] Comment on above: Result Comment: Toxi c>150 Reporting Limit 5 mg/dL NOTE:These results are for medical treatment only. Analysis performed using non-forensic procedures. Performed By: #### T SGL #### [facility] [address] [facility], [place] [id number] [place] [address] Methanol,Serum NONE DETECTED Normal [facility] Comment on above: Result Comment: Toxic >20 mg/dL Reporting Limit 5 mg/dL NOTE:These results are for medical treatment only. Analysis performed using non-forensic procedures. Performed By: #### T SGL #### [facility] [address] [facility], [address] XA SPECIAL PROCEDUREon 01-02 Patient Name: JODEE LORENZO ---Special Procedures--- Exam Date/Time 01/02/2020 23:07:45 EST Exam XA Special Angiography Procedure Ordering Physician BEBETO TAMAYO Accession Number [id number] Reason For Exam L septic stone Report PROCEDURE: Genitourinary catheter placement Procedural Personnel Attending physician(s): Michael Wilson Indication: Obstructive uropathy, sepsis Catheter(s) placed because the previous catheter(s) became dislodged within 30 days of placement (QCDR): No Additional clinical history: None Complications: No immediate complications. IMPRESSION: Successful placement of 8 [place] left nephrostomy tube. PROCEDURE SUMMARY - Target organ: Left kidney - Image-guided placement of genitourinary catheter(s) - Additional procedure(s): None PROCEDURE DETAILS: Pre-procedure Consent: Informed consent for the procedure including risks, benefits and alternatives was obtained and time-out was performed prior to the procedure. Preparation: The site was prepared and draped using maximal sterile barrier technique including cutaneous antisepsis. Anesthesia/sedation Level of anesthesia/sedation: No sedation Left genitourinary catheter placement Local anesthesia was administered. A needle was advanced into a lower pole calyx under ultrasound and fluoroscopy guidance. A wire was advanced, the tract was serially dilated and a nephrostomy tube was placed . Contrast injection was performed. Genitourinary catheter placed: 8 [place] nephrostomy tube Findings: Nephrostomy tube in adequate position with tip in the renal pelvis External catheter securement: Non-absorbable suture Additional genitourinary system intervention Genitourinary intervention: None Location of intervention: Not applicable Device used: Not applicable Description of intervention: Not applicable Post-intervention findings: Not applicable Contrast Contrast agent: Isovue-300 Contrast volume (mL): 5 Radiation Dose Fluoroscopy time (minutes): 2.6 Angiographic runs: 0 Fluoroscopic spot images: 0 Fluoroscopic saved images were obtained. These images do NOT add additional exposure to ionizing radiation and were captured electronically from the imaging chain. Additional Details Additional description of procedure: None Equipment details: None Specimens removed: A sample of cloudy pink urine was sent for analysis. Estimated blood loss (mL): Less than 10 Standardized report: SIR_GUCatheterPlacement_ v2 Report Dictated on --- Final --- Dictated: 01/03/2020 10:19 am Dictating Physician: MD WILSON JAMES Signed Date and Time: 01/03/2020 10:22 am Signed by: MD WILSON JAMES Transcribed Date and Time: 01/03/2020 10:19 [facility]- [place], [place] Incoming Radiology Results From [facility] - 01/03/2020 10:23 AM EST Patient Name: JODEE LORENZO ---Special Procedures--- Exam Date/Time 01/02/2020 23:07:45 EST Exam XA Special Angiography Procedure Ordering Physician BEBETO TAMAYO Accession Number [id number] Reason For Exam L septic stone Report PROCEDURE: Genitourinary catheter placement Procedural Personnel Attending physician(s): Michael Wilson Indication: Obstructive uropathy, sepsis Catheter(s) placed because the previous catheter(s) became dislodged within 30 days of placement (QCDR): No Additional clinical history: None Complications: No immediate complications. IMPRESSION: Successful placement of 8 [place] left nephrostomy tube. PROCEDURE SUMMARY - Target organ: Left kidney - Image-guided placement of genitourinary catheter(s) - Additional procedure(s): None PROCEDURE DETAILS: Pre-procedure Consent: Informed consent for the procedure including risks, benefits and alternatives was obtained and time-out was performed prior to the procedure. Preparation: The site was prepared and draped using maximal sterile barrier technique including cutaneous antisepsis. Anesthesia/sedation Level of anesthesia/sedation: No sedation Left genitourinary catheter placement Local anesthesia was administered. A needle was advanced into a lower pole calyx under ultrasound and fluoroscopy guidance. A wire was advanced, the tract was serially dilated and a nephrostomy tube was placed . Contrast injection was performed. Genitourinary catheter placed: 8 [place] nephrostomy tube Findings: Nephrostomy tube in adequate position with tip in the renal pelvis External catheter securement: Non-absorbable suture Additional genitourinary system intervention Genitourinary intervention: None Location of intervention: Not applicable Device used: Not applicable Description of intervention: Not applicable Post-intervention findings: Not applicable Contrast Contrast agent: Isovue-300 Contrast volume (mL): 5 Radiation Dose Fluoroscopy time (minutes): 2.6 Angiographic runs: 0 Fluoroscopic spot images: 0 Fluoroscopic saved images were obtained. These images do NOT add additional exposure to ionizing radiation and were captured electronically from the imaging chain. Additional Details Additional description of procedure: None Equipment details: None Specimens removed: A sample of cloudy pink urine was sent for analysis. Estimated blood loss (mL): Less than 10 Standardized report: SIR_GUCatheterPlacement_ v2 Report Dictated on --- Final --- Dictated: 01/03/2020 10:19 am Dictating Physician: MD WILSON JAMES Signed Date and Time: 01/03/2020 10:22 am Signed by: MD WILSON JAMES Transcribed Date and Time: 01/03/2020 10:19 [facility], [place] XA Special Angiography [facility] 01-03-2020 XA Special Angiography Procedure Patient Name: JODEE LORENZO Special Procedures Exam Date/Time 01/02/2020 23:07:45 EST Exam XA Special Angiography Procedure Ordering Physician BEBETO TAMAYO Accession Number [id number] Reason For Exam L septic stone Report PROCEDURE: Genitourinary catheter placement Procedural Personnel Attending physician(s): Michael Wilson Indication: Obstructive uropathy, sepsis Catheter(s) placed because the previous catheter(s) became dislodged within 30 days of placement (QCDR): No Additional clinical history: None Complications: No immediate complications. IMPRESSION: Successful placement of 8 [place] left nephrostomy tube. PROCEDURE SUMMARY - Target organ: Left kidney - Image-guided placement of genitourinary catheter(s) - Additional procedure(s): None PROCEDURE DETAILS: Pre-procedure Consent: Informed consent for the procedure including risks, benefits and alternatives was obtained and time-out was performed prior to the procedure. Preparation: The site was prepared and draped using maximal sterile barrier technique including cutaneous antisepsis. Anesthesia/sedation Level of anesthesia/sedation: No sedation Left genitourinary catheter placement Local anesthesia was administered. A needle was advanced into a lower pole calyx under ultrasound and fluoroscopy guidance. A wire was advanced, the tract was serially dilated and a nephrostomy tube was placed . Contrast injection was performed. Genitourinary catheter placed: 8 [place]ican nephrostomy tube Findings: Nephrostomy tube in adequate position with tip in the renal pelvis External catheter securement: Non-absorbable suture Additional genitourinary system intervention Genitourinary intervention: None Location of intervention: Not applicable Device used: Not applicable Description of intervention: Not applicable Post-intervention findings: Not applicable Contrast Contrast agent: Isovue-300 Contrast volume (mL): 5 Radiation Dose Fluoroscopy time (minutes): 2.6 Angiographic runs: 0 Fluoroscopic spot images: 0 Fluoroscopic saved images were obtained. These images do NOT add additional exposure to ionizing radiation and were captured electronically from the imaging chain. Additional Details Additional description of procedure: None Equipment details: None Specimens removed: A sample of cloudy pink urine was sent for analysis. Estimated blood loss (mL): Less than 10 Standardized report: SIR_GUCatheterPlacement_ v2 Report Dictated on Final Dictated: 01/03/2020 10:19 am Dictating Physician: MD WILSON JAMES Signed Date and Time: 01/03/2020 10:22 am Signed by: MD WILSON JAMES Transcribed Date and Time: 01/03/2020 10:19 Normal [facility] XR CHEST PORTABLEon 01-03-20 20 [facility] Incoming Radiology Results From [facility] - 01/03/2020 7:31 AM EST Patient Name: JODEE LORENZO ---Diagnostic Radiology--- Exam Date/Time 01/03/2020 06:50:06 EST Exam CR Chest Portable Ordering Physician MD NEVA, GRACIE MOODY Accession Number [id number] CPT4 Codes 65373 () Reason For Exam intubated Report CHEST X-RAY AP CLINICAL INDICATION: Respiratory Failure AP radiograph of the chest was obtained. COMPARISON: 01/02/2020 FINDINGS: The cardiac silhouette is within normal limits. Stable appearance/location of the right-sided internal jugular line. The endotracheal tube terminates approximately 2.3 cm above the sherie. The enteric tube courses below the left hemidiaphragm, with its tip in the expected location of the stomach. Stable appearance of the lungs with trace left-sided atelectasis. No new focal consolidation or opacification is identified. No pleural effusion or pneumothorax is identified. Degenerative changes of the thoracic spine are noted. IMPRESSION: 1. Overall stable appearance of the chest. 2. Satisfactory position of the life support devices. Report Dictated on --- Final --- Dictated: 01/03/2020 7:28 am Dictating Physician: MD SANCHEZ JASON Signed Date and Time: 01/03/2020 7:29 am Signed by: MD SANCHEZ JASON Transcribed Date and Time: 01/03/2020 7:28 [place], [place] Patient Name: JODEE LORENZO ---Diagnostic Radiology--- Exam Date/Time 01/03/2020 06:50:06 EST Exam CR Chest Portable Ordering Physician MD NEVA, GRACIE MOODY Accession Number [id number] CPT4 Codes 39953 () Reason For Exam intubated Report CHEST X-RAY AP CLINICAL INDICATION: Respiratory Failure AP radiograph of the chest was obtained. COMPARISON: 01/02/2020 FINDINGS: The cardiac silhouette is within normal limits. Stable appearance/location of the right-sided internal jugular line. The endotracheal tube terminates approximately 2.3 cm above the sherie. The enteric tube courses below the left hemidiaphragm, with its tip in the expected location of the stomach. Stable appearance of the lungs with trace left-sided atelectasis. No new focal consolidation or opacification is identified. No pleural effusion or pneumothorax is identified. Degenerative changes of the thoracic spine are noted. IMPRESSION: 1. Overall stable appearance of the chest. 2. Satisfactory position of the life support devices. Report Dictated on --- Final --- Dictated: 01/03/2020 7:28 am Dictating Physician: MD SANCHEZ JASON Signed Date and Time: 01/03/2020 7:29 am Signed by: MD SANCHEZ JASON Transcribed Date and Time: 01/03/2020 7:28 [place], [place] Acetaminophenon 01-02-2020 Acetaminophen [Mass/Vol] 10.6 ug/mL Normal 10.0-30.0 [facility] Comment on above: Performed By: #### B GLU #### [facility] [address] [place], [place] Acetaminophen Levelon 2019 Acetaminophen [Mass/Vol] 10.6 ug/mL 10 - 30 ug/mL [place], [place] Test Performed by [facility], [address] [facility] [place] [address] [place], [place] Arterial Blood Gaseson 01-01 CO2 [Moles/Vol] 17.1 mmol/L Low 23.0-27.0 [facility] Comment on above: Performed By: #### B GLU #### [place] [address] [place], [place] HCO3 (Bld) [Moles/Vol] 16.0 mmol/L Low 21.0-25.0 [facility] Comment on above: Performed By: #### B GLU #### [place] [address] [place], [place] Hemoglobin (Bld) [Mass/Vol] 10.3 g/dL Normal ScreenOnly [facility] Comment on above: Performed By: #### B GLU #### [place] [address] [address] [place], [place] Oxygen (Bld) [Partial pressure] 262.4 mm[Hg] High 80.0-100.0 [facility] Comment on above: Performed By: #### B GLU #### [place] [address] [place], [place] Oxygen saturation in Blood 98.8 % Normal 95.0-100.0 [facility] Comment on above: Performed By: #### B GLU #### [place] [address] [address] [place], [place] pCO2 35.8 mm[Hg] Normal 35.0-45.0 [facility] Comment on above: Performed By: #### B GLU #### [place] [address] [place], [place] pH (Bld) 7.269 Low 7.350-7.450 [facility] Comment on above: Performed By: #### B GLU #### [place] [address] [place], [place] Std Base Excess -10.0 mmol/L Low -3.0-3.0 [facility] Comment on above: Performed By: #### B GLU #### [place] [address] [place], [place] Arterial Respiratory Panel - Rapid Responseon 01-02-2020 Base Excess -14.1 mmol/L Low -3.0-3.0 [facility] Comment on above: Performed By: #### B GLU #### [place] [address] [place], [place] CO2 [Moles/Vol] 11.2 mmol/L Low 23.0-27.0 [facility] Comment on above: Performed By: #### B GLU #### [place] [address] [place], [place] FIO2 70 Normal [facility] Comment on above: Performed By: #### B GLU #### [place] [address] [place], [place] HCO3 (Bld) [Moles/Vol] 10.5 mmol/L Low 21.0-25.0 [facility] Comment on above: Performed By: #### B GLU #### [place] [address] [place], [place] Hemoglobin (Bld) [Mass/Vol] 31 % Low 38-51 [facility] Comment on above: Result Comment: Perf ormed by JUAN MIGUEL ID: [id number] [place], [place] Performed By: #### B GLU #### [place] [address] [place], [place] Oxygen (Bld) [Partial pressure] 332.7 mm[Hg] High 80.0-100.0 [facility] Comment on above: Performed By: #### B GLU #### [place] [address] [place], [place] pCO2 21.2 mm[Hg] Low 35.0-45.0 [facility] Comment on above: Performed By: #### B GLU #### [address] [address] pH (Bld) 7.303 Low 7.350-7.450 [facility] Comment on above: Performed By: #### B GLU #### [address] [address] Oxygen saturation in Blood 99.9 % Normal 95.0-100.0 [place], [place] Comment on above: Performed By: #### B GLU #### [address] [address] Potassium [Moles/Vol] 3.4 mmol/L Low 3.5-5.1 [place], [place] Comment on above: Performed By: #### B GLU #### [address] [address] Sodium [Moles/Vol] 142 mmol/L Normal 133-145 [place] Comment on above: Performed By: #### B GLU #### [address] [address] Beta-Hydroxybutyrateon 01-01 Beta-Hydroxybutyrate 9.56 mg/dL High 0.2 - 2 .81 mg/dL [place], [place] Interpretation and review of laboratory results Abnormal [place] Test Performed by [address] [address] [place], [place] Blood Gas, Arterialon 2019 Base Excess, Arterial -10.0 mmol/L Low -3 - 3 mmol/L [place] HCO3, Arterial 16.0 mmol/L Low 21 - 25 mmol/L [place] Hemoglobin (Bld) [Mass/Vol] 10.3 g/dL ScreenOnly [place], [place] Interpretation and review of laboratory results Abnormal [place] Oxygen saturation in Blood 98.8 % 95 - 100 % [place] pCO2, Arterial 35.8 mm[Hg] 35 - 45 mm[Hg] [place] pH, Arterial 7.269 Low [place] pO2, Arterial 262.4 mm[Hg] High 80 - 100 mm[Hg] [place] Sodium [Moles/Vol] No data [place] TCO2, Arterial 17.1 mmol/L Low 23 - 27 mmol/L [place] Test Performed by [facility], [address] [place] [address] [place], [place] Blood Gas, Venouson 01-02-20 20 Base Excess, Leonel -9.7 mmol/L Low -3 - 3 mmol/L [place] HCO3, Venous 16.3 mmol/L Low 23 - 27 mmol/L [place] Hemoglobin (Bld) [Mass/Vol] 10.3 g/dL ScreenOnly [place] Oxygen saturation in Blood 84.0 % 60 - 85 % [place] pCO2, Leonel 36.1 mm[Hg] Low 40 - 55 mm[Hg] [place] pH, Leonel 7.272 Low [place] pO2, Leonel 55.6 mm[Hg] High 30 - 50 mm[Hg] [place] Sodium [Moles/Vol] No data [place] TC02 (Calc), Leonel 17.4 mmol/L Low 24 - 28 mmol/L [place] Blood Gas,Venouson 0 FIO2 No data Normal [facility] Comment on above: Performed By: #### B GLU #### [address] [address] CBC Auto Differentialon 0 Absolute Neut # 15.3 10*3/uL High 1.8 - 7 10*3/uL [place], [place] CR Chest Portableon 01-02-20 20 CR Chest Portable Patient Name: JODEE LORENZO Diagnostic Radiology Exam Date/Time 01/02/2020 21:34:20 EST Exam CR Chest Portable Ordering Physician MD NEVA, GRACIE MOODY Accession Number [id number] CPT4 Codes 15161 () Reason For Exam ETT Placement Report SINGLE FRONTAL VIEW OF THE CHEST CLINICAL INDICATION: ETT Placement TECHNIQUE: Single frontal view of the chest COMPARISON: 01/02/2020 FINDINGS: Right central venous catheter tip is in the SVC. No pneumothorax seen. Endotracheal tube tip is 3.2 cm above the sherie. NG tube tip is not included on the film but is at least as far distal as the mid stomach. Low lung volumes. Perihilar atelectasis on the left. Heart size normal. IMPRESSION: 1. Perihilar atelectasis on the left. Tubes/lines as described. Report Dictated on Final Dictated: 01/02/2020 9:50 pm Dictating Physician: MD TAPIA JOHN R Signed Date and Time: 01/02/2020 9:51 pm Signed by: MD TAPIA JOHN R Transcribed Date and Time: 01/02/2020 9:50 Normal [facility] CR Chest Portable Patient Name: JODEE LORENZO Diagnostic Radiology Exam Date/Time 01/02/2020 18:44:06 EST Exam CR Chest Portable Ordering Physician MD HOOKS JOHN MATTHEW Accession Number [id number] CPT4 Codes 13619 () Reason For Exam SOB Report Reason for examination: Shortness of breath. A single view the chest is obtained at 1830 hours. The trachea is midline. The mediastinal cardiac silhouette are unremarkable. There is diffuse interstitial prominence. No confluent infiltrates, significant pleural effusion or pneumothorax is seen. There are degenerative changes of the thoracic spine. Report Dictated on Final Dictated: 01/02/2020 7:24 pm Dictating Physician: MD SHELTON LAUREN B Signed Date and Time: 01/02/2020 7:25 pm Signed by: MD SHELTON LAUREN B Transcribed Date and Time: 01/02/2020 7:24 Normal [facility] Comp Metabolic Panelon 01-01 ALT [Catalytic activity/Vol] 20 U/L Normal 0-34 [facility] Comment on above: Result Comment: The ALT test is performed by an updated assay method. Please note that the reference intervals have been changed and are now sex specific. Performed By: #### B GLU #### [facility] [address] [place], [place] Calcium [Mass/Vol] 7.7 mg/dL Low 8.4-10.4 [facility] Comment on above: Performed By: #### B GLU #### [facility] [address] [place], [place] ALP [Catalytic activity/Vol] 177 U/L High 38-126 [facility] Comment on above: Result Comment: Mode rately hemolysed, interpret with caution. Performed By: #### B GLU #### [facility] [address] [place], [place] Anion gap [Moles/Vol] 21 Normal [facility] Comment on above: Performed By: #### B GLU #### [facility] [address] [place], [place] AST [Catalytic activity/Vol] 52 U/L High 15-46 [facility] Comment on above: Result Comment: Mode rately hemolysed, interpret with caution. Performed By: #### B GLU #### [facility] [address] [place], [place] Bilirubin [Mass/Vol] 0.8 mg/dL Normal 0.2-1.3 [facility] Comment on above: Result Comment: Mode rately hemolysed, interpret with caution. Performed By: #### B GLU #### [facility] [address] [place], [place] CO2 [Moles/Vol] 10 mmol/L Low 22-30 [facility] Comment on above: Performed By: #### B GLU #### [facility] [address] [place], [place] Creatinine [Mass/Vol] 2.32 mg/dL High 0.52-1.25 [facility] Comment on above: Performed By: #### B GLU #### [facility] [address] [place], [place] GFR/1.73 sq M predicted among blacks MDRD (S/P/Bld) [Vol rate/Area] 22.6 mL/min/{1.73_m2} Abnormal >60 [facility] Comment on above: Performed By: #### B GLU #### [place] [address] [place] [address] GFR/1.73 sq M predicted among non-blacks MDRD (S/P/Bld) [Vol rate/Area] 19.5 mL/min/{1.73_m2} Abnormal >60 [facility] Comment on above: Result Comment: KDIG O guidelines provide the following GFR categories: Stage GFR(ml/min/1.73 m2) Terms G1 >=90 Normal or high G2 60-89 Mildly decreased* G3a 45-59 Mildly to moderately decreased G3b 30-44 Moderately to severely decreased G4 15-29 Severely decreased G5 <15 Kidney failure *Relative to young adult level. In the absence of evidence of kidney damage, neither GFR category G1 nor G2 fulfill the criteria for CKD. The CKD-EPI equation is validated in individuals 18 years of age and older. Currently the best equation for estimating glomerular filtration rate (GFR) from serum creatinine in children is the Bedside Andrews equation. It is less accurate in patients with extremes of muscle mass, restriction of dietary protein, ingestion of creatine, extra-renal metabolism of creatinine, or treatment with medications that affect renal tubular creatinine secretion. Performed By: #### B GLU #### [place] [address] [place], [place] Glucose [Mass/Vol] 179 mg/dL High 70-100 [facility] Comment on above: Result Comment: Mode rately hemolysed, interpret with caution. Performed By: #### B GLU #### [place] [address] [place], [place] Protein [Mass/Vol] 7.0 g/dL Normal 6.3-8.2 [facility] Comment on above: Result Comment: Mode rately hemolysed, interpret with caution. Performed By: #### B GLU #### [place] [address] [place], [place] Urea nitrogen [Mass/Vol] 35 mg/dL High 7-20 [facility] Comment on above: Performed By: #### B GLU #### [place] [address] [place], [place] Potassium [Moles/Vol] 5.1 mmol/L Normal 3.5-5.1 [facility] Comment on above: Result Comment: Mode rately hemolysed, interpret with caution. Performed By: #### B GLU #### [place] [address] [place], [place] Albumin [Mass/Vol] 3.7 g/dL Normal 3.5-5.0 [facility] Comment on above: Result Comment: Mode rately hemolysed, interpret with caution. Performed By: #### B GLU #### [place] [address] [place], [place] Chloride [Moles/Vol] 112 mmol/L High 98-107 [facility] Comment on above: Performed By: #### B GLU #### [place] [address] [place], [place] Sodium [Moles/Vol] 143 mmol/L Normal 135-145 [facility] Comment on above: Performed By: #### B GLU #### [place] [address] [place], [place] Complete Urinalysison 2019 Appearance (U) Ex.Turbid Abnormal Clear [facility] Comment on above: Result Comment: . Performed By: #### T SGL #### [address] Bacteria LM.HPF (Urine sed) [#/Area] Many Abnormal Negative [facility] Comment on above: Result Comment: . Performed By: #### T SGL #### [place] [address] Bilirubin,Urine Negative Normal Negative [facility] Comment on above: Result Comment: . Performed By: #### T SGL #### [place] [address] Cast, Hyaline Negative Normal Negative [facility] Comment on above: Result Comment: . Performed By: #### T SGL #### [place] [address] Color (U) Yellow Normal Lt. Yellow [facility] Comment on above: Result Comment: . Performed By: #### T SGL #### [facility] [address] Glucose Ql (U) Normal Normal Normal (<70) [facility] Comment on above: Result Comment: . Performed By: #### T SGL #### [facility] [address] Ketone,Urine Trace Abnormal Negative [facility] Comment on above: Result Comment: . Performed By: #### T SGL #### [place] [address] Leukocytes,Urine 250 Marylin/uL Abnormal Negative [facility] Comment on above: Result Comment: . Performed By: #### T SGL #### [place] [address] Nitrites,Urine Positive Abnormal Negative [facility] Comment on above: Result Comment: . Performed By: #### T SGL #### [place] [address] Occult Blood,Urine 1.0 mg/dL Abnormal Negative [facility] Comment on above: Result Comment: . Performed By: #### T SGL #### [place] [address] pH (U) 5.5 Normal 5.0-8.0 [facility] Comment on above: Result Comment: . Performed By: #### T SGL #### [place] [address] Protein (U) [Mass/Vol] 100 mg/dL Abnormal Negative [facility] Comment on above: Result Comment: . Performed By: #### T SGL #### [place] [address] RBC LM.HPF (Urine sed) [#/Area] 11 - 25 Abnormal 0-2 [facility] Comment on above: Result Comment: . Performed By: #### T SGL #### [place] [address] Specific Ty Ty,Urine 1.016 Normal 1.005 - 1.030 [facility] Comment on above: Result Comment: . Performed By: #### T SGL #### [facility] [address] Squamous Epithelial 0 - 2 Normal 3-5 [facility] Comment on above: Result Comment: . Performed By: #### T SGL #### [facility] [address] Urobilinogen,Urine Normal Normal Normal (0-1) [facility] Comment on above: Result Comment: . Performed By: #### T SGL #### [place] [address] WBC LM.HPF (Urine sed) [#/Area] 11 - 25 Abnormal 0-5 [facility] Comment on above: Result Comment: . Performed By: #### T SGL #### [place] [address] Comprehensive Metabolic Pane emanuel 01-02-2020 Albumin [Mass/Vol] 3.7 g/dL 3.5 - 5 g/dL [place] Comment on above: Moderately hemolysed , interpret with caution. ALP [Catalytic activity/Vol] 177 U/L High 38 - 126 U/L [place] Comment on above: Moderately hemolysed , interpret with caution. ALT [Catalytic activity/Vol] 20 U/L 0 - 34 U/L [place] Comment on above: The ALT test is perf ormed by an updated assay method. Please note that the reference intervals have been changed and are now sex specific. Anion gap [Moles/Vol] 21 mmol/L [place] AST [Catalytic activity/Vol] 52 U/L High 15 - 46 U/L [place] Comment on above: Moderately hemolysed , interpret with caution. Bilirubin Ql (U) 0.8 mg/dL 0.2 - 1.3 mg/dL [place] Comment on above: Moderately hemolysed , interpret with caution. Calcium [Mass/Vol] 7.7 mg/dL Low 8.4 - 10. 4 mg/dL [place] Chloride [Moles/Vol] 112 mmol/L High 98 - 10 7 mmol/L [place] CO2 [Moles/Vol] 10 mmol/L Low 22 - 30 mmol/L [place] Creatinine [Mass/Vol] 2.32 mg/dL High 0.52 - 1.25 mg/dL [place] EGFR IF NonAfrican Cameroonian 19.5 mL/min Abnormal >60 [place] Comment on above: KDIGO guidelines pro vide the following GFR categories: Stage GFR(ml/min/1.73 m2) Terms G1 >=90 Normal or high G2 60-89 Mildly decreased* G3a 45-59 Mildly to moderately decreased G3b 30-44 Moderately to severely decreased G4 15-29 Severely decreased G5 <15 Kidney failure *Relative to young adult level. In the absence of evidence of kidney damage, neither GFR category G1 nor G2 fulfill the criteria for CKD. The CKD-EPI equation is validated in individuals 18 years of age and older. Currently the best equation for estimating glomerular filtration rate (GFR) from serum creatinine in children is the Bedside Andrews equation. It is less accurate in patients with extremes of muscle mass, restriction of dietary protein, ingestion of creatine, extra-renal metabolism of creatinine, or treatment with medications that affect renal tubular creatinine secretion. GFR/1.73 sq M predicted among blacks MDRD (S/P/Bld) [Vol rate/Area] 22.6 mL/min/{1.73_m2} Abnormal >60 [place] Glucose [Mass/Vol] 179 mg/dL High 70 - 100 mg/dL [place] Comment on above: Moderately hemolysed , interpret with caution. Interpretation and review of laboratory results Abnormal [place] Potassium [Moles/Vol] 5.1 mmol/L 3.5 - 5.1 mmol/L [place] Comment on above: Moderately hemolysed , interpret with caution. Protein [Mass/Vol] 7.0 g/dL 6.3 - 8.2 g/dL [place] Comment on above: Moderately hemolysed , interpret with caution. Sodium [Moles/Vol] 143 mmol/L 135 - 145 mmol/L [place] Urea nitrogen [Mass/Vol] 35 mg/dL High 7 - 20 mg/dL [place] Test Performed by [facility], [address], [place] [address] [place] Creatinine, Random Urineon 1 03-03-2019 Creatinine (U) [Mass/Vol] 136.8 mg/dL No Range [place], [place] Creatinine, Ur Randomon 110 Creatinine, Ur Random 136.8 mg/dL Normal No Range [facility] Comment on above: Performed By: #### T SGL #### [place] [address] [address] [facility] [place] [place] [address] [facility] Folateon 01-02-2020 Folate 7.6 ng/mL 2.8 - 20 ng/mL [place] Hemogram w/ Autodiffon 01-01 Abs Baso Cnt 0.0 10*3/uL Normal 0.0-0.2 [facility] Comment on above: Performed By: #### B GLU #### [place] [address] [address] [place], [place] Abs Neutrophile Cnt 15.3 10*3/uL High 1.8-7.0 [facility] Comment on above: Performed By: #### B GLU #### [address] Basophils/100 WBC (Bld) 0.1 % Normal 0.0-2.0 [place] Comment on above: Performed By: #### B GLU #### [address] [place], [place] Eosinophils (Bld) [#/Vol] 0.0 10*3/uL Normal 0.0-0.5 [place] Comment on above: Performed By: #### B GLU #### [address] Eosinophils/100 WBC (Bld) 0.1 % Low 1.0-6.0 [place] Comment on above: Performed By: #### B GLU #### [address] Erythrocyte distribution width (RBC) [Ratio] 13.8 % Normal 11.5-14.5 [place] Comment on above: Performed By: #### B GLU #### [place] [address] [address] [place], [place] Granulocytes/100 WBC (Bld) 96.1 % High 40.0-80.0 [place] Comment on above: Performed By: #### B GLU #### [place] [address] [address] [place], [place] Hematocrit (Bld) [Volume fraction] 35.2 % Normal 35.0-47.0 [place] Comment on above: Performed By: #### B GLU #### [place] [address] [address] [place] Hemoglobin (Bld) [Mass/Vol] 11.4 g/dL Low 11.7-16.0 [place] Comment on above: Performed By: #### B GLU #### [place] [address] [address] [place], [place] Lymphocytes (Bld) [#/Vol] 0.5 10*3/uL Low 1.0-4.3 [place] Comment on above: Performed By: #### B GLU #### [place] [address] [address] [place] Lymphocytes/100 WBC (Bld) 3.0 % Low 20.0-40.0 [place] Comment on above: Performed By: #### B GLU #### [place] [address] [address] [place] MCH (RBC) [Entitic mass] 31.8 pg Normal 26.0-34.0 [place] Comment on above: Performed By: #### B GLU #### [place] [address] [address] [place] MCHC (RBC) [Mass/Vol] 32.5 % Normal 32.0-36.0 [place] Comment on above: Performed By: #### B GLU #### [place] [address] [address] [place] MCV (RBC) [Entitic vol] 98.0 fL Normal 79.0-98.0 [place] Comment on above: Performed By: #### B GLU #### [place] [address] [address] [place] Monocytes (Bld) [#/Vol] 0.1 10*3/uL Normal 0.0-0.8 [place] Comment on above: Performed By: #### B GLU #### [place] [address] [address] [place] Monocytes/100 WBC (Bld) 0.7 % Low 2.0-10.0 [place] Comment on above: Performed By: #### B GLU #### [place] [address] [address] [place] Platelet mean volume (Bld) [Entitic vol] 9.7 fL Normal 7.4-10.4 [place], [place] Comment on above: Performed By: #### B GLU #### [place] [address] [address] [place], [place] Platelets (Bld) [#/Vol] 123 10*3/uL Low 140-440 [place], [place] Comment on above: Performed By: #### B GLU #### [place] [address] [address] [place] RBC (Bld) [#/Vol] 3.59 10*6/uL Low 3.80-5.20 [place] Comment on above: Performed By: #### B GLU #### [place] [address] [address] [place], [place] WBC (Bld) [#/Vol] 15.9 10*3/uL High 3.6-10.7 [place] Comment on above: Performed By: #### B GLU #### [place] [address] [address] [place] Lactic Acidon 01-02-2020 Lactate [Moles/Vol] 6.8 mmol/L Critically high 0.7-2.0 [facility] Comment on above: Performed By: #### B GLU #### [facility] [address] [place] [address] Lactic Acid, Plasmaon 2019 Interpretation and review of laboratory results Abnormal [facility], [place] Lactate [Moles/Vol] 6.8 mmol/L Critically high 0.7 - 2 mmol/L [facility], [place] Test Performed by [facility], [place] [address] [facility], [place] Magnesiumon 01-02-2020 Magnesium [Mass/Vol] 1.0 mg/dL Low 1.6-2.3 [facility] Comment on above: Result Comment: Mode rately hemolysed, interpret with caution. Performed By: #### B GLU #### [facility] [address] [place] [address] Magnesium [Mass/Vol] 1.0 mg/dL Low 1.6 - 2 .3 mg/dL [place] Comment on above: Moderately hemolysed , interpret with caution. Otheron 01-02-2020 Test Performed by [facility], [facility] [place], [place] [id number] [place] [address], [place] Interpretation and review of laboratory results Abnormal [facility], [place] Test Performed by [facility], [address] [place] [id number] [place] [address], [place] Test Performed by [id number] [place] [address], [place] Interpretation and review of laboratory results Abnormal [facility], [place] Test Performed by [facility], [address] [place] [id number] [place] [address], [place] POC Arterial Respiratory Webb el - Rapid Responseon 01-02-2020 Base Excess, Arterial -14.1 mmol/L Low -3 - 3 mmol/L [facility], [place] HCO3, Arterial 10.5 mmol/L Low 21 - 25 mmol/L [facility], [place] Hematocrit (Bld) [Volume fraction] 31 % Low 38 - 51 % [facility], [place] Comment on above: Performed by CLIA ID : [id number] [place], [place] Interpretation and review of laboratory results Abnormal [place] pCO2, Arterial 21.2 mm[Hg] Low 35 - 45 mm[Hg] [place] pH, Arterial 7.303 Low [place] pO2, Arterial 332.7 mm[Hg] High 80 - 100 mm[Hg] [place] Sodium [Moles/Vol] 70 mmol/L [place] TCO2, Arterial 11.2 mmol/L Low 23 - 27 mmol/L [place] Test Performed by [facility], [address] [place] [address] [place] POCT Glucoseon 01-02-2020 Glucose [Mass/Vol] 274 mg/dL High 70 - 100 mg/dL [place], [place] Comment on above: Test performed by ucose meter. Results may be 10%-15% lower than serum/plasma values. (CLIA ID [id number]) Interpretation and review of laboratory results Abnormal [place] Test Performed by [address] [address] [place] Phosphoruson 01-02-2020 Phosphate [Mass/Vol] 5.7 mg/dL High 2.5-4.5 [facility] Comment on above: Result Comment: Mode rately hemolysed, interpret with caution. Performed By: #### B GLU #### [address] [address] Phosphate [Mass/Vol] 5.7 mg/dL High 2.5 - 4 .5 mg/dL [place] Comment on above: Moderately hemolysed , interpret with caution. Procalcitoninon 01-02-2020 Procalcitonin 128.03 ng/mL Abnormal <0.10 [place] Comment on above: Performed By: #### B GLU #### [address] [address] Sodium [Moles/Vol] See Below [place] Comment on above: PCT <0.50 = Low risk of severe sepsis and/or septic shock. PCT >2.00 = High risk of severe sepsis and/or septic shock. Interpretation See Below Normal [facility] Comment on above: Result Comment: PCT <0.50 = Low risk of severe sepsis and/or septic shock. PCT >2.00 = High risk of severe sepsis and/or septic shock. Performed By: #### B GLU #### [facility] [address] [place] [address] Protime AND APTTon 0 aPTT Coag (Bld) [Time] 34.5 s High 20.0-30.5 [facility] Comment on above: Result Comment: NOTE : The therapeutic time for Heparin anticoagulation, based on Xa activity inhibition, is an APTT of 46-80 seconds. Performed By: #### B GLU #### [place] [address] [place] [address] INR Coag (PPP) [Relative time] 1.3 High 0.9-1.1 [facility] Comment on above: Result Comment: Jace mmended Anticoagulant Therapy: SEE BELOW ----- INR of 2.0 - 3.0 : - Prophylaxis of Venous Thrombosis (high-risk surgery) - Treatment of Venous Thrombosis - Treatment of Pulmonary Embolism (Includes tissue heart valves, Acute Myocardial Infarction to prevent systemic embolism, Valvular Heart Disease, and Atrial Fibrillation) ----- INR of 2.5 - 3.5 : - Mechanical Prosthetic Valves (high risk) - If oral anticoagulant therapy is used to prevent Myocardial Infarction Performed By: #### B GLU #### [place] [address] [place] [address] PT Coag (PPP) [Time] 14.0 s High 9.0-12.0 [facility] Comment on above: Result Comment: . Performed By: #### B GLU #### [facility] [address] [place] [address] Protime/INR & PTTon 01-02-20 20 aPTT Coag (Bld) [Time] 34.5 s High 20 - 30.5 s [facility], [place] Comment on above: NOTE: The therapeuti c time for Heparin anticoagulation, based on Xa activity inhibition, is an APTT of 46-80 seconds. INR Coag (PPP) [Relative time] 1.3 {INR} [place] Comment on above: Recommended Anticoag ulant Therapy: SEE BELOW ----- INR of 2.0 - 3.0 : - Prophylaxis of Venous Thrombosis (high-risk surgery) - Treatment of Venous Thrombosis - Treatment of Pulmonary Embolism (Includes tissue heart valves, Acute Myocardial Infarction to prevent systemic embolism, Valvular Heart Disease, and Atrial Fibrillation) ----- INR of 2.5 - 3.5 : - Mechanical Prosthetic Valves (high risk) - If oral anticoagulant therapy is used to prevent Myocardial Infarction Interpretation and review of laboratory results Abnormal [place] PT Coag (PPP) [Time] 14 s High 9 - 12 s [place], [place] Comment on above: . Test Performed by [facility], [address] [place] [address] Salicylateon 01-02-2020 Salicylate Lvl <1.0 0 - 20 mg/dL [place] Test Performed by [facility], [address] [place] [address] Sodium, Ur Randomon 01-02-20 20 Sodium [Moles/Vol] 75 mmol/L Normal 30-90 [facility] Comment on above: Performed By: #### T SGL #### [address] Sodium, urine, randomon Sodium (U) [Moles/Vol] 75 mmol/L 30 - 90 mmol/L [place] TS GELon 01-02-2020 TS GEL ABO Group: O Rh, Gel: POS Antibody Screen Gel: NEG Normal [facility] Comment on above: Performed By: #### T SGL #### [address] TYPE AND SCREENon 01-02-2020 Sodium [Moles/Vol] Positive [place] Sodium [Moles/Vol] Negative [place] Sodium [Moles/Vol] O [place] Test Performed by [facility], [address] [place] [address] Troponinon 01-02-2020 Interpretation and review of laboratory results Abnormal [place] Troponin I.cardiac [Mass/Vol] 0.727 ng/mL High 0 - 0.034 ng/mL [place] Comment on above: . Test Performed by [facility], [address] [place] [id number] [place] [address] Interpretation and review of laboratory results Abnormal [place] Troponin I.cardiac [Mass/Vol] 0.784 ng/mL High 0 - 0.034 ng/mL [place] Comment on above: Moderately hemolysed , interpret with caution. . Test Performed by [facility], [address] [place] [id number] [place] [address] Troponin Ion 01-02-2020 Troponin I.cardiac [Mass/Vol] 0.727 ng/mL High 0.000-0.034 [facility] Comment on above: Result Comment: . Performed By: #### B GLU #### [place] [address] [place] Troponin I.cardiac [Mass/Vol] 0.784 ng/mL High 0.000-0.034 [facility] Comment on above: Result Comment: Mode rately hemolysed, interpret with caution. . Performed By: #### B GLU #### [address] [address] Urinalysison 01-02-2020 Appearance (U) Ex.Turbid Abnormal Clear NA [place] Comment on above: . Bacteria, UA Many Abnormal Negative /[HPF] [place] Comment on above: . Bilirubin Urine Negative Negative mg/dL [place] Comment on above: . Color (U) Yellow Lt. Yellow NA [place] Comment on above: . Glucose, Ur Normal Normal (<70) mg/dL [place] Comment on above: . Hyaline Casts, UA Negative Negative /[LPF] [place] Comment on above: . Interpretation and review of laboratory results Abnormal [place] Ketones Ql (U) Trace Abnormal Negative mg/dL [place] Comment on above: . LEUKOCYTES, UA 250 Abnormal Negative Marylin/uL [place] Comment on above: . Nitrite, Urine Positive Abnormal Negative NA [place] Comment on above: . Occult Blood,Urine 1.0 mg/dL Abnormal Negative [place] Comment on above: . pH (U) 5.5 [pH] [place] Comment on above: . Protein (U) [Mass/Vol] 100 mg/dL Abnormal Negative [place] Comment on above: . RBC (U) [#/Vol] 11-25 Abnormal 0 - 2 /[HPF] [place] Comment on above: . Specific Ty Ty, Urine 1.016 [place] Comment on above: . Squam Epithel, UA 0-2 3 - 5 /[HPF] [place] Comment on above: . Urobilinogen, Urine Normal Normal ( 0-1) mg/dL [place] Comment on above: . WBC, UA 11-25 Abnormal 0 - 5 /[HPF] [place] Comment on above: . Test Performed by [facility], [facility] [employer] [place], [place] [id number] [place] [address] VOLATILE PANEL, SERUMon 11-0 Acetone, Serum Quant NONE DETECTED 0 - 20 mg/dL [place] Comment on above: Toxic>20 Reporting Limit 5 mg/dL NOTE:These results are for medical treatment only. Analysis performed using non-forensic procedures. Ethanol [Mass/Vol] NONE DETECTED [place] Comment on above: Reporting limit 0.01g/dL NOTE:These results are for medical treatment only. Analysis performed using non-forensic procedures. Isopropanol NONE DETECTED mg/dL [place] Comment on above: Toxic>150 Reporting Limit 5 mg/dL NOTE:These results are for medical treatment only. Analysis performed using non-forensic procedures. Sodium [Moles/Vol] NONE DETECTED [place] Comment on above: Toxic >20 mg/dL Reporting Limit 5 mg/dL NOTE:These results are for medical treatment only. Analysis performed using non-forensic procedures. Test Performed by [facility], [facility] [employer] [place], [place] [id number] [place] [address], [place] Vitamin B12on 01-02-2020 Cobalamin (Vitamin B12) [Mass/Vol] 184 pg/mL Low 239 - 931 pg/mL [place] Interpretation and review of laboratory results Abnormal [place] XR CHEST PORTABLEon 01-02-20 20 Patient Name: JODEE LORENZO ---Diagnostic Radiology--- Exam Date/Time 01/02/2020 21:34:20 EST Exam CR Chest Portable Ordering Physician MD HOOKS JOHN MATTHEW Accession Number [id number] CPT4 Codes 29317 () Reason For Exam ETT Placement Report SINGLE FRONTAL VIEW OF THE CHEST CLINICAL INDICATION: ETT Placement TECHNIQUE: Single frontal view of the chest COMPARISON: 01/02/2020 FINDINGS: Right central venous catheter tip is in the SVC. No pneumothorax seen. Endotracheal tube tip is 3.2 cm above the sherie. NG tube tip is not included on the film but is at least as far distal as the mid stomach. Low lung volumes. Perihilar atelectasis on the left. Heart size normal. IMPRESSION: 1. Perihilar atelectasis on the left. Tubes/lines as described. Report Dictated on --- Final --- Dictated: 01/02/2020 9:50 pm Dictating Physician: MD TAPIA JOHN R Signed Date and Time: 01/02/2020 9:51 pm Signed by: MD TAPIA JOHN R Transcribed Date and Time: 01/02/2020 9:50 [place] [facility] Incoming Radiology Results From [facility] - 01/02/2020 9:53 PM EST Patient Name: JODEE LORENZO ---Diagnostic Radiology--- Exam Date/Time 01/02/2020 21:34:20 EST Exam CR Chest Portable Ordering Physician MD HOOKS JOHN MATTHEW Accession Number [id number] CPT4 Codes 57748 () Reason For Exam ETT Placement Report SINGLE FRONTAL VIEW OF THE CHEST CLINICAL INDICATION: ETT Placement TECHNIQUE: Single frontal view of the chest COMPARISON: 01/02/2020 FINDINGS: Right central venous catheter tip is in the SVC. No pneumothorax seen. Endotracheal tube tip is 3.2 cm above the sherie. NG tube tip is not included on the film but is at least as far distal as the mid stomach. Low lung volumes. Perihilar atelectasis on the left. Heart size normal. IMPRESSION: 1. Perihilar atelectasis on the left. Tubes/lines as described. Report Dictated on --- Final --- Dictated: 01/02/2020 9:50 pm Dictating Physician: MD TAPIA JOHN R Signed Date and Time: 01/02/2020 9:51 pm Signed by: MD TAPIA JOHN R Transcribed Date and Time: 01/02/2020 9:50 [facility], [place] [facility], [facility] Incoming Radiology Results From [facility] - 01/02/2020 7:26 PM EST Patient Name: JODEE LORENZO ---Diagnostic Radiology--- Exam Date/Time 01/02/2020 18:44:06 EST Exam CR Chest Portable Ordering Physician MD NEVA, GRACIE MOODY Accession Number [id number] CPT4 Codes 96684 () Reason For Exam SOB Report Reason for examination: Shortness of breath. A single view the chest is obtained at 1830 hours. The trachea is midline. The mediastinal cardiac silhouette are unremarkable. There is diffuse interstitial prominence. No confluent infiltrates, significant pleural effusion or pneumothorax is seen. There are degenerative changes of the thoracic spine. Report Dictated on --- Final --- Dictated: 01/02/2020 7:24 pm Dictating Physician: MD SHELTON LAUREN B Signed Date and Time: 01/02/2020 7:25 pm Signed by: MD SHELTON LAUREN B Transcribed Date and Time: 01/02/2020 7:24 [facility], [place] Patient Name: JODEE LORENZO ---Diagnostic Radiology--- Exam Date/Time 01/02/2020 18:44:06 EST Exam CR Chest Portable Ordering Physician MD NEVA, GRACIE MOODY Accession Number [id number] CPT4 Codes 87050 () Reason For Exam SOB Report Reason for examination: Shortness of breath. A single view the chest is obtained at 1830 hours. The trachea is midline. The mediastinal cardiac silhouette are unremarkable. There is diffuse interstitial prominence. No confluent infiltrates, significant pleural effusion or pneumothorax is seen. There are degenerative changes of the thoracic spine. Report Dictated on --- Final --- Dictated: 01/02/2020 7:24 pm Dictating Physician: MD SHELTON LAUREN B Signed Date and Time: 01/02/2020 7:25 pm Signed by: MD SHELTON LAUREN B Transcribed Date and Time: 01/02/2020 7:24 [place] Vital Signs Date Time Vital Sign Value Performing Clinician Facility 07-30-2024 15:03-0400 Body height 152.[address] Lorelei Herrera MD Work Phone: [facility] 07-30-2024 15:03-0400 Body mass index (BMI) [Ratio] 30.8 kg/m2 Dr. Lorelei Herrera MD Work Phone: [facility] 07-30-2024 15:03-0400 Body weight 71.[address] Lorelei Herrera MD Work Phone: [facility] 11-29-2022 09:24-0400 Body height 152.4 cm [facility] 08-08-2022 13:55-0400 Body height 154.94 cm Lorelei Herrera Work Phone: [id number] Work Phone: 08-08-2022 13:55-0400 Body mass index (BMI) [Ratio] 32.69 kg/m2 Lorelei Herrera Work Phone: SP-Yxkxjzs-Hnwentu Work Phone: 08-08-2022 13:55-0400 Body surface area Derived from formula 1.78 m2 Lorelei Herrera Work Phone: WU-Pewqbdn-Qtofupp Work Phone: 08-08-2022 13:55-0400 Body weight 78.47 kg Lorelei S Jolliff Work Phone: US-Hbxcple-Snbftld Work Phone: 08-08-2022 13:55-0400 Diastolic blood pressure 81 mm[Hg] Lorelei S Jolliff Work Phone: LB-Maytyow-Djyqaku Work Phone: 08-08-2022 13:55-0400 Heart rate 91 /min Lorelei S Jolliff Work Phone: QD-Nitmmmm-Cejjukp Work Phone: 08-08-2022 13:55-0400 Systolic blood pressure 151 mm[Hg] Lorelei S Jolliff Work Phone: UL-Tafumrm-Lubneyl Work Phone: 08-09-2021 08:48-0400 Body height 152.4 cm Lorelei S Jolliff Work Phone: VQ-Lgcppdg-Ctnhpmn Work Phone: 08-09-2021 08:48-0400 Body mass index (BMI) [Ratio] 35.15 kg/m2 Lorelei S Jolliff Work Phone: YU-Suvhlru-Yfxxkpr Work Phone: 08-09-2021 08:48-0400 Body surface area Derived from formula 1.78 m2 Lorelei S Jolliff Work Phone: MZ-Tpgjbxb-Uoqmdhq Work Phone: 08-09-2021 08:48-0400 Body weight 81.65 kg Lorelei S Jolliff Work Phone: YU-Yqhrvud-Csazlxb Work Phone: 08-09-2021 08:48-0400 Diastolic blood pressure 74 mm[Hg] Lorelei S Jolliff Work Phone: QM-Hiurmrg-Znodmbg Work Phone: 08-09-2021 08:48-0400 Systolic blood pressure 158 mm[Hg] Lorelei S Jolliff Work Phone: QA-Kqzirzc-Qupcfbc Work Phone: 09-21-2020 10:15-0400 Body height 152.4 cm Lorelei S Jolliff Work Phone: JL-Hxlximl-Qncrgmf Work Phone: 09-21-2020 10:15-0400 Body mass index (BMI) [Ratio] 35.54 kg/m2 Lorelei S Jolliff Work Phone: II-Tqoixrr-Jexypra Work Phone: 09-21-2020 10:15-0400 Body surface area Derived from formula 1.79 m2 Lorelei S Jolliff Work Phone: DX-Fevhtes-Yzdvtag Work Phone: 09-21-2020 10:15-0400 Body weight 82.56 kg Lorelei S Jolliff Work Phone: YD-Ejrvwwj-Ikafaqf Work Phone: 09-21-2020 10:15-0400 Diastolic blood pressure 101 mm[Hg] Lorelei S Jolliff Work Phone: UF-Iaopglb-Xwthgkk Work Phone: 09-21-2020 10:15-0400 Heart rate 68 /min Lorelei S Jolliff Work Phone: AV-Kcisyop-Ikhglvg Work Phone: 09-21-2020 10:15-0400 Systolic blood pressure 168 mm[Hg] Lorelei S Jolliff Work Phone: ED-Koihyvc-Xmmilnj Work Phone: 08-10-2020 10:51-0400 Body height 152.4 cm Lorelei S Jolliff Work Phone: LI-Qqoqudq-Nszqshd Work Phone: 08-10-2020 10:51-0400 Body mass index (BMI) [Ratio] 35.35 kg/m2 Lorelei S Jolliff Work Phone: YE-Kulentv-Kgjdpwy Work Phone: 08-10-2020 10:51-0400 Body surface area Derived from formula 1.79 m2 Lorelei S Jolliff Work Phone: CC-Iseheod-Osikkzi Work Phone: 08-10-2020 10:51-0400 Body weight 82.1 kg Lorelei S Jolliff Work Phone: OZ-Pqkrzbn-Kdwunrr Work Phone: 08-10-2020 10:51-0400 Diastolic blood pressure 96 mm[Hg] Lorelei S Jolliff Work Phone: PR-Pchkems-Quguqqy Work Phone: 08-10-2020 10:51-0400 Heart rate 84 /min Lorelei S Jolliff Work Phone: ST-Knezmta-Upqmwid Work Phone: 08-10-2020 10:51-0400 Systolic blood pressure 168 mm[Hg] Lorelei S Jolliff Work Phone: HD-Bltsgmy-Obmdkib Work Phone: 04-20-2020 15:42-0500 BMI (Body Mass Index) 35.2 kg/m2 Gracie Baker II MP-Urology -[facility] Work Phone: 04-20-2020 15:42-0500 Body weight 81.76 kg Gracie Baker II EZ-Hceyiqy-Bjtbr nd Work Phone: 04-20-2020 15:42-0500 BSA (Body Surface Area) 1.79 m2 Gracie Baker II HI-Wmvrxuv-Oatteov Work Phone: 04-20-2020 15:42-0500 Height 152.4 cm Gracie Baker II CI-Ylaebci-Xdzco nd Work Phone: 01-27-2020 14:15-0500 Body Temperature 97.2 [degF] Min Christie [facility] [place], [place] 01-27-2020 14:15-0500 BP Diastolic 64 mm[Hg] Min Christie [facility] , [place] 01-27-2020 14:15-0500 BP Systolic 130 mm[Hg] Min Christie [facility] , [place] 01-27-2020 14:15-0500 Pulse (Heart Rate) 73 /[facility] [place] 01-27-2020 14:15-0500 Pulse [facility]xim[facility] 94 % [facility] [place] 01-27-2020 14:15-0500 Respiratory Rate 20 [facility] [place] 01-27-2020 09:40-0500 BMI (Body Mass Index) 35.14 kg/m2 Min Redmond [facility], [place] 01-27-2020 09:40-0500 Body weight 84.37 kg Min Christie [facility] , [place] 01-27-2020 09:40-0500 [facility] 154.9 [facility] [place] 01-08-2020 11:31-0500 Body Temperature 99.61 [degF] [facility] [place] 01-08-2020 11:31-0500 BP Diastolic 74 mm[Hg[facility] [place] 01-08-2020 11:31-0500 BP Systolic 118 mm[Hg] [facility] [place] 01-08-2020 11:31-0500 Pulse (Heart Rate) 77 /min [facility] [place] 01-08-2020 11:31-0500 Pulse Oximetry 94 % [facility] [place] 01-08-2020 11:31-0500 Respiratory Rate 26 /min [facility] [place] 01-08-2020 06:04-0500 BMI (Body Mass Index) 37.91 kg/m2 En Redmond [facility], [place] 01-08-2020 06:04-0500 Body weight 91 kg En Rodríguez [facility] , [place] 01-07-2020 15:15-0500 Height 154.9 cm [place] Encounters Encounter Date Encounter Type Care Provider Facility Start: 10-09-2024 End: 10-09-2024 Emergency department patient visit VJ SAVAGEKE Facility:[facility] Start: 07-30-2024 End: 07-30-2024 Patient encounter procedure Marium GODFREY [facility] Work Phone: Start: 07-30-2024 End: 07-30-2024 ambulatory Marium Salehk Facility[place] Start: 07-13-2024 End: 07-13-[address] Vj Figueroa MD -Radiology [place] Work Phone: Start: 07-13-2024 End: 07-13-2024 ambulatory [facility] Facility:[facility] Start: 05-27-2024 End: 05-27-[address] Lorelei Herrera MD Work Phone: [facility] Work Phone: Start: 05-27-2024 End: 05-27-[address] Lorelei Herrera MD -Physical Therapy Work Phone: Start: 01-20-2024 End: 01-20-2024 ambulatory Lorelei Herrera Facility:[facility] Start: 11-04-2023 End: 11-04-2023 ambulatory Lorelei Herrera Facility:[facility] Start: 01-07-2023 End: 01-07-2023 ambulatory [facility] Work Phone: Start: 01-07-2023 End: 01-07-2023 Patient encounter procedure [facility]-Laboratory, [facility] Start: 11-29-2022 End: 11-29-2022 Patient encounter procedure [facility]-Outpatient Bone Densitometry Work Phone: Start: 09-10-2022 AUDIT Lorelei Herrera Work Phone: EN-Cjgipmz-Ufynkif Work Phone: Start: 08-13-2022 Chart Update Lorelei Herrera Work Phone: WS-Kyrpvdp-Hfvaatby HC 232 DO Work Phone: Start: 08-08-2022 Office outpatient visit 15 minutes Lorelei S Jolliff Work Phone: VN-Niaofiz-Mhzvjog Work Phone: Start: 08-08-[address] Lorelei Herrera Facility:[id number] Start: 03-09-2022 AUDIT Lorelei Alberto Jolliff Work Phone: JV-Mwxdzjp-Fqurbsg Work Phone: Start: 10-02-2021 End: 10-02-2021 Patient encounter procedure [facility]-Outpatient Breast Imaging Start: 09-18-2021 AUDIT Lorelei Alberto Jolliff Work Phone: SC-Fulaovd-Btcweux Work Phone: Start: 08-10-2021 Chart Update Lorelei Alberto Jolliff Work Phone: CP-Dcpqoux-Iuxqpoki HC 232 DO Work Phone: Start: 08-09-2021 Office outpatient visit 25 minutes Lorelei Alberto Jolliff Work Phone: BI-Qceeruw-Cjccwsx Work Phone: Start: 09-23-2020 AUDIT Lorelei Alberto Jolliff Work Phone: WV-Ixgcjep-Jfiplwn Work Phone: Start: 09-21-2020 Office outpatient visit 15 minutes Lorelei Alberto Jolliff Work Phone: ME-Pzmyzuc-Ddazvav Work Phone: Start: 08-22-2020 AUDIT Lorelei S Jolliff Work Phone: RN-Ihfnmgh-Ujvjjcq Work Phone: Start: 08-15-2020 AUDIT Lorelei S Jolliff Work Phone: OQ-Oxwjffo-Skdxcka Work Phone: Start: 08-10-2020 Office outpatient visit 15 minutes Lorelei S Jolliff Work Phone: CX-Nylargy-Tovbkan Work Phone: Start: 04-20-2020 Patient encounter procedure Gracie Baker II AI-Gvkxkli-Zaktglr Work Phone: Start: 03-21-2020 Office outpatient ne w 30 minutes Lorelei Herrera Work Phone: LV-Zbjxspy-Taluoqz Work Phone: Start: 03-21-2020 Patient encounter procedure Gracie Baker II FA-Cwzkwkw-Zycdnel Work Phone: Start: 03-03-2020 End: 03-03-2020 Subsequent hospital visit by physician Alexa Dang Work Phone: 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 Lorelei Herrera MD Work Phone: Start: 11-29-2022 Dual energy X-ray absorptiometry Start: 11-29-2022 Screening mammography Start: 10-02-2021 Screening mammography Start: 04-20-2020 Ct abdomen & pelvis w/o contrast material Gracie Baker II Start: 03-03-2020 Radiologic exam abdo men 1 view Alexa Dang Work Phone: Start: 01-27-2020 Gluc bld gluc mntr d ev cleared fda spec home use Min Christie Work Phone: Start: 01-27-2020 Gluc bld gluc mntr d ev cleared fda spec home use Min Christie Work Phone: Start: 01-08-2020 Microscopic examinat ion of blood, culture Comment on above: Order Comment: Speci men Source Comment:Blood Performed By: #### B GLU #### [facility] [address] [id number] Start: 01-08-2020 Gluc bld gluc mntr d ev cleared fda spec home use En Rodríguez Work Phone: Start: 01-08-2020 HOME O2 EVAL (DESATU RATION SCREEN) Jay Mariscal Work Phone: Start: 01-08-2020 Gluc bld gluc mntr d ev cleared fda spec home use En Rodríguez Work Phone: Start: 01-08-2020 Assay of magnesium Aida a Che [place] Work Phone: Start: 01-08-2020 Assay of phosphorus inorganic Delmis Bolton [place] Work Phone: Start: 01-08-2020 BASIC METABOLIC PANE L W/ REFLEX TO MG FOR LOW K Delmis Bolton [place] Work Phone: Start: 01-08-2020 Blood count complete auto&auto difrntl wbc Delmis Bolton [place] Work Phone: Start: 01-08-2020 Calcium ionized Delmis Bolton [place] Work Phone: Start: 01-08-2020 MANUAL DIFFERENTIAL Vadim Bolton [place] Work Phone: Start: 01-07-2020 Microscopic examinat ion of blood, culture Comment on above: Order Comment: Speci men Source Comment:Blood AEROBIC ONLY Performed By: #### B GLU #### [facility] [address] [place] [id number] Start: 01-07-2020 Gluc bld gluc mntr d ev cleared fda spec home use En Dkdilma Work Phone: Start: 01-07-2020 Gluc bld gluc mntr d ev cleared fda spec home use En Dkdilma Work Phone: Start: 01-07-2020 Gluc bld gluc mntr d ev cleared fda spec home use En Rodríguez Work Phone: Start: 01-07-2020 Assay of magnesium Aida a Che [place] Work Phone: Start: 01-07-2020 Assay of phosphorus inorganic Delmis Bolton [place] Work Phone: Start: 01-07-2020 BASIC METABOLIC PANE L W/ REFLEX TO MG FOR LOW K Delmis Kahn Work Phone: Start: 01-07-2020 Calcium ionized Delmis Kahn Work Phone: Start: 01-07-2020 Blood count complete auto&auto difrntl wbc Delmis Kahn Work Phone: Start: 01-07-2020 MANUAL DIFFERENTIAL Vadim Kahn Work Phone: Start: 01-07-2020 Gluc bld gluc mntr d ev cleared fda spec home use [employer] Work Phone: Start: 01-06-2020 Gluc bld gluc mntr d ev cleared fda spec home use [employer] Work Phone: Start: 01-06-2020 Gluc bld gluc mntr d ev cleared fda spec home use C[employer] Work Phone: Start: 01-06-2020 Assay of phosphorus inorganic Jay [employer] Work Phone: Start: 01-06-2020 Potassium serum plasma/whole blood Jay SuárezRigUptasha Work Phone: Start: 01-06-2020 Special treatments a nd procedures Alejandra Watson Work Phone: Start: 01-06-2020 Gluc bld gluc mntr d ev cleared fda spec home use En [employer] Work Phone: Start: 01-06-2020 Assay of haptoglobin quantitative Rica Gamboa Work Phone: Start: 01-06-2020 Blood count complete auto&auto difrntl wbc Rica Gamboa Work Phone: Start: 01-06-2020 Blood smear peripher al interp phys w/writ report Rica Gamboa Work Phone: Start: 01-06-2020 Lactate dehydrogenase ldh Rica Gamboa Work Phone: Start: 01-06-2020 Level iv surg pathol ogy gross&microscopic exam Rica Gamboa Work Phone: Start: 01-06-2020 MANUAL DIFFERENTIAL Deana Oconnell [employer] Work Phone: Start: 01-06-2020 Prothrombin time Alejandra Aguiar Alyrogerio Work Phone: Start: 01-06-2020 Gluc bld gluc mntr d ev cleared fda spec home use En Rodríguez Work Phone: Start: 01-06-2020 Assay of magnesium Aida a Che [employer] Work Phone: Start: 01-06-2020 Assay of phosphorus inorganic Delmis Bolton [place] Work Phone: Start: 01-06-2020 BASIC METABOLIC PANE L W/ REFLEX TO MG FOR LOW K Delmis Bolton [employer] Work Phone: Start: 01-06-2020 Blood count complete auto&auto difrntl wbc Delmis Bolotn [employer] Work Phone: Start: 01-06-2020 Calcium ionized Delmis Bolton [employer] Work Phone: Start: 01-06-2020 MANUAL DIFFERENTIAL Ace Hooks Work Phone: Start: 01-05-2020 Gluc bld gluc mntr d ev cleared fda spec home use En Rodríguez Work Phone: Start: 01-05-2020 Gluc bld gluc mntr d ev cleared fda spec home use En Rodríguez Work Phone: Start: 01-05-2020 End: 01-05-2020 Gluc bld gluc mntr dev cleared fda spec home use En Rodríguez Work Phone: Start: 01-05-2020 Gluc bld gluc mntr d ev cleared fda spec home use En Rodríguez Work Phone: Start: 01-05-2020 Gluc bld gluc mntr d ev cleared fda spec home use En Rodríguez Work Phone: Start: 01-05-2020 ADD ON LAB TEST Amanda damico Work Phone: Start: 01-05-2020 End: 01-05-2020 Gluc bld gluc mntr dev cleared fda spec home use En Rodríguez Work Phone: Start: 01-05-2020 End: 01-05-2020 Gluc bld gluc mntr dev cleared fda spec home use En Rodríguez Work Phone: Start: 01-05-2020 Assay of magnesium Aida Bolton [employer] Work Phone: Start: 01-05-2020 Assay of phosphorus inorganic Delmis Bolton [employer] Work Phone: Start: 01-05-2020 BASIC METABOLIC PANE L W/ REFLEX TO MG FOR LOW K Delmis Bolton [employer] Work Phone: Start: 01-05-2020 Blood count complete auto&auto difrntl wbc Delmis Bolton [employer] Work Phone: Start: 01-05-2020 BLOOD GAS, ARTERIAL Bra navan [employer] Work Phone: Start: 01-05-2020 Calcium ionized Branava n [employer] Work Phone: Start: 01-05-2020 Hepatic function panel Gracie Hooks Work Phone: Start: 01-05-2020 Ketone bodies serum quantitative Gracie Hooks Work Phone: Start: 01-05-2020 MANUAL DIFFERENTIAL Ace kylee Hooks Work Phone: Start: 01-05-2020 Gluc bld gluc mntr d ev cleared fda spec home use En Rootdilma Work Phone: Start: 01-05-2020 End: 01-05-2020 Gluc bld gluc mntr dev cleared fda spec home use En Rootdilma Work Phone: Start: 01-05-2020 Gluc bld gluc mntr d ev cleared fda spec home use En Rodríguez Work Phone: Start: 01-05-2020 WAREHOUSE PULLER CLINICAL BEDSIDE SWALLOW EVALUATION & TREATMENT Ines Trujillo Work Phone: Start: 01-05-2020 Gluc bld gluc mntr d ev cleared fda spec home use En Rodríguez Work Phone: Start: 01-04-2020 End: 01-04-2020 Gluc bld gluc mntr dev cleared fda spec home use En [employer] Work Phone: Start: 01-04-2020 Basic metabolic pane l calcium total My Aden Work Phone: Start: 01-04-2020 Gluc bld gluc mntr d ev cleared fda spec home use En [employer] Work Phone: Start: 01-04-2020 End: 01-04-2020 Gluc bld gluc mntr dev cleared fda spec home use En [employer] Work Phone: Start: 01-04-2020 Gluc bld gluc mntr d ev cleared fda spec home use En [employer] Work Phone: Start: 01-04-2020 End: 01-04-2020 Gluc bld gluc mntr dev cleared fda spec home use En [employer] Work Phone: Start: 01-04-2020 End: 01-04-2020 Gluc bld gluc mntr dev cleared fda spec home use En [employer] Work Phone: Start: 01-04-2020 EXTUBATION Ines Balta diqui Work Phone: Start: 01-04-2020 Assay of osmolality urine My Aden Work Phone: Start: 01-04-2020 Assay of urea nitrog en urine My Aden Work Phone: Start: 01-04-2020 Assay of urine sodium B ke Aden Work Phone: Start: 01-04-2020 Creatinine other source My Aden Work Phone: Start: 01-04-2020 End: 01-04-2020 Assay of lactate Gracie Hooks Work Phone: Start: 01-04-2020 Assay of magnesium Aida a F [place] Work Phone: Start: 01-04-2020 Assay of phosphorus inorganic Delmis F [place] Work Phone: Start: 01-04-2020 BASIC METABOLIC PANE L W/ REFLEX TO MG FOR LOW K Delmis Kahn Work Phone: Start: 01-04-2020 End: 01-04-2020 Blood count complete auto&auto difrntl wbc Gracie Hooks Work Phone: Start: 01-04-2020 End: 01-04-2020 BLOOD GAS, ARTERIAL My Aden Work Phone: Start: 01-04-2020 End: 01-04-2020 Calcium ionized Gracie Hooks Work Phone: Start: 01-04-2020 End: 01-04-2020 MANUAL DIFFERENTIAL Gracie Hooks Work Phone: Start: 01-04-2020 Gluc bld gluc mntr d ev cleared fda spec home use En [employer] Work Phone: Start: 01-04-2020 End: 01-04-2020 Gluc bld gluc mntr dev cleared fda spec home use [employer] Work Phone: Start: 01-04-2020 End: 01-04-2020 Gluc bld gluc mntr dev cleared fda spec home use En [employer] Work Phone: Start: 01-04-2020 Smr prim src gram/gi emsa stain bct fungi/cell Gracie Hooks Work Phone: Start: 01-04-2020 Virus centrifuge enh ncd id imfluor stain ea Gracie Reyezanju Work Phone: Start: 01-04-2020 Basic metabolic pane l calcium total Gracie Hooks Work Phone: Start: 01-04-2020 Gluc bld gluc mntr d ev cleared fda spec home use [employer] Work Phone: Start: 01-04-2020 Gluc bld gluc mntr d ev cleared fda spec home use [employer] Work Phone: Start: 01-04-2020 End: 01-04-2020 Gluc bld gluc mntr dev cleared fda spec home use [employer] Work Phone: Start: 01-04-2020 Radiologic exam ches t single view Delmis Kahn Work Phone: Start: 01-04-2020 Gluc bld gluc mntr d ev cleared fda spec home use En Dkdilma Work Phone: Start: 01-04-2020 End: 01-04-2020 Gluc bld gluc mntr dev cleared fda spec home use En Dkraulagustin Work Phone: Start: 01-04-2020 Gluc bld gluc mntr d ev cleared fda spec home use En Dkdilma Work Phone: Start: 01-03-2020 End: 01-03-2020 Gluc bld gluc mntr dev cleared fda spec home use En Rodríguez Work Phone: Start: 01-03-2020 Assay of lactate Gracie Hooks Work Phone: Start: 01-03-2020 Basic metabolic pane l calcium total Gracie Lyonsmaster Hooks Work Phone: Start: 01-03-2020 Blood count complete auto&auto difrntl wbc Gracie Moody Neva Work Phone: Start: 01-03-2020 BLOOD GAS, ARTERIAL Bra zora Aden Work Phone: Start: 01-03-2020 Calcium ionized Gracie Dobson ttrommeljacki Reyezanju Work Phone: Start: 01-03-2020 MANUAL DIFFERENTIAL Ace kylee Heidy Neva Work Phone: Start: 01-03-2020 Gluc bld gluc mntr d ev cleared fda spec home use En Rodríguez Work Phone: Start: 01-03-2020 End: 01-03-2020 Gluc bld gluc mntr dev cleared fda spec home use En Rodríguez Work Phone: Start: 01-03-2020 Assay of lactate Gracie Hooks Work Phone: Start: 01-03-2020 End: 01-03-2020 Gluc bld gluc mntr dev cleared fda spec home use En Rodríguez Work Phone: Start: 01-03-2020 Basic metabolic pane l calcium total Gracie Hooks Work Phone: Start: 01-03-2020 Blood count complete auto&auto difrntl wbc Gracie Hooks Work Phone: Start: 01-03-2020 Calcium ionized Gracie Dobson ttalfonso Hooks Work Phone: Start: 01-03-2020 Ketone bodies serum quantitative Gracie Hooks Work Phone: Start: 01-03-2020 MANUAL DIFFERENTIAL Ace kylee Hooks Work Phone: Start: 01-03-2020 Gluc bld gluc mntr d ev cleared fda spec home use En [employer] Work Phone: Start: 01-03-2020 End: 01-03-2020 Gluc bld gluc mntr dev cleared fda spec home use En [facility] Work Phone: Start: 01-03-2020 Blood gases any combination ph pco2 po2 co2 hco3 Branavakylee [facility] Work Phone: Start: 01-03-2020 BLOOD GAS, ARTERIAL Bra darienrebecca [facility] Work Phone: Start: 01-03-2020 Assay of lactate Gracie Hooks Work Phone: Start: 01-03-2020 Gluc bld gluc mntr d ev cleared fda spec home use En Rodríguez Work Phone: Start: 01-03-2020 Gluc bld gluc mntr d ev cleared fda spec home use En Rodríguez Work Phone: Start: 01-03-2020 Iadna respiratry pro be & rev trnscr 02-18 target Gracie Hooks Work Phone: Start: 01-03-2020 End: 01-03-2020 Gluc bld gluc mntr dev cleared fda spec home use En Rodríguez Work Phone: Start: 01-03-2020 Assay of lactate Gracie Hooks Work Phone: Start: 01-03-2020 Assay of troponin quantitative Gracie Hooks Work Phone: Start: 01-03-2020 Basic metabolic pane l calcium total Gracie Hooks Work Phone: Start: 01-03-2020 Blood count complete auto&auto difrntl wbc Gracie Hooks Work Phone: Start: 01-03-2020 Calcium ionized Gracie Dobson tthew Neva Work Phone: Start: 01-03-2020 MANUAL DIFFERENTIAL Ace n Heidy Hooks Work Phone: Start: 01-03-2020 End: 01-03-2020 Gluc bld gluc mntr dev cleared fda spec home use [facility] [employer] Work Phone: Start: 01-03-2020 Radiologic exam ches t single view Delmis Kahn Work Phone: Start: 01-03-2020 Gluc bld gluc mntr d ev cleared fda spec home use [employer] Work Phone: Start: 01-03-2020 Assay of lactate Gracie Hooks Work Phone: Start: 01-03-2020 Assay of magnesium Aida a Che [employer] Work Phone: Start: 01-03-2020 Assay of phosphorus inorganic Delmis Bolton [employer] Work Phone: Start: 01-03-2020 BASIC METABOLIC PANE L W/ REFLEX TO MG FOR LOW K Delmis Kahn Work Phone: Start: 01-03-2020 Hemoglobin glycosyla solomon a1c Gracie Hooks Work Phone: Start: 01-03-2020 End: 01-03-2020 Gluc bld gluc mntr dev cleared fda spec home use En Rodríguez Work Phone: Start: 01-03-2020 Assay of lactate Gracie Hooks Work Phone: Start: 01-03-2020 Assay of troponin quantitative Gracie Hooks Work Phone: Start: 01-03-2020 Basic metabolic pane l calcium total Gracie Hooks Work Phone: Start: 01-03-2020 Blood count complete auto&auto difrntl wbc Delmis Kahn Work Phone: Start: 01-03-2020 BLOOD GAS, ARTERIAL Ace Hooks Work Phone: Start: 01-03-2020 MANUAL DIFFERENTIAL Ace Hooks Work Phone: Start: 01-02-2020 Gluc bld gluc mntr d ev cleared fda spec home use En Rodríguez Work Phone: Start: 01-02-2020 Culture bacterial an y source anaerobic iso&id En Rodríguez Work Phone: Start: 01-02-2020 Culture bacterial quanttative colony count urine En Rodríguez Work Phone: Start: 01-02-2020 Blood gases any combination ph pco2 po2 co2 hco3 Gracie Heidy Hooks Work Phone: Start: 01-02-2020 Radiologic exam ches t single view Gracie Heidy Hooks Work Phone: Start: 01-02-2020 Special treatments a nd procedures Bebeto Terence Work Phone: Start: 01-02-2020 Culture bacterial quanttative colony count urine Gracie Heidy Hook[employer] Work Phone: Start: 01-02-2020 Iaad ia mult step me thod nos each organism Gracie Hooks Work Phone: Start: 01-02-2020 STREP PNEUMONIAE ANTIGEN Gracie Hooks Work Phone: Start: 01-02-2020 Assay of urine sodium J ohn Heidy Hooks Work Phone: Start: 01-02-2020 Creatinine other source Gracie Hooks Work Phone: Start: 01-02-2020 Urnls dip stick/tabl et rgnt auto w/o microscopy Gracie Hooks Work Phone: Start: 01-02-2020 Assay of acetaminophen Gracie Hooks Work Phone: Start: 01-02-2020 Assay of folic acid serum Gracie Hooks Work Phone: Start: 01-02-2020 Assay of salicylate Ace Hooks Work Phone: Start: 01-02-2020 Assay of troponin quantitative Gracie Hooks Work Phone: Start: 01-02-2020 BLOOD GAS, ARTERIAL Ace Hooks Work Phone: Start: 01-02-2020 Cyanocobalamin vitam in b-12 Gracie Hooks Work Phone: Start: 01-02-2020 Ketone bodies serum quantitative Gracie Hooks Work Phone: Start: 01-02-2020 VOLATILE PANEL, SERUM J nashkylee Heidy Hooks Work Phone: Start: 01-02-2020 POC ARTERIAL REPIRAT ORY PANEL - RAPID RESPONSE En Rodríguez Work Phone: Start: 01-02-2020 Blood typing serologic abo Gracie Hooks Work Phone: Start: 01-02-2020 Assay of lactate Gracie Hooks Work Phone: Start: 01-02-2020 Assay of magnesium Gracie Hooks Work Phone: Start: 01-02-2020 Assay of phosphorus inorganic Gracie Hooks Work Phone: Start: 01-02-2020 Assay of troponin quantitative Gracie Hooks Work Phone: Start: 01-02-2020 Blood count complete auto&auto difrntl wbc Gracie Hooks Work Phone: Start: 01-02-2020 Comprehensive metabo lic panel Gracie Hooks Work Phone: Start: 01-02-2020 Culture bacterial bl ood aerobic w/id isolates Gracie Hooks Work Phone: Start: 01-02-2020 CULTURE, BLOOD 1 Gracie Hooks Work Phone: Start: 01-02-2020 Procalcitonin (pct) Ace Hooks Work Phone: Start: 01-02-2020 PROTIME/INR & PTT Gracie Hooks Work Phone: Start: 01-02-2020 Ecg routine ecg w/le ast 12 lds w/i&r Gracie Hooks Work Phone: Start: 01-02-2020 Radiologic exam ches t single view Gracie Hooks Work Phone: Start: 01-02-2020 Culture bacterial an y source anaerobic iso&id Bebeto Qitio Work Phone: Start: 01-02-2020 Culture bacterial quanttative colony count urine Bebeto Qitio Work Phone: Colonoscopy Gracie Baker II Hammer toe operation Gracie Connolly ck II Repair of shoulder Gracie Baker II Plan of Treatment Date Care Activity Detail Author Start: 08-08-2022 FUV, Provider: Gracie Baker II, Status: Pen, Time: 2:15 PM FUV, Provider: Gracie Baker II, Status: Pen, Time: 2:15 PM GA-Nzbvwui-Phxmxus Work Phone: Start: 03-22-2021 FUV, Provider: Gracie Baker II, Status: Pen, Time: 10:15 AM FUV, Provider: Gracie Baker II, Status: Pen, Time: 10:15 AM YF-Lcifgrj-Bjoowys Work Phone: Start: 01-07-2021 Creatinine measurement Creatinine mo nitoring [place], [place] Start: 01-07-2021 Potassium monitoring Potassium monit [place]ing [place] Start: 09-21-2020 FUV, Provider: Gracie Baker II, Status: Pen, Time: 10:15 AM FUV, Provider: Gracie Baker II, Status: Pen, Time: 10:15 AM IB-Bwwyotk-Bpkmcqm Work Phone: Start: 01-04-2020 Annual Wellness Visi t (AWV) Annual Wellness Visit (AWV) [place], [place] Start: 10-27-2019 Influenza vaccination Flu vaccine (# 1) [place], [place] Start: 2007 Pneumococcal 65+ yea rs Vaccine (1 of 1 - PPSV23) Pneumococcal 65+ years Vaccine (1 of 1 - PPSV23) [place], [place] Start: 1997 Screening for osteoporosis DEXA (modify frequency per FRAX score) [place], [place] Start: 1992 Shingles Vaccine (1 of 2) Montiel gles Vaccine (1 of 2) [place], [place] Start: 1961 DTaP/Tdap/Td vaccine (1 - Tdap) DTaP/Tdap/Td vaccine (1 - Tdap) [place], [place] Start: 1952 Lipid panel Lipid screen [place], [place] Start: 1942 Hepatitis C screening Hepatitis C sc reen [place], [place] Basic Metabolic Pane l w/ Reflex to MG Basic Metabolic Panel w/ Reflex to MG Lab Routine Daily until discontinued starting 01/03/2020, 6 completed [place] Comment on above: Daily until disconti nued starting 01/03/2020, 6 completed End: 01-27-2020 Blood glucose - POCT Blood glucose - POCT Point of Care Testing Routine One Time for 1 Occurrences starting 01/27/2020 until 01/27/2020 [place] Comment on above: One Time for 1 Occur rences starting 01/27/2020 until 01/27/2020 End: 01-17-2020 Calcium, Ionized Calcium, Ionized Lab Routine Daily for 12 Occurrences starting 01/06/2020 until 01/17/2020, 3 completed [place] Comment on above: Daily for 12 Occurre nces starting 01/06/2020 until 01/17/2020, 3 completed CBC auto differential CBC auto d ifferential Lab Routine Daily until discontinued starting 01/03/2020, 5 completed [place] Comment on above: Daily until disconti nued starting 01/03/2020, 5 completed Continuous pulse oximetry Pulse oximetry, continuous Respiratory Care Routine Every 4hr until discontinued starting 01/02/2020 [place] Comment on above: Every 4hr until disc ontinued starting 01/02/2020 End: 01-27-2020 Creatinine [Mass/Vol] Creatinine, serum Lab Routine One Time for 1 Occurrences starting 01/27/2020 until 01/27/2020 [facility] above: One Time for 1 Occur rences starting 01/27/2020 until 01/27/2020 End: 01-27-2020 FL Greater Than 1 Hour FL Greater Than 1 Hour Imaging Routine Once for 1 Occurrences starting 01/27/2020 until 01/27/2020 [facility] Comment on above: Once for 1 Occurrenc es starting 01/27/2020 until 01/27/2020 FL Greater Than 1 Hour FL Greate r Than 1 Hour Imaging Routine 01/27/2020 10:34 AM [facility]YR [facility] End: 01-04-2020 HEPATIC FUNCTION PANEL HEPATIC FUNCTION PANEL Lab Routine One Time for 1 Occurrences starting 01/04/2020 until 01/04/2020 [facility] Comment on above: One Time for 1 Occur rences starting 01/04/2020 until 01/04/2020 HEPATIC FUNCTION PANEL HEPATIC F UNCTION PANEL Lab Routine 01/05/2020 4:33 AM [facility] Magnesium [Mass/Vol] Magnesium L ab Routine Daily until discontinued starting 01/03/2020, 6 completed [facility] Comment on above: Daily until disconti nued starting 01/03/2020, 6 completed Nebulizer therapy [facility] Treatment Respiratory Care Routine 0600, 1000, 1400, 1800, 2200 until discontinued starting 01/02/2020 [facility] Comment on above: 0600, 1000, 1400, 18 00, 2200 until discontinued starting 01/02/2020 Oxygen therapy [[facility] Data Set] [facility] Comment on above: Daily until disconti nued starting 01/02/2020 Daily until disconti nued starting 01/27/2020 Phosphate [Mass/Vol] Phosphorus Lab Routine Daily until discontinued starting 01/03/2020, 6 completed [facility] Comment on above: Daily until disconti nued starting 01/03/2020, 6 completed [facility] above: TID AC until discont inued starting 01/06/2020 As Needed until disc ontinued starting 01/27/2020 End: 01-27-2020 , urine , urine Lab Routine One Time for 1 Occurrences starting 01/27/2020 until 01/27/2020 [place] Comment on above: One Time for 1 Occur rences starting 01/27/2020 until 01/27/2020 End: 01-27-2020 Protime-INR Protime-INR Lab Routine One Time for 1 Occurrences starting 01/27/2020 until 01/27/2020 [place] Comment on above: One Time for 1 Occur rences starting 01/27/2020 until 01/27/2020 Spirometry panel Incentive lenny metry Respiratory Care Routine Q1H PRN until discontinued starting 01/27/2020 [place] Comment on above: Q1H PRN until discon tinued starting 01/27/2020 Payers Date Payer Category Payer Self-pay [id number] 2007 Unknown [id number] 1940 Unknown [id number] Unknown Unknown [id number] [id number] [id number] Unknown [id number] [id number] [id number] Unknown [id number] [id number] [id number] Unknown [id number] [id number] Unknown [id number] [id number] Social History Date Type Detail Facility Start: 01-07-2020 End: 01-27-2020 Tobacco smoking status NHIS Former smoker [place], [place] History of tobacco use Cigarette Sm[place] Start: 01-07-2020 End: 01-27-2020 Tobacco use and exposure Never used [place] Start: 01-07-2020 End: 01-27-2020 Alcohol intake Current drinker of alcohol (finding) [place] Start: 01-02-2020 History SDOH [facility] 3 [facility] Not on file [facility] Exposure to SARS-CoV-2 (event) Not sure [facility] Former smoker Former smoker [facility] Work Phone: Start: 01-02-2020 End: 01-02-2020 Tobacco smoking status NHIS Unknown if ever smoked [facility] Start: 01-02-2020 Spouse/ Signif icant Other [facility] Start: 1940 Sex Assigned At Female [facility] Start: 01-02-2020 Tobacco smoking status NHIS Never smoked tobacco (finding) [facility] Start: 05-27-2024 Sex Female (finding) [facility] NEGATED: Highlighted row - - GV-Xthgofr-Ykhxedt Work Phone: Medical Equipment Procedure Code Equipment Code Equipment Original Text Equipment Identifier Dates ORIF, fracture, metatarsal bone 2.7 Locking Screws FDA Start: 01-13-2019 ORIF, fracture, metatarsal bone 2.7mm Locking Screws FDA Start: 01-13-2019 ORIF, fracture, metatarsal bone Slim Straight 30 mm 4 hole FDA Start: 01-13-2019 ORIF, fracture, metatarsal bone 2.7 Locking Screws FDA Start: 01-13-2019 ORIF, fracture, metatarsal bone 2.7mm Locking Screws FDA Start: 01-13-2019 ORIF, fracture, metatarsal bone Slim Straight 30 mm 4 hole FDA Start: 01-13-2019 ORIF, fracture, metatarsal bone 2.7 Locking Screws FDA Start: 01-13-2019 ORIF, fracture, metatarsal bone 2.7mm Locking Screws FDA Start: 01-13-2019 ORIF, fracture, metatarsal bone Slim Straight 30 mm 4 hole FDA Start: 01-13-2019 ORIF, fracture, metatarsal bone 2.7 Locking Screws FDA Start: 01-13-2019 ORIF, fracture, metatarsal bone 2.7mm Locking Screws FDA Start: 01-13-2019 ORIF, fracture, metatarsal bone Slim Straight 30 mm 4 hole FDA Start: 01-13-2019 Stent:Urological - 01/06/2020 [id number] Start: 01-06-2020 Comment on above: Description: [employer] 8 fr x 22cm flexima regular ureteral stent system. ref # [id number] Functional Status Date Assessment Result Facility NEGATED: Highlighted row Functional performance Functional status health issues are not documented Disease ZD-Jlhmhbm-Etlwcut Work Phone: Mental Status Date Assessment Result Facility NEGATED: Highlighted row Cognitive function [Interpretation] Cognitive status health issues are not documented Disease YP-Nfmbnru-Sokttxe Work Phone: Discharge summary 05-27-2024 Note Date & Type Note Facility 05-27-2024 Discharge summary [facility] Discharge summary 05-27-2024 Note Date & Type Note Facility 05-27-2024 Discharge summary Note Date/Time May 27, 2024 1:26 pm [facility] Physical Therapy [facility] [address] [place] [address] / REHABILITATION SERVICES DISCHARGE SUMMARY MR#: [id number] Acct: [id number] Name: JODEE LORENZO Rep #: [id number] : 1940 84 From: Keira Martin PT, Cert. MDT Referring Dr.: Dr. Lorelei Herrera MD Status: REG R Insurance: [employer] SELF PAY INSURANCE Discharge Summary D/C summary: It has been my pleasure to treat JODEE LORENZO referred by Dr. Lorelei Herrera MD, with the diagnosis of BILATERAL SACROILIITIS. for a total of 8 visit(s). Discharge Date: Please see the following information for a summary of their discharge status. Subjective Subjective: PATIENT REPORTS SHE HAS BEEN DOING THINGS SHE IS SUPPOSED TO BE DOING AND SHE KEEPS PULLING HER BACK SO SHE STILL HASN'T DONE HER HEP. THE DAYS THAT I AM GOOD I AM REALLY GOOD BUT IF I DO THINGS I SHOULDN'T THEN I HURT. OVER-ALL SHE REPORTS SHE IS A LOT BETTER AND IS GLAD SHE DID THERAPY. STATES SHE FELT NUMBESS IN HER LEGS AFTER LAST VISIT FOR A FEW HOURS. Pain MIL LOW BACK/BUTTOCK: Pain Intensity (Out of 10): 4 Overall Improvement % Improvement: 50 Objective Objective/Function: Patient non-compliant with HEP instructions so focused on having her use good posture and body mechanics at home between now and next visit. Patient able to do all ex's with cueing without c/o increased pain. Patient denied pain when she laid down to do the ex's and remained pain free until she walked about 300 feet after treatment then pain returned. Patient able to returndemo good body mechanics after instructions given. Goals Goal 1:: DECREASE C/O MIL LOW BACK/BUTTOCK PAIN BY AT LEAST 50% TO EASE ADL'S Goal 2:: IMPROVE LIFTING, WALKING, STANDING, TRAVEL AND HOMEMAKING FUNCTION WITHAT LEAST 5 POINT IMPROVEMENT ON BACK OSWESTRY QUESTIONNAIRE. Goal 3:: INSTRUCT IN PROPHYLAXIS Plan Plan: TRY ADDING SOME KITCHEN SINK EX'S TO HEP NEXT VISIT TOLERATED. US, CP OR MH TO TENDER AREAS OF LOW BACK/HIP REGIONS NEEDED. POSTURE CORRECTION/STRENGTHENING, INSTRUCTION IN APPROPRIATE BODY MECHANICS AND ACTIVITY MODIFICATIONS. DLS STARTING WITH A NEUTRAL SPINE PROGRESSING ROM TOLERATED. MIL LE ROM, STRETCHING AND STRENGTHENING. HEP INSTRUCTION. *MINIMAL LIFTING > 10 LBS, BENDING, PUSHING, PULLING, TWISTING AND OVER HEAD EXTENSION FOR 4-6 WEEKS. D/C Information d/c sentence: If there are questions or concerns regarding this patient's physical therapy, please feel free to call me at [phone]. Thank you for the referral of thispatient. Sincerely, Keira Martin PT, Cert MDT Balance/Gait/Functional tests Balance/Special Test Scores Oswestry Low Back Score: 16 Improvement % Improvement: 50 <Electronically signed by Dillon Mann PT. MDT> 05/27/24 1056 CC: Dr. Lorelei Herrera MD ~ PABLO Signed [facility] Work Phone: History of Present illness Narrative 04-17-2021 Note Date & Type Note Facility 04-17-2021 History of Present illness Narrative Patient is here for a yearly follow up for Incontinence, is taking Sanctura and has been helping... Cysto done 04/17..Patient had a septic with Kidney infection in 12/2019. Hospitalized x 7 days and on the ventilator x 3 days. Patient has a hx of Kidney stones...Cysto w/ ureteroscopy 10/2015, B/L Ureteral Dilation 08/2015. LUTs are chronic and mild...Denies frequency and urgency. Denies dysuria and hematuria.. Nocturia x2-3..Caffeine does worsen..Recent Positive Urine Cx on 04/17.CT 05/15 no Garfield but Right renal stones OI-Vgykcyb-Sxfzwvg Work Phone: History of Present illness Narrative 08-10-2020 Note Date & Type Note Facility 08-10-2020 History of Present illness Narrative Patient here for 6 wk med ck..Pt was given Sanctura(08/10/20) and can tell there is a difference now by having a flow with urination and less dribbling but still wears a pad for precaution ..CT Results (05/15) showed Right-sided nephrolithiasis without hydroureteronephrosis evident.. KUB did not show stone. Cysto done 04/17..Patient had a septic with Kidney infection in 12/2019. Hospitalized x 7 days and on the ventilator x 3 days. Patient has a hx of Kidney stones...Cysto w/ ureteroscopy 10/2015, B/L Ureters Dilation 08/2015. LUTs are chronic and mild...Denies frequency and urgency. Denies dysuria and hematuria.. Nocturia x2-3..Caffeine does worsen..Recent Positive Urine Cx on 04/17. [facility] Phone: History of Present illness Narrative 08-08-2020 Note Date & Type Note Facility 08-08-2020 History of Present illness Narrative Patient here for 3 mon f/u..Last visit was taking prophylaxis and was changed to Trimethoprim...Pt states she doesn t feel any different...CT Results (05/15) Results showed Right-sided nephrolithiasis without hydroureteronephrosis evident.. KUB did not show stone. Cysto done 04/17.Patient was recently septic with Kidney infection in 12/2019. Hospitalized x 7 days and on the ventilator x 3 days. Patient has a H/O Kidney Stones 2015. Cysto w/ ureteroscopy 10/2015, B/L Ureters Dilation 08/2015. LUTs are chronic and mild. Some frequency and urgency. Denies dysuria and hematuria.. Nocturia x2-3 patient is having incontinence..has to wear a pad due to constant dribbling Caffeine does worsen LUTs.. No medications for LUTs..Recent Positive Urine Cx in 04/17. BN-Bsuyenl-Zyuobxx Work Phone: History of Present illness Narrative 12-27-2019 Note Date & Type Note Facility 12-27-2019 History of Present illness Narrative Patient presents to the office today to Establish-Septic with Kidney infection in 12/2019. Hospitalized x 7 days and on the ventilator x 3 days. Patient has a H/O Kidney Stones 2016. Recent KUB in [place] and it was clear. Cysto w/ ureterotomy 10/2015, B/L Ureters Dilation 08/2015. LUTs are chronic and mild. Denies frequency and urgency. Denies dysuria and hematuria.. Nocturia x1-2 patient is having incontinence.. Caffeine does worsen LUTs.. No medications for LUTs.. SR-Bxsefec-Wzxzbvy Work Phone: Evaluation note Note Date & Type Note Facility Evaluation note No assessment information availa [facility] Work Phone: History of Present illness Narrative Note Date & Type Note Facility History of Present illness Narrative Patient is here for yearly f/u w/ kub for hx of kidney stones. No recent sx. Chronic LUT'S sx are mild and stable. Denies urgency and frequency. Denies dysuria. Denies hematuria. Nocturia x1. SHe is taking Sanctura and finds this helpful. Hx of recurrent UTI'S. No recent sx. GX-Htbakga-Srzbumu Work Phone: Reason for referral (narrative) Note Date & Type Note Facility Reason for referral (narrative) No reason for referral information available [facility] Work Phone: Hospital Course Note Internal Medicine: Med Team Discharge Summary Jodee Lorenzo : 1940 ADMIT DATE: 01/02/2020 DISCHARGE DATE: 01/08/20 PCP: follows with Dr. Lorelei Herrera in [place], [place] Visit Status: Admission Code Status: FULL CODE Primary Discharge Diagnosis: Septic shock d/t klebsiella bacteremia Secondary Discharge Diagnoses: Left-sided obstructing nephrolithiasis Left-sided pyelonephritis AHRF requiring intubation REN in setting of obstructing nephrolithiasis Klebsiella pneumoniae bacteremia Klebsiella pneumoniae UTI T2DM Thrombocytopenia Vitamin B12 deficiency Debility/weakness HTN Hx of renal stones Anxiety Depression Reason for Admission & Hospital Course: Jodee Lorenzo is a 79 y.o. female that presented to [facility] on 01/02/2020 and was admitted for septic shock d/t klebsiella bacteremia. Patient initially presented to [facility] ED on 01/01 with c/o fever and evaluation of AMS. EMS noted patient to be hypotensive but without focal neurologic deficits. CT abd/pel demonstrated (more content not included)... Discharge Instructions * Instructions* Erica Linares RN - 01/02/2020 Nephrostomy Tube Care: Care Instructions Your Care Instructions A nephrostomy tube is a thin catheter placed into your kidney to drain urine. You may have one tubein a kidney or two tubes, one in each kidney. The urine collects in a bag attached to the tube. In most cases, the bag is attached to your leg. Sometimes the catheter tube has a valve that lets you drain the urine into the toilet or other container. You may need a nephrostomy tube if you have a blockage or a hole in your urinary tract. The blockage may be caused by a kidney stone, infection, scar tissue, or a tumor. If you have only one tube, you still need to urinate. Your other kidney will still produce urine that will drain into your bladder. Having a nephrostomy tube in for a long time increases the risk of getting an infection. Nephrostomy tube care focuses on preventing infection. Follow-up care is a nunez part of your treatment and safety. Be sure to make and go to all appointments, and call your doctor if you are having problems. You should have dressing changed every 7-10 days. If you will have nephrostomy tube longer than 7-10 days, you will need to have dressing changed. You may call Central Scheduling at to schedule a dressing change if needed. You may also get order from your physician to obtain dressing supplies from [employer]. It's alsoa good idea to know your test results and keep a list of the medicines you take. How can you care for yourself at home? Wash your hands before and after you handle the nephrostomy tube. Keep the drainage bag lower than your kidney to keep urine from backing up. Empty the drainage bag before it is completely full or every 2 to 3 hours. Do not swim or take baths while you have a nephrostomy tube. You must keep dressing clean and dry. Change the dressing every 7-10 days. If you are unable to obtain dressing supplies or do not have home care, you may call Central Scheduling at to schedule nephrostomy tube dressing changes. You will need an order from your physician for dressing changes. When should you call for help? Call your doctor now or seek immediate medical care if: You have new or worse symptoms of a kidney infection. These may include: ? Pain or burning when you urinate. ? A frequent need to urinate without being able to pass much urine. ? Pain in the flank, which is just below the rib cage and above the waist on either side of the back. ? Blood in the urine. ? A fever. You are vomiting or nauseated. Your tube leaks. Urine does not collect in the drainage bag. You have pain or bleeding around the tube. Watch closely for changes in your health, and be sure to contact your doctor if: You do not get better as expected. If you have any questions or concerns after your procedure, please call: Saturday through Saturday 7:30 am to 5:00 pm call ([facility]) or [phone] ([facility]). After hours, weekends, or holidays call and ask for the Interventional Radiologist homemaker companion. Where can you learn more? Go to [email or web address] [email or web address].GruvIt.org and sign in to your DidLog account. Enter Z836 in the Search Health Information box to learn more about Nephrostomy Tube Care: Care Instructions. If you do not have an account, please click on the Sign Up Now link. Current as of: October 06, 2018 Content Version: 12.5 [employer]. Care instructions adapted under license by [employer]. If you have questions about a medical condition or this instruction, always ask your healthcare professional. [employer] disclaims any warranty or liability for your use of this information. documented in this encounter* Instructions* Min Christie MD - 01/27/2020 Laser Lithotripsy These are general instructions for you to follow after your surgery. Your doctor or a member of hisor her staff will outline any additional or special instructions that pertain to you. What is a Laser Lithotripsy? A laser lithotripsy is a method for using lasers to remove stones that are located in the urinary tract. This could include stones in the bladder, kidneys, ureters, or urethra. A small flexible camera called a ureteroscope is inserted into the urethra and up the ureter until it reaches the locationof the kidney stone. The doctor can then use a laser to break up a kidney stone and a small basket to remove small stones or stone fragments. A ureteral stent is often left in place after the procedure to help with healing. What are the advantages of laser lithotripsy? Laser lithotripsy is a minimally invasive procedure, and does not involve any incisions. It has been shown to be effective no matter the size, location, and/ or hardness of the stone. It also reducesthe risk of steinstrasse (where several stones fragments line up in the ureter and block urine flow). How long does surgery take? Surgery will take 1-2 hours to complete. Will I have to stay in the hospital? No. This is an outpatient procedure, so you should be able to go home the same day that the procedure is performed. Are there risks with a laser lithotripsy procedure? There are risks with any surgical procedure. Risks of laser lithotripsy in particular include pain, blood in the urine, difficulty urinating, injury to the bladder or ureters when removing the stone, and infection. General anesthesia also has the risk of breathing problems, heart attack and stroke in patients who are high risk. Ureteral Stent: Most people experience some discomfort with a stent in place. Common symptoms include back pain, urinary frequency and urgency. You may see some blood off and on in your urine, especially after you are active. While these symptoms are common with a stent, if you are having a lot of pain, please call our office to discuss your symptoms. Every person's situation is different, and your doctor will determine how long the stent will need to remain in place. Sometimes the stent will be secured to a thin piece of suture that will be taped to your body. This will be used several days following the procedure to removed the stent. While some mild movement of the string is of no concern, please try to avoid any pulling or tugging on the string. Miscellaneous - It is normal for you to have minor discomfort after your surgery. However, if there are any significant changes in your condition such as shortness of breath, difficulty breathing, or pain or uneven swelling in your legs please go to the Emergency Room. - - Follow-up appointments will be scheduled by our office. If you have any questions, please call . documented in this encounter History of Present Illness * Emily Lopez RCP - 01/08/2020 2:28 PM EST [facility] Respiratory Care Department Progress Note SpO2 at rest on RA = 95 HR at rest = 81 SpO2 with ambulation on RA = 91 Peak HR = 81 Distance Walked = unit cuenca Recovery SpO2 with ambulation = 91 Recovery HR = 80 Recovery SpO2 with lpm with ambulation (if needed) = na Qualify for home O2 Y/N = No Patient mobile at home Y/N = Yes * Eloina Lazo MD - 01/08/2020 12:31 PM EST [facility] - Infectious Diseases Attending Progress Note Subjective: Following for septic shock with obstructing L ureteral stone- s/p PNT (01/01). S/p antegrade stent placement (01/05). Tolerating abx well. Tm 99.6F. Currently being seen by the Med Team. Objective: Vitals: Patient Vitals for the past 24 hrs: BP Temp Temp src Pulse Resp SpO2 Height Weight 01/08/20 1131 118/74 99.6 F (37.6 C) Temporal 77 26 94 % 01/08/20 1000 95 % 01/08/20 0759 138/67 98.3 F (36.8 C) Temporal 87 20 98 % 01/08/20 0604 200 lb 9.9 oz (91 kg) 01/08/20 0317 118/70 97.5 F (36.4 C) Temporal 84 18 97 % 01/07/20 2229 (!) 149/75 97.9 F (36.6 C) Temporal 87 17 94 % 01/07/202007 131/65 97.9 F (36.6 C) Temporal 89 18 98 % 01/07/20 1515 5' 1 (1.549 m) 01/07/20 1510 137/60 98.1 F (36.7 C) Temporal 76 16 97 % Physical Exam Vitals signs and nursing note reviewed. Neurological: Mental Status: She is alert. Labs: Component Value Date/Time NA 141 01/08/2020 0549 K 3.7 01/08/2020 0549 CL 107 01/08/2020 0549 CO2 28 01/08/2020 0549 BUN 32 (H) 01/08/2020 0549 CREATININE 1.10 01/08/2020 0549 GLUCOSE 112 (H) 01/08/2020 0549 CALCIUM 8.1 (L) 01/08/2020 0549 PROT 5.6 (L) 01/05/2020 0433 LABALBU 2.9 (L) 01/05/2020 0433 BILITOT 0.7 01/05/2020 0433 ALKPHOS 84 01/05/2020 0433 AST 27 01/05/2020 0433 ALT 19 01/05/2020 0433 PROCAL 128.03 (A) 01/02/2020 1850 Component Value Date/Time WBC 12.9 (H) 01/08/2020 0549 HGB 8.7 (L) 01/08/2020 0549 HCT 26.1 (L) 01/08/2020 0549 PLT 59 (L) 01/08/2020 0549 GRANULOCYTES 96.1 (H) 01/02/2020 1850 LYMPHOPCT 3.0 (L) 01/02/2020 1850 MONOPCT 5 01/08/2020 0549 LABEOS 0 (L) 01/08/2020 0549 BASOPCT 0 01/08/2020 0549 NEUTROABS 9.8 (H) 01/08/2020 0549 Micro: 01/03- sputum cx- C albicans 01/02- RVP- negative 01/01- urine cx- >100,000 Klebsiella pneumo 01/01- urine cx- negative 01/01- Legionella urine Ag- negative 01/01- Strep pneumo urine Ag- negative 01/01- blood cx- negative Procalcitonin 128 Elaine Micro: 01/01- blood cx- 2/2 Klebsiella pneumo (R amp) 01/01- urine cx- >100,000 Kleb pneumo (R amp/ nitrofurantoin) Radiography/Echo/Other: 01/03- CXR- FINDINGS: An endotracheal tube is seen with its tip approximately 2 cm above the sherie. An enteric tube extends into the stomach. A right IJ line is in place. The distal tip is in the superior vena cava. The cardiac silhouette and mediastinum are otherwise unremarkable. There is a mild left lower lobe infiltrate and small effusion. This is unchanged. IMPRESSION: 1. Stable left lower lobe infiltrate and small effusion. [place]: 01/01- CT abd/pelvis- 8mm L ureteral stone obstruction with moderate hydronephrosis/ perinephric edema Antimicrobials, Start/End Dates: Cefazolin 1g IV q8h Gentamicin x1 (01/02) Impression: 1. Septic shock Klebsiella pneumoniae BSI/ L pyelonephritis with obstructing ureteral stone - s/p L PNT (01/01) and antegrade stent (01/05) - blood and urine cx + [place] - blood cx cleared 01/01 2. Renal insufficiency 3. LLL infiltrate/ VDRF-- C albicans colonization 4. Hx nephrolithiasis Plan: 1. Continue cefazolin while inpatient. 2. Anticipate change to keflex 500mg PO TID (renal dosing) at discharge for 3 weeks--> stop date01/22-- will cover time until outpatient urologic management of stone/ existing stent. Time 15 min with >51% time spent counseling and coordinating care for bacteremia/ pyelonephritis. Eloina Lazo M.D. * Alejandra Beltran MD - 01/08/2020 7:53 AM EST Med Team Progress Note Jodee Lorenzo : 1940(79 y.o.) Date: January 08, 2020 Med Team: C Attending: Dr. Alejandra Beltran Chief Complaint: Septic shock Subjective: Patient without any acute events overnight. Continues to tolerate PO intake. Having daily BMs without difficulty. No new pain complaints. Has been able to make it to the recliner in the room and sit for long periods at a time but has been requiring assistance in doing so. Patient states she has notdone much more in terms of physical activity since working with PT/OT a couple days back. Endorses being fully independent at home prior to her initial presentation on 01/01 however. Pt seen and examined earlier today on bedside resident teaching rounds. Hx and PE independently obtained. Pt reports feeling much improved over admission. Very much wishes to go home, and declines toeven consider a short term rehab stay. Does verbalize that she is weak and tired, but that her family will be staying with her, and that her home is set up for the frail due to recent care needs of late (shower chair, shower rails). Pt able to teach back utmost need to f/u with in 2-3 weeks to more definitively address stones. Pt identified her PCP in [place], and med team has called to let staff (MD not in office) of pt's hospitalization, and obtained info where to send d/c note. Review of Systems Constitutional: Negative for activity change, appetite change, chills, diaphoresis, fatigue and fever. HENT: Negative for congestion, ear pain, facial swelling, sinus pressure, sinus pain and sore throat. Eyes: Negative for pain, discharge and visual disturbance. Respiratory: Negative for cough, choking, chest tightness, shortness of breath and wheezing. Cardiovascular: Negative for chest pain, palpitations and leg swelling. Gastrointestinal: Negative for abdominal distention, abdominal pain, constipation, diarrhea, nauseaand vomiting. Genitourinary: Negative for difficulty urinating, dysuria, flank pain, frequency, hematuria and urgency. Musculoskeletal: Negative for arthralgias, back pain and joint swelling. Skin: Negative for color change, rash and wound. Neurological: Positive for weakness. Negative for dizziness, tremors, light- headedness and headaches. Psychiatric/Behavioral: Negative for agitation, behavioral problems and confusion. Agree. Scheduled Meds: [START ON 01/09/2020] vitamin B-12 1,000 mcg Oral Daily tamsulosin 0.4 mg Oral Daily trospium 20 mg Oral BID AC atenolol 25 mg Oral Daily ceFAZolin 1 g Intravenous Q8H enoxaparin 40 mg Subcutaneous Daily famotidine 20 mg Oral BID insulin glargine 20 Units Subcutaneous Nightly insulin lispro 0-6 Units Subcutaneous TID WC sodium chloride flush 10 mL Intracatheter Q8H CENTRUM/CERTA-ANN MARIE with minerals oral 15 mL Oral Daily Continuous Infusions: dextrose PRN meds used in last 24hrs: None Objective: BP 118/74 Pulse 77 Temp 99.6 F (37.6 C) (Temporal) Resp 26 Ht 5' 1 (1.549 m) Wt 200 lb 9.9 oz (91 kg) SpO2 94% BMI 37.91 kg/m Physical Exam Constitutional: General: She is not in acute distress. Appearance: She is obese. She is not ill-appearing or toxic-appearing. HENT: Head: Normocephalic and atraumatic. Right Ear: External ear normal. Left Ear: External ear normal. Nose: Nose normal. No congestion or rhinorrhea. Mouth/Throat: Mouth: Mucous membranes are moist. Pharynx: Oropharynx is clear. No oropharyngeal exudate. Eyes: General: Right eye: No discharge. Left eye: No discharge. Extraocular Movements: Extraocular movements intact. Conjunctiva/sclera: Conjunctivae normal. Neck: Musculoskeletal: Normal range of motion. No muscular tenderness. Comments: Right IJ in place. Transparent bandage covering insertion site. Surrounding skin without erythema, warmth, or other signs of superficial infection. Plan to remove later today. Cardiovascular: Rate and Rhythm: Normal rate and regular rhythm. Pulses: Normal pulses. Heart sounds: No murmur. No friction rub. No gallop. Pulmonary: Breath sounds: No wheezing, rhonchi or rales. Comments: Was on 2L NC upon entering the room. Was able to wean off of oxygen with pulse ox measuring an SpO2 of 95-96 even during conversation. Chest: Chest wall: No tenderness. Abdominal: General: Abdomen is flat. Bowel sounds are normal. There is no distension. Palpations: Abdomen is soft. Tenderness: There is no abdominal tenderness. There is no guarding or rebound. Musculoskeletal: Right lower leg: Edema (trace) present. Left lower leg: Edema (trace) present. Skin: General: Skin is warm and dry. Capillary Refill: Capillary refill takes less than 2 seconds. Coloration: Skin is not jaundiced or pale. Neurological: General: No focal deficit present. Mental Status: She is alert and oriented to person, place, and time. A&Ox3. Cooperative. Makes good eye contact. HEENT- MMM. Neck-supple Cor- RRR, nl S1S2. Lungs- CTA. Abd (+) BS, soft NT. Ext- no edema. Neuro- no focal deficits noted [facility] within last 24 hours Lab Results Component Value Date/Time WBC 12.9 (H) 01/08/2020 05:49 AM Hemoglobin 8.7 (L) 01/08/2020 05:49 AM Hematocrit 26.1 (L) 01/08/2020 05:49 AM Platelets 59 (L) 01/08/2020 05:49 AM MCV 95.7 01/08/2020 05:49 AM Lab Results Component Value Date/Time Sodium 141 01/08/2020 05:49 AM Potassium 3.7 01/08/2020 05:49 AM Chloride 107 01/08/2020 05:49 AM CO2 28 01/08/2020 05:49 AM BUN 32 (H) 01/08/2020 05:49 AM CREATININE 1.10 01/08/2020 05:49 AM Glucose 112 (H) 01/08/2020 05:49 AM Calcium 8.1 (L) 01/08/2020 05:49 AM Magnesium 1.5 (L) 01/08/2020 05:49 AM Phosphorus 3.3 01/08/2020 05:49 AM Assessment and Plan: Septic shock d/t klebsiella bacteremia/UTI - Similar presentation in 08/2015 at [facility] where patient required ICU admission, broad spectrum abx (eventually weaned to Cipro per care everywhere), found to have klebsiella bacteremia, and with eventual bilateral ureteral stent placement - Elaine blood cxs positive for klebsiella pneumoniae - Repeat blood cxs obtained 01/01 NGTD - On Cefazolin 1g q8h; per ID, okay for PO keflex 500mg TID at discharge for a total of 3 weeks (end date of 01/22) - Plan to discharge later today; will ensure patient was appropriate PCP follow up with a sent copyof the discharge summary as well Agree. Pt able to teach back need for Abx through 01/22 and f/u with in 2-3 weeks. Hypotension d/t septic shock/bacteremia (resolved) - Pressures have been stable since pressors discontinued 01/03 - Stress-dose steroids discontinued 01/05 - BPs have remained stable enough to resume home antihypertensive, Atenolol 25mg - Have held home Lisinopril 20mg BID since admission due to presenting REN. Given normotensive pressures on home Atenolol, plan on continuing to hold this medication at discharge; can follow up outpatient for possible restart Agree. Left pyelonephritis/Left obstructing nephrolithiasis with hydronephrosis - Initially sent to [place] ED with CT demonstrating obstructing stone of left UPJ - S/p L PNT placed 01/01, removed 01/05 - S/p L ureteral stent placed 01/05 - Per Urology, will require definitive stone management in 2-3 weeks following resolution of infection - Francis removed yesterday; patient states she has had no problems with urination in the interim Agree. Acute hypoxic respiratory failure (resolved) - Was intubated in the ICU from 01/01 - 01/03 - Most recent CXR 01/03 with stable LLL infiltrate - Was on 2L NC this Am but was able to wean the patient off oxygen during examination with O2 sat 95-96; will place order for home O2 eval to assess oxygenation during ambulation - Duonebs TID PRN - Respiratory cx collected 01/03 NGTD - Respiratory viral panel negative noted REN in setting of obstructing nephrolithiasis (improving) - Cr continues to improve - Total 1.7L UOP in past 24 hours - Monitor BMP Agree. T2DM - Admitted in DKA with insulin gtt (discontinued 01/04) - Home medications of metformin + glimepiride held - Lantus 20U nightly; received first dose 01/04 - Discontinued scheduled Humalog - Placed on low dose SSI, hypoglycemia protocol - Regarding home going diabetes regimen, patient will not require insulin; plan to restart metformin but instead of 500mg TID, will restart at 1000mg BID; with low CrCl however, kidney function with BMP will have to be watched outpatient - Will hold glimepiride at discharge given recent renal insufficiency. Agree. Thrombocytopenia (improving) - Likely due to presenting sepsis; no concern for HIT at this time Agree. - During previous hospitalization at [facility] for bilateral obstructing nephrolithiasis in 08/2015, platelets dropped as low as 75 - LDH/Haptoglobin/Maria Esther smear without evidence of intravascular hemolysis - Lovenox for DVT ppx Vitamin B12 deficiency - B12 level 184 on 01/01 - Will increase daily vitamin B12 dose from 50mcg to 1000mcg Agree. Generalized weakness - PT with recs of IP rehab - OT with recs home with home health - Patient agreeable to only going home with home health; will place appropriate orders Pain control - Tylenol PRN - Goals of Care: FULL CODE - DVT Prophylaxis: lovenox 40 q24h - creatinine clearance > 30; - GI Prophylaxis: Pepcid - Diet: General Attending Supervising Physician's Attestation Statement for Progress Note I performed a history and physical examination on the patinet and discussed the management with theresident physician. I reviewed and agree with the findings and plan as documented in their note except as amended in green font. Discussed with: [x]Residents [x]Patient [x]RN []Consultants []SW/TCC []Other Reviewed: [x]Epic notes []Radiology studies [x]Labs []EKG []Other Subsequent Inpatient: Spent over 51% of total time 25 minutes counseling or coordinating care, and provided discussion regarding d/c plans and stressed need for close f/u with PCP and . * Erica Leach, BECKY, LD - 01/07/2020 3:20 PM EST Comprehensive Nutrition Assessment Type and Reason for Visit: Reassess Nutrition Recommendations/Plan: 1. Recommend continue on diet as currently ordered, patient is receiving a Dental Soft Diet and tolerating without difficulty. Pt with DM history, blood glucose today 156mg/dL, monitor need for CHO Controlled Diet restrictions. 2. Will continue to monitor PO intake for adequacy 3. Will monitor need for ONS if PO intake becomes compromised. 4. Will continue to monitor weight changes, labs and overall nutrition status 5. RD will continue to follow up weekly Nutrition Assessment: pt working wiht OT at time of assessment today, pt is s/p left antegrade ureteral stent placed yesterday by IR and PNT removed, pt tolerated well and was initiated on Dental Soft Diet, [employer] completed assessment 01/04 and recommended dental soft diet with thin liquids, pt is tolerating well and eating >50% at meals, pt CBW 202# via standing scale which is up from bedscale weight of 188# initially, will monitor, ID remains following and blood cx have cleared, notes anticipate change to keflex PO at discharge for 3 weeks--> stop date 01/22, will monitor Malnutrition Assessment: Malnutrition Status: No malnutrition(pt weight is trending up during admit, appetite is good since initiation of oral diet and tolerating without difficulty) Nutrition Related Findings: Mick = 21, skin intact, +I/O, upper and lower dentures, hypoactive bowel sounds, BM 01/05, generalized +1 and BUE +1 non- pitting edema Wounds: None Current Nutrition Therapies: DIET GENERAL; Dental Soft Anthropometric Measures: Height: 5' 1 (154.9 cm) Current Body Weight: 202 lb (91.6 kg)(01/05) Admission Body Weight: 188 lb (85.3 kg)([facility] 01/01) Usual Body Weight: (No weight hx in chart to review) [place] Body Weight: 105 lbs; % [place] Body Weight 192.4 % BMI: 38.2 Adjusted Body Weight: ; No Adjustment BMI Categories: Obese Class 2 (BMI 35.0 -39.9) Nutrition Interventions: Food and/or Nutrient Delivery: Continue Current Diet Nutrition Education/Counseling: No recommendation at this time Coordination of Nutrition Care: Continue to monitor while inpatient Goals: PO intake will be >50% at meals Nutrition Monitoring and Evaluation: Behavioral-Environmental Outcomes: None Identified Food/Nutrient Intake Outcomes: Food and Nutrient Intake Physical Signs/Symptoms Outcomes: Biochemical Data, Chewing or Swallowing, GI Status, Fluid Status or Edema, Weight, Skin, Nutrition Focused Physical Findings Discharge Planning: Continue current diet Contact: pager [phone] * Bonifacio White OT - 01/07/2020 12:59 PM EST Occupational Therapy Occupational Therapy Initial Assessment Date: 01/07/2020 Patient Name: Jodee Lorenzo : 1940 Date of Service: 01/07/2020 Discharge Recommendations: Home with assist PRN, Home with Home health OT OT Equipment Recommendations Equipment Needed: Yes(FWW) Assessment Performance deficits / Impairments: Decreased functional mobility ;Decreased ADL status;Decreased strength;Decreased safe awareness;Decreased endurance;Decreased balance;Decreased high-level IADLs Assessment: Admitted from home with septic shock. Pt lives alone, passed in July 2019. Reports she is indep with ADL at baseline without device and has all required DME at home from caring for her and has single level home with 3 steps into kitchen. On eval pt on 2/L O2, no reports of SOB with activity. Completed bed mob with supervision as well as LBD and fxl transfers from EOB and chair. Pt completed fxl mob in room and hallway using FWW with no LOB as well, will rec FWW for home use to decrease fall risk. Currently pt is appropriate for home with home therapies, FWW and family assist PRN. Prognosis: Good Decision Making: Low Complexity OT Education: OT Role;Plan of Care;ADL Adaptive Strategies;Transfer Training REQUIRES OT FOLLOW UP: Yes Safety Devices Safety Devices in place: Yes Type of devices: Call light within reach;Patient at risk for falls;Left in chair;Nurse notified Patient Diagnosis(es): There were no encounter diagnoses. has a past medical history of Diabetes (HCC) and Nephrolithiasis. has a past surgical history that includes shoulder surgery. Restrictions Restrictions/Precautions Restrictions/Precautions: Fall Risk Required Braces or Orthoses?: No Subjective General Chart Reviewed: Yes Patient assessed for rehabilitation services?: Yes Family / Caregiver Present: No Social/Functional History Social/Functional History Lives With: Alone Type of Home: House Home Layout: One level(3 steps into living area) Home Access: Level entry Bathroom Shower/Tub: Walk-in shower Bathroom Toilet: Standard Bathroom Equipment: Grab bars in shower Bathroom Accessibility: Accessible Home Equipment: (N/A) Receives Help From: Family(available to assist as needed) ADL Assistance: Independent Homemaking Assistance: Independent Homemaking Responsibilities: Yes Ambulation Assistance: Independent Transfer Assistance: Independent Active Personal Finance Instructor: Yes Mode of Transportation: Car 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 [employer] Additional Comments: no facility stay in past 14 days Objective Orientation Overall Orientation Status: Within Normal Limits Balance Sitting Balance: Independent Standing Balance: Supervision Functional Mobility Functional - Mobility Device: Rolling Walker Assist Level: Supervision ADL LE Dressing: Supervision Tone RUE RUE Tone: Normotonic Tone LUE LUE Tone: Normotonic Bed mobility Supine to Sit: Supervision Scooting: Supervision Transfers Sit to stand: Supervision Stand to sit: Supervision LUE AROM (degrees) LUE AROM : WFL RUE AROM (degrees) RUE AROM : WFL Plan Plan Times per week: 1-2 Plan weeks: 2 Current Treatment Recommendations: Strengthening, Balance Training, Functional Mobility Training, Endurance Training, Pain Management, Safety Education & Training, Patient/Caregiver Education & Training, Equipment Evaluation, Education, & procurement, Positioning, Self-Care / ADL, Home Management Training G-Code OutComes Score AM-PAC Daily Activity Inpatient How much help for putting on and taking off regular lower body clothing?: A Little How much help for Bathing?: A Little How much help for Toileting?: A Little How much help for putting on and taking off regular upper body clothing?: None How much help for taking care of personal grooming?: A Little How much help for eating meals?: None AM-[facility] Inpatient Daily Activity Raw Score: 20 AM-[facility] Inpatient ADL T-Scale Score : 42.03 ADL Inpatient CMS 0-100% Score: 38.32 ADL Inpatient CMS G-Code Modifier : AM-PAC Score AM-[facility] Inpatient Daily Activity Raw Score: 20 (01/07/20 1230) AM-[facility] Inpatient ADL T-Scale Score : 42.03 (01/07/20 1230) ADL Inpatient CMS 0-100% Score: 38.32 (01/07/20 1230) ADL Inpatient CMS G-Code Modifier : (01/07/20 1230) Goals Short term goals Time Frame for Short term goals: 2 weeks Short term goal 1: LBD mod indep Short term goal 2: toileting mod indep Short term goal 3: grooming at sink in FWW mod indep Short term goal 4: FWW safety during ADL no cues Therapy Time Individual Concurrent Group Co-treatment Time In 1119 Time Out 1142 Minutes 23 Timed Code Treatment Minutes: 10 Minutes Bonifacio White OT Goals and/or treatment plan was established in collaboration with patient/family/other representatives. Patient's Occupational Therapy Plan of Care supervision is transferred to [facility] Occupational Therapist. *OT evaluation/treatment completed wearing N95, face shield and gloves* * Eloina Lazo MD - 01/07/2020 8:59 AM EST [facility] - Infectious Diseases Attending Progress Note Subjective: Following for septic shock with obstructing L ureteral stone- s/p PNT (01/01). Transferred out of ICU. No fevers. S/p antegrade stent placement and PNT removal yesterday. Feelingweak but improving. Objective: Vitals: Patient Vitals for the past 24 hrs: BP Temp Temp src Pulse Resp SpO2 01/07/20 0744 (!) 149/74 97.6 F (36.4 C) Temporal 84 20 94 % 01/07/20 0311 135/67 97.9 F (36.6 C) Temporal 77 20 96 % 01/06/20 2320 133/69 97.5 F (36.4 C) Temporal 82 22 97 % 01/06/20 1934 (!) 142/69 96.9 F (36.1 C) Temporal 85 23 96 % 01/06/20 1710 (!) 165/80 98.1 F (36.7 C) Temporal 80 18 96 % 01/06/20 1615 84 27 94 % 01/06/20 1610 (!) 185/92 78 26 97 % 01/06/20 1605 (!) 164/80 91 26 96 % 01/06/20 1600 (!) 172/80 92 24 96 % 01/06/20 1555 (!) 185/86 99 23 98 % 01/06/20 1550 (!) 182/99 102 28 99 % 01/06/20 1112 (!) 147/65 97.5 F (36.4 C) Temporal 83 24 97 % Physical Exam Vitals signs and nursing note reviewed. Constitutional: Appearance: She is not diaphoretic. Comments: Appears fatigued HENT: Head: Normocephalic and atraumatic. Right Ear: External ear normal. Left Ear: External ear normal. Nose: Nose normal. No congestion. Mouth/Throat: Mouth: Mucous membranes are moist. Pharynx: Oropharynx is clear. No oropharyngeal exudate. Eyes: General: No scleral icterus. Extraocular Movements: Extraocular movements intact. Pupils: Pupils are equal, round, and reactive to light. Neck: Musculoskeletal: Normal range of motion and neck supple. No neck rigidity or muscular tenderness. Cardiovascular: Rate and Rhythm: Normal rate and regular rhythm. Heart sounds: No murmur. Pulmonary: Breath sounds: No rhonchi or rales. Abdominal: General: Bowel sounds are normal. There is no distension. Palpations: Abdomen is soft. There is no mass. Tenderness: There is no abdominal tenderness. Comments: L PNT removed Musculoskeletal: General: No swelling or tenderness. Comments: + arthritic joint changes; no synovitis or crepitance of any limb Lymphadenopathy: Cervical: No cervical adenopathy. Skin: General: Skin is warm and dry. Findings: No erythema or rash. Neurological: Mental Status: She is oriented to person, place, and time. Comments: moving arms and legs Psychiatric: Mood and Affect: Mood normal. Behavior: Behavior normal. Labs: Component Value Date/Time NA 142 01/07/2020 0733 K 3.4 (L) 01/07/2020 0733 CL 105 01/07/2020 0733 CO2 29 01/07/2020 0733 BUN 38 (H) 01/07/2020 0733 CREATININE 1.18 01/07/2020 0733 GLUCOSE 156 (H) 01/07/2020 0733 CALCIUM 8.3 (L) 01/07/2020 0733 PROT 5.6 (L) 01/05/2020 0433 LABALBU 2.9 (L) 01/05/2020 0433 BILITOT 0.7 01/05/2020 0433 ALKPHOS 84 01/05/2020 0433 AST 27 01/05/2020 0433 ALT 19 01/05/2020 0433 PROCAL 128.03 (A) 01/02/2020 1850 Component Value Date/Time WBC 10.8 (H) 01/07/2020 0732 HGB 9.7 (L) 01/07/2020 0732 HCT 28.7 (L) 01/07/2020 0732 PLT 41 (L) 01/07/2020 0732 GRANULOCYTES 96.1 (H) 01/02/2020 1850 LYMPHOPCT 3.0 (L) 01/02/2020 1850 MONOPCT 6 01/06/2020 1040 LABEOS 2 01/06/2020 1040 BASOPCT 0 01/06/2020 1040 NEUTROABS 7.6 01/06/2020 1040 Micro: 01/03- sputum cx- C albicans 01/02- RVP- negative 01/01- urine cx- >100,000 Klebsiella pneumo 01/01- urine cx- negative 01/01- Legionella urine Ag- negative 01/01- Strep pneumo urine Ag- negative 01/01- blood cx- NGTD Procalcitonin 128 [facility]: 01/01- blood cx- 2/2 Klebsiella pneumo (R amp) 01/01- urine cx- >100,000 Kleb pneumo (R amp/ nitrofurantoin) Radiography/Echo/Other: 01/03- CXR- FINDINGS: An endotracheal tube is seen with its tip approximately 2 cm above the sherie. An enteric tube extends into the stomach. A right IJ line is in place. The distal tip is in the superior vena cava. The cardiac silhouette and mediastinum are otherwise unremarkable. There is a mild left lower lobe infiltrate and small effusion. This is unchanged. IMPRESSION: 1. Stable left lower lobe infiltrate and small effusion. [facility]: 01/01- CT abd/pelvis- 8mm L ureteral stone obstruction with moderate hydronephrosis/ perinephric edema Antimicrobials, Start/End Dates: Cefazolin 1g IV q12h Gentamicin x1 (01/02) Impression: 1. Septic shock Klebsiella pneumoniae BSI/ L pyelonephritis with obstructing ureteral stone - s/p L PNT (01/01) and antegrade stent (01/05) - blood and urine cx + Elaine - blood cx cleared 01/01 2. Renal insufficiency 3. LLL infiltrate/ VDRF-- C albicans colonization 4. Hx nephrolithiasis Plan: 1. Increase cefazolin to 1g IV q8h. 2. Blood cx have cleared. Anticipate change to keflex PO at discharge for 3 weeks--> stop date 01/22-- will cover time until outpatient urologic management of stone/ existing stent. Time 35 min with >51% time spent counseling and coordinating care for bacteremia/ pyelonephritis. Eloina Lazo M.D. * Jay Mariscal MD - 01/07/2020 8:52 AM EST Med Team Progress Note Jodee Lorenzo : 1940(79 y.o.) Date: January 07, 2020 Med Team: C Attending: Dr. Kahn Chief Complaint: Septic shock Subjective: Patient able to tolerate L ureteral stent placement yesterday. Able to tolerate PO intake starting with dinner last night without difficulty. Denies any new complaints. Worked with PT yesterday who recommended IP rehab but patient states that she wants to go home and work with PT surrounded by her family and friends. Pt states her earlier this year and it represents a traumatic event for her. She cared for him at home and does not want to be alone in her current state. Review of Systems Constitutional: Negative for activity change, appetite change, chills, diaphoresis, fatigue and fever. HENT: Negative for congestion, ear pain, facial swelling, sinus pressure, sinus pain and sore throat. Eyes: Negative for pain, discharge and visual disturbance. Respiratory: Positive for shortness of breath. Negative for cough, choking, chest tightness and wheezing. Cardiovascular: Negative for chest pain, palpitations and leg swelling. Gastrointestinal: Negative for abdominal distention, abdominal pain, constipation, diarrhea, nauseaand vomiting. Genitourinary: Negative for difficulty urinating, dysuria, flank pain, frequency, hematuria and urgency. Francis in place Musculoskeletal: Negative for arthralgias, back pain and joint swelling. Skin: Negative for color change, rash and wound. Neurological: Positive for weakness. Negative for dizziness, tremors, light- headedness and headaches. Psychiatric/Behavioral: Negative for agitation, behavioral problems and confusion. Scheduled Meds: tamsulosin 0.4 mg Oral Daily trospium 20 mg Oral BID AC atenolol 25 mg Oral Daily magnesium oxide 400 mg Oral BID ceFAZolin 1 g Intravenous Q8H enoxaparin 40 mg Subcutaneous Daily famotidine 20 mg Oral BID vitamin B-12 50 mcg Oral Daily insulin glargine 20 Units Subcutaneous Nightly insulin lispro 0-6 Units Subcutaneous TID WC sodium chloride flush 10 mL Intravenous 2 times per day sodium chloride flush 10 mL Intracatheter Q8H CENTRUM/CERTA-ANN MARIE with minerals oral 15 mL Oral Daily Continuous Infusions: dextrose PRN meds used in last 24hrs: None Objective: BP 108/77 Pulse 76 Temp 97.1 F (36.2 C) (Temporal) Resp 18 Ht 5' 1 (1.549 m) Comment: per chart Wt 202 lb (91.6 kg) SpO2 95% BMI 38.17 kg/m Physical Exam Constitutional: General: She is not in acute distress. Appearance: She is obese. She is not ill-appearing or toxic-appearing. HENT: Head: Normocephalic and atraumatic. Right Ear: External ear normal. Left Ear: External ear normal. Nose: Nose normal. No congestion or rhinorrhea. Mouth/Throat: Mouth: Mucous membranes are moist. Pharynx: Oropharynx is clear. No oropharyngeal exudate. Eyes: General: Right eye: No discharge. Left eye: No discharge. Extraocular Movements: Extraocular movements intact. Conjunctiva/sclera: Conjunctivae normal. Neck: Musculoskeletal: Normal range of motion. No muscular tenderness. Comments: Right IJ in place. Transparent bandage covering insertion site. Surrounding skin without erythema, warmth, or other signs of superficial infection. Cardiovascular: Rate and Rhythm: Normal rate and regular rhythm. Pulses: Normal pulses. Heart sounds: No murmur. No friction rub. No gallop. Pulmonary: Breath sounds: No wheezing, rhonchi or rales. Comments: Remains on 2L NC Chest: Chest wall: No tenderness. Abdominal: General: Abdomen is flat. Bowel sounds are normal. There is no distension. Palpations: Abdomen is soft. Tenderness: There is no abdominal tenderness. There is no guarding or rebound. Genitourinary: Comments: Francis in place Musculoskeletal: Right lower leg: Edema (trace) present. Left lower leg: Edema (trace) present. Skin: General: Skin is warm and dry. Capillary Refill: Capillary refill takes less than 2 seconds. Coloration: Skin is not jaundiced or pale. Neurological: General: No focal deficit present. Mental Status: She is alert and oriented to person, place, and time. [facility] within last 24 hours Lab Results Component Value Date/Time WBC 10.8 (H) 01/07/2020 07:32 AM Hemoglobin 9.7 (L) 01/07/2020 07:32 AM Hematocrit 28.7 (L) 01/07/2020 07:32 AM Platelets 41 (L) 01/07/2020 07:32 AM MCV 95.5 01/07/2020 07:32 AM Lab Results Component Value Date/Time Sodium 142 01/07/2020 07:33 AM Potassium 3.4 (L) 01/07/2020 07:33 AM Chloride 105 01/07/2020 07:33 AM CO2 29 01/07/2020 07:33 AM BUN 38 (H) 01/07/2020 07:33 AM CREATININE 1.18 01/07/2020 07:33 AM Glucose 156 (H) 01/07/2020 07:33 AM Calcium 8.3 (L) 01/07/2020 07:33 AM Magnesium 1.6 01/07/2020 07:33 AM Phosphorus 2.9 01/07/2020 07:33 AM Assessment and Plan: Septic shock d/t klebsiella bacteremia/UTI - Similar presentation in 08/2015 at [facility] where patient required ICU admission, broad spectrum abx (eventually weaned to Cipro per care everywhere), found to have klebsiella bacteremia, and with eventual bilateral ureteral stent placement - [facility] blood cxs positive for klebsiella pneumoniae - Repeat blood cxs obtained 01/01 NGTD - Cefazolin frequency increased to 1g q8h; per ID, okay for PO keflex at discharge for a total of 3weeks (end date of 01/22) Hypotension (resolved) - Pressures have been stable since pressors discontinued 01/03 - Stress-dose steroids discontinued 01/05 - BPs have remained stable enough to resume home antihypertensive, Atenolol 25mg Left pyelonephritis/Left obstructing nephrolithiasis with hydronephrosis - Initially sent to [facility] ED with CT demonstrating obstructing stone of left UPJ - S/p L PNT placed 01/01, removed 01/05 - S/p L ureteral stent placed 01/05 - Per Urology, will require definitive stone management in 2-3 weeks following resolution of infection - Discontinue francis Acute hypoxic respiratory failure (resolved) - Was intubated in the ICU from 01/01 - 01/03 - Most recent CXR 01/03 with stable LLL infiltrate - Remains on 2L NC; within 24 hours of discharge determination, will plan for home O2 eval - Duonebs TID PRN - Respiratory cx collected 01/03 NGTD - Respiratory viral panel negative REN in setting of obstructing nephrolithiasis (improving) - Cr continues to improve - Total 1.1L UOP in past 24 hours - Monitor BMP T2DM - Admitted in DKA with insulin gtt (discontinued 01/04) - Home medications of metformin + glimepiride held - Lantus 20U nightly; received first dose 01/04 - Continue 6U Humalog TID - Continue low dose SSI, hypoglycemia protocol - Will continue to adjust home going diabetes regimen as sugars permit Thrombocytopenia (improving) - Likely due to presenting sepsis; no concern for HIT at this time - During previous hospitalization at [facility] for bilateral obstructing nephrolithiasis in 08/2015, platelets dropped as low as 75 - LDH/Haptoglobin/Maria Esther smear without evidence of intravascular hemolysis - Lovenox for DVT ppx Generalized weakness - OT with recs home with home health Pain control - Tylenol PRN - Goals of Care: FULL CODE - DVT Prophylaxis: lovenox 40 q24h - creatinine clearance > 30; - GI Prophylaxis: Pepcid - Diet: General Associated attestation - Delmis Kahn MD - 01/07/2020 3:51 PM EST I have discussed the care of Jodee Lorenzo, including pertinent history and exam findings, with the medical student and/or resident. I have seen and examined the patient and the nunez elements of all parts of the encounter have been performed by me. (GC Modifier) I agree with resident's findingsand plan as documented in the resident's note. Please see below for personal highlights or additions to resident note. Patient seen and examined by myself at 1145 on 01/07/20 Admitted 01/02/2020 for septic shock 2/2 klebsiella bacteremia and UTI 2/2 obstructing nephrolithiasis Chief Complaint: weakness and fatigue, AMS S: Doing well this AM. Denies pain. Rfancis just removed and she has not urinated yet. Reports she does not want rehab or SNF on discharge as she has everything she needs at home. Otherwise agree with resident's HPI. O: Vitals: 01/07/20 0311 01/07/20 0744 01/07/20 1118 01/07/20 1510 BP: 135/67 (!) 149/74 108/77 137/60 Pulse: 77 84 76 76 Resp: Temp: 97.9 F (36.6 C) 97.6 F (36.4 C) 97.1 F (36.2 C) 98.1 F (36.7 C) TempSrc: Temporal Temporal Temporal Temporal SpO2: 96% 94% 95% 97% Weight: Height: Francis removed on my eval. Otherwise agree with resident physical exam. A/P: full A/P documented in attested note, see below for nunez highlights or additions to A/P. Septic Shock 2/2 Klebsiella Bacteremia + Urosepsis Left Obstructing Nephrolithiasis with Hydronephrosis s/p PNT REN, Resolving Acute Respiratory Failure with Hypoxia Thrombocytopenia DM2, DKA Resolved - Continue Ancef per ID. Plan for transition to PO Keflex on discharge. - Plan for anterograde stent placement per IR today and definitive stone management in 2-3 weeks per urology. - Trend platelets, no evidence of hemolysis. Suspect thrombocytopenia 2/2 sepsis. Hold heparin, continue SCDs. - Continue O2, wean as able. - Monitor glucose and adjust insulin as needed. Patient was not on insulin prior to admission and hopeful she will not require on discharge. - PT/OT eval recommend inpatient rehab. Patient insistent that she wants to go home on discharge. I spent over 51% of total time >25 minutes counseling/coordinating care and provided discussion regarding plan for antibiotics, thyombocytopenia. Pager: [phone] * Min Christie MD - 01/07/2020 6:42 AM EST UROLOGY PROGRESS NOTE PATIENT NAME: Jodee Lorenzo DATE OF : 1940 ADMISSION DATE: 01/02/2020 6:28 PM TODAY'S DATE: 01/07/2020 Subjective No acute events overnight. Patient had left antegrade ureteral stent placed yesterday by IR and PNT removed. Continues to feel better. Still weak. Difficulty with ambulation. Francis draining yellow urine. Objective VS: BP 135/67 Pulse 77 Temp 97.9 F (36.6 C) (Temporal) Resp 20 Ht 5' 1 (1.549 m) Comment: per chart Wt 202 lb (91.6 kg) SpO2 96% BMI 38.17 kg/m Vitals: 01/07/20 0311 BP: 135/67 Pulse: 77 Resp: 20 Temp: 97.9 F (36.6 C) SpO2: 96% I & O - 24hr: Intake/Output Summary (Last 24 hours) at 01/07/2020 0642 Last data filed at 01/07/2020 0357 Gross per 24 hour Intake 785 ml Output 1100 ml Net -315 ml Physical Exam: General: Neck: Resp: Abdomen: No acute distress Supple Normal effort, no respiratory distress, on nasal cannula Soft, non-tender, nondistended : Francis draining yellow urine, no cva or sp tenderness Skin: Skin color, texture, turgor normal, no rashes or lesions Labs and Imaging Studies Labs: CBC: Recent Labs 01/05/20 0433 01/06/20 0124 01/06/20 1040 WBC 22.4* 13.0* 11.2* HGB 9.1* 8.7* 9.4* HCT 27.0* 26.5* 28.4* MCV 95.0 96.2 95.6 PLT 39* 32* 35* BMP: Recent Labs 01/04/20 2103 01/05/20 0433 01/06/20 0124 01/06/20 1731 NA 143 142 143 -- K 3.3* 3.1* 3.2* 4.0 CL 101 102 104 -- CO2 32* 30 32* -- PHOS -- 2.6 2.0* 3.6 BUN 55* 53* 47* -- CREATININE 1.77* 1.55* 1.31* -- Magnesium: Lab Results Component Value Date MG 1.8 01/06/2020 Phosphate: Lab Results Component Value Date PHOS 3.6 01/06/2020 PT/INR: Recent Labs 01/06/20 0904 PROTIME 11.4 INR 1.1 U/A: Lab Results Component Value Date LEUKOCYTESUR 250 01/02/2020 WBCUA -25 01/02/2020 RBCUA -01/02/2020 BACTERIA Many 01/02/2020 GLUCOSEU Normal 01/02/2020 Urine Culture: Component Value Date/Time LABURIN Klebsiella pneumoniae (A) 01/02/20202219 LABURIN >100,000 CFU/ml 01/02/20202219 Assessment and Plan ASSESSMENT: 79 y.o. female with L-sided proximal ureteral stone, hydronephrosis, and sepsis PLAN: - L antegrade ureteral stent placed yesterday by IR - Discontinue francis today - Continue abx per primary - Flomax and oxybutynin for stent discomfort - Will have office reach out to scheduled definitive stone management in 2-3 weeks - No further acute urologic intervention. Urology will sign off. Call with questions Shukri Gorman MD Urology, PGY-3 01/07/2020 6:44 AM Pager: [phone] Discussed with the urology resident. I concur with the assessment and plan. Min Christie M.D. 01/07/2020 * Chetan Chan RN - 01/06/2020 4:10 PM EST Left ureteral stent placement and left nephrostomy tube removal completed by dr jones. Pt amy well no new co pain. Will return to inpt room. Occlusive gauze dsg applied to flank flank. * Chetan Chan RN - 01/06/2020 3:55 PM EST Pt arrived awake a/ox3 pt spoke with dr jones - consent obtained. Pt placed in prone position in procedure room 20. Left flank prep and draped per protocol for left ureteral stent placement. * Eloina Lazo MD - 01/06/2020 1:35 PM EST [facility] - Infectious Diseases Attending Progress Note Subjective: Following for septic shock with obstructing L ureteral stone- s/p PNT (01/01). Transferred out of ICU. No fevers. Objective: Vitals: Patient Vitals for the past 24 hrs: BP Temp Temp src Pulse Resp SpO2 Weight 01/06/20 1112 (!) 147/65 97.5 F (36.4 C) Temporal 83 24 97 % 01/06/20 0640 202 lb (91.6 kg) 01/06/20 0630 (!) 142/83 98.2 F (36.8 C) Temporal 87 22 95 % 01/06/20 0242 129/77 98.3 F (36.8 C) Temporal 91 24 98 % 01/05/20 2255 133/68 97.4 F (36.3 C) Temporal 90 18 97 % 01/05/20 2037 (!) 144/78 98.6 F (37 C) Temporal 98 22 94 % 01/05/20 2000 (!) 143/71 97.5 F (36.4 C) 96 24 94 % 01/05/20 1900 129/62 88 28 96 % 01/05/20 1800 139/61 108 28 90 % 01/05/20 1702 (!) 146/70 94 23 97 % 01/05/20 1600 (!) 140/57 97.3 F (36.3 C) Temporal 89 24 93 % 01/05/20 1500 (!) 142/68 101 24 95 % 01/05/20 1400 131/67 98 24 96 % Physical Exam Vitals signs and nursing note reviewed. Labs: Component Value Date/Time NA 143 01/06/2020 0124 K 3.2 (L) 01/06/2020 0124 CL 104 01/06/2020 0124 CO2 32 (H) 01/06/2020 0124 BUN 47 (H) 01/06/2020 0124 CREATININE 1.31 (H) 01/06/2020 0124 GLUCOSE 88 01/06/2020 0124 CALCIUM 8.3 (L) 01/06/2020 0124 PROT 5.6 (L) 01/05/2020 0433 LABALBU 2.9 (L) 01/05/2020 0433 BILITOT 0.7 01/05/2020 0433 ALKPHOS 84 01/05/2020 0433 AST 27 01/05/2020 0433 ALT 19 01/05/2020 0433 PROCAL 128.03 (A) 01/02/2020 1850 Component Value Date/Time WBC 11.2 (H) 01/06/2020 1040 HGB 9.4 (L) 01/06/2020 1040 HCT 28.4 (L) 01/06/2020 1040 PLT 35 (L) 01/06/2020 1040 GRANULOCYTES 96.1 (H) 01/02/2020 1850 LYMPHOPCT 3.0 (L) 01/02/2020 1850 MONOPCT 6 01/06/2020 1040 LABEOS 2 01/06/2020 1040 BASOPCT 0 01/06/2020 1040 NEUTROABS 7.6 01/06/2020 1040 Micro: 01/03- sputum cx- C albicans 01/02- RVP- negative 01/01- urine cx- >100,000 Klebsiella pneumo 01/01- urine cx- negative 01/01- Legionella urine Ag- negative 01/01- Strep pneumo urine Ag- negative 01/01- blood cx- NGTD Procalcitonin 128 [facility]: 01/01- blood cx- 2/2 Klebsiella pneumo (R amp) 01/01- urine cx- >100,000 Kleb pneumo (R amp/ nitrofurantoin) Radiography/Echo/Other: 01/03- CXR- FINDINGS: An endotracheal tube is seen with its tip approximately 2 cm above the sherie. An enteric tube extends into the stomach. A right IJ line is in place. The distal tip is in the superior vena cava. The cardiac silhouette and mediastinum are otherwise unremarkable. There is a mild left lower lobe infiltrate and small effusion. This is unchanged. IMPRESSION: 1. Stable left lower lobe infiltrate and small effusion. [place]: 01/01- CT abd/pelvis- 8mm L ureteral stone obstruction with moderate hydronephrosis/ perinephric edema Antimicrobials, Start/End Dates: Cefazolin 1g IV q12h Gentamicin x1 (01/02) Impression: 1. Septic shock Klebsiella pneumoniae BSI/ L pyelonephritis with obstructing ureteral stone - s/p L PNT (01/01) - blood and urine cx + Elaine - blood cx cleared 01/01 2. Renal insufficiency 3. LLL infiltrate/ VDRF-- C albicans colonization 4. Hx nephrolithiasis Plan: 1. Continue renally-dosed cefazolin. 2. Urology is following-- eventual ureteral stent/ definitive stone management. Anticipate two weeks of abx after blood cx clear. Time 15 min with >51% time spent counseling and coordinating care for bacteremia/ pyelonephritis. Eloina Lazo M.D. * Sary Stephenson, PT - 01/06/2020 11:07 AM EST Physical Therapy Facility/Department: [facility] Initial Assessment NAME: Jodee Lorenzo : 1940 Date of Service: 01/06/2020 N95, face shield, and gloves worn by PT throughout patient encounter. Discharge Recommendations: IP Rehab PT Equipment Recommendations Equipment Needed: No Assessment Body structures, Functions, Activity limitations: Decreased functional mobility ;Decreased strength;Decreased balance Assessment: Patient presents with decreased strength and impaired balance and would benefit from PTintervention to improve function. Patient would not be able to return home at this time and provideappropriate self care. Recommend IP rehab at discharge. Patient would be able to tolerate 15 hours of therapy per week. Prognosis: Good Decision Making: Low Complexity PT Education: Plan of Care REQUIRES PT FOLLOW UP: Yes Activity Tolerance Activity Tolerance: Patient Tolerated treatment well Patient Diagnosis(es): There were no encounter diagnoses. has a past medical history of Diabetes (HCC) and Nephrolithiasis. has a past surgical history that includes shoulder surgery. Restrictions Restrictions/Precautions Restrictions/Precautions: Fall Risk Required Braces or Orthoses?: No Vision/Hearing Hearing: Within functional limits Subjective General Chart Reviewed: Yes Patient assessed for rehabilitation services?: Yes Response To Previous Treatment: Not applicable Family / Caregiver Present: No Diagnosis: septic shock, left nephrostomy tube placed 01/02/20 Follows Commands: Within Functional Limits Subjective Subjective: Patient in bed. She is agreeable to PT. She states she hasn't been out of bed for days. Pain Screening Patient Currently in Pain: Denies Vital Signs Patient Currently in Pain: Denies Oxygen Therapy O2 Device: Nasal cannula O2 Flow Rate (L/min): 2 L/min Orientation Orientation Overall Orientation Status: Within Functional Limits Social/Functional History Social/Functional History Lives With: Alone Type of Home: House Home Layout: One level(3 steps into living area) Home Access: Level entry Bathroom Shower/Tub: Walk-in shower Bathroom Toilet: Standard Bathroom Equipment: Grab bars in shower Bathroom Accessibility: Accessible Home Equipment: (N/A) Receives Help From: Family(available to assist as needed) ADL Assistance: Independent Homemaking Assistance: Independent Homemaking Responsibilities: Yes Ambulation Assistance: Independent Transfer Assistance: Independent Active Personal Finance Instructor: Yes Mode of Transportation: Car 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 [employer] Additional Comments: no facility stay in past 14 days Cognition Cognition Overall Cognitive Status: WFL Objective AROM RLE (degrees) RLE AROM: WFL AROM LLE (degrees) LLE AROM : WFL Strength RLE Comment: 4/5 Strength LLE Comment: 4/ Tone RLE RLE Tone: Normotonic Tone LLE LLE Tone: Normotonic Motor Control Gross Motor?: WNL Bed mobility Supine to Sit: Minimal assistance Scooting: Contact guard assistance(seated scoot) Transfers Sit to Stand: Minimal Assistance Stand to sit: Contact guard assistance Ambulation Ambulation?: Yes WB Status: no restrictions More Ambulation?: No Ambulation 1 Surface: level tile Device: Hand-Held Assist Assistance: Minimal assistance Gait Deviations: Slow Alycia;Decreased step length Distance: 3-4 steps bed to chair Comments: Unable to attempt additional ambulation as patient is on telemetry - no cordless pack available and line is too short to complete more ambulation than to chair. Stairs/Curb Stairs?: No Balance Sitting - Static: Good;- Sitting - Dynamic: Fair;+ Standing - Static: Fair;- Standing - Dynamic: Fair;- Plan Plan Times per week: 5 Times per day: Daily Plan weeks: 2 Current Treatment Recommendations: Strengthening, ROM, Balance Training, Functional Mobility Training, Transfer Training, Gait Training, Stair training, Safety Education & Training Safety Devices Type of devices: Call light within reach, Gait belt, Patient at risk for falls, Left in chair, Nurse notified Restraints Initially in place: No G-Code OutComes Score AM-PAC Score AM-PAC Inpatient Mobility Raw Score : 13 (01/06/201055) AM-PAC Inpatient T-Scale Score : 36.74 (01/06/201055) Mobility Inpatient CMS 0-100% Score: 64.91 (01/06/201055) Mobility Inpatient CMS G-Code Modifier : CL (01/06/201055) Goals Short term goals Time Frame for Short term goals: 2 weeks Short term goal 1: modified independent bed mobility Short term goal 2: modified independent sit to/from stand Short term goal 3: independent ambulation 40 feet x 2 with device PRN Short term goal 4: up/down 3-4 steps supervision with device or rail PRN Patient Goals Patient goals : Get stronger and improve mobility. Therapy Time Individual Concurrent Group Co-treatment Time In 947 Time Out 1010 Minutes 22 Patient s Physical Therapy Plan of Care supervision is transferred to [facility] Physical Therapist. Sary Stephenson PT * Jay Mariscal MD - 01/06/2020 7:33 AM EST Med Team Progress Note Jodee Lorenzo : 1940(79 y.o.) Date: January 06, 2020 Med Team: C Attending: Dr. Kahn Chief Complaint: Septic shock Subjective: Patient transferred out of the ICU yesterday with original presentation for septic shock with obstructing nephrolithiasis of the left UPJ and Klebsiella pneumoniae bacteremia/UTI. S/p Left PNT [id number]. This Am, patient without acute complaints or significant overnight events. Denies any current pain symptoms. States she has had a productive cough since extubation but is unable to classify the mucous. Patient was able to tolerate a small portion of her breakfast without N/V, bloating, or diarrhea.Had a BM yesterday but none this morning. Review of Systems Scheduled Meds: potassium phosphate IVPB 20 mmol Intravenous Once famotidine 20 mg Oral BID vitamin B-12 50 mcg Oral Daily hydrocortisone sodium succinate PF 50 mg Intravenous Daily insulin glargine 20 Units Subcutaneous Nightly [Held by provider] insulin lispro 10 Units Subcutaneous TID WC insulin lispro 0-6 Units Subcutaneous TID WC ceFAZolin 1 g Intravenous Q12H sodium chloride flush 10 mL Intravenous 2 times per day chlorhexidine 15 mL Mouth/Throat BID sodium chloride flush 10 mL Intracatheter Q8H [Held by provider] heparin (porcine) 5,000 Units Subcutaneous 3 times per day CENTRUM/CERTA-ANN MARIE with minerals oral 15 mL Oral Daily Continuous Infusions: dextrose PRN meds used in last 24hrs: None Objective: BP (!) 142/83 Pulse 87 Temp 98.2 F (36.8 C) (Temporal) Resp 22 Ht 5' 1 (1.549 m) Comment: per chart Wt 202 lb (91.6 kg) SpO2 95% BMI 38.17 kg/m Physical Exam Constitutional: General: She is not in acute distress. Appearance: She is obese. She is not ill-appearing or toxic-appearing. HENT: Head: Normocephalic and atraumatic. Right Ear: External ear normal. Left Ear: External ear normal. Nose: Nose normal. No congestion or rhinorrhea. Mouth/Throat: Mouth: Mucous membranes are moist. Pharynx: Oropharynx is clear. No oropharyngeal exudate. Eyes: General: Right eye: No discharge. Left eye: No discharge. Extraocular Movements: Extraocular movements intact. Conjunctiva/sclera: Conjunctivae normal. Neck: Musculoskeletal: Normal range of motion. No muscular tenderness. Comments: Right IJ in place. Transparent bandage covering insertion site. Surrounding skin without erythema, warmth, or other signs of superficial infection. Cardiovascular: Rate and Rhythm: Normal rate and regular rhythm. Pulses: Normal pulses. Heart sounds: No murmur. No friction rub. No gallop. Pulmonary: Breath sounds: No wheezing, rhonchi or rales. Comments: On 2L NC, saturating 98-99 Chest: Chest wall: No tenderness. Abdominal: General: Abdomen is flat. Bowel sounds are normal. There is no distension. Palpations: Abdomen is soft. Tenderness: There is no abdominal tenderness. There is no guarding or rebound. Genitourinary: Comments: Francis in place Musculoskeletal: Right lower leg: Edema present. Left lower leg: Edema present. Comments: Left percutaneous nephrostomy tube in place Skin: General: Skin is warm and dry. Capillary Refill: Capillary refill takes less than 2 seconds. Coloration: Skin is not jaundiced or pale. Neurological: General: No focal deficit present. Mental Status: She is alert and oriented to person, place, and time. [facility] within last 24 hours Lab Results Component Value Date/Time WBC 13.0 (H) 01/06/2020 01:24 AM Hemoglobin 8.7 (L) 01/06/2020 01:24 AM Hematocrit 26.5 (L) 01/06/2020 01:24 AM Platelets 32 (L) 01/06/2020 01:24 AM MCV 96.2 01/06/2020 01:24 AM Lab Results Component Value Date/Time Sodium 143 01/06/2020 01:24 AM Potassium 3.2 (L) 01/06/2020 01:24 AM Chloride 104 01/06/2020 01:24 AM CO2 32 (H) 01/06/2020 01:24 AM BUN 47 (H) 01/06/2020 01:24 AM CREATININE 1.31 (H) 01/06/2020 01:24 AM Glucose 88 01/06/2020 01:24 AM Calcium 8.3 (L) 01/06/2020 01:24 AM Magnesium 1.8 01/06/2020 01:24 AM Phosphorus 2.0 (L) 01/06/2020 01:24 AM Lab Results Component Value Date/Time INR 1.1 01/06/2020 09:04 AM Assessment and Plan: Septic shock d/t klebsiella bacteremia/UTI - Similar presentation in 08/2015 at [facility] where patient required ICU admission, broad spectrum abx (eventually weaned to Cipro per care everywhere), found to have klebsiella bacteremia, and with eventual bilateral ureteral stent placement - [place] blood cxs positive for klebsiella pneumoniae - Repeat blood cxs obtained 01/01 NGTD - On Cefazolin; per ID, will require 2 weeks of abx if cxs remain clear; tentative end date of 01/11 Hypotension (resolved) - Pressures have been stable since pressors discontinued 01/03 - Stress dose steroids continue to be weaned; will receive 1x 50mg IV solu- cortef this Am with planto either transition to PO steroids 01/06 or discontinue completely - Will monitor BP for appropriate steroid taper Left pyelonephritis/Left obstructing nephrolithiasis with hydronephrosis - Initially sent to [place] ED with CT demonstrating obstructing stone of left UPJ - S/p L PNT placed 01/01 - Per Urology, will require definitive stone management in 2-3 weeks following resolution of infection - Plan for antegrade ureteral stent placement today by IR - Continue francis - Pt made NPO Acute hypoxic respiratory failure (resolved) - Was intubated in the ICU from 01/01 - 01/03 - Most recent CXR 01/03 with stable LLL infiltrate - Remains on 2L NC; will wean as appropriate - Duonebs changed from scheduled to TID PRN - Respiratory cx collected 01/03 NGTD - Respiratory viral panel negative REN in setting of obstructing nephrolithiasis (improving) - Cr will continue to improve as obstruction relieved - Total 1.78L UOP in past 24 hours - Monitor BMP T2DM - Admitted in DKA with insulin gtt (discontinued 01/04) - Home medications of metformin + glimepiride held - Lantus 20U nightly; received first dose 01/04 - Scheduled 10U Humalog TID held given NPO - Continue low dose SSI, hypoglycemia protocol - Patient on steroids as mentioned above, will most likely not require insulin as part of her home going medications once completely weaned Thrombocytopenia - Likely due to presenting sepsis; no concern for HIT at this time - During previous hospitalization at [facility] for bilateral obstructing nephrolithiasis in 08/2015, platelets dropped as low as 75 - Platelets 123 on 01/01, now 32 this Am - Heparin held given possible IR procedure today - Will order LDH, Haptoglobin, and Maria Esther smear for further evaluation Generalized weakness - PT/OT to eval Pain control - Tylenol PRN - Goals of Care: FULL CODE - DVT Prophylaxis: SCDs; holding SQ Heparin for possible IR procedure - GI Prophylaxis: Pepcid - Diet: NPO Associated attestation - Delmis Kahn MD - 01/06/2020 3:45 PM EST I have discussed the care of Jodee Lorenzo, including pertinent history and exam findings, with the medical student and/or resident. I have seen and examined the patient and the nunez elements of all parts of the encounter have been performed by me. (GC Modifier) I agree with resident's findingsand plan as documented in the resident's note. Please see below for personal highlights or additions to resident note. Patient seen and examined by myself at 0900 on 01/06/20 Admitted 01/02/2020 for septic shock 2/2 klebsiella bacteremia and UTI 2/2 obstructing nephrolithiasis Chief Complaint: weakness and fatigue, AMS S: Patient transferred out of ICU yesterday. States she is feeling well today, denies pain. Otherwise agree with resident's HPI. O: Vitals: 01/06/20 0242 01/06/20 0630 01/06/20 0640 01/06/20 1112 BP: 129/77 (!) 142/83 (!) 147/65 Pulse: 91 87 83 Resp: 24 22 24 Temp: 98.3 F (36.8 C) 98.2 F (36.8 C) 97.5 F (36.4 C) TempSrc: Temporal Temporal Temporal SpO2: 98% 95% 97% Weight: 202 lb (91.6 kg) Height: Sitting up in bed, NAD. Abdomen nontender. Trace LE edema. Otherwise agree with resident physical exam. A/P: full A/P documented in attested note, see below for nunez highlights or additions to A/P. Septic Shock 2/2 Klebsiella Bacteremia + Urosepsis Left Obstructing Nephrolithiasis with Hydronephrosis s/p PNT REN, Resolving Acute Respiratory Failure with Hypoxia Thrombocytopenia DM2, DKA Resolved - Transferred out of ICU yesterday, septic shock resolved. Continue to wean stress-dose steroids. - Continue Ancef per ID. - Plan for anterograde stent placement per IR today and definitive stone management in 2-3 weeks per urology. - Trend platelets, check hemolysis labs. No evidence of active bleeding. Suspect thrombocytopenia 2/2 sepsis. Hold heparin, continue SCDs. - Continue O2, wean as able. - Monitor glucose and adjust insulin as needed. Patient was not on insulin prior to admission and hopeful she will not require on discharge. - PT/OT eval recommend inpatient rehab. I spent over 51% of total time >25 minutes counseling/coordinating care and provided discussion regarding plan for nephrolithiasis, DM2. Pager: [phone] * Amanda Hayes DO - 01/05/2020 2:14 PM EST ICU TRANSFER CHECKLIST Transfer Med Reconciliation (resume home meds if able, convert to PO if able) Complete Antibiotics (name, indication, duration, convert to PO if able) Yes, addressed in today's progress note Steroid (indication, duration, convert to PO if able) Yes, addressed in today's progress note Anticipated [place] Medications (ICU initiated) or Dose Changes and Indication Yes, addressed in today's progress note Permanently Discontinued Home Medications and Reason for medication contraindication No Francis Catheter (please remove if able) Yes Central Line (please remove if able) No Transfer Discussed with: Dr. Gamboa If additional questions for ICU team within 24 hours of ICU transfer, page Amanda Hayes for clarifications. * Norma Clay, VERA - 01/05/2020 10:15 AM EST Speech Language Pathology Facility/Department: [facility] ICU T2 CLINICAL BEDSIDE SWALLOW EVALUATION NAME: Jodee Lorenzo : 1940 ADMISSION DATE: 01/02/2020 ADMITTING DIAGNOSIS: has Septic shock (HCC) and Calculus of ureter on their problem list. ONSET DATE: 01/02/2020 Recent Chest Xray/CT of Chest: 01/02/2020 A single view the chest is obtained at 1830 hours. The trachea is midline. The mediastinal cardiac silhouette are unremarkable. There is diffuse interstitial prominence. No confluent infiltrates, significant pleural effusion or pneumothorax is seen. There are degenerative changes of the thoracic spine. Date of Eval: 01/05/2020 Evaluating Therapist: Norma Clay Current Diet level: Current Diet : NPO Current Liquid Diet : NPO Primary Complaint Patient Complaint: Thirsty Pain: Pain Assessment Pain Assessment: 0-10 Pain Level: 0 RASS Score: Alert and calm Reason for Referral: extubated 01/04/2020 ED NOTES: Chief Complaint: septic shock, obstructing right ureteral stone HPI 79 yo woman with history of dm2, htn, renal stones and sepsis, hlp, anxiety, depression presented to [facility] ([facility] 01/02/20 morning with complaints of fever and called for evaluation of possible stroke because patient had altered mental status. EMS noted patient was hypotensive with no focal neurologic deficits. Ct revealed obstructing stone left upj and hydronephrosis, initial lactate=9.9. Patient felt to have severe sepsis. There were attempts at placing central linein right subclavian and artery was hit, central line placement was unsuccessful, patient had transient hypertension for which she was given sl ntg and thereafter suffered from hypotension. She develop ed wheezing and was given albuterol and placed on niv In [place] patient was ordered tylenol, albuterol, 30 ml/kg ivfs, Ceftriaxone 1 gram, sl ntg. She was transferred to [facility] icu for further evaluation and treatment and for availability of urology. Jodee J Bihari was referred for a bedside swallow evaluation to assess the efficiency of her swallow function, identify signs and symptoms of aspiration and make recommendations regarding safe dietary consistencies, effective compensatory strategies, and safe eating environment. Impression Dysphagia Impression : Patient presents with a clinically functional oropharyngeal swallow pattern.Recommend a Dental Soft diet until patient dentures are available. Then recommend diet be upgraded to Regular. Ok for thin liquids and PO meds. No formal dysphagia intervention with Speech therapy is indicated. Please re-consult if any concerns arise. Treatment Plan Requires WAREHOUSE PULLER Intervention: No Duration/Frequency of Treatment: na Recommended Diet and Intervention Diet Solids Recommendation: Dental Soft Liquid Consistency Recommendation: Thin Recommended Form of Meds: PO Compensatory Swallowing Strategies Compensatory Swallowing Strategies: Upright as possible for all oral intake;Small bites/sips General Chart Reviewed: Yes Behavior/Cognition: Alert;Cooperative;Pleasant mood O2 Device: Nasal cannula Liters of Oxygen: 2 L Communication Observation: Functional Follows Directions: Complex Dentition: Edentulous(dentures are at home) Patient Positioning: Upright in bed Baseline Vocal Quality: Normal Volitional Cough: Strong Prior Dysphagia History: No prior MBSS in EPIC Consistencies Administered: Lemon Ice;Dysphagia Pureed (Dysphagia I);Dysphagia Soft and Bite-Sized (Dysphagia III);Reg solid;Thin - teaspoon;Thin - straw Oral Motor Deficits Oral/Motor Oral Motor: Within functional limits Oral Phase Dysfunction Oral Phase Oral Phase - Comment: Mastication of a rubén cracker piece is adequate despite lack of dentures. There is no oral residue. Indicators of Pharyngeal Phase Dysfunction Pharyngeal Phase Pharyngeal: Laryngeal excursion is clinically adequate. There is an audible swallow and cough afterthe swallow of lemon ice x 1; suspect early bolus entry into the oropharynx. Patient was able to drink water from a straw without an audible swallow. There is no wet voice or cough. Education Patient Education: Spoke with the patient and the RN Patient Education Response: Verbalizes understanding Safety Devices in place: Yes Therapy Time WAREHOUSE PULLER Individual Minutes Time In: 919 Time Out: 939 Minutes: 20 WAREHOUSE P[employer]ER Total Treatment Time Total Treatment Time: 20 Norma Clay MS, CCC/ WAREHOUSE P[employer]ER 01/05/2020 10:15 AM A KN95 mask, a full face shield and gloves were worn throughout this session. * Eloina Lazo MD - 01/05/2020 9:49 AM EST [facility] - Infectious Diseases Attending Progress Note Subjective: Following for septic shock with obstructing L ureteral stone- s/p PNT (01/01). Extubated. No fevers. Remains off of pressors. Feeling better. No flank pain. Objective: Vitals: Patient Vitals for the past 24 hrs: BP Temp Temp src Pulse Resp SpO2 01/05/20 0900 139/70 88 20 94 % 01/05/20 0800 124/62 98 F (36.7 C) Temporal 99 24 93 % 01/05/20 0700 138/67 88 19 100 % 01/05/20 0600 (!) 140/71 85 24 97 % 01/05/20 0500 (!) 139/59 74 23 98 % 01/05/20 0400 136/74 97.8 F (36.6 C) Temporal 82 27 95 % 01/05/20 0300 (!) 146/77 90 22 97 % 01/05/20 0200 132/66 75 12 98 % 01/05/20 0100 133/73 93 14 95 % 01/05/20 0000 (!) 152/88 97.7 F (36.5 C) Temporal 103 19 95 % 01/04/20 2300 (!) 143/81 91 13 97 % 01/04/20 2200 139/76 96 16 98 % 01/04/20 2100 (!) 142/77 101 16 98 % 01/04/20 2000 135/83 100 14 98 % 01/04/20 1900 132/71 103 14 01/04/20 1800 (!) 146/80 101 16 01/04/20 1727 (!) 150/74 01/04/20 1700 109 19 01/04/20 1638 120 23 99 % 01/04/20 1600 97.9 F (36.6 C) Temporal 107 19 99 % 01/04/20 1523 99 % 01/04/20 1500 100 23 99 % 01/04/20 1445 97 14 99 % 01/04/20 1430 99 14 98 % 01/04/20 1415 117 22 99 % 01/04/20 1400 104 18 99 % 01/04/20 1345 108 20 99 % 01/04/20 1330 106 15 98 % 01/04/20 1315 112 19 97 % 01/04/20 1300 113 15 97 % 01/04/20 1245 110 19 96 % 01/04/20 1230 115 11 97 % 01/04/20 1215 117 10 98 % 01/04/20 1200 99.1 F (37.3 C) Temporal 117 24 99 % 01/04/20 1148 97 % 01/04/20 1145 90 10 98 % 01/04/20 1130 92 16 98 % 01/04/20 1115 99 18 92 % 01/04/20 1100 98 20 97 % 01/04/20 1045 100 16 94 % 01/04/20 1030 101 17 97 % 01/04/20 1015 97 12 97 % 01/04/20 1000 101 13 97 % Physical Exam Vitals signs and nursing note reviewed. Constitutional: Appearance: She is ill-appearing. She is not diaphoretic. HENT: Head: Normocephalic and atraumatic. Right Ear: External ear normal. Left Ear: External ear normal. Nose: Nose normal. No congestion. Mouth/Throat: Mouth: Mucous membranes are moist. Pharynx: Oropharynx is clear. No oropharyngeal exudate. Eyes: General: No scleral icterus. Extraocular Movements: Extraocular movements intact. Pupils: Pupils are equal, round, and reactive to light. Neck: Musculoskeletal: Normal range of motion and neck supple. No neck rigidity or muscular tenderness. Cardiovascular: Rate and Rhythm: Normal rate and regular rhythm. Heart sounds: No murmur. Pulmonary: Breath sounds: No rhonchi or rales. Abdominal: General: Bowel sounds are normal. There is no distension. Palpations: Abdomen is soft. There is no mass. Tenderness: There is no abdominal tenderness. Comments: + L PNT with clear yellow urine Musculoskeletal: General: No swelling or tenderness. Comments: + arthritic joint changes; no synovitis or crepitance of any limb Lymphadenopathy: Cervical: No cervical adenopathy. Skin: General: Skin is warm and dry. Findings: No erythema or rash. Neurological: Mental Status: She is oriented to person, place, and time. Comments: moving arms and legs Psychiatric: Mood and Affect: Mood normal. Behavior: Behavior normal. Labs: Component Value Date/Time NA 142 01/05/2020 0433 K 3.1 (L) 01/05/2020432 CL 102 01/05/2020432 CO2 30 01/05/2020432 BUN 53 (H) 01/05/2020432 CREATININE 1.55 (H) 01/05/2020432 GLUCOSE 127 (H) 01/05/2020432 CALCIUM 8.3 (L) 01/05/2020432 PROT 5.6 (L) 01/05/2020432 LABALBU 2.9 (L) 01/05/2020432 BILITOT 0.7 01/05/2020432 ALKPHOS 84 01/05/2020432 AST 27 01/05/2020432 ALT 19 01/05/2020432 PROCAL 128.03 (A) 01/02/20201849 Component Value Date/Time WBC 22.4 (H) 01/05/2020432 HGB 9.1 (L) 01/05/2020432 HCT 27.0 (L) 01/05/2020432 PLT 39 (L) 01/05/2020432 GRANULOCYTES 96.1 (H) 01/02/2020 185 LYMPHOPCT 3.0 (L) 01/02/2020 185 MONOPCT 6 01/05/2020432 LABEOS 0 (L) 01/05/2020432 BASOPCT 0 01/05/2020432 NEUTROABS 19.5 (H) 01/05/2020432 Micro: 01/03- sputum cx- NGTD 01/02- RVP- negative 01/01- urine cx- >100,000 Klebsiella pneumo 01/01- urine cx- negative 01/01- Legionella urine Ag- negative 01/01- Strep pneumo urine Ag- negative 01/01- blood cx- NGTD Procalcitonin 128 [place] Micro: 01/01- blood cx- 2/2 Klebsiella pneumo (R amp) 01/01- urine cx- >100,000 Kleb pneumo (R amp/ nitrofurantoin) Radiography/Echo/Other: 01/03- CXR- FINDINGS: An endotracheal tube is seen with its tip approximately 2 cm above the sherie. An enteric tube extends into the stomach. A right IJ line is in place. The distal tip is in the superior vena cava. The cardiac silhouette and mediastinum are otherwise unremarkable. There is a mild left lower lobe infiltrate and small effusion. This is unchanged. IMPRESSION: 1. Stable left lower lobe infiltrate and small effusion. Elaine: 01/01- CT abd/pelvis- 8mm L ureteral stone obstruction with moderate hydronephrosis/ perinephric edema Antimicrobials, Start/End Dates: Cefazolin 1g IV q12h Gentamicin x1 (01/02) Impression: 1. Septic shock Klebsiella pneumoniae BSI/ L pyelonephritis with obstructing ureteral stone - s/p L PNT (01/01) - blood and urine cx + [place] 2. Renal insuffiicency 3. LLL infiltrate/ VDRF 4. Hx nephrolithiasis Plan: 1. Continue renally-dosed cefazolin. 2. Follow repeat blood cx for clearance. 3. Urology is following-- eventual ureteral stent/ definitive stone management. Anticipate two weeks of abx after blood cx clear. D/w RN and TCC. Time 25 min with >51% time spent counseling and coordinating care for bacteremia/ pyelonephritis. Eloina Lazo M.D. * Amanda Hayes, DO - 01/05/2020 6:58 AM EST ICU Progress Note Jodee Lorenzo : 1940(79 y.o.) Date: January 05, 2020 Team: ICU Attending: Dr. Leonor Kimball Chief Complaint: weakness and fatigue, fever and AMS Subjective: No overnight events. Pt is doing well this morning. She reports some difficulty sitting up independently 2/2 weakness. Will consult PT/OT today. Reports she is hungry, awaiting WAREHOUSE P[employer]ER consult. Review of Systems Constitutional: Negative for chills and fever. HENT: Negative for rhinorrhea and sore throat. Eyes: Negative for pain and visual disturbance. Respiratory: Negative for cough, shortness of breath and wheezing. Cardiovascular: Negative for chest pain, palpitations and leg swelling. Gastrointestinal: Negative for abdominal pain, blood in stool, constipation, diarrhea, nausea and vomiting. Genitourinary: Negative for difficulty urinating, dysuria and hematuria. Musculoskeletal: Negative for arthralgias, back pain and joint swelling. Skin: Negative for color change, rash and wound. Neurological: Positive for weakness. Negative for dizziness, light-headedness and headaches. Scheduled Meds: ceFAZolin 1 g Intravenous Q12H hydrocortisone sodium succinate PF 50 mg Intravenous Q8H ipratropium-albuterol 1 ampule Inhalation TID sodium chloride flush 10 mL Intravenous 2 times per day chlorhexidine 15 mL Mouth/Throat BID famotidine (PEPCID) injection 10 mg Intravenous BID sodium chloride flush 10 mL Intracatheter Q8H [Held by provider] heparin (porcine) 5,000 Units Subcutaneous 3 times per day CENTRUM/CERTA-ANN MARIE with minerals oral 15 mL Oral Daily Continuous Infusions: dextrose 5 % and 0.45 % NaCl 50 mL/hr at 01/05/20 0656 insulin 0.87 Units/hr (01/05/20 0622) dextrose dextrose fentaNYL Stopped (01/04/20 1150) Objective: VITALS: BP (!) 140/71 Pulse 85 Temp 97.8 F (36.6 C) (Temporal) Resp 24 Ht 5' 1 (1.549 m) Comment: per chart Wt 201 lb 1 oz (91.2 kg) SpO2 97% BMI 37.99 kg/m CURRENT PULSE OXIMETRY: SpO2: 97 % I/O: 01/03 701 - 01/04 700 In: 2169.6 [I.V.:1829.6] Out: 1585 [Urine:1585] Ventilator Settings: Vent Mode: Tube Compensation Rate Set: 14 bmp Vt Ordered: 290 mL Pressure Support: 0 cmH20 PEEP/CPAP: 8 FiO2 : 30 % Oxygen Delivery - O2 Flow Rate (L/min): 2 L/minNIV FiO2 75% Invasive Lines and Dates: central line and radial arterial line Intubation Date: 01/02/2020 General Appearance: []WDWN [x]Obese []Cachectic []Thin []ill Skin: Temperature [x]Warm []Cool Rash []Yes [x]No Tattoo(s) []Yes []No HEENT: Pupils round and react [x]Yes []No Sclera []Icteric []Non-Icteric Conjunctiva []Injected [x]Non-Injected Pinnae []Normal []Other Dentitian [x][place] Teeth []Dentures Oral Mucosa [x]Celeste [x]Moist []Dry Oral ETT []Present [x]Absent Neck: Trachea midline [x]Yes []No Thyromegaly []Yes []No Crepitus []Present [x]Absent Jvd []Present [x]Absent Lungs: [x]Clear []Crackles []Wheezes []Rhonchi Respiratory effort []Labored [x]Non-Labored Heart: Rate [x]Regular []Irregular []Tachycardia []Bradycardia Rhythm []Regular []Irregular Murmur []Present [x]Absent Peripheral Edema []Present [x]Absent Abdomen: [x]Soft Bowel Sounds []Present [x]Absent []Tender [x]Non-Tender []Distended [x]Non-distended Hernia []Present []Absent Organomegaly []Present []Absent []Scar Extremities: Cyanosis []Present []Absent LACKEY ([x]RUE [x]RLE [x]LUE [x]LLE) Neurologic: CHILKAT []Yes [x]No Corneal reflexes []Present []Absent Plantar reflexes []Up [x]Down []Absent Withdraws to tactile []Yes []No Follows Commands [x]Yes []No []Unresponsive to verbal []Cranial nerves grossly intact []Sensation grossly intact Psych: Alert [x]yes []no Oriented []x0 []x1 []x2 [x]x3 Affect [x]Normal []Flat []Agitated []Anxious []Calm []Sedated []NAD [facility] within last 72 hours BMP: Recent Labs 01/03/20 0355 01/04/20 0200 01/04/20 0806 01/04/20 2103 01/05/20 0433 NA 144 < > 142 142 143 142 K 3.4* < > 3.5 3.7 3.3* 3.1* CL 106 < > 103 100 101 102 CO2 17* < > 29 28 32* 30 BUN 37* < > 49* 50* 55* 53* CREATININE 2.33* < > 2.06* 2.00* 1.77* 1.55* CALCIUM 7.2* < > 7.5* 7.7* 8.4 8.3* MG 2.5* -- 2.2 -- -- 2.2 PHOS 5.4* -- 4.7* -- -- 2.6 < > = values in this interval not displayed. LFTS: Recent Labs 01/02/20184901/05/20432 AST 52* 27 ALT 20 19 PROT 7.0 5.6* LABALBU 3.7 2.9* BILITOT 0.8 0.7 ALKPHOS 177* 84 Glucose: Recent Labs 01/03/20 0355 01/03/20 0756 01/03/20 1502 01/03/20 20301/04/20 02001/04/20 0806 01/04/20 21001/04/20 2312 01/05/20 0006 01/05/20 0107 01/05/20 0218 01/05/20 0315 01/05/20 0422 01/05/20 0433 01/05/20 0528 01/05/20 0620 GLUCOSE 326* -- 245* -- 146* -- 122* -- 135* -- 187* -- 105* -- -- -- -- -- -- -- 127* -- -- POCGLU -- < > -- < > -- < > -- < > -- < > -- < > -- < > 80 70 84 89 109* 115* -- 139* 147* < > = values in this interval not displayed. CBC: Recent Labs 01/04/2080501/04/20210101/05/20432 WBC 20.4* 26.4* 22.4* HGB 8.5* 8.9* 9.1* HCT 25.7* 26.9* 27.0* PLT 40* 41* 39* MCV 97.0 96.2 95.0 RDW 14.0 14.1 13.9 ABGs: Recent Labs 01/04/2019901/04/2080501/05/20432 PHART 7.466* 7.399 7.537* NZN4GEE 39.7 47.5* 37.0 PO2ART 79.2* 112.7* 192.6* RFP4SIG 28.0* 28.7* 30.7* B4VYTTCP 95.7 97.8 99.0 FIO2A No data No data No data Lactic Acid: Recent Labs 01/03/20 2031 01/04/20 0200 01/04/20 0806 LACTA 2.2* 1.7 1.2 INR: Recent Labs 01/02/20 1850 INR 1.3* pro-BNP: No results for input(s): NTPROBNP in the last 72 hours. Cardiac Injury Profile: Recent Labs 01/02/20 2107 01/03/20 0059 01/03/20 0756 TROPONINI 0.727* 0.640* 0.392* Labs in Last 3 months: Lab Results Component Value Date INR 1.3 (H) 01/02/2020 LABA1C 7.7 (H) 01/03/2020 Imaging: CXR 01/01: unremarkable for acute process: The trachea is midline. The mediastinal cardiac silhouette are unremarkable. There is diffuse interstitial prominence. No confluent infiltrates, significant pleural effusion or pneumothorax is seen. There are degenerative changes of the thoracic spine. CXR 01/02: IMPRESSION: 1. Overall stable appearance of the chest. 2. Satisfactory position of the life support devices. CXR 01/03 IMPRESSION: 1. Stable left lower lobe infiltrate and small effusion. Cultures: 01/03- urine cx klebsiella 01/03- sputum cx- in process 01/02- RVP- negative 01/01- urine cx- normal urogenital jose luis 01/01- Legionella urine Ag- negative 01/01- Strep pneumo urine Ag- negative 01/01- blood cx- NGTD Assessment and Plan: Active Problems: Septic shock (HCC) Calculus of ureter Resolved Problems: * No resolved hospital problems. * 79 year old woman, PMH DM2, HTN, Urolithiasis (known to Dr. Paniagua), sepsis, anxiety, HLD, depression. Septic shock, pyelonephritis - S/p gentamicin and vanc/meropenem - Per ID, de-escalated to cefazolin - blood cultures showing no growth to date - repeat urine culture showing klebsiella - down to solu cortef 50mg IV daily - no longer on pressors, VSS - ID following, appreciate reccs - plan for 2 weeks of abx after blood cx clear Acute hypoxic respiratory failure - covid pcr neg, strep pneumo ag neg, resp panel pcr neg - intubated on 11/7, extubated 01/03 - pH of 7.53 pCO2 37 PO2 192 HCO3 30.7 - Mixed respiratory and metabolic alkalosis likely 2/2 hyperventilation and s/p bicarb - duonebs neb q4 --> continue -WAREHOUSE PULLER consult pending REN due to left renal stone with upj obstruction & hydronephrosis, no hydronephrosis on right (urology following peripherally) - IR- guided PNT (left 8 Fr nephrostomy tube) on 01/01 and draining -->Maintain - per urology: will need antegrade ureteral stent placement with IR when out of ICU and definitive stone management in 2-3 weeks after infection resolved (per Dr. Hathaway) - is making urine 705 cc over night - Cr is slightly improving DKA (resolved) in setting of DM type 2 - originally came in with elevated glucose, elevated BHB, and increased anion gap - insulin gtt d/c'd 01/04 - D5 1/2NS d/c'd - at home the patient is on metformin and and glimepiride (held initially due to ren, Cr still elevated so continue to hold) - start lantus 20u nightly; lispro 10 units with meals - monitor BGTs Thrombocytopenia - platelets have been down trending since admission - bilirubin within normal limits - likely 2/2 sepsis - hold heparin today Increased anion gap metabolic acidosis- RESOLVED - likely 2/2 lactic acidosis + DKA + renal insufficiency - lactate 9.9-->6.8-->1.7 now WNL -->can d/c trending - bicarb gtt d/c'd 01/03 Encephalopathy likely metabolic (resolved) - heat CT with atrophy no acute changes - likely a result of sepsis F: none E: replete PRN N: carb control diet GI: IV Pepcid 10mg BID DVT: hold Heparin SC TID Code: Full code Dispo: continue ICU Associated attestation - Judy Kimball MD - 01/05/2020 4:30 PM EST I have personally performed a [id number] diagnostic evaluation on this patient on date of piumkim13/10/20. History, labs, imaging studies, and electronic medical record have been reviewed by me. This note documented by the [x]annual greenhouse manager []SHAYNA reflects my history, exam, and medical decision making. I have reviewed and agree with the care plan. Changes were made in the orders as necessary. ROS documentation was reviewed and negative unless otherwise stated in HPI. Additional pertinent interval history, ROS, and physical exam findings: - extubated yesterday 01/03, weaned to 2L NC O2 Assessment: - septic shock 03/29: -- klebsiella bacteremia -- klebsiella UTI w/obstructing nephrolithiasis s/p L PNT - acute hypoxic respiratory failure - thrombocytopenia - REN - elevated troponin likely 03/29 demand ischemia w/o acute TN Plan: - back on insulin gtt w/+ BHB: AG WNL, no signs of NAGMA: -- d/c insulin gtt, resume SQI protocol -- d/c serial BHB/DKA labs as out of DKA -- consider endocrine consult if BG remains difficult to control -- expect improvement as steroids weaned - abx per ID for klebsiella septicemia/UTI - off pressors>24h: wean stress dose steroids - REN improving, follow UOP and electrolytes, f/u urine studies, avoid nephrotoxins as able + renally dose meds where appropriate - platelets remain low but stable over last 24h -- f/u hemolysis labs -- change serial CBCs to q12h - transfer to floor once off insulin gtt * Emily Lopez, COUNTERSINKER - 01/04/2020 4:42 PM EST Patient Evaluation Form The patient is currently receiving q4 Points 0 1 2 3 4 Points Totals Pulmonary Status (-/+) History Smoking history < 20 pack years Smoking history > 20 pack years Pulmonary Disorder (acute or chronic) Severe or Chronic with Exacerbation 3 Surgical Status No Surgery Trach PEG General Surgery Lower Abdominal Thoracic or Upper Abdominal Thoracic with Pulmonary Disorder 1 Chest X-ray Clear None Ordered Chronic Changes CXR results Pending Infiltrates, atelectasis, pleural effusion, or edema Infiltrates in more than one lobe Infiltrate + Atelectasis, &/or pleural effusion 2 Respiratory Pattern Regular, RR = 12-20 Increased, RR = 21-25 BOOTH, irregular, or RR = 26-30 Decreased FEV1 or RR = 31-35 Severe SOB, used of of accessory muscles, or RR = > 35 0 Mental Status Alert, oriented, cooperative Confused, but follows commands Lethargic or un-able to follow commands Obtunded Comatose 0 Breath Sounds Clear to auscultation Decreased unilaterally or in bases only Decreased bilaterally Crackles or intermittent wheezes Wheezes 1 Cough Strong, spontaneous, & nonproductive Strong, spontaneous, & productive Weak, nonproductive Weak, productive or with wheezes No spontaneous cough or may require suctioning 1 Level of Activity Ambulatory Ambulatory with Assist Non-ambulatroy Paraplegic Quadriplegic 1 Triage 1 > 20 pts Triage 2 16-20 pts Triage 3 11- 15 pts Triage 4 6 - 10 pts Triage 5 0 - 5 pts TOTAL POINTS = 9 Triage Score = 4 Changing Therapy to tid * Emily Lopez RCP - 01/04/2020 2:53 PM EST 100 [facility] Department Progress Note Spontaneous Breathing Trial (SBT) Start: 2-3 min to Stabilize After 15 min After 30 min HR 105 100 105 SpO2 (%) 100 99 99 RR 20 19 19 VT (L) .365 .381 .361 Total RSBI (RR/VT in Liters) Pass SBT (RSBI must be?105 to pass) NA NA Yes Comments (state reason if SBT failed): Additional data if requested: NIF = VC = Name of physician results were reported to: AD Time results reported to physician: Thank you for involving Respiratory in the care of this patient, * Izzy Walden SLP - 01/04/2020 2:27 PM EST Speech Language Pathology Orders noted. Plan on clinical swallow exam next morning. * Norma Clay SLP - 01/04/2020 2:27 PM EST Speech Language Pathology Received order for a bedside swallow evaluation. Patient not yet extubated. Spoke with the RN. Willschedule the swallow evaluation for 01/05/2020 in the AM. Norma Clay MS, CCC/WAREHOUSE PULLER * Emily Lopez RCP - 01/04/2020 11:50 AM EST [facility] Department Progress Note Spontaneous Breathing Trial (SBT) Start: 2-3 min to Stabilize After 15 min After 30 min HR 101 107 105 SpO2 (%) 97 96 95` RR 13 21 18 VT (L) .508 .517 .637 Total RSBI (RR/VT in Liters) Pass SBT (RSBI must be?105 to pass) NA NA Yes Comments (state reason if SBT failed): Additional data if requested: NIF = VC = Name of physician results were reported to: AD Time results reported to physician: [id number] Thank you for involving Respiratory in the care of this patient, * Eloina Lazo MD - 01/04/2020 10:19 AM EST [facility] - Infectious Diseases Attending Progress Note Subjective: Following for septic shock with obstructing L ureteral stone- s/p PNT (01/01). Remains on vent. Levophed weaned off and on very minimal vasopressin. No fevers. Objective: Vitals: Patient Vitals for the past 24 hrs: BP Temp Temp src Pulse Resp SpO2 Weight 01/04/20 0904 97 % 01/04/20 0815 97 21 97 % 01/04/20 0800 (!) 120/54 97.9 F (36.6 C) Temporal 87 16 96 % 01/04/20 0745 87 14 97 % 01/04/20 0730 93 15 97 % 01/04/20 0715 81 13 97 % 01/04/20 0700 89 16 96 % 01/04/20 0645 85 10 97 % 01/04/20 0630 92 16 96 % 01/04/20 0615 94 15 95 % 01/04/20 0600 94 19 96 % 201 lb 1 oz (91.2 kg) 01/04/20 0545 99 17 93 % 01/04/20 0530 98 18 94 % 01/04/20 0515 104 24 94 % 01/04/20 0500 101 18 96 % 01/04/20 0445 103 19 96 % 01/04/20 0430 99 17 95 % 01/04/20 0415 101 17 97 % 01/04/20 0400 133/70 98.5 F (36.9 C) Temporal 97 16 97 % 01/04/20 0345 96 14 96 % 01/04/20 0330 101 21 97 % 01/04/20 0315 103 15 97 % 01/04/20 0300 103 15 92 % 01/04/20 0258 101 14 93 % 01/04/20 0257 18 95 % 01/04/20 0230 100 13 96 % 01/04/20 0215 99 16 93 % 01/04/20 0200 100 9 96 % 01/04/20 0145 106 19 96 % 01/04/20 0130 106 16 96 % 01/04/20 0115 109 17 96 % 01/04/20 0100 107 16 96 % 01/04/20 0045 110 14 95 % 01/04/20 0030 108 13 94 % 01/04/20 0015 110 19 96 % 01/04/20 0000 118/74 98.8 F (37.1 C) 114 16 94 % 01/03/20 2345 114 13 96 % 01/03/20 2330 104 19 94 % 01/03/20 2323 98 19 98 % 01/03/20 2321 18 100 % 01/03/20 2300 98 16 96 % 01/03/20 2245 98 11 96 % 01/03/20 2230 100 17 97 % 01/03/20 2215 98 14 97 % 01/03/20 2200 98 12 95 % 01/03/20 2145 100 20 96 % 01/03/20 2130 103 17 96 % 01/03/20 2115 106 19 96 % 01/03/20 2100 110 17 97 % 01/03/20 2045 111 18 96 % 01/03/202029 111 16 96 % 01/03/202014 113 19 97 % 01/03/202003 105 16 100 % 01/03/201999 96/65 99.1 F (37.3 C) Temporal 104 15 97 % 01/03/20 1945 104 16 97 % 01/03/20 1930 105 16 96 % 01/03/20 1915 109 16 95 % 01/03/20 1900 118 27 96 % 01/03/20 1845 111 15 96 % 01/03/20 1830 114 16 95 % 01/03/20 1815 14 96 % 01/03/20 1800 115 17 97 % 01/03/20 1750 115 13 96 % 01/03/20 1748 117 24 97 % 01/03/20 1735 115 15 97 % 01/03/20 1730 118 97 % 01/03/20 1715 120 19 97 % 01/03/20 1700 122 18 97 % 01/03/20 1645 119 19 99 % 01/03/20 1630 97 17 98 % 01/03/20 1626 97 15 98 % 01/03/20 1625 98 17 99 % 01/03/20 1624 97 16 99 % 01/03/20 1623 97 17 99 % 01/03/20 1622 97 14 99 % 01/03/20 1621 96 16 99 % 01/03/20 1620 98 15 99 % 01/03/20 1619 98 14 99 % 01/03/20 1618 98 18 99 % 01/03/20 1617 98 17 99 % 01/03/20 1616 98 17 99 % 01/03/20 1615 100 19 98 % 01/03/20 1614 99 14 99 % 01/03/20 1613 99 15 99 % 01/03/20 1612 101 14 98 % 01/03/20 1611 101 16 99 % 01/03/20 1610 101 17 99 % 01/03/20 1609 101 14 98 % 01/03/20 1608 102 16 99 % 01/03/20 1607 102 15 99 % 01/03/20 1606 102 16 99 % 01/03/20 1605 101 21 99 % 01/03/20 1604 101 12 98 % 01/03/20 1603 102 12 99 % 01/03/20 1602 98 13 98 % 01/03/20 1601 101 18 98 % 01/03/20 1600 87/60 98.9 F (37.2 C) Temporal 102 20 98 % 01/03/20 1559 101 15 98 % 01/03/20 1558 101 21 98 % 01/03/20 1557 101 13 98 % 01/03/20 1556 101 11 98 % 01/03/20 1555 101 17 98 % 01/03/20 1554 102 12 98 % 01/03/20 1553 103 13 98 % 01/03/20 1550 105 19 98 % 01/03/20 1545 105 15 98 % 01/03/20 1540 105 16 98 % 01/03/20 1535 106 17 98 % 01/03/20 1530 107 15 98 % 01/03/20 1525 108 18 98 % 01/03/20 1522 114 16 98 % 01/03/20 1520 109 13 98 % 01/03/20 1518 108 15 98 % 01/03/20 1516 109 20 98 % 01/03/20 1515 109 15 98 % 01/03/20 1510 110 15 98 % 01/03/20 1500 110 16 97 % 01/03/20 1445 113 16 98 % 01/03/20 1430 117 25 97 % 01/03/20 1415 117 17 97 % 01/03/20 1400 117 17 97 % 01/03/20 1345 113 20 96 % 01/03/20 1330 132 24 97 % 01/03/20 1315 130 22 97 % 01/03/20 1305 99.2 F (37.3 C) Temporal 21 01/03/20 1300 137 19 97 % 01/03/20 1245 137 17 97 % 01/03/20 1230 141 17 98 % 01/03/20 1215 130 18 98 % 01/03/20 1200 106/67 98.7 F (37.1 C) Temporal 105 26 98 % 01/03/20 1145 102 15 98 % 01/03/20 1139 102 16 98 % 01/03/20 1130 104 18 98 % 01/03/20 1115 105 18 98 % 01/03/20 1100 107 20 98 % 01/03/20 1045 104 13 98 % 01/03/20 1030 105 14 98 % Physical Exam Vitals signs and nursing note reviewed. Constitutional: Appearance: She is ill-appearing. She is not diaphoretic. Comments: Awake on vent HENT: Head: Normocephalic and atraumatic. Right Ear: External ear normal. Left Ear: External ear normal. Nose: Nose normal. No congestion. Mouth/Throat: Comments: + ETT Eyes: General: No scleral icterus. Extraocular Movements: Extraocular movements intact. Pupils: Pupils are equal, round, and reactive to light. Neck: Musculoskeletal: Normal range of motion and neck supple. No neck rigidity or muscular tenderness. Cardiovascular: Rate and Rhythm: Regular rhythm. Tachycardia present. Heart sounds: No murmur. Pulmonary: Breath sounds: No rhonchi or rales. Comments: Effort per vent; coarse BS Abdominal: General: Bowel sounds are normal. There is no distension. Palpations: Abdomen is soft. There is no mass. Tenderness: There is no abdominal tenderness. Comments: + L PNT with clear yellow urine Musculoskeletal: General: No swelling or tenderness. Comments: + arthritic joint changes; no synovitis or crepitance of any limb Lymphadenopathy: Cervical: No cervical adenopathy. Skin: General: Skin is warm and dry. Findings: No erythema or rash. Neurological: Mental Status: She is oriented to person, place, and time. Comments: moving arms and legs Psychiatric: Comments: Unable to assess Labs: Component Value Date/Time NA 142 01/04/2020 0806 K 3.7 01/04/2020 0806 CL 100 01/04/2020 0806 CO2 28 01/04/2020 0806 BUN 50 (H) 01/04/2020 0806 CREATININE 2.00 (H) 01/04/2020 0806 GLUCOSE 187 (H) 01/04/2020 0806 CALCIUM 7.7 (L) 01/04/2020 0806 PROT 7.0 01/02/2020 1850 LABALBU 3.7 01/02/2020 1850 BILITOT 0.8 01/02/2020 1850 ALKPHOS 177 (H) 01/02/2020 1850 AST 52 (H) 01/02/2020 1850 ALT 20 01/02/2020 1850 PROCAL 128.03 (A) 01/02/2020 185 Component Value Date/Time WBC 20.4 (H) 01/04/2020 0806 HGB 8.5 (L) 01/04/2020 0806 HCT 25.7 (L) 01/04/2020 0806 PLT 40 (L) 01/04/2020 0806 GRANULOCYTES 96.1 (H) 01/02/2020 1850 LYMPHOPCT 3.0 (L) 01/02/2020 1850 MONOPCT 1 (L) 01/04/2020 0200 LABEOS 0 (L) 01/04/2020 0200 BASOPCT 0 01/04/2020 0200 NEUTROABS 25.3 (H) 01/04/2020 0200 Micro: 01/03- sputum cx- in process 01/02- RVP- negative 01/01- urine cx- normal urogenital jose luis 01/01- Legionella urine Ag- negative 01/01- Strep pneumo urine Ag- negative 01/01- blood cx- NGTD Procalcitonin 128 Elaine Micro: 01/01- blood cx- 2/2 Klebsiella pneumo (R amp) 01/01- urine cx- >100,000 Kleb pneumo (R amp/ nitrofurantoin) Radiography/Echo/Other: 01/03- CXR- FINDINGS: An endotracheal tube is seen with its tip approximately 2 cm above the sherie. An enteric tube extends into the stomach. A right IJ line is in place. The distal tip is in the superior vena cava. The cardiac silhouette and mediastinum are otherwise unremarkable. There is a mild left lower lobe infiltrate and small effusion. This is unchanged. IMPRESSION: 1. Stable left lower lobe infiltrate and small effusion. [place]: 01/01- CT abd/pelvis- 8mm L ureteral stone obstruction with moderate hydronephrosis/ perinephric edema Antimicrobials, Start/End Dates: Meropenem 1g IV q12h Gentamicin x1 (01/02) Vancomycin 1.25g IV q36h Impression: 1. Septic shock Klebsiella pneumoniae BSI/ L pyelonephritis with obstructing ureteral stone - s/p L PNT (01/01) - blood and urine cx + Elaine 2. Renal insuffiicency 3. LLL infiltrate/ VDRF 4. Hx nephrolithiasis Plan: 1. De-escalate abx to cefazolin 1g IV q12h. 2. Follow repeat blood cx for clearance. 3. D/w [place] microbiology--> Klebsiella in urine and blood (only R amp/nitro) 4. Follow sputum cx. Plans for likely extubation today per RN. 5. Urology is following-- eventual ureteral stent/ definitive stone management. Anticipate two weeks of abx after blood cx clear. D/w RN. Time 35 min with >51% time spent counseling and coordinating care for bacteremia/ pyelonephritis. Eloina Lazo M.D. * Pat Bowens RCP - 01/04/2020 5:46 AM EST 01/04/20 0500 Spontaneous Breathing Trial (SBT) RT Doc Contraindications to SBT? None Rate Measured 18 br/min Pulse 101 SpO2 96 % RASS +1 * Ines Trujillo MD - 01/04/2020 5:30 AM EST ICU Progress Note Jodee Lorenzo : 1940(79 y.o.) Date: January 04, 2020 Team: ICU Attending: Dr. Leonor Kimball Chief Complaint: weakness and fatigue, fever and AMS Subjective: No issues overnight. Today the patient looks improved compared to yesterday. It appears that she is fighting the tube and breathing over the vent. She is also reporting she is ready for the tube to be out. Otherwise, sheappears non toxic and is nodding no to any concerns. - the patient is intubated with fentanyl on board, however in the room she is awake and alert and nods yes and no to my questions, so ROS was able to be done. Review of Systems Constitutional: Negative for chills and fever. HENT: Negative for rhinorrhea and sore throat. Eyes: Negative for pain and visual disturbance. Respiratory: Negative for cough, shortness of breath and wheezing. Cardiovascular: Negative for chest pain, palpitations and leg swelling. Gastrointestinal: Negative for abdominal pain, blood in stool, constipation, diarrhea, nausea and vomiting. Genitourinary: Negative for difficulty urinating, dysuria and hematuria. Musculoskeletal: Negative for arthralgias, back pain and joint swelling. Skin: Negative for color change, rash and wound. Neurological: Negative for dizziness, weakness, light-headedness and headaches. Scheduled Meds: hydrocortisone sodium succinate PF 100 mg Intravenous Q8H vancomycin 15 mg/kg Intravenous Q36H meropenem 1 g Intravenous Q12H sodium chloride flush 10 mL Intravenous 2 times per day ipratropium-albuterol 1 ampule Inhalation Q4H chlorhexidine 15 mL Mouth/Throat BID famotidine (PEPCID) injection 10 mg Intravenous BID sodium chloride flush 10 mL Intracatheter Q8H heparin (porcine) 5,000 Units Subcutaneous 3 times per day CENTRUM/CERTA-ANN MARIE with minerals oral 15 mL Oral Daily Continuous Infusions: insulin 3.5 Units/hr (01/04/20 0500) dextrose norepinephrine Stopped (01/04/20 0453) IV infusion builder 70 mL/hr at 01/03/201999 dextrose vasopressin (Septic Shock) infusion 0.04 Units/min (01/04/20 0156) fentaNYL 150 mcg/hr (01/04/20 014) Objective: VITALS: BP 133/70 Pulse 101 Temp 98.5 F (36.9 C) (Temporal) Resp 18 Ht 5' 1 (1.549 m) Comment: per chart Wt 188 lb 11.4 oz (85.6 kg) SpO2 96% BMI 35.66 kg/m CURRENT PULSE OXIMETRY: SpO2: 96 % I/O: 01/02 701 - 01/03 700 In: 1937 [I.V.:1897] Out: 685 [Urine:635] Ventilator Settings: Vent Mode: AC/VC+ Rate Set: 14 bmp Vt Ordered: 290 mL Pressure Support: 0 cmH20 PEEP/CPAP: 8 FiO2 : 30 % Oxygen Delivery - NIV FiO2 75% Invasive Lines and Dates: central line and radial arterial line Intubation Date: 01/02/2020 General Appearance: []WDWN [x]Obese []Cachectic []Thin []ill Skin: Temperature [x]Warm []Cool Rash []Yes [x]No Tattoo(s) []Yes []No HEENT: Pupils round and react [x]Yes []No Sclera []Icteric []Non-Icteric Conjunctiva []Injected [x]Non-Injected Pinnae []Normal []Other Dentitian [][place] Teeth []Dentures Oral Mucosa []Celeste []Moist []Dry Oral ETT [x]Present []Absent Neck: Trachea midline [x]Yes []No Thyromegaly []Yes []No Crepitus []Present [x]Absent Jvd []Present [x]Absent Lungs: [x]Clear []Crackles []Wheezes []Rhonchi Respiratory effort []Labored [x]Non-Labored tube in place Heart: Rate [x]Regular []Irregular []Tachycardia []Bradycardia Rhythm []Regular []Irregular Murmur []Present []Absent Peripheral Edema []Present [x]Absent Abdomen: [x]Soft Bowel Sounds []Present []Absent []Tender [x]Non-Tender []Distended [x]Non-distended Hernia []Present []Absent Organomegaly []Present []Absent []Scar Extremities: Cyanosis []Present []Absent LACKEY ([x]RUE [x]RLE [x]LUE [x]LLE) Neurologic: CHILKAT []Yes []No Corneal reflexes []Present []Absent Plantar reflexes []Up [x]Down []Absent Withdraws to tactile [x]Yes []No Follows Commands [x]Yes []No []Unresponsive to verbal []Cranial nerves grossly intact []Sensation grossly intact Psych: Alert []yes []no Oriented []x0 []x1 []x2 []x3 Affect [x]Normal []Flat []Agitated []Anxious []Calm []Sedated []NAD [facility] Labs within last 72 hours BMP: Recent Labs 01/02/20 1850 01/03/20 0355 01/03/20 1502 01/03/20 2031 01/04/20 0200 NA 143 < > 144 < > 143 144 142 K 5.1 < > 3.4* < > 3.4* 3.4* 3.5 CL 112* < > 106 < > 105 105 103 CO2 10* < > 17* < > 28 30 29 BUN 35* < > 37* < > 43* 44* 49* CREATININE 2.32* < > 2.33* < > 2.12* 2.10* 2.06* CALCIUM 7.7* < > 7.2* < > 7.7* 7.5* 7.5* MG 1.0* -- 2.5* -- -- -- 2.2 PHOS 5.7* -- 5.4* -- -- -- 4.7* < > = values in this interval not displayed. LFTS: Recent Labs 01/02/201849 AST 52* ALT 20 PROT 7.0 LABALBU 3.7 BILITOT 0.8 ALKPHOS 177* Glucose: Recent Labs 01/02/20 1850 01/03/20 0059 01/03/20 0355 01/03/20 0756 01/03/20 1502 01/03/20 1955 01/03/20203001/03/20 2215 01/03/20 2304 01/04/20 0021 01/04/20 0200 01/04/20 0214 01/04/20 0308 01/04/20 0411 01/04/20 0512 GLUCOSE 179* -- 315* -- 326* -- 245* -- 146* -- -- 122* -- -- -- 135* -- -- -- -- POCGLU -- < > -- < > -- < > -- < > -- < > 120* -- 120* 123* 119* -- 131* 127* 147* 177* < > = values in this interval not displayed. CBC: Recent Labs 01/03/20 1502 01/03/20203001/04/20199 WBC 25.5* 26.4* 26.4* HGB 8.8* 8.9* 8.7* HCT 26.4* 27.1* 26.6* PLT 56* 50* 47* MCV 95.3 96.3 95.5 RDW 13.9 13.8 13.9 ABGs: Recent Labs 01/03/20 1210 01/03/20203001/04/20199 PHART 7.382 7.446 7.466* [id number] 44.3 42.2 39.7 PO2ART 167.8* 81.2 79.2* [id number] 25.7* 28.4* 28.0* [id number] 98.6 95.8 95.7 FIO2A No data No data No data Lactic Acid: Recent Labs 01/03/20 1619 01/03/20203001/04/20199 LACTA 2.7* 2.2* 1.7 INR: Recent Labs 01/02/20 1850 INR 1.3* pro-BNP: No results for input(s): NTPROBNP in the last 72 hours. Cardiac Injury Profile: Recent Labs 01/02/20 2107 01/03/20 0059 01/03/20 0756 TROPONINI 0.727* 0.640* 0.392* Labs in Last 3 months: Lab Results Component Value Date INR 1.3 (H) 01/02/2020 LABA1C 7.7 (H) 01/03/2020 Imaging: CXR 01/01: unremarkable for acute process: The trachea is midline. The mediastinal cardiac silhouette are unremarkable. There is diffuse interstitial prominence. No confluent infiltrates, significant pleural effusion or pneumothorax is seen. There are degenerative changes of the thoracic spine. CXR 01/02: IMPRESSION: 1. Overall stable appearance of the chest. 2. Satisfactory position of the life support devices. Cultures: legionella urine Ag: negative Strep pna urine Ag: negative Blood cultures: pending Kidney cultures: pending Urine cultures: pending Assessment and Plan: Active Problems: Septic shock (HCC) Calculus of ureter Resolved Problems: * No resolved hospital problems. * 79 year old woman, PMH DM2, HTN, Urolithiasis (known to Dr. Paniagua), sepsis, anxiety, HLD, depression. Septic shock, pyelonephritis - Completed gentamicin yesterday,on vanc/meropenem--> ID de esclated to cefazolin today - blood cultures showing no growth at day 1 - urine cultures still pending -->f/u - down to solu cortef 50mg IV q8 - as of this AM, patient is off levophed drip with BP at 120/54 & d/c vasopressin today Acute hypoxic respiratory failure - covid pcr neg, strep pneumo ag neg, resp panel pcr neg - intubated on 01/02/2020 sedated with fentanyl -->consider extubation today - Vent settings at : AC+ RR 14 Vt 290 PeeP 8 FiO2 30% --> continue weaning - pH of 7.3 pCO2 47.5 PO2 11.2 HCO3 28.7 --> appears as if patient hypoventilating to make up for base excess, - bicarb drip d/c today - extubate today - duonebs neb q4 --> continue - CXR today is now showing stable left lower lobe infiltrate and small effusion Renal Insufficiency, ren due to left renal stone with upj obstruction & hydronephrosis, no hydronephrosis on right (urology following peripherally) - IR- guided PNT (left 8 Fr nephrostomy tube) on 01/01 and draining -->Maintain - per urology: will need antegrade ureteral stent placement with IR when out of ICU and definitive stone management in 2-3 weeks after infection resolved (per Dr. Hathaway) - is making urine 115 cc over night - cr is slightly improving DKA (resolved) in setting of DM type 2 - originally came in with elevated glucose, elevated BHB, and increased anion gap - is currently on an insulin drip - glucose is now controlled, BHB trended down to 1.3 and anion gap is now closed at 10. --> planis to stop drip once on diet, then start subq insulin sliding scale - at home the patient is on metformin and and glimepiride (held initially due to ren, Cr still elevated so continue to hold). Thrombocytopenia - platelets have been down trending since admission, likely due to sepsis--> continue to follow - order LFTs to follow bilirubin. If high check haptoglobin, LDH and fibrinogen. - hold heparin today [place] - bouts of tachycardia overnight - at home takes atenolol-->hold Increased anion gap metabolic acidosis, elevated lactate and renal insufficiency--> resolved - lactate 9.9-->6.8-->1.7 now WNL -->can d/c trending - on NaHCO3 drip at 150ml/hr Encephalopathy likely metabolic (resolved) - heat CT with atrophy no acute changes - patient is currently menta ting well, alert, nodding yes and now F: bicarb d/c today E: replete PRN N: NPO transition to diet today after extubation GI: IV Pepcid 10mg BID DVT: hold Heparin SC TID Code: Full code Dispo: continue ICU Associated attestation - Judy Kimball MD - 01/04/2020 8:35 PM EST I have personally performed a [id number] diagnostic evaluation on this patient on date of /9/20. History, labs, imaging studies, and electronic medical record have been reviewed by me. This note documented by the [x]annual greenhouse manager []SHAYNA reflects my history, exam, and medical decision making. I have reviewed and agree with the care plan. Changes were made in the orders as necessary. ROSdocumentation was reviewed and negative unless otherwise stated in HPI. Assessment: - septic shock 2/2: - klebsiella bacteremia - UTI w/obstructing nephrolithiasis s/p L PNT - acute hypoxic respiratory failure - thrombocytopenia - REN - elevated troponin likely 2/2 demand ischemia w/o acute TN Plan: - off levo this AM, vaso stopped this AM as well - awake and alert: passed SBT: plan to extubate - platelets trending down, suspect 2/2 sepsis: will hold SQH and check acute hemolysis labs. No signs/sx bleeding noted - abx per ID f/u cxs for clearance - Urology following s/p PNT will eventually need stent Total critical care time for this patient with life-threatening unstable organ failure, including direct patient contact, management of life support systems, review of data including imaging and labs, and discussions with other team members and physicians at least 35 min so far today, excluding procedures. * Ronda Marin [facility] - 01/03/2020 10:07 AM EST Infectious Diseases has been consulted and will manage Vancomycin at this time. Thank you for the consult. Pharmacy signing off for vancomycin dosing. Ronda Marin [facility] Date: 01/03/20 Time: 10:07 AM * Shukri Gorman MD - 01/03/2020 8:37 AM EST UROLOGY PROGRESS NOTE PATIENT NAME: Jodee Lorenzo DATE OF : 1940 ADMISSION DATE: 01/02/2020 6:28 PM TODAY'S DATE: 01/03/2020 Subjective Patient underwent emergent placement of L PNT last night. She remains intubated in the ICU. Still on pressors but pressor requirements have decreased since PNT placement. PNT and francis draining yellow urine. Patient is alert and follows commands while intubated. Objective VS: BP 108/60 Pulse 107 Temp 97.8 F (36.6 C) (Temporal) Resp 10 Ht 5' 1 (1.549 m) Wt 188lb 11.4 oz (85.6 kg) SpO2 99% BMI 35.66 kg/m Vitals: 01/03/20 0800 BP: Pulse: Resp: 10 Temp: SpO2: 99% I & O - 24hr: Intake/Output Summary (Last 24 hours) at 01/03/2020 0837 Last data filed at 01/03/2020 0717 Gross per 24 hour Intake 3499.75 ml Output 485 ml Net 3014.75 ml Physical Exam: General: Neck: Resp: Abdomen: Intubated Supple Intubated, on ventilator Soft, non-tender, nondistended : Francis and L PNT draining yellow urine Skin: Skin color, texture, turgor normal, no rashes or lesions Labs and Imaging Studies Labs: CBC: Recent Labs 01/02/20 1850 01/03/20 0059 01/03/20 0756 WBC 15.9* 30.7* 31.2* HGB 11.4* 9.4* 9.5* HCT 35.2 28.7* 29.0* MCV 98.0 97.4 97.0 PLT 123* 91* 69* BMP: Recent Labs 01/02/20 1850 01/03/20 0059 01/03/20 0355 01/03/20 0756 NA 143 142 144 144 K 5.1 3.2* 3.4* 3.8 CL 112* 107 106 107 CO2 10* 14* 17* 21* PHOS 5.7* -- 5.4* -- BUN 35* 36* 37* 39* CREATININE 2.32* 2.43* 2.33* 2.16* Magnesium: Lab Results Component Value Date MG 2.5 01/03/2020 Phosphate: Lab Results Component Value Date PHOS 5.4 01/03/2020 PT/INR: Recent Labs 01/02/201849 PROTIME 14.0* INR 1.3* U/A: Lab Results Component Value Date LEUKOCYTESUR 250 01/02/2020 WBCUA 01-1901/02/2020 RBCUA 01-1901/02/2020 BACTERIA Many 01/02/2020 GLUCOSEU Normal 01/02/2020 Urine Culture: pending Blood Culture: pending Imaging Studies: CT from OSH: Proximal L-sided ureteral calculus and hydronephrosis. Assessment and Plan ASSESSMENT: 79 y.o. female with L-sided proximal ureteral stone, hydronephrosis, and sepsis PLAN: - Continue care per ICU. Patient remains intubated and on pressors - L PNT and francis draining yellow urine. Maintain both drains to straight drain - No hydronephrosis seen on the right by IR during nephrostomy placement last night - UCx and BCx pending. Continue abx per primary - Cr slightly improved - Will plan for eventual antegrade ureteral stent placement with IR when out of ICU. Definitive stone management in 2-3 weeks after infection has resolved - Will follow peripherally Shukri Gorman MD Urology, PGY-3 01/03/2020 8:43 AM Pager: [phone] * Ines Trujillo MD - 01/03/2020 5:17 AM EST ICU Progress Note Jodee Lorenzo : 1940(79 y.o.) Date: January 03, 2020 Team: ICU Attending: Dr. Rodríguez Chief Complaint: weakness and fatigue, fever and AMS Subjective: Summary of admission, patient presented to [facility] with cc of weakness and fatigue. They found her to be septic (lactate 9.9-->6.[address] 8 mm obstructing stone at left and started on rocephin. Attempt was made to place a right central line however subclavian artery was hit placement. Blood pressure was low and patient was life flighted over. While in the air, patient became hypotensive and art line was attempted but unsuccessful, given 5 levo. Once here had central and radial line placed and intubation. Vasopressors started, 30 levo and 0.04 vaso, and percutaneous nephrostomy placed, bicarb drip started at 70/hr alongside total of 6amps of bicarb. Patient started on vanc, meropenem, and doxycycline (can stop doxycycline if atypicals are negative. Bedside echo normal. Thus far, NE is down to 13 and is making urine. She is alert and able to follow commmands while intubated. Is calm and comfortable and pleasant. Does not look toxic/ill appearing. Review of Systems Unable to perform ROS: Intubated Scheduled Meds: calcium gluconate IVPB 3 g Intravenous Once hydrocortisone sodium succinate PF 100 mg Intravenous Q8H sodium chloride flush 10 mL Intravenous 2 times per day doxycycline (VIBRAMYCIN) IV 100 mg Intravenous Q12H ipratropium-albuterol 1 ampule Inhalation Q4H meropenem 1 g Intravenous Q12H chlorhexidine 15 mL Mouth/Throat BID famotidine (PEPCID) injection 10 mg Intravenous BID sodium chloride flush 10 mL Intracatheter Q8H heparin (porcine) 5,000 Units Subcutaneous 3 times per day CENTRUM/CERTA-ANN MARIE with minerals oral 15 mL Oral Daily Continuous Infusions: insulin 11 Units/hr (01/03/20 0401) dextrose norepinephrine 16 mcg/min (01/03/20 0454) IV infusion builder 70 mL/hr at 01/02/202132 dextrose vasopressin (Septic Shock) infusion 0.04 Units/min (01/02/20 2331) fentaNYL 100 mcg/hr (01/02/205) Objective: VITALS: BP 115/73 Pulse 116 Temp 97.1 F (36.2 C) (Temporal) Resp 12 Ht 5' 1 (1.549 m) Wt188 lb 11.4 oz (85.6 kg) SpO2 99% BMI 35.66 kg/m CURRENT PULSE OXIMETRY: SpO2: 99 % I/O: 01/01 701 - 01/02 700 In: - Out: 345 [Urine:345] Ventilator Settings: Vent Mode: AC/VC+ Rate Set: 14 bmp Vt Ordered: 290 mL Pressure Support: 0 cmH20 PEEP/CPAP: 8 FiO2 : 50 % Oxygen Delivery - NIV FiO2 75% Invasive Lines and Dates: central line and radial arterial line Intubation Date: 01/02/2020 General Appearance: []WDWN [x]Obese []Cachectic []Thin []ill Skin: Temperature [x]Warm []Cool Rash []Yes [x]No Tattoo(s) []Yes []No HEENT: Pupils round and react [x]Yes []No Sclera []Icteric []Non-Icteric Conjunctiva []Injected [x]Non-Injected Pinnae []Normal []Other Dentitian [][place] Teeth []Dentures Oral Mucosa []Celeste []Moist []Dry Oral ETT [x]Present []Absent Neck: Trachea midline [x]Yes []No Thyromegaly []Yes []No Crepitus []Present [x]Absent Jvd []Present [x]Absent Lungs: [x]Clear []Crackles []Wheezes []Rhonchi Respiratory effort []Labored [x]Non-Labored Heart: Rate [x]Regular []Irregular []Tachycardia []Bradycardia Rhythm []Regular []Irregular Murmur []Present []Absent Peripheral Edema []Present [x]Absent Abdomen: [x]Soft Bowel Sounds []Present []Absent []Tender [x]Non-Tender []Distended [x]Non-distended Hernia []Present []Absent Organomegaly []Present []Absent []Scar Extremities: Cyanosis []Present []Absent LACKEY ([x]RUE [x]RLE [x]LUE [x]LLE) Neurologic: CHILKAT []Yes []No Corneal reflexes []Present []Absent Plantar reflexes []Up [x]Down []Absent Withdraws to tactile [x]Yes []No Follows Commands [x]Yes []No []Unresponsive to verbal []Cranial nerves grossly intact []Sensation grossly intact Psych: Alert []yes []no Oriented []x0 []x1 []x2 []x3 Affect [x]Normal []Flat []Agitated []Anxious []Calm []Sedated []NAD [facility] within last 72 hours BMP: Recent Labs 01/02/20184901/03/20 0059 01/03/20 0355 NA 143 142 144 K 5.1 3.2* 3.4* CL 112* 107 106 CO2 10* 14* 17* BUN 35* 36* 37* CREATININE 2.32* 2.43* 2.33* CALCIUM 7.7* 7.3* 7.2* MG 1.0* -- 2.5* PHOS 5.7* -- 5.4* LFTS: Recent Labs 01/02/201849 AST 52* ALT 20 PROT 7.0 LABALBU 3.7 BILITOT 0.8 ALKPHOS 177* Glucose: Recent Labs 01/02/20 18501/02/20 2351 01/03/20 0059 01/03/20 0253 01/03/20 0353 01/03/20 0355 01/03/20 0501 GLUCOSE 179* -- 315* -- -- 326* -- POCGLU -- 274* -- 327* 335* -- 330* CBC: Recent Labs 01/02/20184901/03/2058 WBC 15.9* 30.7* HGB 11.4* 9.4* HCT 35.2 28.7* PLT 123* 91* MCV 98.0 97.4 RDW 13.8 13.9 ABGs: Recent Labs 01/02/20185501/02/20210601/03/2058 PHART 7.303* 7.269* 7.286* DUY8ZGD 21.2* 35.8 30.8* PO2ART 332.7* 262.4* 128.6* GFI7PJE 10.5* 16.0* 14.3* O9LBLCGQ 99.9 98.8 98.1 FIO2A 70 No data 0.50 Lactic Acid: Recent Labs 01/02/20184901/03/205801/03/20354 LACTA 6.8* 7.7* 8.1* INR: Recent Labs 01/02/201849 INR 1.3* pro-BNP: No results for input(s): NTPROBNP in the last 72 hours. Cardiac Injury Profile: Recent Labs 01/02/20184901/02/20210601/03/2058 TROPONINI 0.784* 0.727* 0.640* Labs in Last 3 months: Lab Results Component Value Date INR 1.3 (H) 01/02/2020 LABA1C 7.7 (H) 01/03/2020 Imaging: CXR 01/01: unremarkable for acute process: The trachea is midline. The mediastinal cardiac silhouette are unremarkable. There is diffuse interstitial prominence. No confluent infiltrates, significant pleural effusion or pneumothorax is seen. There are degenerative changes of the thoracic spine. CXR 01/02: IMPRESSION: 1. Overall stable appearance of the chest. 2. Satisfactory position of the life support devices. Cultures: legionella urine Ag: negative Strep pna urine Ag: negative Blood cultures: pending Kidney cultures: pending Urine cultures: pending Assessment and Plan: Active Problems: Septic shock (HCC) Resolved Problems: * No resolved hospital problems. * 79 year old woman, PMH DM2, HTN, Urolithiasis (known to Dr. Paniagua), sepsis, anxiety, HLD, depression. Septic shock, pyelonephritis - elevated lactate, leukocytosis, tachypnic, tachycardic, hypotensive into high 70s. - on vanc/meropenem gentamicin (ID following) - doxy d/c, legionella negative - solu cortef 100mg IV q8 - levophed drip & vasopressin - urine and blood cultures still pending - f/u echo and mixed venous O2 sat Acute hypoxic respiratory failure - covid pcr neg, strep pneumo ag neg - intubated on 01/02/2020 sedated with fentanyl Vent settings at : AC+ RR 14 Vt 290 PeeP 8 FiO2 40% PH of 7.2 pCO2 30.8 PO2 128.6 HCO3 14.3 - kishore neb - CXR -f/u ABG Renal Insufficiency, ren due to left renal stone with upj obstruction & hydronephrosis, no hydronephrosis on right - urology following - IR- guided PNT (left 8 Fr nephrostomy tube placement) 01/01 and draining. Maintain - per urology: will need antegrade ureteral stent placement with IR when out of ICU (per Dr. Hathaway) - is making urine 370 cc over night, yellow urine - cr is slightly improving - urology follow peripherally Increased anion gap metabolic acidosis, elevated lactate and renal insufficiency - lactate 9.9-->6.8, BHB elevated 9.56, - salicylate, volatile panel, acetaminophen level - had bicarb drip and 6 amps - on NaHCO3 drip at 70ml/hr Encephalopathy likely metabolic - heat CT with atrophy no acute changes DM Type 2 - patient at home on glimepiride and metformin: held due to ren - continuous regular insulin 1 unit/hr goal glucose 140-180 Nutrition - f/u diet consult F: NaHCO3 150 mEq at 70 E: replete PRN N: NPO GI: IV Pepcid 10mg BID DVT: Heparin SC Code: Full code Dispo: continue ICU Associated attestation - En Rodríguez DO - 01/03/2020 10:38 PM EST This patient was seen and personally examined by me. Labs, imaging studies and electronic medical record reviewed. See [x]progress note []H&P []Consult documented by [x]annual greenhouse manager []SHAYNA which reflects my hpi, pmh, psh, ros, fh, sh as well with my additions, as I discussed with the [x]annual greenhouse manager []SHAYNA. For my exam, assessment and plan see below. PHYSICAL EXAM: VITALS: BP 96/65 Pulse 98 Temp 99.1 F (37.3 C) (Temporal) Resp 14 Ht 5' 1 (1.549 m) Comment: per chart Wt 188 lb 11.4 oz (85.6 kg) SpO2 97% BMI 35.66 kg/m Objective: 24HR INTAKE/OUTPUT: Intake/Output Summary (Last 24 hours) at 01/03/20202233 Last data filed at 01/03/20202199 Gross per 24 hour Intake 5436.75 ml Output 720 ml Net 4716.75 ml CURRENT PULSE OXIMETRY: SpO2: 97 % 24HR PULSE OXIMETRY RANGE: SpO2 Av.1 % Min: 95 % Max: 100 % General Appearance: []WDWN [x]Obese []Cachectic []Thin [x]ill Skin: Temperature [x]Warm []Cool / Rash []Yes []No / Tattoo(s) []Yes [x]No Heent: Pupils round and react []Yes []No Sclera []Icteric [x]Non-Icteric Conjunctiva []Injected [x]Non-Injected / Pinnae [x]Normal []Other/ Dentitian [][place] Teeth []No [place] Teeth []Dentures Oral Mucosa [x]Celeste [x]Moist []Dry/ Oral ETT [x]Present []Absent Neck: Trachea midline [x]Yes []No/ Thyromegaly []Yes [x]No/ Crepitus []Present [x]Absent /Jvd []Present [x]Absent / [x]supple Lungs: [x]Clear []Crackles []Wheezes []Rhonchi / Respiratory effort []Labored [x]Non-Labored Heart: [x]RRR []Irregularly Irregular []murmur present []murmur absent/ Peripheral Edema [x]Absent []Present Abdomen: []Soft Bowel Sounds []Present []Absent []Diminished []Hyperactive []Hypoactive []Tender []Non-Tender []Distended []Non-distended / Hernia []Present [x]Absent []Unable to assess due to body habitus/ Organomegaly [x]Absent []Present[]Unable to assess due to body habitus / []Scar Extremities: Cyanosis []Present [x]Absent/ LACKEY ([x]RUE [x]RLE [x]LUE [x]LLE) Neurologic: CHILKAT []Yes [x]No Corneal reflexes []Present []Absent / Plantar reflexes []Up []Down []Absent / Withdraws to tactile []Yes []No/ Follows Commands [x]Yes []No []Unresponsive to verbal Psych: Alert [x]yes []no Oriented []x0 []x1 []x2 []x3 / Affect []Normal []Flat []Aggitated []Calm []Sedated []NAD []anxious Assessment/Plan As per resident A/P. Seems to be doing better today,lactate improving. Agree with gentamycin in addition to merrem. Less pressor support. Continue weaning,check CVP/mvo2. Possible extubation as earlyas tomorrow if all goes well. Full Code Start time Hours, stop time Hours. Excluding procedures, the total critical care time caring for this patient with life threatening, unstable organ failure, including direct patient contact, review of medical record, management of life support systems, review of data including imaging and labs, discussions with other team members, patient's family and physicians at least 35 minutes so far today. * Fartun Ramos - 01/03/2020 4:40 AM EST 11/08/20 0430 Spontaneous Breathing Trial (SBT) RT Doc Contraindications to SBT? FiO2 > 50%;PH < 7.31 within last 6 hours Rate Measured 20 br/min Pulse 117 SpO2 99 % * Gracie Hooks MD - 01/02/2020 7:30 PM EST Admit Date: 01/02/2020 PCP: No primary care provider on file. SEPSIS RE-EVALUATION NOTE EVENTS OF LAST 6 HOURS: Patient admitted to [facility], transferred from [facility] by [facility]. INVASIVELINES: CVC D#0 Art Line D#0 RIJ and arterial line placed at admission MV: On NIV MV SETTINGS: NIV 01/30 75% FiO2 No results for input(s): PH, PCO2, PO2, HCO3, O2SAT in the last 72 hours. FLUID RESUSITATION AT 30ML/KG (IDBW) COMPLETE: yes - per report IV: norepinephrine 29.973 mcg/min (01/02/202134) IV infusion builder 70 mL/hr at 01/02/202132 dextrose vasopressin (Septic Shock) infusion fentaNYL 100 mcg/hr (01/02/202134) Objective VITALS: BP (!) 95/55 Pulse 106 Temp 98.4 F (36.9 C) (Temporal) Resp 22 Ht 5' 1 (1.549 m) Wt 188 lb 11.4 oz (85.6 kg) SpO2 100% BMI 35.66 kg/m Temp (24hrs), Av.4 F (36.9 C), Min:98.4 F (36.9 C), Max:98.4 F (36.9 C) 24HR INTAKE/OUTPUT: Intake/Output Summary (Last 24 hours) at 01/02/20208 Last data filed at 01/02/2020 192 Gross per 24 hour Intake Output 200 ml Net -200 ml 4-HR LACTATE Recent Labs 01/02/20 1850 LACTA 6.8* DOCUMENT TWO OF BLUE BELOW OR ALL FIVE OF RED EXAM FINDINGS CVP: CVP (Mean): 18 mmHg 18 mmHg CARDIAC SCVO2: PULMONARY FLUID CHALLENGE SVI% CHANGE: PULSES BEDSIDE CARDIOVASCULAR ULTRASOUND Limited echo performed at bedside, no abnormalities CAPILLARY REFILL SECONDS: SKIN Physical Exam Cardiovascular: Normal rate, regular rhythm and normal heart sounds. No murmur heard. HS distant behind bipap leak, No peripheral edema Pulses: Radial pulses are 2+ on the right side, and 2+ on the left side. Dorsalis pedis pulses are 1+ on the right side, and 1+ on the left side. Cap refill <3sec bilateral pedal, <2 sec bilateral fingers Pulmonary/Chest: labored short respirations on NIV-no accessory muscle use, no wheeze or Rhonchi, decreased BS to R base Skin: Skin is cool and dry. No rash noted. No cyanosis. Nails show no clubbing. documented in this encounter* Magdy Clark RN - 01/27/2020 2:57 PM EST Pt ambulated in room. Tolerated well. Denies nausea and dizziness. Pt assisted with getting dressed. And has been discharged home with valuables via wheelchair. Pt has stent string taped to leg, called in to OR to ask Dr. Christie about string. He stated he would call her tomorrow. Pt informed * Magdy Clark RN - 01/27/2020 2:14 PM EST Discharge instructions given to pt. Pt verbalized understanding and denied questions a this time. Pts ride sitting outside, ready for pt when she is ready * Virginia Hendrickson RN - 01/27/2020 1:16 PM EST BGT 259. Pt only takes glucophage at home. Resume medications at home, no treatment here. * Sue Doherty RN - 01/27/2020 10:07 AM EST Patient arrived and ID verified. Vital signs stable. Call light in reach. Denies nausea and vomiting. documented in this encounter Assessments Diagnosis Septic shock due to Klebsiella pneumoniae (HCC) Other septicemia due to gram-negative organism Calculus of ureter Klebsiella sepsis (HCC) Klebsiella pneumoniae Diagnosis Calculus of ureter Advance Directives No Advanced Directives Records FoundLatest Code Status on File Code Status Date Activated Date Inactivated Comments Full Code 01/02/2020 6:40 PM Latest Code Status on File Code Status Date Activated Date Inactivated Comments Full Code 01/27/2020 9:49 AM Full Code 01/02/2020 6:40 PM 01/08/2020 6:36 PM Latest Code Status on File Code Status Date Activated Date Inactivated Comments Full Code 01/27/2020 9:49 AM 01/27/2020 5:05 PM Advance Directive Response Recorded Date/ Time Advance Directives Yes January 1:31pm Living Will Yes January 01 10:56am Power of Supply Service Worker Yes January 02, 2020 10:56am Advance Directive Response Recorded Date/ Time Advance Directives Yes January 12:31pm Living Will Yes January 01 9:56am Power of Supply Service Worker Yes January 02, 2020 9:56am Advance Directive Response Recorded Date/ Time Advance Directives Yes January 1:31pm Summary Purpose Family History No Family History Records Found Mother Name Dates Details Family history of malignant neoplasm(V16.9, Z80.9) Status:Active Father Name Dates Details Family history of diabetes m ellitus(V18.0, Z83.3) Status:Active Unknown Family Member Name Dates Details Family history of malignant neoplasm: Mother(V16.9, Z80.9) Status:Active Family history of diabetes m ellitus: Father(V18.0, Z83.3) Status:Active Unknown Family Member Name Dates Details Family history of malignant neoplasm: Mother(V16.9, Z80.9) Status:Active Family history of diabetes m ellitus: Father(V18.0, Z83.3) Status:Active Unknown Family Member Name Dates Details Family history of malignant neoplasm: Mother(V16.9, Z80.9) Status:Active Family history of diabetes m ellitus: Father(V18.0, Z83.3) Status:Active Unknown Family Member Name Dates Details Family history of malignant neoplasm: Mother(V16.9, Z80.9) Status:Active Family history of diabetes m ellitus: Father(V18.0, Z83.3) Status:Active Unknown Family Member Name Dates Details Family history of malignant neoplasm: Mother(V16.9, Z80.9) Status:Active Family history of diabetes m ellitus: Father(V18.0, Z83.3) Status:Active Unknown Family Member Name Dates Details Family history of malignant neoplasm: Mother(V16.9, Z80.9) Status:Active Family history of diabetes m ellitus: Father(V18.0, Z83.3) Status:Active Unknown Family Member Name Dates Details Family history of malignant neoplasm: Mother(V16.9, Z80.9) Status:Active Family history of diabetes m ellitus: Father(V18.0, Z83.3) Status:Active Unknown Family Member Name Dates Details Family history of diabetes m ellitus: Father(V18.0, Z83.3) Status:Active Family history of malignant neoplasm: Mother(V16.9, Z80.9) Status:Active Unknown Family Member Name Dates Details Family history of malignant neoplasm: Mother(V16.9, Z80.9) Status:Active Family history of diabetes m ellitus: Father(V18.0, Z83.3) Status:Active Unknown Family Member Name Dates Details Family history of diabetes m ellitus: Father(V18.0, Z83.3) Status:Active Family history of malignant neoplasm: Mother(V16.9, Z80.9) Status:Active Unknown Family Member Name Dates Details Family history of malignant neoplasm: Mother(V16.9, Z80.9) Status:Active Family history of diabetes m ellitus: Father(V18.0, Z83.3) Status:Active Unknown Family Member Name Dates Details Family history of malignant neoplasm: Mother(V16.9, Z80.9) Status:Active Family history of diabetes m ellitus: Father(V18.0, Z83.3) Status:Active Unknown Family Member Name Dates Details Family history of malignant neoplasm: Mother(V16.9, Z80.9) Status:Active Family history of diabetes m ellitus: Father(V18.0, Z83.3) Status:Active Chief Complaint 3 mos ck6 wk med ckEstablish-Septic (01-02-20)yearly follow upYearly w/ KUB Chief Complaint and Reason for Visit Chief Complaint SCREENING Chief Complaint SCREENING/POST KEIKO Chief Complaint Admit Date BILATERAL SACROILIITIS. RX HERE May d2024 10:00am Chief Complaint Admit Date BILATERAL SACROILIITIS. RX HERE May 10:00am Low back pain July 13, 2024 10:53 am LUMBAR SPINE July 30, 2024 3:02p m Additional Source Comments Reason for Visit (unrecogniz ed section and content) Reason Comments INFORMATION SOURCE (unrecogn ized section and content) DATE CREATED AUTHOR 02/02/2020 [facility] DATE CREATED AUTHOR AUTHOR'S ORGANIZ ATION 03/10/2020 [facility] DATE CREATED AUTHOR AUTHOR'S ORGANIZ ATION 08/10/2021 [facility] DATE CREATED AUTHOR AUTHOR'S ORGANIZ ATION 08/11/2022 [facility] DATE CREATED AUTHOR AUTHOR'S ORGANIZ ATION 07/31/2024 [facility] DATE CREATED AUTHOR AUTHOR'S ORGANIZ ATION 10/11/2024 [facility] Goals (unrecognized section and content) Goals may be documented in a n alternate sectionGoals may be documented in an alternate sectionGoals may be documented in an alternate sectionGoals may be documented in an alternate section Care Teams (unrecognized sec tion and content) Team Status: Active Member Role Status Dates Dr. Lorelei Herrera MD Family Provider Active Dr. Lorelei Herrera MD Primary Care Provider Active Team Status: Inactive Member Role Status Dates Dr. Lorelei Herrera MD Primary Care Prov ider, Attending Provider, Referring Provider Active Team Status: Inactive Member Role Status Dates Dr. Lorelei Herrera MD Primary Care Provider, Attendin g Provider Active Team Status: Active Member Role Status Dates Dr. Lorelei Herrera MD Primary Care Provider Active Team Status: Inactive Member Role Status Dates Dr. Lorelei Herrera MD Primary Care Provider Active Start: May 27, 2024 End: May 27, 2024 Dr. Lorelei Herrera MD Attending Provider Active Start: May 27, 2024 End: May 27, 2024 Dr. Lorelei Herrera MD Referring Provider Active Start: May 27, 2024 End: May 27, 2024 Team Status: Active Member Role Status Dates Vj Figueroa MD Primary Care Provider Active Team Status: Inactive Member Role Status Terrance Figueroa MD Primary Care Provider Active St art: July 13, 2024 End: July 13, 2024 Vj Figueroa MD Attending Provider Active Start : July 13, 2024 End: July 13, 2024 Vj Figueroa MD Referring Provider Active Start : July 13, 2024 End: July 13, 2024 Team Status: Inactive Member Role Status Terrance Figueroa MD Primary Care Provider Active St art: July 30, 2024 End: July 30, 2024 Vj Figueroa MD Referring Provider Active Start : July 30, 2024 End: July 30, 2024 BEKAH Isabel Attending Provider Active Star t: July 30, 2024 End: July 30, 2024 FOR RECORDS PERTAINING TO PATIENTS WHO ARE OR HAVE BEEN ENROLLED IN A CHEMICAL DEPENDENCY/SUBSTANCEABUSE PROGRAM, SOME INFORMATION MAY BE OMITTED. This clinical summary was aggregated from multiple sources. Caution should be exercised in using it in the provision of clinical care. This summary normalizes information from multiple sources, and as a consequence, information in this document may materially change the coding, format and clinical context of patient data. In addition, data may be omitted in some cases. CLINICAL DECISIONS SHOULD BE BASED ON THE PRIMARY CLINICAL RECORDS. [employer] provides no warranty or guarantee of the accuracy or completeness of information in this document.
[2024-10-11 13:15] VITALS: BP 122/82; PULSE 66; RESP 22; O2SAT 98
[2024-10-11 13:15] LABS: Mucous, Urine 0 SEEN /hpf (<or=2+); Red Blood Cells-Urine 0 SEEN /hpf (0-5)
--- NOTE | 2024-10-11 13:25 | EX.ED.DYSGE1 ---
HPI History of Present Illness Chief Complaint: Confusion Narrative Narrative: Patient is a 84-year-old female presenting to the emergency department for confusion with family at bedside. Patient has a past medical history of hypertension, hyperlipidemia and diabetes as well as some short-term memory loss. Family states that she had twisted her ankle about 3 days ago and was seen in the ED. States that she was prescribed naproxen for the pain and they went to pick it up 2 days ago. The patient took the naproxen this morning along with her other medications somewhat if it and she is no longer supposed to take. Patient does not remember doing this. Family also states that the patient does not remember the names of her friends who she sees weekly. They state they have noticed these changes over the past 2 days. Patient denies fever, chills, chest pain, SOB, abdominal pain, nausea, vomiting, diarrhea, dysuria or hematuria. She has no complaints at all. She is normally alert and oriented x 2, not oriented to time at baseline. [facility] Medical History Hypertension Hyperlipidemia Type 2 diabetes mellitus Home Medications ?Medication ?Instructions ?Recorded ?Last Taken ?Type atenolol 25 mg tablet 25 mg PO DAILY 02/05/13 02/10/13 07:00 History metformin 500 mg tablet,extended 500 mg PO TID 02/05/13 Unknown History release 24 hr atorvastatin 40 mg tablet 40 mg PO QHS cholesterol 01/06/19 Unknown History glimepiride 2 mg tablet 2 mg PO DAILY diabetes 01/06/19 Unknown History cephalexin 500 mg capsule 500 mg PO Q12 #14 CAPSULES 10/11/24 Unknown Rx glipizide 5 mg tablet, extended 5 mg PO DAILY 10/11/24 Unknown History release 24 hr insulin glargine 100 unit/mL (3 unit subcut 10/11/24 Unknown History mL) subcutaneous pen (Lantus Solostar U-100 Insulin) Allergy/AdvReac Type Severity Reaction Status Date / Time No Known Allergies Allergy Verified 07/30/24 15:05 Family History Mother No problems noted. Father No problems noted. Social History Smoking Status: Never smoker ROS ROS ED ROS Narrative See HPI EXAM Physical Exam Narrative Exam Narrative: Vital signs: Reviewed General: Alert and oriented x2. No acute distress. Chronically ill appearing. HEENT: Head is normocephalic and atraumatic, sinuses nontender, pupils equal round and reactive. Nares are patent. Oropharynx and throat exams normal. Dry mucous membranes. Neck: Supple without lymphadenopathy nontender Cardiovascular: Regular rate and rhythm, no murmurs. No rubs or gallops. Normal S1 and S2 Respiratory: Clear to auscultation bilaterally. No wheezes, rales, rhonchi Abdominal: Soft and nontender. Normal bowel sounds. No guarding or rebound. Nonsurgical abdomen Extremities: No tenderness. No bruising. Normal range of motion. Normal sensation. Skin: No rash or redness. Neurological: Cranial nerves II through XII are grossly intact. Normal strength and sensation. Normal cerebellar function The rest of the physical exam is unremarkable Const Vital Signs: 10/11/24 12:15 10/11/24 13:15 10/11/24 13:58 Temperature 96.8 F L Temperature Source Temporal Pulse Rate 65 66 Respiratory Rate 18 22 H Blood Pressure 157/69 H 122/82 H Blood Pressure Mean 98 95 Pulse Ox 98 98 96 Oxygen Delivery Method Room Air Room Air Room Air 10/11/24 14:25 Temperature 98.6 F Temperature Source Pulse Rate 63 Respiratory Rate 15 Blood Pressure 122/83 H Blood Pressure Mean 96 Pulse Ox 100 Oxygen Delivery Method MDM MDM MDM Narrative Medical decision making narrative: Patient is an 84-year-old female presenting to the emergency department for confusion. Patient was seen and examined. Vitals are stable. Patient resting bed comfortably in no acute distress. Differential includes but is not limited to: UTI, pneumonia, electrolyte imbalance, anemia, dehydration, less likely stroke EKG shows normal sinus rhythm with no ischemic changes. No ST elevation or depression noted. No dysrhythmia. CBC with mild leukocytosis of 15.2 and chronic anemia of 11.3. BMP with slight elevation of BUN at 24, normal creatinine. Urinalysis with bacteria, WBCs and leukocyte esterase. Patient given first dose of Keflex here. CT brain shows no acute intracranial abnormalities. Chest x-ray shows no acute pulmonary process. Suspect that patient's mild confusion is likely due to her UTI. Discussed this with patient and family at bedside. Family feels comfortable watching her at home for the next few days. Prescription sent to pharmacy for Keflex. Patient discharged from the Emergency Department. I do not feel that the patient's evaluation reveals any acute reason for admission at this time. I instructed them to either follow-up with their primary care physician or promptly return to the Emergency Department for reevaluation should symptoms worsen or new symptoms develop. I explained what symptoms would indicate the need to return to the emergency department. Shared decision making was used. The patient voiced understanding of the treatment plan and is agreeable with it. Clinical impression UTI Confusion History & Record Review Discussion w/independent historian: Patient and Family Lab Data Attestation: I reviewed the patient's lab results. Labs: Laboratory Results - last 24 hr 10/11/24 10/11/24 12:42 13:05 WBC 15.2 H RBC 3.74 L Hgb 11.3 L Hct 34.0 L MCV 90.9 MCH 30.2 MCHC 33.2 RDW Std Deviation 54.0 H RDW Coeff of Дмитрий 16.1 H Plt Count 291 MPV 10.4 Immature Gran % (Auto) 0.400 Neut % (Auto) 79.4 H Lymph % (Auto) 13.4 L [place] % (Auto) 6.3 Eos % (Auto) 0.4 Baso % (Auto) 0.1 Absolute Neuts (auto) 12.1 H Absolute Lymphs (auto) 2.04 Nucleated RBC % 0 Sodium 139 Potassium 3.9 Chloride 101 Carbon Dioxide 22.8 Anion Gap 15 BUN 24 H Creatinine 1.15 Est GFR (MDRD) Non-Af 48 L BUN/Creatinine Ratio 20.8 H Glucose 162 H Calcium 9.4 Urine Color Yellow Urine Clarity Cloudy Urine pH 5.0 Ur Specific [place] 1.025 Urine Protein 100 H Urine Glucose (UA) Normal Urine Ketones Negative Urine Occult Blood 10 H Urine Nitrite Negative Urine Bilirubin Negative Urine Urobilinogen Normal Ur Leukocyte Esterase 100 H Urine RBC 0 SEEN Urine WBC 10-25 SEEN Ur Squamous Epith Cells 0-5 SEEN Urine Bacteria 3+ Urine Mucus 0 SEEN Radiography Chest X-Ray - ED: 2 View, Read by ED Physician, Normal, No Acute Disease and No Infiltrates Diagnostic Testing: Clinical Impression(s) from Imaging Studies Chest X-Ray 10/11/24 12:57 IMPRESSION: No acute pulmonary process Reading Location: [facility] Brain CT 10/11/24 13:30 IMPRESSION: No acute intracranial abnormalities. Reading Location: [id number] Discharge Plan Triage Chief Complaint: Confusion ED Provider: Shannon Moya Dx/Rx/DC Orders Instructions: Urinary Tract Infections in Women Prescriptions: New cephalexin 500 mg capsule 500 mg PO Q12 Qty: 14 0RF No Action atenolol 25 MG tablet 25 mg PO DAILY metformin 500 MG tablet 500 mg PO TID glimepiride 2 MG tablet 2 mg PO DAILY atorvastatin 40 MG tablet 40 mg PO QHS glipizide 5 mg tablet extended release 24hr 5 mg PO DAILY insulin glargine [Lantus Solostar U-100 Insulin] 100 unit/mL (3 mL) insulin pen subcut Primary Care Provider: Vj Gasca Referrals: Vj Gasca MD [Primary Care Provider] - 2 Days Activity Restrictions/Additional Instructions: Take the antibiotic as prescribed. Your evaluation in the Emergency Department did not reveal any acute reason for admission. However, I want to emphasize that you may be early in the course of a disease process or illness even if it is not present. For this reason you should follow-up within 24 hours for reevaluation with either your primary care physician or if necessary back here in the Emergency Department. You should return to the Emergency Department immediately if your symptoms worsen or new symptoms develop. Print Language: Luxembourgish Disposition Disposition: Home, Self Care Discharge Date/Time: 10/11/24 14:45
--- NOTE | 2024-10-11 13:30 | CT_ITS ---
PROCEDURE: BRAIN/HEAD WITHOUT CONTRAST 10/11/2024 REASON FOR EXAM: AMS TECHNIQUE: BRAIN/HEAD WITHOUT CONTRAST Coronal and Sagittal reconstruction series were provided. One or more dose reduction techniques were used (e.g., Automated exposure control, adjustment of the mA and/or kV according to patient size, use of iterative reconstruction technique. RADIATION DOSE SUMMARY: CTDlvol: 44.99 mGy DLP: 779.24 mGycm COMPARISON: CT head 01/02/2020. FINDINGS: Brain: Low density in the periventricular white matter suggests mild chronic small vessel ischemic changes. No restricted diffusion. No acute intracranial hemorrhage. No mass-effect or midline shift. CSF Spaces: Advanced generalized cerebral atrophy Sinuses/Mastoids: Clear at visualized levels Bones: No acute bony abnormalities. CT/Brain/Head without Contrast IMPRESSION: No acute intracranial abnormalities. Reading Location: [facility]
[2024-10-11 13:37] LABS: Glucose, Dipstick Normal (Normal); Ketone-Dipstick Negative (Negative); Leukocyte Esterase-Dipstick 100 /ul (Negative); Nitrite-Dipstick Negative (Negative); Occult Blood-Urine 10 /ul (Negative); Protein-Dipstick 100 mg/dl (Negative); Specific Gravity, Urine 1.025 (1.002-1.030); Urine Bilirubin Dipstick Negative (Negative)
[2024-10-11 13:40] LABS: Hematocrit 34.0 % (37-47); Hemoglobin 11.3 g/dL (12.0-15.0); Immature Granulocytes Count 0.060 X10^3/uL (0.0-0.0); Mean Corp Hgb Conc 33.2 g/dL (32-36); Mean Corpuscular Volume 90.9 fL (81-99); Mean Platelet Vol. 10.4 fl (6.2-12.0); NRBC Flagged by Analyzer 0 % (0-5); Platelet Count 291 K/mm3 (150-450); RBC Distribution Width CV 16.1 % (11.6-14.6); RBC Distribution Width SD 54.0 fl (35.1-43.9); Red Blood Count 3.74 M/mm3 (4.2-5.4); White Blood Count 15.2 K/mm3 (4.4-11.0)
[2024-10-11 13:44] LABS: Color, Urine Yellow (Yellow)
[2024-10-11 13:51] LABS: Squamous Epithelial Cells - UA 0-5 SEEN /hpf (5-10)
[2024-10-11 13:58] VITALS: O2SAT 96
[2024-10-11 14:02] LABS: Anion Gap 15 (5-15); BUN 24 mg/dL (4-19); BUN/Creat Ratio 20.8 RATIO (10-20); Calcium,Total 9.4 mg/dL (7.6-11.0); Carbon Dioxide 22.8 mmol/L (21.0-32.0); Chloride 101 mmol/L (98-108); Glucose 162 mg/dL (70-99); Potassium 3.9 mmol/L (3.3-5.1)
[2024-10-11 14:25] VITALS: BP 122/83; PULSE 63; RESP 15; TEMP 37; O2SAT 100
== END 2024-10-11 14:45 | disposition home or self-care (01) ==
PROVIDERS: Emergency Provider Student in an Organized Health Care Education/Training Program; PCP Family Medicine; Visit Provider Student in an Organized Health Care Education/Training Program
DX: N39.0 Urinary tract infection, site not specified (principal); E11.9 Type 2 diabetes mellitus without complications; Z79.4 Long term (current) use of insulin; I10 Essential (primary) hypertension; Z79.84 Long term (current) use of oral hypoglycemic drugs; Z79.899 Other long term (current) drug therapy
CPT/HCPCS: 70450; 71046; 80048; 81001; 85025; 93005; 99284; P9612; A4216